=== PATIENT | female | born 1985 | race Caucasian/White ===

== ENCOUNTER 2019-12-20 02:12 | Emergency (ER) | payer OTHER ==
[~2019-12-20] VITALS: Ht 172.7 cm; Wt 64.0 kg
--- NOTE | 2019-12-20 02:27 | Emergency Department Note ---
History of Present Illnes History of Present Illness Chief Complaint: General Medicine Complaints History of Present Illness This is a 34 year old female brought in by EMS from [facility]. EMS reports patient had low grad temp of 100.3 that was treated with 650 mg of tylenol by the facil ran and 0.1 mg of clonidine for blood pressure of 166/82. Facility wanted patient to be checked out. Patient in no distress and states no complaints. Pt checked into rehab yesterday for etoh abuse and last had etoh yesterday morning.. 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 Mode: Onset (how long ago): hour(s) (2) Location: none Quality: reported fever and elevated blood pressure Radiation: Reports non-radiation Severity: unable to specify Onset quality: gradual Duration (how long): hour(s) (2) Timing of current episode: unable to specify Progression: resolved Chronicity: new Context: Reports new medications (pt on multiple meds at rehab); Denies recent illness, Denies recent surgery Relieving factors: none Exacerbating factors: none Associated symptoms: Reports denies other symptoms Treatments prior to arrival: antipyretic Past Medical/Family History Physician Review I have reviewed the patient's past medical and family history. Any updates have been documented here. Past Medical History Recent Fever: No Clinical Suspicion of Infectio: No New/Unexplained Change in Ment: No Other Medical History: chrons wpw Past Surgical History: Back Surgery Social History Smoking Cessation: Current some day smoker Alcohol Use: Daily Any Illegal Drug Use: No Family History Family history of heart diseas: No Review of Systems Review of Systems Constitutional: Reports as per HPI EENTM: Reports no symptoms Cardiovascular: Reports no symptoms Respiratory: Reports no symptoms Gastrointestinal: Reports no symptoms Genitourinary: Reports no symptoms Musculoskeletal: Reports no symptoms Integumentary: Reports no symptoms Neurological: Reports no symptoms Psychological: Reports no symptoms Endocrine: Reports no symptoms Hematological/Lymphatic: Reports no symptoms Physical Exam Related Data Allergies: Coded Allergies: No Known Allergies (Unverified , 12/20/19) Triage Vital Signs Vital Signs Date Time Temp Pulse Resp B/P (MAP) Pulse Ox O2 Delivery O2 Flow Rate FiO2 12/20/19 02:17 98.4 78 20 137/86 95 Room Air Vital signs reviewed: Yes Physical Exam CONSTITUTIONAL Constitutional: Present well-developed, Present well-nourished HENT HENT: Present normocephalic, Present atraumatic, Present oropharynx clear/moist, Present nose normal HENT L/R: Present left ext ear normal, Present right ext ear normal EYES Eyes: Reports PERRL, Reports conjunctivae normal NECK Neck: Present ROM normal PULMONARY Pulmonary: Present effort normal, Present breath sounds normal CARDIOVASCULAR Cardiovascular: Present regular rhythm, Present heart sounds normal, Present capillary refill normal, Present normal rate GASTROINTESTINAL Abdominal: Present soft, Present nontender, Present bowel sounds normal GENITOURINARY Genitourinary: Present exam deferred SKIN Skin: Present warm, Present dry MUSCULOSKELETAL Musculoskeletal: Present ROM normal NEUROLOGICAL Neurological: Present alert, Present oriented x 3, Present no gross motor or sensory deficits PSYCHOLOGICAL Psychological: Present mood/affect normal, Present judgement normal Results Laboratory Laboratory Laboratory Tests Test 12/20/19 02:30 12/20/19 02:20 Urine Color Yellow (YELLOW) Urine Clarity Sl cloudy (CLEAR) Urine pH 7.5 (5 - 7) Urine Specific [place] 1.015 (1.010-1.025) Urine Protein Negative (NEGATIVE) Urine Glucose (UA) Negative (NEGATIVE) Urine Ketones Negative (NEGATIVE) Urine Blood Small (NEGATIVE) Urine Nitrite Negative (NEGATIVE) Urine Bilirubin Negative (NEGATIVE) Urine Urobilinogen 0.2 mg/dL (0.2 - 1) Urine Leukocyte Esterase Moderate (NEGATIVE) Urine RBC 6-10 /HPF (0-5) Urine WBC 11-20 /HPF (0-5) Urine Epithelial Cells Few /LPF (NONE) Urine Bacteria Few /HPF (NONE) Urine Test Negative (NEGATIVE) White Blood Count 6.74 x10e3/uL (4.8-10.8) Red Blood Count 3.67 x10e6/uL (3.6-5.1) Hemoglobin 12.2 g/dL (12.0-16.0) Hematocrit 35.7 % (34.2-44.1) Mean Corpuscular Volume 97.3 fL (81-99) Mean Corpuscular Hemoglobin 33.2 pg (28-32) Mean Corpuscular Hemoglobin Concent 34.2 g/dL (31-35) Red Cell Distribution Width 13.5 % (11.7-14.4) Platelet Count 195 x10e3/uL (140-360) Neutrophils (%) (Auto) 69.0 % (38.7-80.0) Lymphocytes (%) (Auto) 17.1 % (18.0-39.1) Monocytes (%) (Auto) 11.9 % (4.4-11.3) Eosinophils (%) (Auto) 0.7 % (0.0-6.0) Basophils (%) (Auto) 1.0 % (0.0-1.0) Neutrophils # (Auto) 4.7 (2.1-6.9) Lymphocytes # (Auto) 1.2 (1.0-3.2) Monocytes # (Auto) 0.8 (0.2-0.8) Eosinophils # (Auto) 0.1 (0.0-0.4) Basophils # (Auto) 0.1 (0.0-0.1) Absolute Immature Granulocyte (auto 0.02 x10e3/uL (0-0.1) Sodium Level 140 mmol/L (136-145) Potassium Level 3.7 mmol/L (3.5-5.1) Chloride Level 105 mmol/L (98-107) Carbon Dioxide Level 25 mmol/L (22-29) Anion Gap 13.7 mmol/L (8-16) Blood Urea Nitrogen 8 mg/dL (7-26) Creatinine 0.69 mg/dL (0.57-1.11) Estimat Glomerular Filtration Rate > 60 ML/MIN (60-) BUN/Creatinine Ratio 12 (6-25) Glucose Level 73 mg/dL (74-118) Calcium Level 9.2 mg/dL (8.4-10.2) Total Bilirubin 1.1 mg/dL (0.2-1.2) Aspartate Amino Transf (AST/SGOT) 68 IU/L (5-34) Alanine Aminotransferase (ALT/SGPT) 94 IU/L (0-55) Alkaline Phosphatase 52 IU/L (40-150) Total Protein 6.4 g/dL (6.5-8.1) Albumin 3.9 g/dL (3.5-5.0) Globulin 2.5 g/dL (2.3-3.5) Albumin/Globulin Ratio 1.6 (0.8-2.0) Lab results reviewed: Yes Imaging Imaging results reviewed: Yes Impressions EXAMINATION: CHEST SINGLE (PORTABLE) INDICATION: ^fever COMPARISON: None FINDINGS: TUBES and LINES: None. LUNGS: Hazy right basilar opacity. The left lung is clear. 9 mm nodular density projecting over the posterior eighth left rib. PLEURA: No pleural effusion or pneumothorax. HEART AND MEDIASTINUM: The cardiomediastinal silhouette is unremarkable. BONES AND SOFT TISSUES: No acute osseous lesion. Soft tissues are unremarkable. IMPRESSION: 1. Hazy right basilar opacity concerning infectious/inflammatory process such as pneumonia, but atelectasis could also have this appearance. 2. 9 mm nodular density projecting over the posterior eighth left rib could represent a prominent vessel on end, but a pulmonary nodule is not excluded. Consider radiographic follow-up in 6-8 weeks. 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 the symptoms pt was sent over for are consistent with etoh withd david. cbc, cmp, ua, cxr, ordered to eval for uti, pneumonia, electrolyte abnormality, leukocytosis, pt found to have uti rocephin 1 gram iv ordered pt discharged back to rehab facility with prescription omnicef 300 mg po bid for 10 days Assessment & Plan Final Impression: (1) UTI (urinary tract infection) (2) Alcohol withdrawal Depart Disposition: DISC/XFER TO INPT REHAB FAC Last Vital Signs Date Time Temp Pulse Resp B/P (MAP) Pulse Ox O2 Delivery O2 Flow Rate FiO2 12/20/19 02:17 98.4 78 20 137/86 95 Room Air HARSH BARDALES MD Dec 20, 2019 02:27
[2019-12-20 02:34] LABS: BASOPHILS # (AUTO) 0.1 (0.0-0.1); EOSINOPHILS # (AUTO) 0.1 (0.0-0.4); EOSINOPHILS % 0.7 % (0.0-6.0); HEMATOCRIT 35.7 % (34.2-44.1); HEMOGLOBIN 12.2 g/dL (12.0-16.0); LYMPHOCYTES # (AUTO) 1.2 (1.0-3.2); LYMPHOCYTES % 17.1 % (18.0-39.1); MEAN CORPUSCULAR HEMOGLOBIN 33.2 pg (28-32); MEAN CORPUSCULAR HGB CONC 34.2 g/dL (31-35); MEAN CORPUSCULAR VOLUME 97.3 fL (81-99); MONOCYTES # (AUTO) 0.8 (0.2-0.8); MONOCYTES % 11.9 % (4.4-11.3); NEUTROPHILS # (AUTO) 4.7 (2.1-6.9); PLATELET COUNT 195 x10e3/uL (140-360); RED BLOOD COUNT 3.67 x10e6/uL (3.6-5.1); RED CELL DISTRIBUTION WIDTH 13.5 % (11.7-14.4)
--- OUTSIDE RECORDS SUMMARY | 2019-12-20 02:41 | XMS REPORT | Clinical Summary ---
Author Author SYLVIE [facility] Address Unknown Phone Unavailable Care Team Providers Care Extrusion Former Name Role Phone Donna Villegas MD PCP Unavailable Allergies Comments Active Allergy Reactions Severity Noted Date IV bruises vein Promethazine 01/18/2018 Medications End Date Status Medication Sig Dispensed Refills Start Date Active promethazine (PHENERGAN) TK 1 T PO Q 8 0 12/14 25 MG tablet H 8 Active azaTHIOprine (IMURAN) 50 Imuran 50 mg 0 mg tablet tablet Active DULoxetine (CYMBALTA) 20 Take 20 mg by 0 MG capsule mouth daily. Active levonorgestrel (KYLEENA by 0 IU) Intrauterine route. Active DULoxetine (CYMBALTA) 20 Take 20 mg by 0 01/26 / MG capsule mouth daily. 2 Active ALPRAZolam (XANAX XR) 0.5 Take 0.5 mg 0 MG 24 hr tablet by mouth as needed. Active azaTHIOprine (IMURAN) 50 Take 50 mg by 0 mg tablet mouth daily. 12/26/2019 Active cephalexin (KEFLEX) 500 Take 1 21 capsule 0 MG capsule capsule (500 0 mg total) by mouth 3 (three) times daily for 7 days. Active Problems No known active problems Encounters Care Team Description Date Type Specialty Joseph, Era Hobbs PA-C Acute cystitis without hematuria (Primar y Dx); Alcohol abuse; Acute dehydration; Elevated LFTs 12/19/2019 Emergency Emergency Medicine 12/19/2019 Orders Only General Internal Me dicine 12/19/2019 Travel after 12/19/2018 Social History Date Tobacco Use Types Packs/Day Years Used Current Every Day Smoker Cigarettes Smokeless Tobacco: Never Used Tobacco Cessation: Ready to Quit: No; Co unseling Given: No Alcohol Use Drinks/Week oz/Week Comments Yes 40 Glasses of 24.0 2-3 drinks/1-2 times per week wine Sex Assigned at Date Recorded Not on file Industry Job Start Date Occupation Not on file Not on file Not on file Travel End Travel History Travel Start No recent travel history available. Last Filed Vital Signs Time Taken Vital Sign Reading 12/19/2019 4:33 PM CDT Blood Pressure 138/92 12/19/2019 4:33 PM CDT Pulse 98 12/19/2019 4:33 PM CDT Temperature 36.8 C (98.3 F) 12/19/2019 4:33 PM CDT Respiratory Rate 16 12/19/2019 4:33 PM CDT Oxygen Saturation 98% - Inhaled Oxygen - Concentration 12/19/2019 1:48 PM CDT Weight 74.8 kg (165 lb) - Height - 12/19/2019 1:48 PM CDT Body Mass Index 25.09 Plan of Treatment Health Maintenance Due Date Last Done Comments PNEUMOCOCCAL VACCINE 2-64 09/01/1989 YEARS AT RISK (1 of 1 - PPSV23) LIPID PANEL 2003 CERVICAL CANCER SCREENING 09/01/2004 PAP ONLY (Age 21-65) INFLUENZA VACCINE (#1) 2020 Procedures Comments Procedure Name Priority Date/Time Associated Diag nosis CT BRAIN WITHOUT IV STAT 12/19/2019 CONTRAST 3:51 PM CDT ED ECG INTERPRETATION Routine 12/19/2019 3:28 PM CDT ECG 12-LEAD Routine 12/19/2019 2:52 PM CDT Procedure Note - Interface, External Ris In - 12/19/2019 2:53 PM CDT Ventricula r Rate 95 BPM Atrial Rate 95 BPM P-R Interval 134 ms QRS Duration 78 ms Q-T Interval 362 ms QTC Calculatio n(Bazett) 454 ms P [place] 71 degrees R [place] 81 degrees T [place] 64 degrees Normal sinus rhythm Normal ECG No previous ECGs available CBC W/PLT COUNT & AUTO STAT 12/19/2019 DIFFERENTIAL 2:14 PM CDT COMPREHENSIVE METABOLIC STAT 12/19/2019 PANEL 2:14 PM CDT SALICYLATE LEVEL STAT 12/19/2019 2:14 PM CDT ACETAMINOPHEN LEVEL STAT 12/19/2019 2:14 PM CDT ETHANOL STAT 12/19/2019 2:14 PM CDT CREATINE KINASE (CK) STAT 12/19/2019 2:14 PM CDT CBC W/PLT COUNT & AUTO STAT 12/19/2019 DIFFERENTIAL 2:14 PM CDT URINALYSIS W/ REFLEX STAT 12/19/2019 URINE CULTURE 2:08 PM CDT RAPID DRUG SCREEN, URINE STAT 12/19/2019 2:08 PM CDT SCREEN, URINE STAT 12/19/2019 2:08 PM CDT after 12/19/2018 Results * CT brain without IV contrast (12/19/2019 3:51 PM CDT) Specimen Narrative Performed At FINAL REPORT [employer] [facility] CT, BRAIN, WITHOUT CONTRAST INDICATION: altered altered TECHNIQUE: Noncontrast axial imaging wa s obtained from the vertex to the skull base. Axial images were recon structed using a bone algorithm. DOSE REDUCTION: Dose modulation, iterat mart reconstruction, and/or weight-based adjustment of the mA/kV wa s utilized to reduce the radiation dose to as low as reasonably achievable. COMPARISON: None. FINDINGS: Intracranial: There is encephalomalacia within the inferior left frontal lobe and anterior left temporal lobe, suggestive of sequela of remote trauma. No intracranial hemorrhage or abnormal extra-axial collection. No evidence of acute territorial infarct. No mass effect. No hydrocephalus. Osseous structures: No fracture. No chicho picious lesion. Paranasal sinuses and mastoid air cells : No evidence of sinusitis. Mastoids are clear. Orbital contents: Globes are intact. IMPRESSION: 1.No acute intracranial hemorrhage or C T evidence of territorial infarct. 2.Encephalomalacia in the left inferior frontal lobe and anterior temporal lobe, suggestive of sequela of remote trauma. If there is persistent clinical concern for intracranial pathology, MR examination is recommended for [facility] er characterization. Signed: Leatha Prater MD Report Verified Date/Time: 0 16:06:46 Procedure Note Interface, External Ris In - 12/19/2019 4:08 PM CDT FINAL REPORT CT, BRAIN, WITHOUT CONTRAST INDICATION: altered altered TECHNIQUE: Noncontrast axial imaging was obtained from the vertex to the skull base. Axial images were reconstructed using a bone algorithm. DOSE REDUCTION: Dose modulation, iterative reconstruction, and/or weight-based adjustment of the mA/kV was utilized to reduce the radiation dose to as low as reasonably achievable. COMPARISON: None. FINDINGS: Intracranial: There is encephalomalacia within the inferior left frontal lobe and anterior left temporal lobe, suggestive of sequela of remote trauma. No intracranial hemorrhage or abnormal extra-axial collection. No evidence of acute territorial infarct. No mass effect. No hydrocephalus. Osseous structures: No fracture. No suspicious lesion. Paranasal sinuses and mastoid air cells: No evidence of sinusitis. Mastoids are clear. Orbital contents: Globes are intact. IMPRESSION: 1.No acute intracranial hemorrhage or CT evidence of territorial infarct. 2.Encephalomalacia in the left inferior frontal lobe and anterior temporal lobe, suggestive of sequela of remote trauma. If there is persistent clinical concern for intracranial pathology, MR examination is recommended for further characterization. Signed: Leatha Prater MD Report Verified Date/Time: 12/19/2019 16:06:46 Performing Organization Address City/State/Zipcode Ph one Number GE RIS * CBC with platelet count + automated diff (12/19/2019 2:14 PM CDT) WBC 7.5 4.0 - 10.0 K/L [facility] RBC 4.14 4.00 - 5.00 M/L [facility] Hemoglobin 14.1 12.0 - 15.5 GM/DL [facility] Hematocrit 40.7 36.0 - 46.0 % [facility] MCV 98.3 82.0 - 99.[address] [facility] MCH 34.1 (H) 27.0 - 33.0 pg [facility] MCHC 34.6 32.0 - 36.0 GM/DL [facility] RDW 13.9 12.0 - 15.0 % [facility] Platelets 272 150 - 430 K/CU MM [facility] MPV 9.2 6.0 - 11.5 fL [facility] nRBC 0 0 - 0 /100 WBC [facility] % Neutros 77 % [facility] % Lymphs 11 % [facility] % Monos 9 % [facility] % Eos 0 % [facility] % Baso 2 % [facility] # Neutros 5.77 1.80 - 8.00 K/L [facility] # Lymphs 0.81 (L) 1.48 - 4.50 K/L [facility] # Monos 0.70 0.00 - 1.30 K/L [facility] # Eos 0.02 0.00 - 0.50 K/L [facility] # Baso 0.11 0.00 - 0.20 K/L [facility] Immature 1 (H) 0 - 0 % [facility] Granulocytes-Relative Specimen Blood Performing Organization Address [facility] one [address] [phone] * Creatine Kinase (CK) (12/19/2019 2:14 PM CDT) Total CK 523 (H) 29 - 168 U/L [facility] Specimen Blood Narrative Performed At Freight Conductor ID - [id number] [facility] Performing Organization Address [facility] one [address] [phone] * Ethanol (12/19/2019 2:14 PM CDT) Ethanol Lvl 134 (H) <=10 mg/dL [facility] Specimen Blood Narrative Performed At Freight Conductor ID - [id number] [facility] Performing Organization Address [facility] one [address] [phone] * Acetaminophen level (12/19/2019 2:14 PM CDT) Acetaminophen Level <6.0 (L) 10.0 - 30.0 ug/mL [facility] Specimen Blood Narrative Performed At Freight Conductor ID - [id number] [facility] Performing Organization Address [facility] one Critical access hospital LAB[facility] [address] [place], [place] [phone] * Salicylate level (12/19/2019 2:14 PM CDT) Salicylate Lvl <5.0 (L) 20.0 - 30.0 mg/dL [facility] Specimen Blood Narrative Performed At Freight Conductor ID - [id number] [facility] Performing Organization Address [facility] one Critical access hospital LAB[facility]ORY [address] [place], [place] [phone] * Comprehensive metabolic panel (12/19/2019 2:14 PM CDT) Protein, Total 7.8 6.0 - 8.5 gm/dL [facility] Albumin 4.9 3.5 - 5.0 g/dL [facility] Alkaline Phosphatase 68 30 - 115 U/L [facility] Total Bilirubin 0.7 0.1 - 1.3 mg/dL [facility] Sodium 142 135 - 148 meq/L [facility] Potassium 4.0 3.5 - 5.5 meq/L [facility] Chloride 104 98 - 106 meq/L [facility] CO2 23 20 - 31 meq/L [facility] BUN 7 (L) 10 - 26 mg/dL [facility] Creatinine 0.74 0.50 - 1.20 mg/dL [facility] Glucose 81 70 - 110 mg/dL [facility] Calcium 9.4 8.5 - 10.5 mg/dL [facility] AST 127 (H) 5 - 40 U/L [facility] ALT 137 (H) 6 - 50 U/L [facility] EGFR Comment: INSUFFICIENT CLINICAL [facility] DATA TO CALCULATE ESTIMATED GFR. Specimen Blood Narrative Performed At Freight Conductor ID - [id number] [facility] Performing Organization Address [facility] one Critical access hospital LABORATORY [address] [place], [place] [phone] * Urinalysis w/Microscopic + Reflex to Culture (12/19/2019 2:08 PM CDT) Color, UA Yellow [facility] Clarity, UA Hazy [facility] Specific [place], UA 1.015 1.001 - 1.035 [facility] pH, UA 6.0 5.0 - 8.0 [facility] Protein, UA 30 mg/dL (A) Negative [facility] Glucose, UA Negative Negative [facility] Ketones, UA Negative Negative [facility] Bilirubin, UA Negative Negative [facility] Blood, UA Moderate (A) Negative [facility] Nitrite, UA Negative Negative [facility] Leukocytes, UA Large (A) Negative [facility] Urobilinogen, UA 2.0 (H) 0.2 - 1.0 mg/dL [facility] RBC, UA 11 /HPF [facility] WBC, UA 187 /HPF [facility] Bacteria, UA Rare [facility] Mucus Few [facility] Squam Epithel, UA 3 /HPF [facility] Specimen Source [facility] Specimen Urine Narrative Performed At Freight Conductor ID - [[email or web address]] [facility] Freight Conductor ID - [email or web address] Performing Organization Address [facility] Ph one Number [facility] [id number] [place] [phone] * Rapid drug screen, urine (12/19/2019 2:08 PM CDT) Barbiturate Screen Negative Negative [facility] Benzodiazepine Screen Positive (A) Negative [facility] Cocaine (Metab.) Screen Negative Negative [facility] Methadone Screen Negative Negative [facility] Opiate Screen Negative Negative [facility] Cannabinoid Screen Negative Negative [facility] Amph/Methamph Screen Negative Negative [facility] Phencyclidine Screen Negative Negative [facility] pH, UA 6.0 5.0 - 8.0 [facility] Specimen Urine Narrative Performed At [facility] Cocaine 300 ng/mL Flincdudute74 n g/mL [id number] ng/mL Barbiturate 200 ng/ mL Yyilgwerytpqe32 ng/ mL Opiate3 00 ng/mL Methadone 300 n g/mL Amphetamine/ 1000 ng/mL Methamphetamine This assay provides an unconfirmed qual itative test result for the clinical management of patients in emergency sit uations. Chain of custody not maintained. Some [id number] medications, as w ell as adulterants, may cause inaccurate results. Clinical correlation should be applied. A more comprehensive drug screen or confirmation of a detected dr ug may be performed upon request. Freight Conductor ID - [email or web address] Performing Organization Address [facility] one Critical access hospital LAB[facility]ORY [address] [place], [place] [phone] * Screen, urine (12/19/2019 2:08 PM CDT) Preg Test, Ur Negative [facility] Specimen Urine Performing Organization Address [facility] one Critical access hospital LABORATORY [address] [place], [place] [phone] after 12/19/2018
--- OUTSIDE RECORDS SUMMARY | 2019-12-20 02:43 | XMS REPORT | Continuity of Care Document ---
Author Author CAROLINE Johnson Organization [employer] Address Unknown Phone Unavailable Care Team Providers Care Medical Records Field Technician Name Role Phone [employer] Unavailable Un available Problems Problem Status Onset Date Classification Date Reported Comments Source Alcohol abuse, uncomplicated 12/08/2019 12/10/2019 [facility] Suicidal ideations 12/08/2019 12/10/2019 [place] SI Active [place] Alcohol use, unspecified with intoxication, unspecifie d 12/02/2019 12/05/2019 [place] ALCOHOL WITHDRAWAL, SEIZURE Ac tive 12/01/2019 [place] Contusion of scalp, initial encounter 11/08/2019 11/11/2019 [place] SPINAL STENOSIS, LUMBOSACRAL REGION Active 07/09/2019 [place] ETOH Active 06/28/2019 [place] SI/ PSYC Active 06/12/2019 [place] Restlessness and agitation 05/22/2019 05/24/2019 [place] Disorientation, unspecified 05/22/2019 05/24/2019 [place] POST SURGERY Active 05/22/2019 [place] M48.07 M54.17 Active 05/16/2019 [place] Abrasion, right knee, initial encounter 05/05/2019 05/07/2019 [place] Dorsalgia, unspecified 05/05/2019 05/07/2019 [place] Other specified disorders of brain 05/05/2019 05/07/2019 [place] Acute stress reaction 05/05/2019 05/07/2019 [place] Radiculopathy, lumbar region 05/05/2019 05/07/2019 [place] Fall on same level, unspecified, initial encounter 05/05/2019 05/07/2019 [place] Alcohol dependence with intoxication, unspecified 05/05/2019 05/07/2019 [place] PANIC ATTACK Active 05/05/2019 [place] AMS Active 1 05/19/2018 [facility] CEREBRAL CONTUSION.CHORDOMA OF CLIVUS/AM Active 03/19/2019 [place] INTOXICATION Active 12/23/2018 [facility] OTHER Active 12/22/2018 [facility] Infectious mononucleosis, unspecified wi thout complication 01/10/2018 07/30/2018 [facility] FEVER, BODY ACHES Active 01/10/2018 [facility] Discharge Diagnosis: Abdominal pain 02/20/2014 02/23/2014 [facility] Discharge Diagnosis: Diarrhea 02/20/2014 02/23/2014 [facility] SENT BY DR MORGAN FOR POSS BLOCKAGE Active 02/19/2014 [facility] LEFT LOWER QAUDRANT ABD PAIN A ctive 01/30/2012 [facility] CHRONS/COLITIS Active 01/27/2012 [facility] CROHNS, VOMITING, DIARRHEA Act anuradha 01/26/2012 [facility] CHRONES FLARE UP Active 12/30/2011 [facility] Anxiety (finding) Resolved Problem 12/10/2019 [facility] [place] Crohn's disease (disorder) Res olved Problem [facility] [place] Diarrhea (finding) Active Problem 12/10/2019 [facility] [place] Nausea (finding) Active Problem 12/10/2019 [facility] [place] Nephrotic syndrome (disorder) Resolved Problem [facility] [place] Pain (finding) Active Problem 12/10/2019 [facility] [place] Suazn-Ydilfzzoh-Jttqz pattern (disorder) Resolved Problem 12/10/2019 [facility], [place] Pre-excitation syndrome 07/30/2018 [facility] Crohn's disease, unspecified, without complications 07/30/2018 [facility] Crohn's disease Active Problem 02/06/2012 [facility], [place] [facility] [place] Diarrhea Active Problem 02/06/2012 [facility], [place] Nausea Active Problem 02/06/2012 [facility], [place] Pain Active Problem 02/06/2012 [facility], [place] Chronic back pain (disorder) A ctive Problem [facility] Current drinker of alcohol (finding) Active Problem [facility] 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 Problem 12/10/2019 [facility] Fracture of clivus of occipital bone (disorder) Active Problem 12/10/2019 [facility] Traumatic brain injury (disorder) Active Problem [facility] Pre-op evaluation Active Diagnosis 09/17/2019 [facility] Other chronic pain Active Problem 09/17/2019 [facility] Low back pain Active Diagnosis 09/17/2019 [facility] ADMINISTRTVE ENCOUNT NOS Active [facility] ABDMNAL PAIN LT LWR QUAD Active [facility] CONTUS/LAC CEREB, W LOC OF UNSP DURATION Active [facility] MALIGNANT NEOPLASM OF BONES OF SKULL AND Active [facility] ALTERED MENTAL STATUS, UNSPECIFIED Active [facility] ALCOHOL DEPENDENCE WITH WITHDRAWAL, UNSP Active [facility] UNSPECIFIED CONVULSIONS Active [facility] Medications Medication Details Route Status Patient Instructions Ordering Provider Order Date Source Valium Notes: (Same as: Valium) Inactive 12/08/2019 [facility] Valium Notes: (Same as: Valium ) WASTE: F/P - Black; E - White/Blue Inactive 12/08/2019 [facility] Chlordiazepoxide Hydrochloride 25 MG Oral Capsule 25 mg, 1 cap, Route: PO, Drug form: CAP, ONCE, Dosing Weight 73.636, kg, Alcohol Withdrawal, Start date: 12/08/19 16:02:00 CDT, Stop date: 12/08/19 16:02:00 CDT, 0 Inactive 12/08/2019 [facility] Nicotine Notes: (Same as: Ami aviles) "Remove old patch before application of new patch" WASTE: F/P - P Waste Black; E - P Waste Black Inactive 12/08/2019 [facility] Geodon Notes: Reconstitute wit h 1.2 ml of sterile water. Final concentration = 20 mg/1ml. Maximum 40 mg/24 hours (Same As: Arti). Hazardous Drug Group 3:Reproductive risk Hazardous Drug -- Refer to safe handling procedure PPE Matrix MEDICATION WASTE Product Size: 20 mg Product Wasted: ___ mg Inactive 12/08/2019 [facility] Nicotine Notes: (Same as: Ami aviles) "Remove old patch before application of new patch" WASTE: F/P - P Waste Black; E - P Waste Black Inactive 12/08/2019 [facility] Haldol Notes: (Same as: Haldol) Inactive 12/08/2019 [facility] Ativan Notes: (Same as: Ativan) Inactive 12/08/2019 [facility] Sodium Chloride 0.9% (Bolus) IV 1,000 mL, 1000 ml/hr, Infuse Over: 1 hr, Route: IV, 1,000, Drug form: INJ, ONCE, Priority: STAT, Dosing Weight 63.636 kg, Start date: 12/08/19 0:21:00 CDT, Stop date: 12/08/19 0:21:00 CDT, 0 Inactive 12/08/2019 [facility] Chlordiazepoxide 50 mg, 2 cap, Route: PO, Drug form: CAP, Q12H, Dosing Weight 63.636, kg, Start date: 12/04/19 21:00:00 CDT, Duration: 24 hr, Stop date: 12/05/19 9:00:00 CDT, 0 No Longer Active 12/05/2019 [facility] Chlordiazepoxide 50 mg, 2 cap, Route: PO, Drug form: CAP, Q8H, Dosing Weight 63.636, kg, Start date: 12/04/19 0:00:00 CDT, Duration: 24 hr, Stop date: 12/04/19 16:00:00 CDT, 0 No Longer Active 12/04/2019 [facility] Folic Acid Notes: (Same as: Fo lvite) Inactive 12/03/2019 [facility] multivitamin Notes: (Same as:T madi) WASTE: F/P - Black; E - Municipal Trash Bin Take with food. Inactive 12/03/2019 [facility] Thiamine Notes: (Same As: Laura min B1) Inactive 12/03/2019 [facility] Chlordiazepoxide 50 mg, 2 cap, Route: PO, Drug form: CAP, Q6H, Dosing Weight 63.636, kg, Start date: 12/02/19 18:00:00 CDT, Duration: 24 hr, Stop date: 12/03/19 12:00:00 CDT, 0 No Longer Active 12/02/2019 [place] Sodium Chloride 0.9% IV 1,000 mL + M.V.I .-12 10 mL Daily + folic acid IV 1 mg Daily + thiamine IV 1 1,000 mL, Rate: 100 ml/hr, Infuse over: 10.1 hr, Route: IV, Dosing Weight 63.636 kg, Total Volume: 1,011.2, Start date: 12/02/19 16:09:00 CDT, Duration: 1 doses or times, Stop date: 12/03/19 2:14:00 CDT, 1.76, m2, 0 Inactive 12/02/2019 [place] Sodium Chloride 0.9% IV 1,000 mL 1,000 mL, Rate: 125 ml/hr, Infuse over: 8 hr, Route: IV, Dosing Weight 63.636 kg, Total Volume: 1,000, Start date: 12/02/19 16:09:00 CDT, Duration: 30 day, Stop date: 01/01/20 16:08:00 CDT, 1.76, m2, 0 No Longer Active 12/02/2019 [place] Saline Flush 0.9% Notes: Same as: BD Posiflush Sterile No Longer Active 12/02/2019 [place] Lorazepam Notes: (Same as: Shamika mendoza) No Longer Active 12/02/2019 [place] Ativan Notes: (Same as: Ativan) No Longer Active 12/02/2019 [place] Dextrose 50% Syringe (D50W) 12 .5 gm, 25 mL, Route: IVP, Drug Form: INJ, Dosing Weight 63.636, kg, PRN, PRN Blood Glucose Results, Start date: 12/02/19 16:05:00 CDT, Duration: 30 day, Stop date: 01/01/20 16:04:00 CDT, 0 No Longer Active 12/02/2019 [place] Glucagon 1 mg, Route: IM, Drug form: PDR/INJ, PRN, Dosing Weight 63.636, kg, PRN Blood Glucose Results, Start date: 12/02/19 16:05:00 CDT, Duration: 30 day, Stop date: 01/01/20 16:04:00 CDT, 0 No Longer Active 12/02/2019 [facility] Ondansetron Notes: (Same as: Nikki ruiz) MEDICATION WASTE Product Size: 4 mg Product Wasted: ___ mg No Longer Active 12/02/2019 [facility] Acetaminophen Notes: Do not ex ceed 4 gm/day. (Same as: Tylenol) No Longer Active 12/02/2019 [facility] folic acid + Sodium Chloride 0.9% IV 100 mL Notes: (Same as: Folvite) Inactive 12/02/2019 [facility] Valium 20 mg, Route: IVP, Drug form: INJ, ONCE, Dosing Weight 63.636, kg, Start date: 12/02/19 15:32:00 CDT, Stop date: 12/02/19 15:32:00 CDT Inactive 12/02/2019 [facility] Folic Acid 1 mg, Route: IV, ON CE, Dosing Weight 63.636, kg, Start date: 12/02/19 15:04:00 CDT, Stop date: 12/02/19 15:04:00 CDT Inactive 12/02/2019 [facility] NS (Bolus) IV 1,000 mL, 1,000 ml/hr, Infuse Over: 1 hr, Route: IV, 1,000, Drug form: INJ, ONCE, Priority: STAT, Dosing Weight 63.636 kg, Start date: 12/02/19 15:04:00 CDT, Stop date: 12/02/19 15:04:00 CDT, 0 Inactive 12/02/2019 [facility] Thiamine 100 mg, Route: IV, Dr ug form: INJ, ONCE, Dosing Weight 63.636, kg, Priority: STAT, Start date: 12/02/19 15:03:00 CDT, Stop date: 12/02/19 15:03:00 CDT Inactive 12/02/2019 [facility] Valium Notes: (Same as: Valium ) WASTE: F/P - Black; E - White/Blue Inactive 12/02/2019 [facility] Haldol 5 mg, Route: IM, ONCE, Dosing Weight 63.636, kg, Priority: STAT, Start date: 12/02/19 8:53:00 CDT, Stop date: 12/02/19 8:53:00 CDT Inactive 12/02/2019 [facility] Geodon 20 mg, Route: IM, ONCE, Dosing Weight 63.636, kg, Priority: STAT, Start date: 12/02/19 1:44:00 CDT, Stop date: 12/02/19 1:44:00 CDT Inactive 12/02/2019 [facility] Sodium Chloride 0.9% (Bolus) IV 1,000 mL, Infuse Over: 1 hr, Route: IV, ONCE, Priority: STAT, Dosing Weight 63.636 kg, Start date: 12/01/19 23:11:00 CDT, Stop date: 12/01/19 23:11:00 CDT Inactive 12/02/2019 [facility] Nicotine Notes: (Same as: Ami aviles) "Remove old patch before application of new patch" WASTE: F/P - P Waste Black; E - P Waste Black Inactive 11/10/2019 [facility] Ativan Notes: (Same as: Ativan) Inactive 11/10/2019 [facility] Acetaminophen 325 MG / Hydrocodone Ronnie trate 5 MG Oral Tablet [[place] 5/325] 1 tab, Route: PO, Drug Form: TAB, Dosing Weight 67.273, kg, ONCE, STAT, Start date: 11/09/19 19:21:00 CDT, Stop date: 11/09/19 19:21:00 CDT Inactive 11/10/2019 [facility] Geodon 20 mg, Route: IM, ONCE, Dosing Weight 67.273, kg, Priority: STAT, Start date: 11/09/19 19:18:00 CDT, Stop date: 11/09/19 19:18:00 CDT Inactive 11/10/2019 [facility] Midazolam 2 mg, Route: IVP, Q1 5Min, Dosing Weight 67.273, kg, PRN Agitation, Priority: STAT, Start date: 11/09/19 18:39:00 CDT, Stop date: 11/09/19 21:00:00 CDT Inactive 11/09/2019 [facility] Droperidol 2.5 mg, Route: IV, ONCE, Dosing Weight 67.273, kg, Start date: 11/09/19 18:28:00 CDT, Stop date: 11/09/19 18:28:00 CDT Inactive 11/09/2019 [facility] Ketamine 300 mg, Route: IM, ON CE, Dosing Weight 67.273, kg, Start date: 11/09/19 18:27:00 CDT, Stop date: 11/09/19 18:27:00 CDT Inactive 11/09/2019 [facility] Valium Notes: (Same as: Valium) Inactive 11/09/2019 [facility] Valium Notes: (Same as: Valium) Inactive 11/09/2019 [facility] Valium 10 mg, Route: PO, Drug form: TAB, ONCE, Dosing Weight 67.273, kg, Priority: STAT, Start date: 11/09/19 8:12:00 CDT, Stop date: 11/09/19 8:12:00 CDT Inactive 11/09/2019 [facility] Arti Notes: Reconstitute wit h 1.2 ml of sterile water. Final concentration = 20 mg/1ml. Maximum 40 mg/24 hours (Same As: Arti). Hazardous Drug Group 3:Reproductive risk Hazardous Drug -- Refer to safe handling procedure PPE Matrix MEDICATION WASTE Product Size: 20 mg Product Wasted: ___ mg Inactive 11/09/2019 [facility] Arti Notes: Reconstitute wit h 1.2 ml of sterile water. Final concentration = 20 mg/1ml. Maximum 40 mg/24 hours (Same As: Arti). Hazardous Drug Group 3:Reproductive risk Hazardous Drug -- Refer to safe handling procedure PPE Matrix MEDICATION WASTE Product Size: 20 mg Product Wasted: ___ mg No Longer Active 11/09/2019 [facility] Sodium Chloride 0.9% (Bolus) IV 1,000 mL, 1000 ml/hr, Infuse Over: 1 hr, Route: IV, 1,000, Drug form: INJ, ONCE, Priority: STAT, Dosing Weight 67.273 kg, Start date: 11/08/19 23:35:00 CDT, Stop date: 11/08/19 23:35:00 CDT, 0 No Longer Active 11/09/2019 [facility] Thiamine Notes: (Same As: Laura min B1) No Longer Active 11/09/2019 [facility] Chlordiazepoxide Hydrochloride 25 MG Oral Capsule See Instructions, PRN Anxiety, 2 cap PO QID the first day 2 cap PO TID the second day 2 cap PO BID the third day 2 cap PO QHS the fourth day, # 20 tab, 0 Refill(s) Inactive 08/13/2019 [facility] thiamine 100 mg oral tablet 10 0 mg = 1 tab, PO, Daily, X 7 day, # 7 tab, 0 Refill(s) Active 08/13/2019 [facility] Folic Acid 1 MG Oral Tablet 1 mg = 1 tab, PO, Daily, # 30 tab, 0 Refill(s) Active 08/13/2019 [facility] Ativan Notes: (Same as: Ativan) Inactive 08/13/2019 [facility] Arti Notes: Reconstitute wit h 1.2 ml of sterile water. Final concentration = 20 mg/1ml. Maximum 40 mg/24 hours (Same As: Arti). Hazardous Drug Group 3:Reproductive risk Hazardous Drug -- Refer to safe handling procedure PPE Matrix MEDICATION WASTE Product Size: 20 mg Product Wasted: ___ mg Inactive 08/12/2019 [facility] Ativan Notes: (Same as: Ativan) Inactive 08/12/2019 [facility] Ativan 1 mg, Route: IVP, Drug form: INJ, ONCE, Dosing Weight 67, kg, Priority: STAT, Start date: 08/12/19 12:59:00 CDT, Stop date: 08/12/19 12:59:00 CDT Inactive 08/12/2019 [facility] Arti Notes: Reconstitute wit h 1.2 ml of sterile water. Final concentration = 20 mg/1ml. Maximum 40 mg/24 hours (Same As: Arti). Hazardous Drug Group 3:Reproductive risk Hazardous Drug -- Refer to safe handling procedure PPE Matrix MEDICATION WASTE Product Size: 20 mg Product Wasted: ___ mg Inactive 08/12/2019 [facility] Ativan 1 mg, Route: IVP, Drug form: INJ, ONCE, Dosing Weight 65.909, kg, Priority: STAT, Start date: 06/29/19 7:32:00 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, Stop date: 06/29/19 7:32:00 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 Inactive 06/29/2019 [facility] Chlordiazepoxide Hydrochloride 25 MG Oral Capsule 50 mg, Route: PO, Drug form: CAP, ONCE, Dosing Weight 65.909, kg, Alcohol Withdrawal, Start date: 06/29/19 6:20:00 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, Stop date: 06/29/19 6:20:00 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 Inactive 06/29/2019 [facility] Chlordiazepoxide Hydrochloride 25 MG Oral Capsule 50 mg, Route: PO, Drug form: CAP, ONCE, Dosing Weight 65.909, kg, Alcohol Withdrawal, Start date: 06/29/19 0:56:00 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, Stop date: 06/29/19 0:56:00 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 Inactive 06/29/2019 [facility] Chlordiazepoxide Hydrochloride 25 MG Oral Capsule See Instructions, PRN Anxiety, 2 cap PO QID the first day 2 cap PO TID the second day 2 cap PO BID the third day 2 cap PO QHS the fourth day, # 20 tab, 0 Refill(s) Inactive 06/29/2019 [facility] Folic Acid 1 MG Oral Tablet 1 mg = 1 tab, PO, Daily, # 30 tab, 0 Refill(s) Active 06/29/2019 [facility] thiamine 100 mg oral tablet 10 0 mg = 1 tab, PO, Daily, X 7 day, # 7 tab, 0 Refill(s) Active 06/29/2019 [facility] Haldol Notes: (Same as: Haldol) Inactive 06/28/2019 [facility] NS (Bolus) IV 2,000 mL, 2000 m l/hr, Infuse Over: 1 hr, Route: IV, 2,000, Drug form: INJ, ONCE, Priority: STAT, Dosing Weight 67.273 kg, Start date: 06/28/19 15:53:00 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, Stop date: 06/28/19 15:53:00 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, 0 Inactive 06/28/2019 [facility] Ativan Notes: (Same as: Ativan) Inactive 06/28/2019 [facility] Depakote Notes: (Same as: Depa kote ER) (Do Not Crush) "Do Not Crush" Inactive 06/14/2019 [facility] Ativan Notes: (Same as: Ativan) Inactive 06/14/2019 [facility] Ativan 2 mg, Route: IVP, Drug form: INJ, ONCE, Dosing Weight 67.273, kg, Priority: STAT, Start date: 06/14/19 7:35:00 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, Stop date: 06/14/19 7:35:00 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 Inactive 06/14/2019 [facility] Benadryl Notes: (Same as: Shirley dryl) Inactive 06/14/2019 [facility] Diphenhydramine Notes: (Same a s: Benadryl) No Longer Active 06/14/2019 [facility] Haldol Notes: (Same as: Haldol) No Longer Active 06/14/2019 [facility] Ativan Notes: (Same as: Ativan) No Longer Active 06/14/2019 [facility] olanzapine Notes: (Same As: Zy PREXA IM). Reconstitute with 2.1 ml sterile water for injection; use within 1 hour after reconstitution. For IM use only; do not administer IV or SUB-Q. Inactive 06/14/2019 [facility] Depakote Notes: (Same as: Depa kote ER) Once daily dosing; indicated for migraines. Divalproex sodium extended-release tab. Do not chew or crush. "Do Not Crush" No Longer Active 06/14/2019 [facility] Risperdal Notes: (Same as: Ris perdal) No Longer Active 06/13/2019 [facility] Ativan Notes: (Same as: Ativan) Inactive 06/13/2019 [facility] Ativan Notes: (Same as: Ativan) Inactive 06/13/2019 [facility] Haldol 5 mg, Route: IM, ONCE, Dosing Weight 67.273, kg, Priority: STAT, Start date: 06/13/19 8:54:00 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, Stop date: 06/13/19 8:54:00 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 Inactive 06/13/2019 [facility] Ativan 1 mg, Route: IVP, Drug form: INJ, ONCE, Dosing Weight 67.273, kg, Priority: STAT, Start date: 06/13/19 8:46:00 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, Stop date: 06/13/19 8:46:00 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 Inactive 06/13/2019 [facility] Ativan Notes: (Same as: Ativan) Inactive 06/13/2019 [facility] Lorazepam Notes: (Same as: Shamika mendoza) Inactive 06/13/2019 [facility] Lorazepam 1 mg, Route: IVP, Dr ug form: INJ, ONCE, Dosing Weight 67.273, kg, Priority: STAT, Start date: 06/12/19 18:47:00 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, Stop date: 06/12/19 18:47:00 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 Inactive 06/13/2019 [facility] Lorazepam Notes: (Same as: Shamika mendoza) Inactive 06/13/2019 [facility] olanzapine Notes: (Same As: Zy PREXA IM). Reconstitute with 2.1 ml sterile water for injection; use within 1 hour after reconstitution. For IM use only; do not administer IV or SUB-Q. Inactive 06/13/2019 [facility] NS (Bolus) IV 1,000 mL, 1,000 ml/hr, Infuse Over: 1 hr, Route: IV, 1,000, Drug form: INJ, ONCE, Priority: STAT, Dosing Weight 68.182 kg, Start date: 05/22/19 14:25:00 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, Stop date: 05/22/19 14:25:00 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, 0 Inactive 05/22/2019 [facility] Ativan 1 mg, Route: IVP, Drug form: INJ, ONCE, Dosing Weight 68.182, kg, Priority: STAT, Start date: 05/22/19 12:41:00 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, Stop date: 05/22/19 12:41:00 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 Inactive 05/22/2019 [facility] Benadryl Notes: (Same as: Alva dryl) Inactive 05/22/2019 [facility] Ativan 1 mg, Route: IVP, Drug form: INJ, ONCE, Dosing Weight 68.182, kg, Priority: STAT, Start date: 05/22/19 12:40:00 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, Stop date: 05/22/19 12:40:00 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 Inactive 05/22/2019 [facility] Haloperidol 5 mg, Route: IM, O NCE, Dosing Weight 68.182, kg, Priority: STAT, Start date: 05/22/19 12:39:00 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, Stop date: 05/22/19 12:39:00 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 Inactive 05/22/2019 [facility] Phenergan Notes: Do not give I V push. (Same as: Phenergan) Inactive 05/05/2019 [place] Dilaudid Notes: Same as: Dilau did Inactive 05/05/2019 [place] Zofran Notes: (Same as: Zofran ) MEDICATION WASTE Product Size: 4 mg Product Wasted: ___ mg Inactive 05/05/2019 [place] Sodium Chloride 0.9% (Bolus) IV 1,000 mL, 1000 ml/hr, Infuse Over: 1 hr, Route: IV, 1,000, Drug form: INJ, ONCE, Priority: STAT, Dosing Weight 67.273 kg, Start date: 05/05/19 2:44:00 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, Stop date: 05/05/19 2:44:00 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, 0 Inactive 05/05/2019 [facility] Thiamine Notes: (Same As: Laura min B1) Inactive 05/05/2019 [facility] Acetaminophen 325 MG Oral Tablet 100.4 F, 0 Refill(s) Active 03/29/2019 [place] Diazepam Notes: (Same as: Rl um) No Longer Active 03/25/2019 [place] Cymbalta Notes: (Same as: Cymb deven) (Do Not Crush) No Longer Active 03/25/2019 [place] Divalproex Sodium 500 MG Enteric Coated Tablet Notes: (Same as: Depakote Delayed Release) Do not confuse with the extended-release tablet. Delayed absorption enteric coated tablet. Do not crush No Longer Active 03/25/2019 [place] Risperidone Notes: (Same as: R isperdal) Inactive 03/24/2019 [place] Zofran Notes: (Same as: Zofran) No Longer Active 03/24/2019 [place] Diazepam Notes: (Same as: Rl um) No Longer Active 03/24/2019 [place] Risperidone Notes: (Same as: R isperdal) No Longer Active 03/23/2019 [place] Thiamine Notes: (Same As: Laura min B1) No Longer Active 03/23/2019 [place] Risperidone Notes: (Same as: R isperdal) Inactive 03/23/2019 [place] Valium Notes: (Same as: Valium) Inactive 03/22/2019 [facility] gabapentin Notes: (Same as: Ne urontin) No Longer Active 03/22/2019 [facility] Fioricet with Codeine Notes: N on-Formulary Drug. Do not exceed 4 gm/day of acetaminophen. (Same as: Fioricet with Codeine) (Same as: Fioricet with Codeine) No Longer Active 03/22/2019 [facility] heparin Notes: porcine heparin No Longer Active 03/21/2019 [facility] potassium phosphate-sodium phosphate 250 mg-280 mg-160 mg oral powder for reconstitution Notes: (Same as: Phos-NaK) Each 1.5 gm pkt has 250mg phosphorous. Mix w/2.5oz water and stir. No Longer Active 03/21/2019 [facility] Nephro-Maynor Rx Notes: (Same as : Nephro-Maynor Rx and Diatx) Give with food. No Longer Active 03/21/2019 [facility] Levetiracetam 500 MG Oral Tablet [Keppra] Notes: (Same as:Keppra) No Longer Active 03/21/2019 [facility] Diazepam 10 mg, Route: PO, Blane g form: TAB, Q8H, Dosing Weight 71.4, kg, Start date: 03/20/19 16:00:00 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, Duration: 30 day, Stop date: 04/19/19 8:00:00 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 Inactive 03/20/2019 [facility] Keppra Notes: Same as Keppra Mix with 100 mL NS, LR or D5W MEDICATION WASTE Product Size: 500 mg Product Wasted: ___ mg No Longer Active 03/20/2019 [facility] Thiamine Notes: (Same As: Laura min B1) No Longer Active 03/20/2019 [facility] Nephro-Maynor Rx 1 tab, Route: P O, Drug Form: TAB, Dosing Weight 71.4, kg, Daily, Start date: 03/20/19 9:00:00 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, Duration: 30 day, Stop date: 04/18/19 9:00:00 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 Inactive 03/20/2019 [facility] Diazepam Notes: (Same as: Rl um) No Longer Active 03/20/2019 [facility] NS 1,000 mL 1,000 mL, Rate: 10 0 ml/hr, Infuse over: 10 hr, Route: IV, Dosing Weight 71.4 kg, Total Volume: 1,000, Start date: 03/20/19 8:54:00 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, Duration: 30 day, Stop date: 04/19/19 8:53:00 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, 1.86, m2, 0 No Longer Active 03/20/2019 [place] Potassium Chloride Notes: ([facility] e as: KCL) Infuse no faster than 10 mEq/hr if given peripherally. No Longer Active 03/20/2019 [place] sodium phosphate Notes: Infuse over 4 hour. Do not infuse phosphorous concurrently in the same line as TPN or IVF that contains calcium. For double lumen central lines, phosphorous may be infused in a separate lumen from TPN. No Longer Active 03/20/2019 [place] potassium phosphate Notes: ( me as: K Phosphate.) Do not infuse phosphorous concurrently in the same line as TPN or IVF that contains calcium. For double lumen central lines, phosphorous may be infused in a separate lumen from TPN. 1 mMol phoshate has 1.47 mEq potassium Infuse over 4 hours No Longer Active 03/20/2019 [place] potassium phosphate-sodium phosphate 250 mg-280 mg-160 mg oral powder for reconstitution Notes: (Same as: Phos-NaK) Each 1.5 gm pkt has 250mg phosphorous. Mix w/2.5oz water and stir. No Longer Active 03/20/2019 [place] Magnesium Sulfate Notes: WASTE : F/P - Sink; E - Municipal Trash Bin No Longer Active 03/20/2019 [place] Magnesium Oxide Notes: (Same a s: Mag-Ox 400) Magnesium oxide [id number] elemental magnesium Dose=____mg magnesium oxide (___mg elemental magnesium) No Longer Active 03/20/2019 [place] Calcium Gluconate Notes: WASTE : F/P - Sink; E - Municipal Trash Bin No Longer Active 03/20/2019 [place] Calcium Carbonate 500 MG Chewable Tablet Notes: (Same As: Tums) Calcium Carbonate 500 mg = 200 mg elemental calcium Dose = mg calcium carbonate ( mg elemental calcium) No Longer Active 03/20/2019 [facility] Sodium Chloride 0.9% IV 1,000 mL + M.V.I .-12 10 mL Daily + folic acid IV 1 mg Daily + thiamine IV 1 1,000 mL, Rate: 100 ml/hr, Infuse over: 10.1 hr, Route: IV, Dosing Weight 63.636 kg, Total Volume: 1,011.2, Start date: 03/19/19 21:09:00 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, Duration: 3 day, Stop date: 03/22/19 21:08:00 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 (Same as: Tylenol) No Longer Active 03/20/2019 [facility] Ondansetron 2 MG/ML Injectable Solution [Zofran] Notes: (Same as: Zofran) MEDICATION WASTE Product Size: 4 mg Product Wasted: ___ mg No Longer Active 03/20/2019 [facility] Morphine Notes: (Same as:MORPh ine Sulfate) Inactive 03/20/2019 [facility] Keppra 1,000 mg, 100 mL, Route : IV, Drug form: INJ, ONCE, Dosing Weight 63.636, kg, Start date: 03/19/19 19:16:00 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, Stop date: 03/19/19 19:16:00 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, 0 Inactive 03/20/2019 [facility] Tylenol Notes: Max acetaminoph en 4000 mg/day (4 gm/day). (Same as: Tylenol Extra Strength) Inactive 03/19/2019 [facility] Compazine Notes: (Same as: Com pazine) Inactive 03/19/2019 [facility] Magnesium Sulfate Notes: WASTE : F/P - Sink; E - Municipal Trash Bin Inactive 03/19/2019 [facility] NS (Bolus) IV 1,000 mL, 1,000 ml/hr, Infuse Over: 1 hr, Route: IV, 1,000, Drug form: INJ, ONCE, Priority: STAT, Dosing Weight 63.636 kg, Start date: 03/19/19 17:04:00 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, Stop date: 03/19/19 17:04:00 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, 0 Inactive 03/19/2019 [facility] Benadryl Notes: (Same as: Alva dryl) Inactive 03/19/2019 [facility] Oxazepam 30 MG Oral Capsule 30 mg, 1 cap, Route: PO, QID, Dosing Weight 68.182, kg, Start date: 12/23/18 17:00:00 CDT, Duration: 30 day, Stop date: 01/22/19 13:00:00 CDT Inactive 12/23/2018 [facility] Chlordiazepoxide Hydrochloride 25 MG Oral Capsule See Instructions, PRN Alcohol Withdrawal, Taper: Days 1-2: 3 tabs Days 3-4: 2 tabs Days 5-6: 1 tab, # 12 cap, 0 Refill(s) Active 12/23/2018 [facility] Chlordiazepoxide Hydrochloride 25 MG Oral Capsule 25 mg, 1 cap, Route: PO, Drug form: CAP, ONCE, Dosing Weight 68.182, kg, Start date: 12/23/18 14:11:00 CDT, Stop date: 12/23/18 14:11:00 CDT, 0 Inactive 12/23/2018 [facility] Oxazepam 30 MG Oral Capsule 30 mg, Route: PO, ONCE, Dosing Weight 68.182, kg, Start date: 12/23/18 13:57:00 CDT, Stop date: 12/23/18 13:57:00 CDT Inactive 12/23/2018 [facility] Ativan Notes: (Same as: Ativan) Inactive 12/23/2018 [facility] Sodium Chloride 0.9% (Bolus) IV 1,000 mL, 1000 ml/hr, Infuse Over: 1 hr, Route: IV, 1,000, Drug form: INJ, ONCE, Priority: STAT, Dosing Weight 68.182 kg, Start date: 12/23/18 11:20:00 CDT, Stop date: 12/23/18 11:20:00 CDT, 0 Inactive 12/23/2018 [facility] Ibuprofen Notes: (Same as: Mot rin) "Do Not Crush" Take with food. Inactive 01/10/2018 [facility] Acetaminophen Notes: Do not ex ceed 4 gm/day. (Same as: Tylenol) Inactive 01/10/2018 [facility] Sodium Chloride 0.9% (Bolus) IV 1,000 mL, 1000 ml/hr, Infuse Over: 1 hr, Route: IVPB, 1,000, Drug form: INJ, ONCE, Priority: STAT, Dosing Weight 71.023 kg, Start date: 01/10/18 16:58:00 CDT, Stop date: 01/10/18 16:58:00 CDT Inactive 01/10/2018 [facility] Saline Flush 0.9% Notes: prese rvative free. Inactive 01/10/2018 [facility] Acetaminophen 325 MG / Hydrocodone Ronnie trate 5 MG Oral Tablet Notes: (Same as: [place] 325/5) Do not ex ceed 4gm/day of acetaminophen. Inactive 02/20/2014 [facility] Ondansetron Notes: (Same as: Z ofran) Inactive 02/20/2014 [facility] Morphine Notes: (Same as:MORPh ine Sulfate) Inactive 02/20/2014 [facility] Sodium Chloride 0.154 MEQ/ML Injectable Solution 1,000 mL, 1000 ml/hr, Infuse Over: 1 hr, Route: IV, 1,000, Drug form: INJ, ONCE, Priority: STAT, Dosing Weight 70.455 kg, Start date: 02/20/14 0:07:00, Duration: 1 doses or times, Stop date: 02/20/14 0:07:00 Inactive 02/20/2014 [facility] Saline Flush 0.9% Notes: Same as: BD Posiflush Sterile Inactive 02/20/2014 [facility] Sodium Chloride 0.9% IV IV, 0 ml/hr, PRN, PRN Line Flush, Start date: 02/02/12 19:51:00, Duration: 30, 100 ml IV No Longer Active Ap 02/03/2012 [facility] methylPREDNISolone 40 mg, 1 mL , Route: IVP, Drug form: INJ, Q12H, Start date: 02/02/12 18:30:00, Duration: 30 day, Stop date: 03/03/12 18:00:00 IVP No Longer Active Kyle 02/02/2012 [facility] Dilaudid 1 mg, 0.5 mL, Route: IV, Drug form: INJ, Q3H, PRN Severe Pain, Start date: 02/02/12 12:29:00, Duration: 30 day, Stop date: 03/03/12 12:28:00 IV No Longer Active Kyle 02/02/2012 [facility] Asacol 800 mg, 2 tab, Route: P O, Drug form: ECTAB, TID, Start date: 02/02/12 10:00:00, Duration: 30 day, Stop date: 03/03/12 9:00:00 PO No Longer Active Kyle [facility] Phenergan 12.5 mg, 0.5 tab, [place]: PO, Drug form: TAB, Q6H, Start date: 02/01/12 12:00:00, Duration: 30 day, Stop date: 03/02/12 6:00:00 PO No Longer Active Kyle 02/01/2012 [facility] Citrate of Magnesia 300 mL, [place]: PO, Drug Form: LIQ, BID, Start date: 02/01/12 12:00:00, Duration: 2 doses or times, Stop date: 02/01/12 18:00:00 PO No Longer Active Kyle 02/01/2012 [facility] Ambien 10 mg, 2 tab, Route: PO , Drug form: TAB, Bedtime, Start date: 01/31/12 21:00:00, Duration: 30 day, Stop date: 02/29/12 21:00:00 PO No Longer Active Kyle [facility] BD Normal Saline Flush 3 mL, R oute: IVP, Drug Form: INJ, Q8H, Start date: 01/31/12 16:00:00, Duration: 30 day, Stop date: 03/01/12 8:00:00 IVP No Longer Active [place] 01/31/2012 [facility] Imuran 150 mg, 3 tab, Route: P O, Drug form: TAB, Daily, Start date: 01/31/12 14:00:00, Stop date: 03/01/12 9:00:00 PO No Longer Active Kyle 01/31/2012 [facility] Cymbalta 20 mg, 1 cap, Route: PO, Drug form: DRC, Daily, Start date: 01/31/12 14:00:00, Duration: 30 day, Stop date: 03/01/12 9:00:00 PO No Longer Active Kyle [facility] BD Normal Saline Flush 3 mL, R oute: IVP, Drug Form: INJ, PRN, PRN Line Flush, Start date: 01/31/12 12:59:00, Duration: 30 day, Stop date: 03/01/12 12:58:00 IVP No Longer Active [place] 01/31/2012 [facility] Dextrose 5% in Lactated Ringers IV 1,000 mL 1,000 mL, Rate: 100 ml/hr, Infuse over: 10 hr, Route: IV, kg, Total Volume: 1,000, Start date: 01/31/12 7:46:00, Duration: 30 day, Stop date: 03/01/12 7:45:00 IV No Longer Active Kyle [facility] Phenergan 12.5 mg, 0.5 tab, [place]: PO, Drug form: TAB, Q6H, Start date: 01/30/12 20:00:00, Duration: 30 day, Stop date: 02/29/12 14:00:00 PO No Longer Active Kyle 01/31/2012 [facility] Cipro 400 mg, 200 mL, Route: I VPB, Drug form: INJ, Q12H, Start date: 01/30/12 20:00:00, Duration: 30 day, Stop date: 02/29/12 8:00:00 IVPB No Longer Active Kyle [facility] Flagyl 500 mg, 100 mL, Route: IVPB, Drug form: INJ, Q8H, Start date: 01/30/12 18:45:00, Duration: 30 day, Stop date: 02/29/12 18:00:00 IVPB No Longer Active Kyle [facility] Dilaudid 2 mg, 1 mL, Route: IV , Drug form: INJ, Q3H, PRN Pain, Start date: 01/30/12 18:29:00, Duration: 30 day, Stop date: 02/29/12 18:28:00 IV No Longer Active [place] 01/30/2012 [facility] Ambien 10 mg, 2 tab, Route: PO , Drug form: TAB, Bedtime, PRN Insomnia, Start date: 01/30/12 18:26:00, Duration: 30 day, Stop date: 02/29/12 18:25:00 PO No Longer Active [place] 01/30/2012 [facility] Tylenol 650 mg, 2 tab, Route: PO, Drug form: TAB, Q4H, PRN Temperature >100.4, Start date: 01/30/12 18:25:00, Duration: 30 day, Stop date: 02/29/12 18:24:00 PO No Longer Active [place] 01/30/2012 [facility] Zofran 4 mg, 2 mL, Route: IVP, Drug form: INJ, Q6H, PRN Vomiting, Start date: 01/30/12 18:23:00, Duration: 30 day, Stop date: 02/29/12 18:22:00 IVP No Longer Active [place] 01/30/2012 [facility] Dextrose 5% in Lactated Ringers IV 1,000 mL 1,000 mL, Rate: 150 ml/hr, Infuse over: 6.7 hr, Route: IV, kg, Total Volume: 1,000, Start date: 01/30/12 18:22:00, Duration: 2 doses or times, Stop date: 01/31/12 7:45:00 IV No Longer Active Kyle [facility] Imuran 100 mg, 2 tab, Route: P O, Drug form: TAB, Daily, Dosing Weight 68, kg, Start date: 01/28/12 15:00:00, Duration: 30 day, Stop date: 02/27/12 9:00:00 PO No Longer Active [place]su[place] 01/28/2012 [facility] nter Ultram 50 mg oral tablet 50 mg , 1 tab, PO, Q6H, PRN, 28 tab, Pain, Substitution Allowed, TAB PO Active Osua gwu 01/28/2012 [facility] nter Ultram 50 mg oral tablet 50 mg , 1 tab, Route: PO, Drug form: TAB, Q6H, Dosing Weight 68, kg, PRN Pain, Start date: 01/28/12 10:10:00, Duration: 30 day, Stop date: 02/27/12 10:09:00 PO No Longer Active [place] 01/28/2012 [facility] [place] 10/325 oral tablet 1 tab , Route: PO, Drug Form: TAB, Dosing Weight 68, kg, Q6H, PRN Pain, Start date: 01/28/12 10:10:00, Duration: 30 day, Stop date: 02/27/12 10:09:00 PO No Longer Active [place]su[place] 01/28/2012 [facility] Klonopin 0.25 mg, 0.5 tab, Rou te: PO, Drug form: TAB, BID, Dosing Weight 68, kg, Priority: NOW, Start date: 01/27/12 20:58:00, Duration: 30 day, Stop date: 02/26/12 17:00:00 PO No Longer Active Nick 01/28/2012 [facility] [place] 7.5/325 oral tablet 1 ta b, Route: PO, Drug Form: TAB, Dosing Weight 68, kg, Q6H, PRN Pain, Start date: 01/27/12 20:20:00, Duration: 30 day, Stop date: 02/26/12 20:19:00 PO No Longer Active [place]su[place] 01/28/2012 [facility] heparin 5,000 unit, 1 mL, Rout e: SUB-Q, Drug form: INJ, Q12H, Dosing Weight 68.182, kg, Start date: 01/27/12 9:00:00, Duration: 30 day, Stop date: 02/25/12 21:00:00 SUB-Q No Longer Active Nick 01/27/2012 [facility] nter Flagyl 500 mg, 100 mL, Route: IVPB, Drug form: INJ, [id number], Dosing Weight 68.182, kg, Start date: 01/27/12 6:00:00, Duration: 30 day, Stop date: 02/25/12 22:00:00 IVPB No Longer Active Nick 01/27/2012 [facility] Cipro 400 mg, 200 mL, Route: I VPB, Drug form: INJ, [id number], Dosing Weight 68.182, kg, Start date: 01/27/12 6:00:00, Duration: 30 day, Stop date: 02/25/12 18:00:00 IVPB No Longer Active Nick 01/27/2012 [facility] Imuran 100 mg, PO, Daily, Subs titution Allowed PO Active 01/27/2012 [facility] chorionic gonadotropin (HCG) 1 ,000 unit, Substitution Allowed No Longer Active 01/27/2012 [facility] clonazepam 0.5 mg oral tablet 0.25 mg, 0.5 tab, PO, TID, Substitution Allowed PO No Longer Active 01/27/2012 [facility] nt cyproheptadine Substitution Al lowed No Longer Active 01/27/2012 [facility] Multiple Vitamins with Minerals oral liquid Substitution Allowed, Maintenance No Longe r Active 01/27/2012 [facility] nter Multigen Substitution Allowed, Maintenance Active 01/27/2012 [facility] Fish Oil Substitution Allowed Active 01/27/2012 [facility] Oracea 40 mg oral delayed release capsule 40 mg, 1 cap, PO, Daily, Substitution Allowed PO No Longer Active 01/27/2012 [facility] nt Cymbalta 20 mg oral delayed release capsule 20 mg, 1 cap, PO, Daily, Substitution Allowed PO Active 01/27/2012 [facility] nter Toradol 15 mg/mL injectable solution 15 mg, 1 mL, Route: IV, Drug form: INJ, Q6H, Dosing Weight 68.182, kg, PRN Pain, Start date: 01/27/12 5:44:00, Duration: 4 day, Stop date: 01/31/12 5:43:00 IV No Longer Active Nick 01/27/2012 [facility] Zofran 4 mg, 2 mL, Route: IV, Drug form: INJ, Q6H, Dosing Weight 68.182, kg, PRN Nausea, Start date: 01/27/12 5:41:00, Duration: 30 day, Stop date: 02/26/12 5:40:00 IV No Longer Active Nick 01/27/2012 [facility] nter D5W 1/2NS + KCL 20mEq/L 1000ml (Premix) 1,000 mL 1,000 mL, Rate: 100 ml/hr, Infuse over: 10 hr, Route: IV, kg, Total Volume: 1,000, Start date: 01/27/12 5:40:00, Duration: 30 day, Stop date: 02/26/12 5:39:00 IV No Longer Active Nick 01/13 [facility] predniSONE 10 mg oral tablet S ee Instructions, 4 tabs po daily for 1 week, then 3 tabs daily for 1 week, then 2 tabs daily for 1 week , then 1 tab daily for 1 week, 70 tab, Substitution Allowed4 tabs po daily for 1 week, then 3 tabs daily for 1 week, then 2 tabs daily for 1 week , then 1 tab daily for 1 week No Longer Active Nick 01/26/2012 [facility] Apriso 0.375 g oral capsule, extended release 1.5 gm, 4 cap, PO, QAM, 120 cap, 3, 3, Substitution Allowed, ERCAP PO No Longer Active Nick 01/26/2012 [facility] Flagyl 500 mg oral tablet 500 mg, 1 tab, PO, Q8H, 30 tab, Substitution Allowed PO No Longer Active Nick 01/26/2012 [facility] ciprofloxacin 500 mg oral tablet 500 mg, 1 tab, PO, Q12H, 20 tab, Substitution Allowed, TAB PO No Longer Active Nick 01/26/2012 [facility] acetaminophen-hydrocodone 325 mg-7.5 mg oral tablet 2 tab, Route: PO, Drug Form: TAB, Dosing Weight 68.182, kg, ONCE, STAT, Start date: 01/26/12 9:12:00, Stop date: 01/26/12 9:12:00 PO No Longer Active [place] 01/26/2012 [facility] Sodium Chloride 0.9% (Bolus) IV 1,000 mL 1,000 mL, Rate: 1,000 ml/hr, Infuse over: 1 hr, Route: IV, kg, Total Volume: 1,000, Bolus Dose, Priority: STAT, Start date: 01/26/12 9:10:00, Duration: 1 doses or times, Stop date: 01/26/12 10:09:00 IV No Longer Active [place] 01/26/2012 [place] morphine Sulfate 4 mg, Route: IVP, ONCE, Dosing Weight 68.182, kg, Priority: STAT, Start date: 01/26/12 7:37:00, Stop date: 01/26/12 7:37:00 IVP No Longer Active [place] 01/26/2012 [place] Levsin SL 0.25 mg, 2 tab, Rout e: PO, Drug form: TAB, ONCE, Dosing Weight 68.182, kg, Start date: 01/26/12 6:56:00, Stop date: 01/26/12 6:56:00 PO No Longer Active [place] 01/26/2012 [place] Flagyl 500 mg, 1 tab, Route: P O, Drug form: TAB, ONCE, Dosing Weight 68.182, kg, Priority: STAT, Start date: 01/26/12 6:55:00, Stop date: 01/26/12 6:55:00 PO No Longer Active [place] 01/26/2012 [place] ciprofloxacin 500 mg, 1 tab, R oute: PO, Drug form: TAB, ONCE, Dosing Weight 68.182, kg, Priority: STAT, Start date: 01/26/12 6:55:00, Stop date: 01/26/12 6:55:00 PO No Longer Active [place] 01/26/2012 [place] chorionic gonadotropin (HCG) S ubstitution Allowed No Longer Active 01/26/2012 [place] clonazepam Substitution Allowed No Longer Active 01/26/2012 [place] cyproheptadine Substitution Al lowed No Longer Active 01/26/2012 [place] Fish Oil Substitution Allowed No Longer Active 01/26/2012 [place] Oracea Substitution Allowed No Longer Active 01/26/2012 [place] Omnipaque 240 50 mL, Route: PO , Drug Form: SOLN, Dosing Weight 68.182, kg, ONCE, Start date: 01/26/12 5:47:00, Stop date: 01/26/12 5:47:00 PO No Longer Active [place] 01/26/2012 [place] morphine Sulfate 4 mg, 1 mL, R oute: IVP, Drug form: INJ, ONCE, Dosing Weight 68.182, kg, Priority: STAT, Start date: 01/26/12 5:33:00, Stop date: 01/26/12 5:33:00 IVP No Longer Active [place] 01/26/2012 [facility] ondansetron 4 mg, 2 mL, Route: IVP, Drug form: INJ, ONCE, Dosing Weight 68.182, kg, Priority: STAT, Start date: 01/26/12 5:33:00, Stop date: 01/26/12 5:33:00 IVP No Longer Active [place] 01/26/2012 [facility] Sodium Chloride 0.9% (Bolus) IV 1,000 mL 1,000 mL, Rate: 1,000 ml/hr, Infuse over: 1 hr, Route: IV, kg, Total Volume: 1,000, Bolus Dose, Priority: STAT, Start date: 01/26/12 5:33:00, Duration: 1 doses or times, Stop date: 01/26/12 6:32:00 IV No Longer Active [place] 01/26/2012 [facility] Saline Flush 0.9% 5 ml, Route: IVP, Drug Form: INJ, Dosing Weight 68.182, kg, PRN, PRN Line Flush, Start date: 01/26/12 5:33:00, Duration: 24 hr, Stop date: 01/27/12 5:32:00 IVP No Longer Active [place] 01/26/2012 [facility] [place] 5/325 oral tablet 1 tab, PO, Q4H, PRN, 10 tab, for pain, Substitution Allowed, Soft Stop, TAB PO Active [facility] a 12/31/2011 [facility] nter Dilaudid 1 mg, Route: IV, ONCE , Dosing Weight 70.455, kg, Start date: 12/31/11 2:08:00, Stop date: 12/31/11 2:08:00 IV No Longer Active [place] 12/31/2011 [facility] Zofran 4 mg, 2 mL, Route: IVP, Drug form: INJ, ONCE, kg, Priority: STAT, Start date: 12/31/11 0:08:00, Stop date: 12/31/11 0:08:00 IVP No Longer Active [facility] 12/30 [facility] Dilaudid 1 mg, 0.5 mL, Route: IV, Drug form: INJ, ONCE, kg, Start date: 12/31/11 0:07:00, Stop date: 12/31/11 0:07:00 IV No Longer Active [facility] 12/31/2011 [facility] Dilaudid 1 mg, 0.5 mL, Route: IV, Drug form: INJ, ONCE, kg, Start date: 12/30/11 22:42:00, Stop date: 12/30/11 22:42:00 IV No Longer Active [facility] 12/31/2011 [facility] Zofran 8 mg, 4 mL, Route: IVP, Drug form: INJ, ONCE, kg, Priority: STAT, Start date: 12/30/11 22:41:00, Stop date: 12/30/11 22:41:00 IVP No Longer Active [facility] 12/30 [facility] Sodium Chloride 0.9% (Bolus) IV 1,000 mL 1,000 mL, Rate: 1,000 ml/hr, Infuse over: 1 hr, Route: IV, Dosing Weight 70.455 kg, Total Volume: 1,000, Bolus Dose, Priority: STAT, Start date: 12/30/11 22:41:00, Duration: 1 doses or times, Stop date: 12/30/11 23:40:00 IV No Longer Active [facility] 12/31/2011 [facility] Imuran 2 tablet Orally Active 50 mg Orally daily [facility] Cymbalta 2 capsule Orally Active 60 MG Orally Once a day [facility] Allergies, Adverse Reactions, Alerts Substance Category Reaction Severity Reaction type Status Date Reported Comments Source N.K.D.A. Adverse Reaction Info Not Available Adverse Reaction 05/16/2019 [facility] Phenergan drug allergy severe arm redness Allergy Active [facility] promethazine Assertion Irritates the veins, IV ONLY Drug allergy Active [facility] NKFA Assertion Food allergy Active [facility] No Known Medication Allergies Assertion Drug aller gy [facility] [place] Immunizations Immunization Date Given Site Status Last Updated Comments Source diphtheria/pertussis, acel/tetanus adult 11/09/2019 Right Deltoid completed [place] [facility] influenza virus vaccine, inactivated 03/30/2019 Right deltoid completed [facility] [place] Results Order Name Results Value Reference Range Date Interpretation Comments Source TOXICOLOGY Ethanol Lvl 26 12/08/2019 [place] TOXICOLOGY Etoh (%) 0.026 12/08/2019 [place] CHEM PANEL Glucose Lvl 72 70 - 99 12/08/2019 [place] CHEM PANEL BUN 5 7 - 22 12/08/2019 [place] CHEM PANEL Creatinine Lvl 0.57 0.50 - 1.40 12/08/2019 [place] CHEM PANEL Sodium Lvl 144 135 - 145 12/08/2019 [place] CHEM PANEL Potassium Lvl 3.5 3.5 - 5.1 12/08/2019 [place] CHEM PANEL Chloride Lvl 111 95 - 109 12/08/2019 [place] CHEM PANEL CO2 28 24 - 32 12/08/2019 [place] CHEM PANEL Calcium Lvl 8.6 8.5 - 10.5 12/08/2019 [place] CHEM PANEL Total Protein 7.4 6.4 - 8.4 12/08/2019 [place] CHEM PANEL Albumin Lvl 4.0 3.5 - 5.0 12/08/2019 [place] CHEM PANEL ALT 95 0 - 65 12/08/2019 [place] CHEM PANEL AST 82 0 - 37 12/08/2019 [place] CHEM PANEL Alk Phos 64 39 - 136 12/08/2019 [place] CHEM PANEL Bili Total 0.3 0.2 - 1.3 12/08/2019 [place] CHEM PANEL AGAP 8.5 10.0 - 20.0 12/08/2019 [place] CHEM PANEL B/C Ratio 9 6 - 25 12/08/2019 [place] CHEM PANEL Globulin 3.4 2.7 - 4.2 12/08/2019 [place] CHEM PANEL A/G Ratio 1.2 0.7 - 1.6 12/08/2019 [place] CHEM PANEL eGFR 120 12/08/2019 Result Comment: The eGFR is calculated using the CKD-EPI formula. In most young, healthy individuals the eGFR will be >90 mL/min/1.73m2. The eGFR declines with age. An eGFR of 60-89 may be normal in some populations, particularly the elderly, for whom the CKD-EPI formula has not been extensively validated. Use of the eGFR is not recommended in the following populations:

Individuals with unstable creatinine concentrations, including patients and those with serious co-morbid conditions.

Patients with extremes in muscle mass or diet.

The data above are obtained from the National Kidney Disease Education Program (NKDEP) which additionally recommends that when the eGFR is used in patients with extremes of body mass index for purposes of drug dosing, the eGFR should be multiplied by the estimated BMI. [place] DRUG SCREEN U Amph Scr Nega tive *NA* (12/08/19 12:40 AM) Negative 12/08/2019 [place] DRUG SCREEN U Zo Scr Nega tive *NA* (12/08/19 12:40 AM) Negative 12/08/2019 [place] DRUG SCREEN U Benzodiaz Scr Posi tive *ABN* (12/08/19 12:40 AM) Negative 12/08/2019 [facility] DRUG SCREEN U Cocaine Scr Nega tive *NA* (12/08/19 12:40 AM) Negative 12/08/2019 [place] DRUG SCREEN U Cannab Scr Nega tive *NA* (12/08/19 12:40 AM) Negative 12/08/2019 [place] DRUG SCREEN U Opiate Scr Nega tive *NA* (12/08/19 12:40 AM) Negative 12/08/2019 [place] DRUG SCREEN U Phencyclidine Scr Nega tive *NA* (12/08/19 12:40 AM) Negative 12/08/2019 [facility] DRUG SCREEN UDS Note See Note (12/08/19 12:40 AM) 12/08/2019 [facility] ENDOCRINOLOGY S Preg Ne gative *NA* (12/08/19 12:40 AM) Negative 12/08/2019 [facility] HEMATOLOGY WBC 7.0 3.7 - 10.4 12/08/2019 [facility] HEMATOLOGY RBC 4.04 4.20 - 5.40 12/08/2019 [facility] HEMATOLOGY Hgb 13.6 12.0 - 16.0 12/08/2019 [facility] HEMATOLOGY Hct 40.4 36.0 - 48.0 12/08/2019 [facility] HEMATOLOGY MCV 100.0 80.0 - 98.0 12/08/2019 [facility] HEMATOLOGY MCH 33.8 27.0 - 31.0 12/08/2019 [place] HEMATOLOGY MCHC 33.8 32.0 - 36.0 12/08/2019 [facility] HEMATOLOGY RDW 13.7 11.5 - 14.5 12/08/2019 [facility] HEMATOLOGY Platelet 204 133 - 450 12/08/2019 [facility] HEMATOLOGY MPV 7.4 7.4 - 10.4 12/08/2019 [facility] HEMATOLOGY Segs 68.0 45.0 - 75.0 12/08/2019 [facility] HEMATOLOGY Lymphocytes 20.4 20.0 - 40.0 12/08/2019 [place] HEMATOLOGY Monocytes 10.4 2.0 - 12.0 12/08/2019 [facility] HEMATOLOGY Eosinophils 0.5 0.0 - 4.0 12/08/2019 [facility] HEMATOLOGY Basophils 0.7 0.0 - 1.0 12/08/2019 [facility] HEMATOLOGY Neutrophils # 4.7 1.5 - 8.1 12/08/2019 [place] HEMATOLOGY Lymphocytes # 1.4 1.0 - 5.5 12/08/2019 [place] HEMATOLOGY Monocytes # 0.7 0.0 - 0.8 12/08/2019 [facility] TOXICOLOGY Acetaminoph Lvl <2 10 - 20 12/08/2019 [facility] TOXICOLOGY Ethanol Lvl 388 12/08/2019 Result Comment: Critical Result(s) called to Smita Wang at 12/08/2019 01:[address] Read back OK. [place] TOXICOLOGY Etoh (%) 0.388 12/08/2019 Result Comment: Critical Result(s) called to Smita Wang at 12/08/2019 01:[address] Read back OK. [facility] TOXICOLOGY Salicylate Lvl <1.7 0.0 - 30.0 12/08/2019 [facility] URINE AND STOOL UA Turbidity Clear (12/08/19 12:40 AM) Clear 12/08/2019 [facility] URINE AND STOOL UA Spec Grav 1.003 <=1.030 12/08/2019 [facility] URINE AND STOOL UA pH 7.0 5.0 - 8.0 12/08/2019 [place] URINE AND STOOL UA Protein Negative mg/dL Negative mg/dL 12/08/2019 [facility] URINE AND STOOL UA Glucose Negative mg/dL Negative mg/dL 12/08/2019 [facility] URINE AND STOOL UA Ketones Negative mg/dL Negative mg/dL 12/08/2019 [facility] URINE AND STOOL UA Bili Negative *NA* (12/08/19 12:40 AM) Negative 12/08/2019 [place] URINE AND STOOL UA Blood Small *ABN* (12/08/19 12:40 AM) Negative 12/08/2019 [place] URINE AND STOOL UA Nitrite Negative (12/08/19 12:40 AM) Negative 12/08/2019 [place] URINE AND STOOL UA Leuk Est Negative (12/08/19 12:40 AM) Negative 12/08/2019 [place] URINE AND STOOL UA Sq Epi Occasional /LPF Few /LPF 12/08/2019 [place] URINE AND STOOL UA WBC <1 0 - 5 12/08/2019 [place] URINE AND STOOL UA RBC <1 0 - 2 12/08/2019 [place] URINE AND STOOL UA Color Straw 12/08/2019 [place] URINE AND STOOL UA Urobilinogen <=1.0 mg/dL 0.1 - 1.0 12/08/2019 [facility] CHEM PANEL Glucose Lvl 83 70 - 99 12/03/2019 [place] CHEM PANEL BUN 4 7 - 22 12/03/2019 [place] CHEM PANEL Creatinine Lvl 0.59 0.50 - 1.40 12/03/2019 [place] CHEM PANEL Sodium Lvl 134 135 - 145 12/03/2019 [place] CHEM PANEL Potassium Lvl 3.4 3.5 - 5.1 12/03/2019 [place] CHEM PANEL Chloride Lvl 101 95 - 109 12/03/2019 [place] CHEM PANEL CO2 25 24 - 32 12/03/2019 [place] CHEM PANEL AGAP 11.4 10.0 - 20.0 12/03/2019 [place] CHEM PANEL Calcium Lvl 9.1 8.5 - 10.5 12/03/2019 [place] CHEM PANEL B/C Ratio 7 6 - 25 12/03/2019 [place] CHEM PANEL Total Protein 7.9 6.4 - 8.4 12/03/2019 [place] CHEM PANEL Albumin Lvl 4.3 3.5 - 5.0 12/03/2019 [place] CHEM PANEL Globulin 3.6 2.7 - 4.2 12/03/2019 [place] CHEM PANEL A/G Ratio 1.2 0.7 - 1.6 12/03/2019 [place] CHEM PANEL ALT 72 0 - 65 12/03/2019 [place] CHEM PANEL AST 88 0 - 37 12/03/2019 [place] CHEM PANEL Alk Phos 76 39 - 136 12/03/2019 [place] CHEM PANEL Bili Total 2.0 0.2 - 1.3 12/03/2019 [place] CHEM PANEL eGFR 119 12/03/2019 Result Comment: The eGFR is calculated using the CKD-EPI formula. In most young, healthy individuals the eGFR will be >90 mL/min/1.73m2. The eGFR declines with age. An eGFR of 60-89 may be normal in some populations, particularly the elderly, for whom the CKD-EPI formula has not been extensively validated. Use of the eGFR is not recommended in the following populations:

Individuals with unstable creatinine concentrations, including patients and those with serious co-morbid conditions.

Patients with extremes in muscle mass or diet.

The data above are obtained from the National Kidney Disease Education Program (NKDEP) which additionally recommends that when the eGFR is used in patients with extremes of body mass index for purposes of drug dosing, the eGFR should be multiplied by the estimated BMI. [facility] HEMATOLOGY WBC 7.9 3.7 - 10.4 12/03/2019 [facility] HEMATOLOGY RBC 4.22 4.20 - 5.40 12/03/2019 [facility] HEMATOLOGY Hgb 14.3 12.0 - 16.0 12/03/2019 [facility] HEMATOLOGY Hct 42.2 36.0 - 48.0 12/03/2019 [facility] HEMATOLOGY MCV 100.1 80.0 - 98.0 12/03/2019 [facility] HEMATOLOGY MCH 33.8 27.0 - 31.0 12/03/2019 [facility] HEMATOLOGY MCHC 33.7 32.0 - 36.0 12/03/2019 [place] HEMATOLOGY RDW 13.6 11.5 - 14.5 12/03/2019 [place] HEMATOLOGY Platelet 209 133 - 450 12/03/2019 [place] HEMATOLOGY MPV 7.9 7.4 - 10.4 12/03/2019 [place] HEMATOLOGY Segs 77.8 45.0 - 75.0 12/03/2019 [place] HEMATOLOGY Lymphocytes 11.9 20.0 - 40.0 12/03/2019 [place] HEMATOLOGY Monocytes 8.3 2.0 - 12.0 12/03/2019 [place] HEMATOLOGY Eosinophils 0.9 0.0 - 4.0 12/03/2019 [place] HEMATOLOGY Basophils 1.1 0.0 - 1.0 12/03/2019 [place] HEMATOLOGY Neutrophils # 6.2 1.5 - 8.1 12/03/2019 [place] HEMATOLOGY Lymphocytes # 0.9 1.0 - 5.5 12/03/2019 [place] HEMATOLOGY Monocytes # 0.7 0.0 - 0.8 12/03/2019 [place] HEMATOLOGY Eosinophils # 0.1 0.0 - 0.5 12/03/2019 [place] HEMATOLOGY Basophils # 0.1 0.0 - 0.2 12/03/2019 [place] HEMATOLOGY Macrocyte 1+ *ABN* (12/03/19 10:36 AM) None Seen 12/03/2019 [place] CHEM PANEL Magnesium Lvl 2.3 1.8 - 2.4 12/03/2019 [place] CHEM PANEL Phosphorus 2.9 2.5 - 4.5 12/03/2019 [place] TOXICOLOGY Ethanol Lvl 191 12/02/2019 [place] TOXICOLOGY Etoh (%) 0.191 12/02/2019 [place] CARDIAC ENZYMES Total CK 297 12 - 191 12/02/2019 [place] CHEM PANEL Glucose Lvl 87 70 - 99 12/02/2019 [place] CHEM PANEL BUN 4 7 - 22 12/02/2019 [place] CHEM PANEL Creatinine Lvl 0.62 0.50 - 1.40 12/02/2019 [place] CHEM PANEL Sodium Lvl 144 135 - 145 12/02/2019 [place] CHEM PANEL Potassium Lvl 4.0 3.5 - 5.1 12/02/2019 [place] CHEM PANEL Chloride Lvl 113 95 - 109 12/02/2019 [place] CHEM PANEL CO2 24 24 - 32 12/02/2019 [place] CHEM PANEL Calcium Lvl 8.4 8.5 - 10.5 12/02/2019 [place] CHEM PANEL Total Protein 8.0 6.4 - 8.4 12/02/2019 [place] CHEM PANEL Albumin Lvl 4.4 3.5 - 5.0 12/02/2019 [place] CHEM PANEL ALT 61 0 - 65 12/02/2019 [place] CHEM PANEL AST 54 0 - 37 12/02/2019 [place] CHEM PANEL Alk Phos 72 39 - 136 12/02/2019 [place] CHEM PANEL Bili Total 0.5 0.2 - 1.3 12/02/2019 [place] CHEM PANEL AGAP 11.0 10.0 - 20.0 12/02/2019 [place] CHEM PANEL B/C Ratio 6 6 - 25 12/02/2019 [place] CHEM PANEL Globulin 3.6 2.7 - 4.2 12/02/2019 [place] CHEM PANEL A/G Ratio 1.2 0.7 - 1.6 12/02/2019 [place] CHEM PANEL eGFR 116 12/02/2019 Result Comment: The eGFR is calculated using the CKD-EPI formula. In most young, healthy individuals the eGFR will be >90 mL/min/1.73m2. The eGFR declines with age. An eGFR of 60-89 may be normal in some populations, particularly the elderly, for whom the CKD-EPI formula has not been extensively validated. Use of the eGFR is not recommended in the following populations:

Individuals with unstable creatinine concentrations, including patients and those with serious co-morbid conditions.

Patients with extremes in muscle mass or diet.

The data above are obtained from the National Kidney Disease Education Program (NKDEP) which additionally recommends that when the eGFR is used in patients with extremes of body mass index for purposes of drug dosing, the eGFR should be multiplied by the estimated BMI. [place] DRUG SCREEN U Amph Scr Nega tive *NA* (7/19/20 11:13 PM) Negative 12/02/2019 [place] DRUG SCREEN U Zo Scr Nega tive *NA* (12/01/19 11:13 PM) Negative 12/02/2019 [place] DRUG SCREEN U Benzodiaz Scr Nega tive *NA* (12/01/19 11:13 PM) Negative 12/02/2019 [place] DRUG SCREEN U Cocaine Scr Nega tive *NA* (12/01/19 11:13 PM) Negative 12/02/2019 [place] DRUG SCREEN U Cannab Scr Nega tive *NA* (12/01/19 11:13 PM) Negative 12/02/2019 [place] DRUG SCREEN U Opiate Scr Nega tive *NA* (12/01/19 11:13 PM) Negative 12/02/2019 [place] DRUG SCREEN U Phencyclidine Scr Nega tive *NA* (12/01/19 11:13 PM) Negative 12/02/2019 [place] DRUG SCREEN UDS Note See Note (12/01/19 11:13 PM) 12/02/2019 [place] ENDOCRINOLOGY S Preg Ne gative *NA* (12/01/19 11:13 PM) Negative 12/02/2019 [facility] HEMATOLOGY WBC 6.3 3.7 - 10.4 12/02/2019 [facility] HEMATOLOGY RBC 4.36 4.20 - 5.40 12/02/2019 [facility] HEMATOLOGY Hgb 14.9 12.0 - 16.0 12/02/2019 [facility] [place] HEMATOLOGY Hct 43.8 36.0 - 48.0 12/02/2019 [facility] [place] HEMATOLOGY MCV 100.6 80.0 - 98.0 12/02/2019 [facility] [place] HEMATOLOGY MCH 34.3 27.0 - 31.0 12/02/2019 [facility] [place] HEMATOLOGY MCHC 34.1 32.0 - 36.0 12/02/2019 [facility] [place] HEMATOLOGY RDW 13.8 11.5 - 14.5 12/02/2019 [facility] [place] HEMATOLOGY Platelet 245 133 - 450 12/02/2019 [facility] [place] HEMATOLOGY MPV 7.1 7.4 - 10.4 12/02/2019 [facility] [place] HEMATOLOGY Segs 67.4 45.0 - 75.0 12/02/2019 [facility] HEMATOLOGY Lymphocytes 23.3 20.0 - 40.0 12/02/2019 [place] HEMATOLOGY Monocytes 7.3 2.0 - 12.0 12/02/2019 [facility] [place] HEMATOLOGY Eosinophils 0.7 0.0 - 4.0 12/02/2019 [facility] [place] HEMATOLOGY Basophils 1.3 0.0 - 1.0 12/02/2019 [facility] [place] HEMATOLOGY Neutrophils # 4.2 1.5 - 8.1 12/02/2019 [place] HEMATOLOGY Lymphocytes # 1.5 1.0 - 5.5 12/02/2019 [facility] [place] HEMATOLOGY Monocytes # 0.5 0.0 - 0.8 12/02/2019 [facility] [place] HEMATOLOGY Basophils # 0.1 0.0 - 0.2 12/02/2019 [facility] [place] HEMATOLOGY Macrocyte 1+ *ABN* (12/01/19 11:13 PM) None Seen 12/02/2019 [facility] [place] TOXICOLOGY Acetaminoph Lvl <2 (12/01/19 11:13 PM) 10 - 20 12/02/2019 [facility] [place] TOXICOLOGY Ethanol Lvl 451 12/02/2019 Result Comment: Critical Result(s) called to [email or web address] at 12/01/2019 23:51 by AM. Read back OK. [facility] TOXICOLOGY Etoh (%) 0.451 12/02/2019 Result Comment: Critical Result(s) called to [email or web address] at 12/01/2019 23:51 by AM. Read back OK. [facility] [place] TOXICOLOGY Salicylate Lvl <1.7 0.0 - 30.0 12/02/2019 [facility] [place] DRUG SCREEN U Amph Scr Nega tive *NA* (11/09/19 6:54 AM) Negative 11/09/2019 [facility] [place] DRUG SCREEN U Zo Scr Nega tive *NA* (11/09/19 6:54 AM) Negative 11/09/2019 [facility] [place] DRUG SCREEN U Benzodiaz Scr Posi tive *ABN* (11/09/19 6:54 AM) Negative 11/09/2019 [facility] [place] DRUG SCREEN U Cocaine Scr Nega tive *NA* (11/09/19 6:54 AM) Negative 11/09/2019 [facility] [place] DRUG SCREEN U Cannab Scr Nega tive *NA* (11/09/19 6:54 AM) Negative 11/09/2019 [place] DRUG SCREEN U Opiate Scr Nega tive *NA* (11/09/19 6:54 AM) Negative 11/09/2019 [place] DRUG SCREEN U Phencyclidine Scr Nega tive *NA* (11/09/19 6:54 AM) Negative 11/09/2019 [place] DRUG SCREEN UDS Note See Note (11/09/19 6:54 AM) 11/09/2019 [place] URINE AND STOOL UA Turbidity Clear (11/09/19 6:54 AM) Clear 11/09/2019 [place] URINE AND STOOL UA Spec Grav 1.005 <=1.030 11/09/2019 [place] URINE AND STOOL UA pH 6.0 5.0 - 8.0 11/09/2019 [place] URINE AND STOOL UA Protein Negative mg/dL Negative mg/dL 11/09/2019 [facility] URINE AND STOOL UA Glucose Negative mg/dL Negative mg/dL 11/09/2019 [facility] URINE AND STOOL UA Ketones Negative mg/dL Negative mg/dL 11/09/2019 [facility] URINE AND STOOL UA Bili Negative *NA* (11/09/19 6:54 AM) Negative 11/09/2019 [place] URINE AND STOOL UA Blood Small *ABN* (11/09/19 6:54 AM) Negative 11/09/2019 [place] URINE AND STOOL UA Nitrite Negative (11/09/19 6:54 AM) Negative 11/09/2019 [place] URINE AND STOOL UA Leuk Est Negative (11/09/19 6:54 AM) Negative 11/09/2019 [place] URINE AND STOOL UA Sq Epi Occasional /LPF Few /LPF 11/09/2019 [place] URINE AND STOOL UA WBC 1 0 - 5 11/09/2019 [place] URINE AND STOOL UA RBC 3 0 - 2 11/09/2019 [place] URINE AND STOOL UA Bacteria Many /HPF None Seen /HPF 11/09/2019 [place] URINE AND STOOL UA Mucus Few /LPF None Seen /LPF 11/09/2019 [place] URINE AND STOOL UA Color Straw 11/09/2019 [place] URINE AND STOOL UA Urobilinogen <=1.0 mg/dL 0.1 - 1.0 11/09/2019 [facility] CHEM PANEL Glucose Lvl 79 70 - 99 11/09/2019 [place] CHEM PANEL BUN 6 7 - 22 11/09/2019 [place] CHEM PANEL Creatinine Lvl 0.76 0.50 - 1.40 11/09/2019 [place] CHEM PANEL Sodium Lvl 141 135 - 145 11/09/2019 [place] CHEM PANEL Potassium Lvl 3.6 3.5 - 5.1 11/09/2019 [place] CHEM PANEL Chloride Lvl 108 95 - 109 11/09/2019 [place] CHEM PANEL CO2 27 24 - 32 11/09/2019 [place] CHEM PANEL Calcium Lvl 8.7 8.5 - 10.5 11/09/2019 [place] CHEM PANEL Total Protein 8.0 6.4 - 8.4 11/09/2019 [place] CHEM PANEL Albumin Lvl 4.5 3.5 - 5.0 11/09/2019 [place] CHEM PANEL ALT 33 0 - 65 11/09/2019 [place] CHEM PANEL AST 38 0 - 37 11/09/2019 [place] CHEM PANEL Alk Phos 65 39 - 136 11/09/2019 [place] CHEM PANEL Bili Total 0.4 0.2 - 1.3 11/09/2019 [place] CHEM PANEL AGAP 9.6 10.0 - 20.0 11/09/2019 [place] CHEM PANEL B/C Ratio 8 6 - 25 11/09/2019 [place] CHEM PANEL Globulin 3.5 2.7 - 4.2 11/09/2019 [place] CHEM PANEL A/G Ratio 1.3 0.7 - 1.6 11/09/2019 [place] CHEM PANEL eGFR 101 11/09/2019 Result Comment: The eGFR is calculated using the CKD-EPI formula. In most young, healthy individuals the eGFR will be >90 mL/min/1.73m2. The eGFR declines with age. An eGFR of 60-89 may be normal in some populations, particularly the elderly, for whom the CKD-EPI formula has not been extensively validated. Use of the eGFR is not recommended in the following populations:

Individuals with unstable creatinine concentrations, including patients and those with serious co-morbid conditions.

Patients with extremes in muscle mass or diet.

The data above are obtained from the National Kidney Disease Education Program (NKDEP) which additionally recommends that when the eGFR is used in patients with extremes of body mass index for purposes of drug dosing, the eGFR should be multiplied by the estimated BMI. [facility] CHEM PANEL Lipase Lvl 54 73 - 393 11/09/2019 [facility] ENDOCRINOLOGY S Preg Ne gative *NA* (11/09/19 12:41 AM) Negative 11/09/2019 [facility] [place] HEMATOLOGY WBC 8.9 3.7 - 10.4 11/09/2019 [facility] [place] HEMATOLOGY RBC 4.56 4.20 - 5.40 11/09/2019 [facility] [place] HEMATOLOGY Hgb 15.5 12.0 - 16.0 11/09/2019 [facility] [place] HEMATOLOGY Hct 45.7 36.0 - 48.0 11/09/2019 [facility] [place] HEMATOLOGY MCV 100.2 80.0 - 98.0 11/09/2019 [facility] [place] HEMATOLOGY MCH 34.0 27.0 - 31.0 11/09/2019 [facility] [place] HEMATOLOGY MCHC 34.0 32.0 - 36.0 11/09/2019 [facility] [place] HEMATOLOGY RDW 14.0 11.5 - 14.5 11/09/2019 [facility] [place] HEMATOLOGY Platelet 383 133 - 450 11/09/2019 [facility] [place] HEMATOLOGY MPV 6.7 7.4 - 10.4 11/09/2019 [facility] HEMATOLOGY PT 12.8 12.0 - 14.7 11/09/2019 [facility] HEMATOLOGY INR 0.96 0.85 - 1.17 11/09/2019 [facility] [place] HEMATOLOGY PTT 25.8 22.9 - 35.8 11/09/2019 [facility] HEMATOLOGY Segs 70.8 45.0 - 75.0 11/09/2019 [facility] HEMATOLOGY Lymphocytes 21.8 20.0 - 40.0 11/09/2019 [facility] HEMATOLOGY Monocytes 5.5 2.0 - 12.0 11/09/2019 [facility] HEMATOLOGY Eosinophils 0.6 0.0 - 4.0 11/09/2019 [facility] HEMATOLOGY Basophils 1.3 0.0 - 1.0 11/09/2019 [place] HEMATOLOGY Neutrophils # 6.3 1.5 - 8.1 11/09/2019 [place] HEMATOLOGY Lymphocytes # 1.9 1.0 - 5.5 11/09/2019 [facility] HEMATOLOGY Monocytes # 0.5 0.0 - 0.8 11/09/2019 [facility] HEMATOLOGY Eosinophils # 0.1 0.0 - 0.5 11/09/2019 [facility] HEMATOLOGY Basophils # 0.1 0.0 - 0.2 11/09/2019 [place] HEMATOLOGY Macrocyte 1+ *ABN* (11/09/19 12:41 AM) None Seen 11/09/2019 [place] TOXICOLOGY Acetaminoph Lvl <2 10 - 20 11/09/2019 [place] TOXICOLOGY Ethanol Lvl 353 11/09/2019 Result Comment: Critical Result(s) called to Laverne Chen at 11/09/2019 01:14 by s. Read back OK. [place] TOXICOLOGY Etoh (%) 0.353 11/09/2019 Result Comment: Critical Result(s) called to Laverne Chen at 11/09/2019 01:14 by s. Read back OK. [place] TOXICOLOGY Salicylate Lvl 2.7 0.0 - 30.0 11/09/2019 [place] TOXICOLOGY Ethanol Lvl 150 08/12/2019 [place] TOXICOLOGY Etoh (%) 0.150 08/12/2019 [place] CHEM PANEL Glucose Lvl 86 70 - 99 08/12/2019 [place] CHEM PANEL BUN 7 7 - 22 08/12/2019 [place] CHEM PANEL Creatinine Lvl 0.59 0.50 - 1.40 08/12/2019 [place] CHEM PANEL Sodium Lvl 145 135 - 145 08/12/2019 [place] CHEM PANEL Potassium Lvl 4.0 3.5 - 5.1 08/12/2019 [place] CHEM PANEL Chloride Lvl 111 95 - 109 08/12/2019 [place] CHEM PANEL CO2 28 24 - 32 08/12/2019 [place] CHEM PANEL Calcium Lvl 9.1 8.5 - 10.5 08/12/2019 [place] CHEM PANEL Total Protein 7.2 6.4 - 8.4 08/12/2019 [place] CHEM PANEL Albumin Lvl 3.8 3.5 - 5.0 08/12/2019 [place] CHEM PANEL ALT 45 0 - 65 08/12/2019 [place] CHEM PANEL AST 38 0 - 37 08/12/2019 [place] CHEM PANEL Alk Phos 54 39 - 136 08/12/2019 [place] CHEM PANEL Bili Total 0.5 0.2 - 1.3 08/12/2019 [place] CHEM PANEL AGAP 10.0 10.0 - 20.0 08/12/2019 [place] CHEM PANEL B/C Ratio 12 6 - 25 08/12/2019 [place] CHEM PANEL Globulin 3.4 2.7 - 4.2 08/12/2019 [place] CHEM PANEL A/G Ratio 1.1 0.7 - 1.6 08/12/2019 [place] CHEM PANEL eGFR 119 08/12/2019 Result Comment: The eGFR is calculated using the CKD-EPI formula. In most young, healthy individuals the eGFR will be >90 mL/min/1.73m2. The eGFR declines with age. An eGFR of 60-89 may be normal in some populations, particularly the elderly, for whom the CKD-EPI formula has not been extensively validated. Use of the eGFR is not recommended in the following populations:

Individuals with unstable creatinine concentrations, including patients and those with serious co-morbid conditions.

Patients with extremes in muscle mass or diet.

The data above are obtained from the National Kid[employer] Education Program (NKDEP) which additionally recommends that when the eGFR is used in patients with extremes of body mass index for purposes of drug dosing, the eGFR should be multiplied by the estimated BMI. [place] DRUG SCREEN U Amph Scr Nega tive *NA* (08/12/19 12:07 PM) Negative 08/12/2019 [place] DRUG SCREEN U Zo Scr Nega tive *NA* (08/12/19 12:07 PM) Negative 08/12/2019 [place] DRUG SCREEN U Benzodiaz Scr Posi tive *ABN* (08/12/19 12:07 PM) Negative 08/12/2019 [place] DRUG SCREEN U Cocaine Scr Nega tive *NA* (08/12/19 12:07 PM) Negative 08/12/2019 [facility] DRUG SCREEN U Cannab Scr Nega tive *NA* (08/12/19 12:07 PM) Negative 08/12/2019 [place] DRUG SCREEN U Opiate Scr Nega tive *NA* (08/12/19 12:07 PM) Negative 08/12/2019 [facility] DRUG SCREEN U Phencyclidine Scr Nega tive *NA* (08/12/19 12:07 PM) Negative 08/12/2019 [facility] DRUG SCREEN UDS Note See Note (08/12/19 12:07 PM) 08/12/2019 [place] ENDOCRINOLOGY S Preg Ne gative *NA* (08/12/19 12:07 PM) Negative 08/12/2019 [facility] HEMATOLOGY WBC 7.8 3.7 - 10.4 08/12/2019 [facility] HEMATOLOGY RBC 4.43 4.20 - 5.40 08/12/2019 [facility] HEMATOLOGY Hgb 14.4 12.0 - 16.0 08/12/2019 [facility] HEMATOLOGY Hct 43.0 36.0 - 48.0 08/12/2019 [facility] HEMATOLOGY MCV 97.1 80.0 - 98.0 08/12/2019 [facility] HEMATOLOGY MCH 32.5 27.0 - 31.0 08/12/2019 [facility] HEMATOLOGY MCHC 33.5 32.0 - 36.0 08/12/2019 [facility] HEMATOLOGY RDW 14.5 11.5 - 14.5 08/12/2019 [facility] HEMATOLOGY Platelet 419 133 - 450 08/12/2019 [facility] HEMATOLOGY MPV 7.1 7.4 - 10.4 08/12/2019 [facility] HEMATOLOGY Segs 66.0 45.0 - 75.0 08/12/2019 [facility] HEMATOLOGY Lymphocytes 21.9 20.0 - 40.0 08/12/2019 [facility] HEMATOLOGY Monocytes 8.2 2.0 - 12.0 08/12/2019 [facility] HEMATOLOGY Eosinophils 1.3 0.0 - 4.0 08/12/2019 [facility] HEMATOLOGY Basophils 2.6 0.0 - 1.0 08/12/2019 [facility] HEMATOLOGY Neutrophils # 5.1 1.5 - 8.1 08/12/2019 [facility] HEMATOLOGY Lymphocytes # 1.7 1.0 - 5.5 08/12/2019 [facility] HEMATOLOGY Monocytes # 0.6 0.0 - 0.8 08/12/2019 [facility] HEMATOLOGY Eosinophils # 0.1 0.0 - 0.5 08/12/2019 [facility] HEMATOLOGY Basophils # 0.2 0.0 - 0.2 08/12/2019 [facility] TOXICOLOGY Acetaminoph Lvl <2 (08/12/19 12:07 PM) 10 - 20 08/12/2019 [facility] TOXICOLOGY Ethanol Lvl 306 08/12/2019 Result Comment: critical results called to jc rojas at 08/12/2019 12:38 by jw. read back ok. [facility] TOXICOLOGY Etoh (%) 0.306 08/12/2019 Result Comment: critical results called to jc rojas at 08/12/2019 12:38 by jw. read back ok. [facility] TOXICOLOGY Salicylate Lvl 3.1 0.0 - 30.0 08/12/2019 [facility] URINE AND STOOL UA Turbidity Clear (08/12/19 12:07 PM) Clear 08/12/2019 [facility] URINE AND STOOL UA Spec Grav 1.002 <=1.030 08/12/2019 [place] URINE AND STOOL UA pH 7.0 5.0 - 8.0 08/12/2019 [facility] URINE AND STOOL UA Protein Negative mg/dL Negative mg/dL 08/12/2019 [facility] URINE AND STOOL UA Glucose Negative mg/dL Negative mg/dL 08/12/2019 [facility] URINE AND STOOL UA Ketones Negative mg/dL Negative mg/dL 08/12/2019 [facility] URINE AND STOOL UA Bili Negative *NA* (08/12/19 12:07 PM) Negative 08/12/2019 [facility] URINE AND STOOL UA Blood Moderate *ABN* (08/12/19 12:07 PM) Negative 08/12/2019 [facility] URINE AND STOOL UA Nitrite Negative (08/12/19 12:07 PM) Negative 08/12/2019 [facility] URINE AND STOOL UA Leuk Est Negative (08/12/19 12:07 PM) Negative 08/12/2019 [place] URINE AND STOOL UA Sq Epi None Seen 08/12/2019 [place] URINE AND STOOL UA Color Colorless 08/12/2019 [place] URINE AND STOOL UA Urobilinogen <=1.0 mg/dL 0.1 - 1.0 08/12/2019 [facility] TOXICOLOGY Ethanol Lvl 93 06/29/2019 [place] TOXICOLOGY Etoh (%) 0.093 06/29/2019 [place] TOXICOLOGY Ethanol Lvl 130 06/29/2019 [place] TOXICOLOGY Etoh (%) 0.130 06/29/2019 [place] TOXICOLOGY Ethanol Lvl 232 06/29/2019 [place] TOXICOLOGY Etoh (%) 0.232 06/29/2019 [place] CHEM PANEL Glucose Lvl 96 70 - 99 06/28/2019 [place] CHEM PANEL BUN 8 7 - 22 06/28/2019 [place] CHEM PANEL Creatinine Lvl 0.68 0.50 - 1.40 06/28/2019 [place] CHEM PANEL Sodium Lvl 144 135 - 145 06/28/2019 [place] CHEM PANEL Potassium Lvl 3.7 3.5 - 5.1 06/28/2019 [place] CHEM PANEL Chloride Lvl 109 95 - 109 06/28/2019 [place] CHEM PANEL CO2 24 24 - 32 06/28/2019 [place] CHEM PANEL Calcium Lvl 7.8 8.5 - 10.5 06/28/2019 [place] CHEM PANEL AGAP 14.7 10.0 - 20.0 06/28/2019 [place] CHEM PANEL eGFR 114 06/28/2019 Result Comment: The eGFR is calculated using the CKD-EPI formula. In most young, healthy individuals the eGFR will be >90 mL/min/1.73m2. The eGFR declines with age. An eGFR of 60-89 may be normal in some populations, particularly the elderly, for whom the CKD-EPI formula has not been extensively validated. Use of the eGFR is not recommended in the following populations:

Individuals with unstable creatinine concentrations, including patients and those with serious co-morbid conditions.

Patients with extremes in muscle mass or diet.

The data above are obtained from the National Kidney Disease Education Program (NKDEP) which additionally recommends that when the eGFR is used in patients with extremes of body mass index for purposes of drug dosing, the eGFR should be multiplied by the estimated BMI. [place] CHEM PANEL Total Protein 6.8 6.4 - 8.4 06/28/2019 [place] CHEM PANEL Albumin Lvl 3.7 3.5 - 5.0 06/28/2019 [place] CHEM PANEL Globulin 3.1 2.7 - 4.2 06/28/2019 [place] CHEM PANEL A/G Ratio 1.2 0.7 - 1.6 06/28/2019 [place] CHEM PANEL ALT 47 0 - 65 06/28/2019 [place] CHEM PANEL AST 32 0 - 37 06/28/2019 [place] CHEM PANEL Alk Phos 70 39 - 136 06/28/2019 [place] CHEM PANEL Bili Total 0.1 0.2 - 1.3 06/28/2019 [place] CHEM PANEL Bili Direct <0.1 0.0 - 0.3 06/28/2019 [place] CHEM PANEL Bili Indirect Unabl e to Calculate 0.0 - 1.0 06/28/2019 [facility] DRUG SCREEN U Amph Scr Nega tive *NA* (06/28/19 4:02 PM) Negative 06/28/2019 [place] DRUG SCREEN U Zo Scr Nega tive *NA* (06/28/19 4:02 PM) Negative 06/28/2019 [place] DRUG SCREEN U Benzodiaz Scr Nega tive *NA* (06/28/19 4:02 PM) Negative 06/28/2019 [place] DRUG SCREEN U Cocaine Scr Nega tive *NA* (06/28/19 4:02 PM) Negative 06/28/2019 [place] DRUG SCREEN U Cannab Scr Nega tive *NA* (06/28/19 4:02 PM) Negative 06/28/2019 [place] DRUG SCREEN U Opiate Scr Nega tive *NA* (06/28/19 4:02 PM) Negative 06/28/2019 [place] DRUG SCREEN U Phencyclidine Scr Nega tive *NA* (06/28/19 4:02 PM) Negative 06/28/2019 [facility] DRUG SCREEN UDS Note See Note (06/28/19 4:02 PM) 06/28/2019 [facility] ENDOCRINOLOGY hCG Tot <1 06/28/2019 [facility] HEMATOLOGY WBC 12.1 3.7 - 10.4 06/28/2019 [facility] HEMATOLOGY RBC 4.31 4.20 - 5.40 06/28/2019 [facility] HEMATOLOGY Hgb 14.2 12.0 - 16.0 06/28/2019 [facility] HEMATOLOGY Hct 41.4 36.0 - 48.0 06/28/2019 [facility] HEMATOLOGY MCV 96.0 80.0 - 98.0 06/28/2019 [facility] HEMATOLOGY MCH 33.0 27.0 - 31.0 06/28/2019 [facility] HEMATOLOGY MCHC 34.4 32.0 - 36.0 06/28/2019 [facility] HEMATOLOGY RDW 14.0 11.5 - 14.5 06/28/2019 [facility] HEMATOLOGY Platelet 490 133 - 450 06/28/2019 [facility] HEMATOLOGY MPV 6.9 7.4 - 10.4 06/28/2019 [facility] HEMATOLOGY Segs 79.2 45.0 - 75.0 06/28/2019 [facility] HEMATOLOGY Lymphocytes 15.6 20.0 - 40.0 06/28/2019 [facility] HEMATOLOGY Monocytes 4.2 2.0 - 12.0 06/28/2019 [facility] HEMATOLOGY Basophils 1.0 0.0 - 1.0 06/28/2019 [facility] HEMATOLOGY Neutrophils # 9.6 1.5 - 8.1 06/28/2019 [facility] HEMATOLOGY Lymphocytes # 1.9 1.0 - 5.5 06/28/2019 [facility] HEMATOLOGY Monocytes # 0.5 0.0 - 0.8 06/28/2019 [facility] HEMATOLOGY Basophils # 0.1 0.0 - 0.2 06/28/2019 [facility] TOXICOLOGY Acetaminoph Lvl <2 10 - 20 06/28/2019 [facility] TOXICOLOGY Salicylate Lvl 2.6 0.0 - 30.0 06/28/2019 [facility] URINE AND STOOL UA Turbidity Clear (06/28/19 4:02 PM) Clear 06/28/2019 [facility] URINE AND STOOL UA Spec Grav 1.005 <=1.030 06/28/2019 [place] URINE AND STOOL UA pH 6.0 5.0 - 8.0 06/28/2019 [place] URINE AND STOOL UA Protein Negative mg/dL Negative mg/dL 06/28/2019 [facility] URINE AND STOOL UA Glucose Negative mg/dL Negative mg/dL 06/28/2019 [facility] URINE AND STOOL UA Ketones Negative mg/dL Negative mg/dL 06/28/2019 [facility] URINE AND STOOL UA Bili Negative *NA* (06/28/19 4:02 PM) Negative 06/28/2019 [place] URINE AND STOOL UA Blood Moderate *ABN* (06/28/19 4:02 PM) Negative 06/28/2019 [place] URINE AND STOOL UA Nitrite Negative (06/28/19 4:02 PM) Negative 06/28/2019 [place] URINE AND STOOL UA Leuk Est Negative (06/28/19 4:02 PM) Negative 06/28/2019 [place] URINE AND STOOL UA WBC <1 0 - 5 06/28/2019 [place] URINE AND STOOL UA RBC <1 0 - 2 06/28/2019 [place] URINE AND STOOL UA Mucus Few /LPF None Seen /LPF 06/28/2019 [place] URINE AND STOOL UA Sq Epi None Seen 06/28/2019 [place] URINE AND STOOL UA Color Straw 06/28/2019 [place] URINE AND STOOL UA Urobilinogen <=1.0 mg/dL 0.1 - 1.0 06/28/2019 [facility] TOXICOLOGY Ethanol Lvl 187 06/13/2019 [facility] TOXICOLOGY Etoh (%) 0.187 06/13/2019 [facility] DRUG SCREEN U Amph Scr Nega tive *NA* (06/12/19 7:30 PM) Negative 06/13/2019 [facility] DRUG SCREEN U Zo Scr Nega tive *NA* (06/12/19 7:30 PM) Negative 06/13/2019 [facility] DRUG SCREEN U Benzodiaz Scr Nega tive *NA* (06/12/19 7:30 PM) Negative 06/13/2019 [place] DRUG SCREEN U Cocaine Scr Nega tive *NA* (06/12/19 7:30 PM) Negative 06/13/2019 [place] DRUG SCREEN U Cannab Scr Nega tive *NA* (06/12/19 7:30 PM) Negative 06/13/2019 [place] DRUG SCREEN U Opiate Scr Nega tive *NA* (06/12/19 7:30 PM) Negative 06/13/2019 [place] DRUG SCREEN U Phencyclidine Scr Nega tive *NA* (06/12/19 7:30 PM) Negative 06/13/2019 [place] DRUG SCREEN UDS Note See Note *NA* (06/12/19 7:30 PM) 06/13/2019 [place] URINE AND STOOL UA Turbidity Clear (06/12/19 7:30 PM) Clear 06/13/2019 [place] URINE AND STOOL UA Spec Grav 1.011 <=1.030 06/13/2019 [place] URINE AND STOOL UA pH 5.0 5.0 - 8.0 06/13/2019 [place] URINE AND STOOL UA Protein Negative mg/dL Negative mg/dL 06/13/2019 [facility] URINE AND STOOL UA Glucose Negative mg/dL Negative mg/dL 06/13/2019 [facility] URINE AND STOOL UA Ketones 20 mg/dL Negative mg/dL 06/13/2019 [place] URINE AND STOOL UA Bili Negative *NA* (06/12/19 7:30 PM) Negative 06/13/2019 [place] URINE AND STOOL UA Blood Moderate *ABN* (06/12/19 7:30 PM) Negative 06/13/2019 [place] URINE AND STOOL UA Nitrite Negative (06/12/19 7:30 PM) Negative 06/13/2019 [place] URINE AND STOOL UA Leuk Est Negative (06/12/19 7:30 PM) Negative 06/13/2019 [place] URINE AND STOOL UA Sq Epi Occasional /LPF Few /LPF 06/13/2019 [place] URINE AND STOOL UA WBC <1 0 - 5 06/13/2019 [place] URINE AND STOOL UA Bacteria Occasional /HPF None Seen /HPF 06/13/2019 [facility] URINE AND STOOL UA Mucus Few /LPF None Seen /LPF 06/13/2019 [place] URINE AND STOOL Micro? Performed *NA* (06/12/19 7:30 PM) 06/13/2019 [place] URINE AND STOOL UA Color Straw 06/13/2019 [place] URINE AND STOOL UA Urobilinogen <=1.0 mg/dL 0.1 - 1.0 06/13/2019 [facility] CHEM PANEL Glucose Lvl 71 70 - 99 06/12/2019 [place] CHEM PANEL BUN 8 7 - 22 06/12/2019 [place] CHEM PANEL Creatinine Lvl 0.65 0.50 - 1.40 06/12/2019 [place] CHEM PANEL Sodium Lvl 142 135 - 145 06/12/2019 [place] CHEM PANEL Potassium Lvl 4.1 3.5 - 5.1 06/12/2019 [place] CHEM PANEL Chloride Lvl 108 95 - 109 06/12/2019 [place] CHEM PANEL CO2 21 24 - 32 06/12/2019 [place] CHEM PANEL Calcium Lvl 9.1 8.5 - 10.5 06/12/2019 [place] CHEM PANEL Total Protein 7.7 6.4 - 8.4 06/12/2019 [place] CHEM PANEL Albumin Lvl 4.1 3.5 - 5.0 06/12/2019 [place] CHEM PANEL ALT 37 0 - 65 06/12/2019 [place] CHEM PANEL AST 30 0 - 37 06/12/2019 [place] CHEM PANEL Alk Phos 72 39 - 136 06/12/2019 [place] CHEM PANEL Bili Total 0.3 0.2 - 1.3 06/12/2019 [place] CHEM PANEL AGAP 17.1 10.0 - 20.0 06/12/2019 [place] CHEM PANEL B/C Ratio 12 6 - 25 06/12/2019 [place] CHEM PANEL Globulin 3.6 2.7 - 4.2 06/12/2019 [place] CHEM PANEL A/G Ratio 1.1 0.7 - 1.6 06/12/2019 [place] CHEM PANEL eGFR 116 06/12/2019 Result Comment: The eGFR is calculated using the CKD-EPI formula. In most young, healthy individuals the eGFR will be >90 mL/min/1.73m2. The eGFR declines with age. An eGFR of 60-89 may be normal in some populations, particularly the elderly, for whom the CKD-EPI formula has not been extensively validated. Use of the eGFR is not recommended in the following populations:

Individuals with unstable creatinine concentrations, including patients and those with serious co-morbid conditions.

Patients with extremes in muscle mass or diet.

The data above are obtained from the National Kidney Disease Education Program (NKDEP) which additionally recommends that when the eGFR is used in patients with extremes of body mass index for purposes of drug dosing, the eGFR should be multiplied by the estimated BMI. [facility] ENDOCRINOLOGY S Preg Ne gative *NA* (06/12/19 5:59 PM) Negative 06/12/2019 [facility] HEMATOLOGY WBC 9.6 3.7 - 10.4 06/12/2019 [facility] HEMATOLOGY RBC 4.90 4.20 - 5.40 06/12/2019 [facility] HEMATOLOGY Hgb 15.9 12.0 - 16.0 06/12/2019 [facility] HEMATOLOGY Hct 46.9 36.0 - 48.0 06/12/2019 [facility] HEMATOLOGY MCV 95.6 80.0 - 98.0 06/12/2019 [facility] HEMATOLOGY MCH 32.4 27.0 - 31.0 06/12/2019 [facility] HEMATOLOGY MCHC 33.8 32.0 - 36.0 06/12/2019 [facility] HEMATOLOGY RDW 13.6 11.5 - 14.5 06/12/2019 [facility] HEMATOLOGY Platelet 555 133 - 450 06/12/2019 [facility] HEMATOLOGY MPV 7.1 7.4 - 10.4 06/12/2019 [facility] HEMATOLOGY Segs 67.3 45.0 - 75.0 06/12/2019 [facility] HEMATOLOGY Lymphocytes 26.9 20.0 - 40.0 06/12/2019 [facility] HEMATOLOGY Monocytes 3.3 2.0 - 12.0 06/12/2019 [facility] HEMATOLOGY Basophils 2.5 0.0 - 1.0 06/12/2019 [facility] HEMATOLOGY Neutrophils # 6.5 1.5 - 8.1 06/12/2019 [facility] [place] HEMATOLOGY Lymphocytes # 2.6 1.0 - 5.5 06/12/2019 [place] HEMATOLOGY Monocytes # 0.3 0.0 - 0.8 06/12/2019 [place] HEMATOLOGY Basophils # 0.2 0.0 - 0.2 06/12/2019 [place] TOXICOLOGY Acetaminoph Lvl <2 10 - 20 06/12/2019 [place] TOXICOLOGY Ethanol Lvl 299 06/12/2019 Result Comment: Critical Result(s) called to Saúl Rivera at 06/12/2019 19:01 by NS. Read back OK. [place] TOXICOLOGY Etoh (%) 0.299 06/12/2019 Result Comment: Critical Result(s) called to Saúl Rivera at 06/12/2019 19:01 by NS. Read back OK. [place] TOXICOLOGY Salicylate Lvl 3.1 0.0 - 30.0 06/12/2019 [place] CHEM PANEL Lactic Acid Lvl 1.2 0.5 - 2.2 05/22/2019 [place] CHEM PANEL Glucose Lvl 148 70 - 99 05/22/2019 [place] CHEM PANEL BUN 11 7 - 22 05/22/2019 [place] CHEM PANEL Creatinine Lvl 0.82 0.50 - 1.40 05/22/2019 [place] CHEM PANEL Sodium Lvl 139 135 - 145 05/22/2019 [place] CHEM PANEL Potassium Lvl 4.0 3.5 - 5.1 05/22/2019 [place] CHEM PANEL Chloride Lvl 108 95 - 109 05/22/2019 [place] CHEM PANEL CO2 22 24 - 32 05/22/2019 [place] CHEM PANEL Calcium Lvl 8.8 8.5 - 10.5 05/22/2019 [place] CHEM PANEL eGFR 93 05/22/2019 Result Comment: The eGFR is calculated using the CKD-EPI formula. In most young, healthy individuals the eGFR will be >90 mL/min/1.73m2. The eGFR declines with age. An eGFR of 60-89 may be normal in some populations, particularly the elderly, for whom the CKD-EPI formula has not been extensively validated. Use of the eGFR is not recommended in the following populations:

Individuals with unstable creatinine concentrations, including patients and those with serious co-morbid conditions.

Patients with extremes in muscle mass or diet.

The data above are obtained from the National Kidney Disease Education Program (NKDEP) which additionally recommends that when the eGFR is used in patients with extremes of body mass index for purposes of drug dosing, the eGFR should be multiplied by the estimated BMI. [place] CHEM PANEL AGAP 13.0 10.0 - 20.0 05/22/2019 [place] CHEM PANEL Total Protein 7.0 6.4 - 8.4 05/22/2019 [place] CHEM PANEL Albumin Lvl 3.7 3.5 - 5.0 05/22/2019 [place] CHEM PANEL Globulin 3.3 2.7 - 4.2 05/22/2019 [place] CHEM PANEL A/G Ratio 1.1 0.7 - 1.6 05/22/2019 [place] CHEM PANEL ALT 29 0 - 65 05/22/2019 [place] CHEM PANEL AST 19 0 - 37 05/22/2019 [place] CHEM PANEL Alk Phos 43 39 - 136 05/22/2019 [place] CHEM PANEL Bili Total 0.2 0.2 - 1.3 05/22/2019 [place] CHEM PANEL Bili Direct <0.1 0.0 - 0.3 05/22/2019 [place] CHEM PANEL Bili Indirect Unabl e to Calculate 0.0 - 1.0 05/22/2019 [facility] CHEM PANEL Lipase Lvl 58 73 - 393 05/22/2019 [place] CHEM PANEL Lactic Acid Lvl 2.7 0.5 - 2.2 05/22/2019 [place] HEMATOLOGY WBC 12.8 3.7 - 10.4 05/22/2019 [place] HEMATOLOGY RBC 3.89 4.20 - 5.40 05/22/2019 [place] HEMATOLOGY Hgb 12.7 12.0 - 16.0 05/22/2019 [place] HEMATOLOGY Hct 39.1 36.0 - 48.0 05/22/2019 [place] HEMATOLOGY MCV 100.3 80.0 - 98.0 05/22/2019 [place] HEMATOLOGY MCH 32.6 27.0 - 31.0 05/22/2019 [place] HEMATOLOGY MCHC 32.5 32.0 - 36.0 05/22/2019 [facility] HEMATOLOGY RDW 14.0 11.5 - 14.5 05/22/2019 [facility] HEMATOLOGY Platelet 463 133 - 450 05/22/2019 [facility] HEMATOLOGY MPV 7.1 7.4 - 10.4 05/22/2019 [facility] HEMATOLOGY PT 13.3 12.0 - 14.7 05/22/2019 [facility] HEMATOLOGY INR 1.01 0.85 - 1.17 05/22/2019 [facility] HEMATOLOGY Plt Morph Marcelle l (05/22/19 1:10 PM) Normal 05/22/2019 [facility] HEMATOLOGY Segs 93.9 45.0 - 75.0 05/22/2019 [facility] HEMATOLOGY Lymphocytes 4.3 20.0 - 40.0 05/22/2019 [facility] HEMATOLOGY Monocytes 1.0 2.0 - 12.0 05/22/2019 [facility] HEMATOLOGY Basophils 0.8 0.0 - 1.0 05/22/2019 [facility] HEMATOLOGY Neutrophils # 12.0 1.5 - 8.1 05/22/2019 [facility] HEMATOLOGY Lymphocytes # 0.5 1.0 - 5.5 05/22/2019 [facility] HEMATOLOGY Monocytes # 0.1 0.0 - 0.8 05/22/2019 [facility] HEMATOLOGY Basophils # 0.1 0.0 - 0.2 05/22/2019 [facility] HEMATOLOGY Macrocyte 1+ *ABN* (05/22/19 1:10 PM) None Seen 05/22/2019 [facility] URINE AND STOOL UA Turbidity Clear (05/22/19 1:10 PM) Clear 05/22/2019 [facility] URINE AND STOOL UA Spec Grav 1.009 <=1.030 05/22/2019 [facility] URINE AND STOOL UA pH 7.0 5.0 - 8.0 05/22/2019 [facility] URINE AND STOOL UA Protein Negative mg/dL Negative mg/dL 05/22/2019 [facility] URINE AND STOOL UA Glucose Negative mg/dL Negative mg/dL 05/22/2019 [facility] URINE AND STOOL UA Ketones Negative mg/dL Negative mg/dL 05/22/2019 [facility] URINE AND STOOL UA Bili Negative *NA* (05/22/19 1:10 PM) Negative 05/22/2019 [place] URINE AND STOOL UA Blood Negative (05/22/19 1:10 PM) Negative 05/22/2019 [place] URINE AND STOOL UA Nitrite Negative (05/22/19 1:10 PM) Negative 05/22/2019 [place] URINE AND STOOL UA Leuk Est Negative (05/22/19 1:10 PM) Negative 05/22/2019 [place] URINE AND STOOL UA Sq Epi Occasional /LPF Few /LPF 05/22/2019 [place] URINE AND STOOL UA RBC 2 0 - 2 05/22/2019 [place] URINE AND STOOL UA Bacteria Occasional /HPF None Seen /HPF 05/22/2019 [facility] URINE AND STOOL UA Mucus Few /LPF None Seen /LPF 05/22/2019 [place] URINE AND STOOL UA Color YELLOW 05/22/2019 [place] URINE AND STOOL UA Urobilinogen <=1.0 mg/dL 0.1 - 1.0 05/22/2019 [facility] ELECTROLYTES AGAP 9.3 10.0 - 20.0 05/16/2019 [place] ELECTROLYTES B/C Ratio 12 6 - 25 05/16/2019 [place] ELECTROLYTES Globulin 2.5 2.7 - 4.2 05/16/2019 [place] ELECTROLYTES A/G Ratio 1.6 0.7 - 1.6 05/16/2019 [place] ELECTROLYTES Glucose Lvl 88 70 - 99 05/16/2019 [place] ELECTROLYTES BUN 9 7 - 22 05/16/2019 [place] ELECTROLYTES Creatinine Lvl 0.7 3 0.50 - 1.40 05/16/2019 [place] ELECTROLYTES Sodium Lvl 140 135 - 145 05/16/2019 [place] ELECTROLYTES Potassium Lvl 4.3 3.5 - 5.1 05/16/2019 [place] ELECTROLYTES Chloride Lvl 107 95 - 109 05/16/2019 [place] ELECTROLYTES CO2 28 24 - 32 05/16/2019 [place] ELECTROLYTES Calcium Lvl 9.1 8.5 - 10.5 05/16/2019 [place] ELECTROLYTES Total Protein 6.5 6.4 - 8.4 05/16/2019 [place] ELECTROLYTES Albumin Lvl 4.0 3.5 - 5.0 05/16/2019 [facility] ELECTROLYTES ALT 42 0 - 65 05/16/2019 [facility] ELECTROLYTES AST 26 0 - 37 05/16/2019 [facility] ELECTROLYTES Alk Phos 48 39 - 136 05/16/2019 [facility] ELECTROLYTES Bili Total 0.2 0.2 - 1.3 05/16/2019 [facility] [place] ELECTROLYTES eGFR 107 05/16/2019 Result Comment: The eGFR is calculated using the CKD-EPI formula. In most young, healthy individuals the eGFR will be >90 mL/min/1.73m2. The eGFR declines with age. An eGFR of 60-89 may be normal in some populations, particularly the elderly, for whom the CKD-EPI formula has not been extensively validated. Use of the eGFR is not recommended in the following populations:

Individuals with unstable creatinine concentrations, including patients and those with serious co-morbid conditions.

Patients with extremes in muscle mass or diet.

The data above are obtained from the [employer] Education Program (NKDEP) which additionally recommends that when the eGFR is used in patients with extremes of body mass index for purposes of drug dosing, the eGFR should be multiplied by the estimated BMI. [facility] [facility] [place] ENDOCRINOLOGY S Preg Ne gative *NA* (05/16/19 9:30 AM) Negative 05/16/2019 [facility] [place] HEMATOLOGY WBC 6.5 3.7 - 10.4 05/16/2019 [facility] [place] HEMATOLOGY RBC 3.85 4.20 - 5.40 05/16/2019 [facility] [place] HEMATOLOGY Hgb 12.9 12.0 - 16.0 05/16/2019 [facility] [place] HEMATOLOGY Hct 38.2 36.0 - 48.0 05/16/2019 [facility] [place] HEMATOLOGY MCV 99.2 80.0 - 98.0 05/16/2019 [facility] [place] HEMATOLOGY MCH 33.6 27.0 - 31.0 05/16/2019 [facility] [place] HEMATOLOGY MCHC 33.8 32.0 - 36.0 05/16/2019 [facility] [place] HEMATOLOGY RDW 13.9 11.5 - 14.5 05/16/2019 [facility] [place] HEMATOLOGY Platelet 399 133 - 450 05/16/2019 [facility] [place] HEMATOLOGY MPV 6.8 7.4 - 10.4 05/16/2019 [place] HEMATOLOGY INR 0.94 0.85 - 1.17 05/16/2019 [place] HEMATOLOGY PT 12.6 12.0 - 14.7 05/16/2019 [place] HEMATOLOGY PTT 26.6 22.9 - 35.8 05/16/2019 [place] HEMATOLOGY Segs 51.0 45.0 - 75.0 05/16/2019 [place] HEMATOLOGY Lymphocytes 27.8 20.0 - 40.0 05/16/2019 [place] HEMATOLOGY Monocytes 15.5 2.0 - 12.0 05/16/2019 [place] HEMATOLOGY Eosinophils 3.8 0.0 - 4.0 05/16/2019 [place] HEMATOLOGY Basophils 1.9 0.0 - 1.0 05/16/2019 [facility] [place] HEMATOLOGY Neutrophils # 3.3 1.5 - 8.1 05/16/2019 [facility] [place] HEMATOLOGY Lymphocytes # 1.8 1.0 - 5.5 05/16/2019 [place] HEMATOLOGY Monocytes # 1.0 0.0 - 0.8 05/16/2019 [place] HEMATOLOGY Eosinophils # 0.2 0.0 - 0.5 05/16/2019 [place] HEMATOLOGY Basophils # 0.1 0.0 - 0.2 05/16/2019 [facility] [place] URINE AND STOOL UA Turbidity Clear (05/16/19 9:30 AM) Clear 05/16/2019 [facility] [place] URINE AND STOOL UA Spec Grav 1.020 <=1.030 05/16/2019 [facility] [place] URINE AND STOOL UA pH 6.0 5.0 - 8.0 05/16/2019 [facility] [place] URINE AND STOOL UA Protein Negative mg/dL Negative mg/dL 05/16/2019 [facility] STOOL UA Glucose Negative mg/dL Negative mg/dL 05/16/2019 [facility] URINE AND STOOL UA Ketones Negative mg/dL Negative mg/dL 05/16/2019 [facility] URINE AND STOOL UA Bili Negative *NA* (05/16/19 9:30 AM) Negative 05/16/2019 [facility] [place] URINE AND STOOL UA Blood Negative (05/16/19 9:30 AM) Negative 05/16/2019 [place] URINE AND STOOL UA Nitrite Negative (05/16/19 9:30 AM) Negative 05/16/2019 [place] URINE AND STOOL UA Leuk Est Negative (05/16/19 9:30 AM) Negative 05/16/2019 [place] URINE AND STOOL Micro? Not Indicated *NA* (05/16/19 9:30 AM) 05/16/2019 [place] URINE AND STOOL UA Color YELLOW 05/16/2019 [place] URINE AND STOOL UA Urobilinogen <=1.0 mg/dL 0.1 - 1.0 05/16/2019 [facility] DRUG SCREEN U Amph Scr Nega tive *NA* (05/05/19 3:06 AM) Negative 05/05/2019 [place] DRUG SCREEN U Zo Scr Nega tive *NA* (05/05/19 3:06 AM) Negative 05/05/2019 [place] DRUG SCREEN U Benzodiaz Scr Nega tive *NA* (05/05/19 3:06 AM) Negative 05/05/2019 [place] DRUG SCREEN U Cocaine Scr Nega tive *NA* (05/05/19 3:06 AM) Negative 05/05/2019 [place] DRUG SCREEN U Cannab Scr Nega tive *NA* (05/05/19 3:06 AM) Negative 05/05/2019 [place] DRUG SCREEN U Opiate Scr Nega tive *NA* (05/05/19 3:06 AM) Negative 05/05/2019 [place] DRUG SCREEN U Phencyclidine Scr Nega tive *NA* (05/05/19 3:06 AM) Negative 05/05/2019 [place] DRUG SCREEN UDS Note See Note (05/05/19 3:06 AM) 05/05/2019 [place] URINE AND STOOL UA Turbidity Clear (05/05/19 3:06 AM) Clear 05/05/2019 [place] URINE AND STOOL UA Spec Grav 1.005 <=1.030 05/05/2019 [place] URINE AND STOOL UA pH 7.0 5.0 - 8.0 05/05/2019 [place] URINE AND STOOL UA Protein Negative mg/dL Negative mg/dL 05/05/2019 [facility] URINE AND STOOL UA Glucose Negative mg/dL Negative mg/dL 05/05/2019 [facility] URINE AND STOOL UA Ketones Negative mg/dL Negative mg/dL 05/05/2019 [facility] URINE AND STOOL UA Bili Negative *NA* (05/05/19 3:06 AM) Negative 05/05/2019 [place] URINE AND STOOL UA Blood Moderate *ABN* (05/05/19 3:06 AM) Negative 05/05/2019 [place] URINE AND STOOL UA Nitrite Negative (05/05/19 3:06 AM) Negative 05/05/2019 [place] URINE AND STOOL UA Leuk Est Negative (05/05/19 3:06 AM) Negative 05/05/2019 [place] URINE AND STOOL UA Sq Epi Occasional /LPF Few /LPF 05/05/2019 [place] URINE AND STOOL UA WBC <1 0 - 5 05/05/2019 [place] URINE AND STOOL UA RBC 3 0 - 2 05/05/2019 [place] URINE AND STOOL UA Bacteria Occasional /HPF None Seen /HPF 05/05/2019 [facility] URINE AND STOOL UA Mucus Few /LPF None Seen /LPF 05/05/2019 [place] URINE AND STOOL UA Color Straw 05/05/2019 [place] URINE AND STOOL UA Urobilinogen <=1.0 mg/dL 0.1 - 1.0 05/05/2019 [facility] CARDIAC ENZYMES Troponin-I <0.02 0.00 - 0.40 05/05/2019 [place] CHEM PANEL Lipase Lvl 171 73 - 393 05/05/2019 [place] ELECTROLYTES AGAP 14.7 10.0 - 20.0 05/05/2019 [place] ELECTROLYTES B/C Ratio 10 6 - 25 05/05/2019 [place] ELECTROLYTES Globulin 3.3 2.7 - 4.2 05/05/2019 [place] ELECTROLYTES A/G Ratio 1.2 0.7 - 1.6 05/05/2019 [place] ELECTROLYTES Glucose Lvl 95 70 - 99 05/05/2019 [place] ELECTROLYTES BUN 5 7 - 22 05/05/2019 [place] ELECTROLYTES Creatinine Lvl 0.5 1 0.50 - 1.40 05/05/2019 [facility] [place] ELECTROLYTES Sodium Lvl 142 135 - 145 05/05/2019 [facility] [place] ELECTROLYTES Potassium Lvl 3.7 3.5 - 5.1 05/05/2019 [facility] [place] ELECTROLYTES Chloride Lvl 111 95 - 109 05/05/2019 [place] ELECTROLYTES CO2 20 24 - 32 05/05/2019 [facility] [place] ELECTROLYTES Calcium Lvl 8.1 8.5 - 10.5 05/05/2019 [facility] [place] ELECTROLYTES Total Protein 7.2 6.4 - 8.4 05/05/2019 [facility] [place] ELECTROLYTES Albumin Lvl 3.9 3.5 - 5.0 05/05/2019 [place] ELECTROLYTES ALT 41 0 - 65 05/05/2019 [facility] [place] ELECTROLYTES AST 47 0 - 37 05/05/2019 [facility] [place] ELECTROLYTES Alk Phos 67 39 - 136 05/05/2019 [facility] [place] ELECTROLYTES Bili Total 0.6 0.2 - 1.3 05/05/2019 [facility] [place] ELECTROLYTES eGFR 125 05/05/2019 Result Comment: The eGFR is calculated using the CKD-EPI formula. In most young, healthy individuals the eGFR will be >90 mL/min/1.73m2. The eGFR declines with age. An eGFR of 60-89 may be normal in some populations, particularly the elderly, for whom the CKD-EPI formula has not been extensively validated. Use of the eGFR is not recommended in the following populations:

Individuals with unstable creatinine concentrations, including patients and those with serious co-morbid conditions.

Patients with extremes in muscle mass or diet.

The data above are obtained from the National Kidney Disease Education Program (NKDEP) which additionally recommends that when the eGFR is used in patients with extremes of body mass index for purposes of drug dosing, the eGFR should be multiplied by the estimated BMI. [facility] [place] ENDOCRINOLOGY S Preg Ne gative *NA* (05/05/19 2:59 AM) Negative 05/05/2019 [facility] [place] HEMATOLOGY WBC 8.9 3.7 - 10.4 05/05/2019 [facility] [place] HEMATOLOGY RBC 4.03 4.20 - 5.40 05/05/2019 [facility] [place] HEMATOLOGY Hgb 13.2 12.0 - 16.0 [facility]05[facility]2019 [facility] Hct 38.6 36.0 - 48.0 05/05/2019 [facility] [place] HEMATOLOGY MCV 95.7 80.0 - 98.0 05/05/2019 [place] HEMATOLOGY MCH 32.6 27.0 - 31.0 05/05/2019 [place] HEMATOLOGY MCHC 34.1 32.0 - 36.0 05/05/2019 [facility] [place] HEMATOLOGY RDW 13.2 11.5 - 14.5 05/05/2019 [place] HEMATOLOGY Platelet 330 133 - 450 05/05/2019 [place] HEMATOLOGY MPV 7.1 7.4 - 10.4 05/05/2019 [place] HEMATOLOGY INR 1.01 0.85 - 1.17 05/05/2019 [place] HEMATOLOGY PT 13.3 12.0 - 14.7 05/05/2019 [place] HEMATOLOGY PTT 24.5 22.9 - 35.8 05/05/2019 [place] HEMATOLOGY Segs 60.8 45.0 - 75.0 05/05/2019 [place] HEMATOLOGY Lymphocytes 28.4 20.0 - 40.0 05/05/2019 [place] HEMATOLOGY Monocytes 9.7 2.0 - 12.0 05/05/2019 [place] HEMATOLOGY Eosinophils 0.5 0.0 - 4.0 05/05/2019 [facility] [place] HEMATOLOGY Basophils 0.6 0.0 - 1.0 05/05/2019 [place] HEMATOLOGY Neutrophils # 5.4 1.5 - 8.1 05/05/2019 [place] HEMATOLOGY Lymphocytes # 2.5 1.0 - 5.5 05/05/2019 [place] HEMATOLOGY Monocytes # 0.9 0.0 - 0.8 05/05/2019 [place] HEMATOLOGY Basophils # 0.1 0.0 - 0.2 05/05/2019 [facility] [place] TOXICOLOGY Acetaminoph Lvl <2 10 - 20 05/05/2019 [facility] [place] TOXICOLOGY Ethanol Lvl 256 05/05/2019 Result Comment: critical results called to marisol heredia at 05/05/2019 03:26 by zev. read back ok. [facility] [place] TOXICOLOGY Etoh (%) 0.256 05/05/2019 [facility] [place] TOXICOLOGY Salicylate Lvl <1.7 0.0 - 30.0 05/05/2019 [place] CHEM PANEL Glucose Lvl 96 70 - 99 03/28/2019 [place] CHEM PANEL BUN 10 7 - 22 03/28/2019 [place] CHEM PANEL Creatinine Lvl 0.69 0.50 - 1.40 03/28/2019 [place] CHEM PANEL Sodium Lvl 138 135 - 145 03/28/2019 [place] CHEM PANEL Potassium Lvl 3.9 3.5 - 5.1 03/28/2019 [place] CHEM PANEL Chloride Lvl 103 95 - 109 03/28/2019 [place] CHEM PANEL CO2 32 24 - 32 03/28/2019 [place] CHEM PANEL Calcium Lvl 9.5 8.5 - 10.5 03/28/2019 [place] CHEM PANEL eGFR 113 03/28/2019 Result Comment: The eGFR is calculated using the CKD-EPI formula. In most young, healthy individuals the eGFR will be >90 mL/min/1.73m2. The eGFR declines with age. An eGFR of 60-89 may be normal in some populations, particularly the elderly, for whom the CKD-EPI formula has not been extensively validated. Use of the eGFR is not recommended in the following populations:

Individuals with unstable creatinine concentrations, including patients and those with serious co-morbid conditions.

Patients with extremes in muscle mass or diet.

The data above are obtained from the National Kidney Disease Education Program (NKDEP) which additionally recommends that when the eGFR is used in patients with extremes of body mass index for purposes of drug dosing, the eGFR should be multiplied by the estimated BMI. [facility] [place] CHEM PANEL AGAP 6.9 10.0 - 20.0 03/28/2019 [facility] [place] HEMATOLOGY WBC 7.4 3.7 - 10.4 03/28/2019 [facility] [place] HEMATOLOGY RBC 3.91 4.20 - 5.40 03/28/2019 [facility] [place] HEMATOLOGY Hgb 13.3 12.0 - 16.0 03/28/2019 [facility] [place] HEMATOLOGY Hct 37.7 36.0 - 48.0 03/28/2019 [facility] [place] HEMATOLOGY MCV 96.4 80.0 - 98.0 03/28/2019 [facility] [place] HEMATOLOGY MCH 34.0 27.0 - 31.0 03/28/2019 [place] HEMATOLOGY MCHC 35.3 32.0 - 36.0 03/28/2019 [place] HEMATOLOGY RDW 13.1 11.5 - 14.5 03/28/2019 [facility] [place] HEMATOLOGY Platelet 406 133 - 450 03/28/2019 [facility] [place] HEMATOLOGY MPV 7.0 7.4 - 10.4 03/28/2019 [facility] [place] HEMATOLOGY RBC Morph Marcelle l (03/28/19 4:01 AM) Normal 03/28/2019 [place] HEMATOLOGY Plt Morph Marcelle l (03/28/19 4:01 AM) Normal 03/28/2019 [place] HEMATOLOGY Segs 52.7 45.0 - 75.0 03/28/2019 [place] HEMATOLOGY Lymphocytes 32.3 20.0 - 40.0 03/28/2019 [place] HEMATOLOGY Monocytes 12.1 2.0 - 12.0 03/28/2019 [place] HEMATOLOGY Eosinophils 1.8 0.0 - 4.0 03/28/2019 [place] HEMATOLOGY Basophils 1.1 0.0 - 1.0 03/28/2019 [place] HEMATOLOGY Neutrophils # 3.9 1.5 - 8.1 03/28/2019 [place] HEMATOLOGY Lymphocytes # 2.4 1.0 - 5.5 03/28/2019 [place] HEMATOLOGY Monocytes # 0.9 0.0 - 0.8 03/28/2019 [place] HEMATOLOGY Eosinophils # 0.1 0.0 - 0.5 03/28/2019 [place] HEMATOLOGY Basophils # 0.1 0.0 - 0.2 03/28/2019 [place] ELECTROLYTES AGAP 8.9 10.0 - 20.0 03/26/2019 [place] ELECTROLYTES Glucose Lvl 100 70 - 99 03/26/2019 [place] ELECTROLYTES BUN 10 7 - 22 03/26/2019 [place] ELECTROLYTES Creatinine Lvl 0.6 8 0.50 - 1.40 03/26/2019 [place] ELECTROLYTES Sodium Lvl 137 135 - 145 03/26/2019 [place] ELECTROLYTES Potassium Lvl 3.9 3.5 - 5.1 03/26/2019 [place] ELECTROLYTES Chloride Lvl 101 95 - 109 03/26/2019 [facility] [place] ELECTROLYTES CO2 31 24 - 32 03/26/2019 [facility] [place] ELECTROLYTES Calcium Lvl 9.3 8.5 - 10.5 03/26/2019 [facility] [place] ELECTROLYTES eGFR 114 03/26/2019 Result Comment: The eGFR is calculated using the CKD-EPI formula. In most young, healthy individuals the eGFR will be >90 mL/min/1.73m2. The eGFR declines with age. An eGFR of 60-89 may be normal in some populations, particularly the elderly, for whom the CKD-EPI formula has not been extensively validated. Use of the eGFR is not recommended in the following populations:

Individuals with unstable creatinine concentrations, including patients and those with serious co-morbid conditions.

Patients with extremes in muscle mass or diet.

The data above are obtained from the National Kidney Disease Education Program (NKDEP) which additionally recommends that when the eGFR is used in patients with extremes of body mass index for purposes of drug dosing, the eGFR should be multiplied by the estimated BMI. [facility] [place] HEMATOLOGY Segs 58.2 45.0 - 75.0 03/26/2019 [facility] [place] HEMATOLOGY Lymphocytes 23.9 20.0 - 40.0 03/26/2019 [facility] [place] HEMATOLOGY Monocytes 14.8 2.0 - 12.0 03/26/2019 [facility] [place] HEMATOLOGY Eosinophils 1.9 0.0 - 4.0 03/26/2019 [facility] [place] HEMATOLOGY Basophils 1.2 0.0 - 1.0 03/26/2019 [facility] [place] HEMATOLOGY Neutrophils # 4.2 1.5 - 8.1 03/26/2019 [facility] [place] HEMATOLOGY Lymphocytes # 1.7 1.0 - 5.5 03/26/2019 [facility] [place] HEMATOLOGY Monocytes # 1.1 0.0 - 0.8 03/26/2019 [facility] [place] HEMATOLOGY Eosinophils # 0.1 0.0 - 0.5 03/26/2019 [facility] [place] HEMATOLOGY Basophils # 0.1 0.0 - 0.2 03/26/2019 [facility] [place] HEMATOLOGY WBC 7.3 3.7 - 10.4 03/26/2019 [facility] [place] HEMATOLOGY RBC 3.80 4.20 - 5.40 03/26/2019 [facility] [place] HEMATOLOGY Hgb 13.0 12.0 - 16.0 03/26/2019 [place] HEMATOLOGY Hct 36.1 36.0 - 48.0 03/26/2019 [place] HEMATOLOGY MCV 95.1 80.0 - 98.0 03/26/2019 [place] HEMATOLOGY MCH 34.3 27.0 - 31.0 03/26/2019 [place] HEMATOLOGY MCHC 36.1 32.0 - 36.0 03/26/2019 [place] HEMATOLOGY RDW 12.9 11.5 - 14.5 03/26/2019 [place] HEMATOLOGY Platelet 378 133 - 450 03/26/2019 [place] HEMATOLOGY MPV 6.8 7.4 - 10.4 03/26/2019 [place] ELECTROLYTES AGAP 8.9 10.0 - 20.0 03/25/2019 [place] ELECTROLYTES B/C Ratio 8 6 - 25 03/25/2019 [place] ELECTROLYTES Globulin 4.2 2.7 - 4.2 03/25/2019 [place] ELECTROLYTES A/G Ratio 0.7 0.7 - 1.6 03/25/2019 [place] ELECTROLYTES Glucose Lvl 99 70 - 99 03/25/2019 [place] ELECTROLYTES BUN 6 7 - 22 03/25/2019 [place] ELECTROLYTES Creatinine Lvl 0.7 3 0.50 - 1.40 03/25/2019 [place] ELECTROLYTES Sodium Lvl 138 135 - 145 03/25/2019 [place] ELECTROLYTES Potassium Lvl 3.9 3.5 - 5.1 03/25/2019 [place] ELECTROLYTES Chloride Lvl 103 95 - 109 03/25/2019 [place] ELECTROLYTES CO2 30 24 - 32 03/25/2019 [place] ELECTROLYTES Calcium Lvl 9.3 8.5 - 10.5 03/25/2019 [place] ELECTROLYTES Total Protein 7.3 6.4 - 8.4 03/25/2019 [place] ELECTROLYTES Albumin Lvl 3.1 3.5 - 5.0 03/25/2019 [place] ELECTROLYTES ALT 19 0 - 65 03/25/2019 [place] ELECTROLYTES AST 16 0 - 37 03/25/2019 [place] ELECTROLYTES Alk Phos 76 39 - 136 03/25/2019 [place] ELECTROLYTES Bili Total 0.2 0.2 - 1.3 03/25/2019 [facility] [place] ELECTROLYTES eGFR 107 03/25/2019 Result Comment: The eGFR is calculated using the CKD-EPI formula. In most young, healthy individuals the eGFR will be >90 mL/min/1.73m2. The eGFR declines with age. An eGFR of 60-89 may be normal in some populations, particularly the elderly, for whom the CKD-EPI formula has not been extensively validated. Use of the eGFR is not recommended in the following populations:

Individuals with unstable creatinine concentrations, including patients and those with serious co-morbid conditions.

Patients with extremes in muscle mass or diet.

The data above are obtained from the National Kidney Disease Education Program (NKDEP) which additionally recommends that when the eGFR is used in patients with extremes of body mass index for purposes of drug dosing, the eGFR should be multiplied by the estimated BMI. [facility] [place] HEMATOLOGY WBC 8.6 3.7 - 10.4 03/25/2019 [facility] [place] HEMATOLOGY RBC 4.01 4.20 - 5.40 03/25/2019 [facility] [place] HEMATOLOGY Hgb 13.7 12.0 - 16.0 03/25/2019 [facility] [place] HEMATOLOGY Hct 38.4 36.0 - 48.0 03/25/2019 [facility] [place] HEMATOLOGY MCV 95.9 80.0 - 98.0 03/25/2019 [facility] [place] HEMATOLOGY MCH 34.2 27.0 - 31.0 03/25/2019 [facility] [place] HEMATOLOGY MCHC 35.7 32.0 - 36.0 03/25/2019 [facility] [place] HEMATOLOGY RDW 13.0 11.5 - 14.5 03/25/2019 [facility] [place] HEMATOLOGY Platelet 377 133 - 450 03/25/2019 [facility] [place] HEMATOLOGY MPV 7.2 7.4 - 10.4 03/25/2019 [facility] [place] HEMATOLOGY Segs 55.6 45.0 - 75.0 03/25/2019 [facility] [place] HEMATOLOGY Lymphocytes 23.6 20.0 - 40.0 03/25/2019 [facility] [place] HEMATOLOGY Monocytes 17.6 2.0 - 12.0 03/25/2019 [facility] [place] HEMATOLOGY Eosinophils 2.2 0.0 - 4.0 03/25/2019 [facility] [place] HEMATOLOGY Basophils 1.0 0.0 - 1.0 03/25/2019 [place] HEMATOLOGY Neutrophils # 4.8 1.5 - 8.1 03/25/2019 [place] HEMATOLOGY Lymphocytes # 2.0 1.0 - 5.5 03/25/2019 [place] HEMATOLOGY Monocytes # 1.5 0.0 - 0.8 03/25/2019 [place] HEMATOLOGY Eosinophils # 0.2 0.0 - 0.5 03/25/2019 [place] HEMATOLOGY Basophils # 0.1 0.0 - 0.2 03/25/2019 [place] CHEM PANEL Total Protein 7.0 6.4 - 8.4 03/24/2019 [place] CHEM PANEL Albumin Lvl 3.1 3.5 - 5.0 03/24/2019 [place] CHEM PANEL ALT 23 0 - 65 03/24/2019 [place] CHEM PANEL AST 10 0 - 37 03/24/2019 [place] CHEM PANEL Alk Phos 70 39 - 136 03/24/2019 [place] CHEM PANEL Bili Total 0.2 0.2 - 1.3 03/24/2019 [place] CHEM PANEL B/C Ratio 6 6 - 25 03/24/2019 [place] CHEM PANEL Globulin 3.9 2.7 - 4.2 03/24/2019 [place] CHEM PANEL A/G Ratio 0.8 0.7 - 1.6 03/24/2019 [place] CHEM PANEL Total Protein 7.3 6.4 - 8.4 03/23/2019 [place] CHEM PANEL Albumin Lvl 3.1 3.5 - 5.0 03/23/2019 [place] CHEM PANEL ALT 22 0 - 65 03/23/2019 [place] CHEM PANEL AST 12 0 - 37 03/23/2019 [place] CHEM PANEL Alk Phos 69 39 - 136 03/23/2019 [place] CHEM PANEL Bili Total 0.3 0.2 - 1.3 03/23/2019 [place] CHEM PANEL B/C Ratio 3 6 - 25 03/23/2019 [place] CHEM PANEL Globulin 4.2 2.7 - 4.2 03/23/2019 [place] CHEM PANEL A/G Ratio 0.7 0.7 - 1.6 03/23/2019 [place] IMMUNOLOGY C-REACTIVE PROTEIN 18.2 <=2.9 mg/L 03/21/2019 [place] IMMUNOLOGY Prealbumin 20.5 18.0 - 45.0 03/21/2019 [place] CHEM PANEL Magnesium Lvl 2.5 1.8 - 2.4 03/20/2019 [place] CHEM PANEL Phosphorus 3.6 2.5 - 4.5 03/20/2019 [place] BACTERIAL - SEROLOGY MRSA by PCR Negative (03/19/19 11:32 PM) 03/20/2019 [place] DRUG SCREEN U Amph Scr Nega tive *NA* (03/19/19 11:11 PM) Negative 03/20/2019 [place] DRUG SCREEN U Zo Scr Nega tive *NA* (03/19/19 11:11 PM) Negative 03/20/2019 [place] DRUG SCREEN U Benzodiaz Scr Nega tive *NA* (03/19/19 11:11 PM) Negative 03/20/2019 [place] DRUG SCREEN U Cocaine Scr Nega tive *NA* (03/19/19 11:11 PM) Negative 03/20/2019 [place] DRUG SCREEN U Cannab Scr Nega tive *NA* (03/19/19 11:11 PM) Negative 03/20/2019 [place] DRUG SCREEN U Opiate Scr Posi tive *ABN* (03/19/19 11:11 PM) Negative 03/20/2019 [place] DRUG SCREEN U Phencyclidine Scr Nega tive *NA* (03/19/19 11:11 PM) Negative 03/20/2019 [place] DRUG SCREEN UDS Note See Note (03/19/19 11:11 PM) 03/20/2019 [place] HEMATOLOGY PT 13.4 12.0 - 14.7 03/20/2019 [place] HEMATOLOGY INR 1.04 0.85 - 1.17 03/20/2019 [place] HEMATOLOGY PTT 28.6 22.9 - 35.8 03/20/2019 [place] CARDIAC ENZYMES Total CK 226 12 - 191 03/20/2019 [place] CARDIAC ENZYMES Troponin-I <0.02 0.00 - 0.40 03/20/2019 [place] CHEM PANEL Bili Direct 0.3 0.0 - 0.3 03/20/2019 [facility] [place] CHEM PANEL Bili Indirect 0.7 0.0 - 1.0 03/20/2019 [facility] [place] CHEM PANEL Lipase Lvl 82 73 - 393 03/20/2019 [facility] [place] ENDOCRINOLOGY S Preg Ne gative *NA* (03/19/19 8:52 PM) Negative 03/20/2019 [facility] [place] HEMATOLOGY PT 13.2 12.0 - 14.7 03/20/2019 [facility] [place] HEMATOLOGY INR 1.02 0.85 - 1.17 03/20/2019 [facility] [place] TOXICOLOGY Ethanol Lvl <3 03/19/2019 [facility] [place] TOXICOLOGY Etoh (%) <0.003 03/19/2019 [facility] [place] CARDIAC ENZYMES Total CK 374 12 - 191 12/23/2018 [facility] CHEM PANEL Magnesium Lvl 2.0 1.8 - 2.4 12/23/2018 [facility] ELECTROLYTES AGAP 14.3 10.0 - 20.0 12/23/2018 [facility] ELECTROLYTES Globulin 3.3 2.7 - 4.2 12/23/2018 [facility] ELECTROLYTES B/C Ratio 6 6 - 25 12/23/2018 [facility] ELECTROLYTES A/G Ratio 1.3 0.7 - 1.6 12/23/2018 [facility] ELECTROLYTES Bili Total 0.5 0.2 - 1.3 12/23/2018 [facility] ELECTROLYTES eGFR 100 12/23/2018 Result Comment: The eGFR is calculated using the CKD-EPI formula. In most young, healthy individuals the eGFR will be >90 mL/min/1.73m2. The eGFR declines with age. An eGFR of 60-89 may be normal in some populations, particularly the elderly, for whom the CKD-EPI formula has not been extensively validated. Use of the eGFR is not recommended in the following populations:

Individuals with unstable creatinine concentrations, including patients and those with serious co-morbid conditions.

Patients with extremes in muscle mass or diet.

The data above are obtained from the [employer] (NK[employer]) which additionally recommends that when the eGFR is used in patients with extremes of body mass index for purposes of drug dosing, the eGFR should be multiplied by the estimated BMI. [facility] ELECTROLYTES Glucose Lvl 82 70 - 99 12/23/2018 [facility] ELECTROLYTES BUN 5 7 - 22 12/23/2018 [facility] ELECTROLYTES Creatinine Lvl 0.7 7 0.50 - 1.40 12/23/2018 [facility] ELECTROLYTES Sodium Lvl 142 135 - 145 12/23/2018 [facility] ELECTROLYTES Potassium Lvl 4.3 3.5 - 5.1 12/23/2018 [facility] ELECTROLYTES Chloride Lvl 106 95 - 109 12/23/2018 [facility] ELECTROLYTES Calcium Lvl 8.9 8.5 - 10.5 12/23/2018 [facility] ELECTROLYTES CO2 26 24 - 32 12/23/2018 [facility] ELECTROLYTES Albumin Lvl 4.3 3.5 - 5.0 12/23/2018 [facility] ELECTROLYTES ALT 43 0 - 65 12/23/2018 [facility] ELECTROLYTES AST 41 0 - 37 12/23/2018 [facility] ELECTROLYTES Alk Phos 75 39 - 136 12/23/2018 [facility] ELECTROLYTES Total Protein 7.6 6.4 - 8.4 12/23/2018 [facility] ENDOCRINOLOGY S Preg Ne gative *NA* (12/23/18 11:46 AM) Negative 12/23/2018 [facility] HEMATOLOGY Basophils # 0.1 0.0 - 0.2 12/23/2018 [facility] HEMATOLOGY Monocytes # 0.6 0.0 - 0.8 12/23/2018 [facility] HEMATOLOGY Basophils 1.0 0.0 - 1.0 12/23/2018 [facility] HEMATOLOGY Lymphocytes 16.8 20.0 - 40.0 12/23/2018 [facility] HEMATOLOGY Segs 75.1 45.0 - 75.0 12/23/2018 [facility] HEMATOLOGY Eosinophils 0.2 0.0 - 4.0 12/23/2018 [facility] HEMATOLOGY Monocytes 6.9 2.0 - 12.0 12/23/2018 [facility] HEMATOLOGY Neutrophils # 7.0 1.5 - 8.1 12/23/2018 [facility] HEMATOLOGY Lymphocytes # 1.6 1.0 - 5.5 12/23/2018 [facility] HEMATOLOGY RBC 4.39 4.20 - 5.40 12/23/2018 [facility] HEMATOLOGY WBC 9.3 3.7 - 10.4 12/23/2018 [facility] HEMATOLOGY Hgb 14.4 12.0 - 16.0 12/23/2018 [facility] HEMATOLOGY Platelet 353 133 - 450 12/23/2018 [facility] HEMATOLOGY RDW 12.8 11.5 - 14.5 12/23/2018 [facility] HEMATOLOGY MPV 7.1 7.4 - 10.4 12/23/2018 [facility] HEMATOLOGY Hct 42.6 36.0 - 48.0 12/23/2018 [facility] HEMATOLOGY MCV 97.2 80.0 - 98.0 12/23/2018 [facility] MCHC 33.8 32.0 - 36.0 12/23/2018 [facility] MCH 32.8 27.0 - 31.0 12/23/2018 [facility] TOXICOLOGY Etoh (%) 0.282 12/23/2018 [facility] TOXICOLOGY Ethanol Lvl 282 12/23/2018 Result Comment: Critical Result(s) called to Lauren Starks at 12/23/2018 12:44 by EFA. Read back OK. [facility] ENDOCRINOLOGY S Preg Ne gative *NA* (01/10/18 6:42 PM) Negative 01/10/2018 [place] IMMUNOLOGY [place] [employer] anuradha *ABN* (01/10/18 6:42 PM) Negative 01/10/2018 [place] CHEM PANEL Lactic Acid Lvl 0.8 0.5 - 2.2 [facility] eGFR 84 01/10/2018 Result Comment: The eGFR is calculated using the CKD-EPI formula. In most young, healthy individuals the eGFR will be >90 mL/min/1.73m2. The eGFR declines with age. An eGFR of 60-89 may be normal in some populations, particularly the elderly, for whom the CKD-EPI formula has not been extensively validated. Use of the eGFR is not recommended in the following populations:

Individuals with unstable creatinine concentrations, including patients and those with serious co-morbid conditions.

Patients with extremes in muscle mass or diet.

The data above are obtained from the National Kidney Disease Education Program (NKDEP) which additionally recommends that when the eGFR is used in patients with extremes of body mass index for purposes of drug dosing, the eGFR should be multiplied by the estimated BMI. [place] CHEM PANEL Bili Total 2.3 0.2 - 1.3 01/10/2018 [place] CHEM PANEL Alk Phos 357 39 - 136 01/10/2018 [place] CHEM PANEL Albumin Lvl 3.5 3.5 - 5.0 01/10/2018 [place] CHEM PANEL AST 302 0 - 37 01/10/2018 [place] CHEM PANEL ALT 407 0 - 65 01/10/2018 [place] CHEM PANEL Sodium Lvl 138 135 - 145 01/10/2018 [place] CHEM PANEL Creatinine Lvl 0.90 0.50 - 1.40 01/10/2018 [place] CHEM PANEL BUN 10 7 - 22 01/10/2018 [place] CHEM PANEL Glucose Lvl 84 70 - 99 01/10/2018 [place] CHEM PANEL Total Protein 7.0 6.4 - 8.4 01/10/2018 [place] CHEM PANEL Calcium Lvl 8.4 8.5 - 10.5 01/10/2018 [place] CHEM PANEL Chloride Lvl 104 95 - 109 01/10/2018 [place] CHEM PANEL CO2 27 24 - 32 01/10/2018 [place] CHEM PANEL Potassium Lvl 3.6 3.5 - 5.1 01/10/2018 [place] CHEM PANEL AGAP 10.6 10.0 - 20.0 01/10/2018 [place] CHEM PANEL B/C Ratio 11 6 - 25 01/10/2018 [place] CHEM PANEL Globulin 3.5 2.7 - 4.2 01/10/2018 [place] CHEM PANEL A/G Ratio 1.0 0.7 - 1.6 01/10/2018 [facility] HEMATOLOGY Monocytes 1.0 2.0 - 12.0 01/10/2018 [facility] HEMATOLOGY Atypical Lymphs 4.0 <=0.0 % 01/10/2018 [facility] HEMATOLOGY Bands 8.0 0.0 - 11.0 01/10/2018 [facility] HEMATOLOGY Segs 53.0 45.0 - 75.0 01/10/2018 [facility] HEMATOLOGY Anisocyte 1+ *ABN* (01/10/18 5:09 PM) None Seen 01/10/2018 [facility] HEMATOLOGY Lymphocytes 34.0 20.0 - 40.0 01/10/2018 [facility] HEMATOLOGY Monocytes # 0.0 0.0 - 0.8 01/10/2018 [facility] HEMATOLOGY Neutrophils # 2.9 1.5 - 8.1 01/10/2018 [facility] HEMATOLOGY Lymphocytes # 1.8 1.0 - 5.5 01/10/2018 [facility] HEMATOLOGY Hgb 15.2 12.0 - 16.0 01/10/2018 [place] HEMATOLOGY WBC 4.7 3.7 - 10.4 01/10/2018 [place] HEMATOLOGY RBC 4.74 4.20 - 5.40 01/10/2018 [place] HEMATOLOGY MCHC 34.2 32.0 - 36.0 01/10/2018 [place] HEMATOLOGY RDW 13.8 11.5 - 14.5 01/10/2018 [place] HEMATOLOGY Hct 44.4 36.0 - 48.0 01/10/2018 [place] HEMATOLOGY MCH 32.0 27.0 - 31.0 01/10/2018 [place] HEMATOLOGY MCV 93.6 80.0 - 98.0 01/10/2018 [place] HEMATOLOGY Platelet 97 133 - 450 01/10/2018 [facility] HEMATOLOGY MPV 8.9 7.4 - 10.4 01/10/2018 [facility] URINE AND STOOL UA Urobilinogen <=1.0 mg/dL 0.1 - 1.0 02/20/2014 [facility] URINE AND STOOL UA Sq Epi Occasional /LPF Few /LPF 02/20/2014 [place] URINE AND STOOL UA WBC 1 0 - 5 02/20/2014 [facility] URINE AND STOOL UA Ketones Negative mg/dL Negative mg/dL 02/20/2014 [facility] URINE AND STOOL UA Bili Negative *NA* (02/20/14 1:11 AM) Negative 02/20/2014 [facility] URINE AND STOOL UA Blood Small *ABN* (02/20/14 1:11 AM) Negative 02/20/2014 [place] URINE AND STOOL UA pH 7.0 5.0 - 8.0 02/20/2014 [place] URINE AND STOOL UA RBC 7 0 - 2 02/20/2014 [place] URINE AND STOOL UA Protein Negative mg/dL Negative mg/dL 02/20/2014 [facility] URINE AND STOOL UA Glucose Negative mg/dL Negative mg/dL 02/20/2014 [facility] URINE AND STOOL UA Color Yellow *NA* (02/20/14 1:11 AM) Yellow 02/20/2014 [place] URINE AND STOOL UA Turbidity Clear (02/20/14 1:11 AM) Clear 02/20/2014 [place] URINE AND STOOL UA Spec Grav 1.011 <=1.030 02/20/2014 [place] URINE AND STOOL UA Nitrite Negative (02/20/14 1:11 AM) Negative 02/20/2014 [place] URINE AND STOOL UA Leuk Est Negative (02/20/14 1:11 AM) Negative 02/20/2014 [place] URINE CHEM U Preg Negat anuradha (02/20/14 1:11 AM) Negative 02/20/2014 [place] CHEM PANEL eGFR 76 02/20/2014 <sup>1</sup>Result Comment: The eGFR is calculated using the CKD-EPI formula. In most young, healthy individuals the eGFR will be >90 mL/min/1.73m2. The eGFR declines with age. An eGFR of 60-89 may be normal in some populations, particularly the elderly, for whom the CKD-EPI formula has not been extensively validated. Use of the eGFR is not recommended in the following populations:& lt;br/>
Individuals with unstable creatinine concentrations, including patients and those with serious co-morbid conditions.

Patients with extremes in muscle mass or diet.

The data above are obtained from the National Kidney Disease Education Program (NKDEP) which additionally recommends that when the eGFR is used in patients with extremes of body mass index for purposes of drug dosing, the eGFR should be multiplied by the estimated BMI. [place] CHEM PANEL ALT 21 0 - 65 02/20/2014 [place] CHEM PANEL Bili Total 0.3 0.2 - 1.3 02/20/2014 [place] CHEM PANEL AST 23 0 - 37 02/20/2014 [place] CHEM PANEL Alk Phos 42 39 - 136 02/20/2014 [place] CHEM PANEL Chloride Lvl 104 95 - 109 02/20/2014 [place] CHEM PANEL CO2 29 24 - 32 02/20/2014 [place] CHEM PANEL Sodium Lvl 140 135 - 145 02/20/2014 [place] CHEM PANEL Potassium Lvl 3.8 3.5 - 5.1 02/20/2014 [place] CHEM PANEL BUN 9 7 - 22 02/20/2014 [place] CHEM PANEL Creatinine Lvl 1.0 0.5 - 1.4 02/20/2014 [place] CHEM PANEL Glucose Lvl 79 70 - 99 02/20/2014 <sup>2</sup>Interpretive Data: Adult ref erence range values reflect the clinical guidelines
of the [place] [employer]. [place] CHEM PANEL Albumin Lvl 4.2 3.5 - 5.0 02/20/2014 [place] CHEM PANEL Calcium Lvl 9.6 8.5 - 10.5 02/20/2014 [place] CHEM PANEL Total Protein 8.0 6.4 - 8.4 02/20/2014 [place] CHEM PANEL AGAP 10.8 10.0 - 20.0 02/20/2014 [place] CHEM PANEL B/C Ratio 9 6 - 25 02/20/2014 [place] CHEM PANEL Globulin 3.8 2.0 - 4.0 02/20/2014 [place] CHEM PANEL A/G Ratio 1.1 0.7 - 1.6 02/20/2014 [place] CHEM PANEL Lipase Lvl 88 73 - 393 02/20/2014 [place] HEMATOLOGY Segs-Bands # 3.9 1.5 - 8.1 02/20/2014 [facility] HEMATOLOGY Monocytes 11.2 2.0 - 12.0 02/20/2014 [facility] HEMATOLOGY Eosinophils 1.3 0.0 - 4.0 02/20/2014 [facility] HEMATOLOGY Basophils # 0.0 0.0 - 0.2 02/20/2014 [facility] HEMATOLOGY Basophils 0.6 0.0 - 1.0 02/20/2014 [facility] HEMATOLOGY Monocytes # 0.8 0.0 - 0.8 02/20/2014 [facility] HEMATOLOGY Lymphocytes # 2.5 1.0 - 5.5 02/20/2014 [facility] HEMATOLOGY Eosinophils # 0.1 0.0 - 0.5 02/20/2014 [facility] HEMATOLOGY Lymphocytes 34.0 20.0 - 40.0 02/20/2014 [facility] HEMATOLOGY Segs 52.9 45.0 - 75.0 02/20/2014 [facility] HEMATOLOGY Hct 39.3 36.0 - 48.0 02/20/2014 [facility] HEMATOLOGY Hgb 13.1 12.0 - 16.0 02/20/2014 [facility] HEMATOLOGY MCH 32.1 27.0 - 31.0 02/20/2014 [facility] HEMATOLOGY MCV 96.1 80.0 - 98.0 02/20/2014 [facility] HEMATOLOGY WBC 7.3 3.7 - 10.4 02/20/2014 [facility] HEMATOLOGY RBC 4.09 4.20 - 5.40 02/20/2014 [facility] HEMATOLOGY MCHC 33.4 32.0 - 36.0 02/20/2014 [facility] HEMATOLOGY RDW 13.8 11.5 - 14.5 02/20/2014 [facility] HEMATOLOGY Platelet 358 133 - 450 02/20/2014 [facility] HEMATOLOGY MPV 7.7 7.4 - 10.4 02/20/2014 [facility] IMMUNOLOGY [facility] HIV 4th GEN Negat anuradha (02/20/14 1:07 AM) Negative 02/20/2014 [facility] INFECTIOUS DISEASES C difficile DNA Negative 1 (01/30/2012 22:07:00) Negati ve 01/31/2012 Normal <sup>1</sup>Interpretive Data: [employer] Clostridium difficile assay utilizes loop-mediated isothermal DNA amplification (LAMP) technology to detect a 204 bp region of the tcdA gene within the PaLoc gene segment present in all known toxigenic C. difficile strains.

The assay utilizes FDA cleared IVD reagents. Performance characteristics have been verified by the [facility] within the [facility]. The [facility] is authorized under the Clinical Laboratory Improvement Amendment of 1988 (CLIA-88) to perform high complexity testing. [facility] CHEMISTRY Bili Indirect 0.1 0.0 - 1.0 01/30/2012 Normal [facility] CHEMISTRY Bili Total 0.2 0.2 - 1.3 01/30/2012 Normal [facility] CHEMISTRY Bili Direct 0.1 0.0 - 0.3 01/30/2012 Normal [facility] CHEMISTRY AST 23 0 - 37 01/30/2012 Normal [facility] CHEMISTRY ALT 40 0 - 65 01/30/2012 Normal [facility] CHEMISTRY A/G Ratio 1.1 0.7 - 1.6 01/30/2012 Normal [facility] CHEMISTRY Alk Phos 70 39 - 136 01/30/2012 Normal [facility] CHEMISTRY Total Protein 7.2 6.4 - 8.4 01/30/2012 Normal [facility] CHEMISTRY Albumin Lvl 3.7 3.5 - 5.0 01/30/2012 Normal [facility] CHEMISTRY Globulin 3.5 2.0 - 4.0 01/30/2012 Normal [facility] CHEMISTRY AGAP 9.8 10.0 - 20.0 01/30/2012 LOW [facility] CHEMISTRY CO2 30 24 - 32 01/30/2012 Normal [place] CHEMISTRY Chloride Lvl 102 95 - 109 01/30/2012 Normal [place] CHEMISTRY Sodium Lvl 138 135 - 145 01/30/2012 Normal [facility] CHEMISTRY Calcium Lvl 8.9 8.5 - 10.5 01/30/2012 Normal [facility] CHEMISTRY Potassium Lvl 3.8 3.5 - 5.1 01/30/2012 Normal [facility] CHEMISTRY Glucose Lvl 84 70 - 99 01/30/2012 Normal <sup>2</sup>Interpretive Data: Adult ref erence range values reflect the clinical guidelines
of the [place] [employer]. [facility] CHEMISTRY BUN 4 7 - 22 01/30/2012 LOW [facility] CHEMISTRY Creatinine Lvl 0.8 0.5 - 1.4 01/30/2012 Normal [facility] HEMATOLOGY RDW 13.5 11.5 - 14.5 01/30/2012 Normal [facility] HEMATOLOGY MCH 31.4 27.0 - 31.0 01/30/2012 HI [facility] HEMATOLOGY MCHC 33.8 32.0 - 36.0 01/30/2012 Normal [facility] HEMATOLOGY Hct 35.9 36.0 - 48.0 01/30/2012 LOW [facility] HEMATOLOGY MCV 93.0 81.0 - 99.0 01/30/2012 Normal [facility] HEMATOLOGY Platelet 308 133 - 450 01/30/2012 Normal [facility] HEMATOLOGY MPV 7.2 7.4 - 10.4 01/30/2012 LOW [facility] HEMATOLOGY WBC 7.0 3.7 - 10.4 01/30/2012 Normal [facility] HEMATOLOGY RBC 3.86 4.20 - 5.40 01/30/2012 LOW [facility] HEMATOLOGY Hgb 12.1 12.0 - 16.0 01/30/2012 Normal [facility] HEMATOLOGY Monocytes 11.4 2.0 - 12.0 01/30/2012 Normal [facility] HEMATOLOGY Lymphocytes 35.0 20.0 - 40.0 01/30/2012 Normal [facility] HEMATOLOGY Basophils # 0.1 0.0 - 0.2 01/30/2012 Normal [facility] HEMATOLOGY Monocytes # 0.8 0.0 - 0.8 01/30/2012 Normal [facility] HEMATOLOGY Eosinophils # 0.7 0.0 - 0.5 01/30/2012 HI [facility] HEMATOLOGY Segs 43.1 45.0 - 75.0 01/30/2012 LOW [facility] HEMATOLOGY Lymphocytes # 2.5 1.0 - 5.5 01/30/2012 Normal [facility] HEMATOLOGY Segs-Bands # 3.0 1.5 - 8.1 01/30/2012 Normal [facility] HEMATOLOGY Basophils 0.8 0.0 - 1.0 01/30/2012 Normal [facility] HEMATOLOGY Eosinophils 9.7 0.0 - 4.0 01/30/2012 HI [facility] Gliadin (Deamidated Pepti de)IgG Ab 2 <01/30/2012 NA <sup>6</sup>Result Comment:
Refere nce Ranges for Gliadin (Deamidated Peptide)
Antibody (IgG):

<20 units Antibody Not Detected
> or = 20 units Antibody Detected
Test Performed at:
[facility]
[address] [place] [address]
[place] [address] Don Davis MD, PhD [facility] tTG IgA <01/30/2012 NA <sup>4</sup>Result Comment:
<4 No Antibody Detected
> OR = 4 Antibody Detected
Test Performed at:
[facility]
[address] [place] [address]
[place] [address] Don Davis MD, PhD [facility] tTG IgG <01/30/2012 NA <sup>3</sup>Result Comment:
<6 No Antibody Detected
> OR = 6 Antibody Detected
Test Performed at:
[facility] [place]
[address] [place] [address]
[place] [address] Don Davis MD, PhD [facility] IMMUNOLOGY Gliadin (Deamidated Pepti de)IgA Ab 4 <20 01/30/2012 NA <sup>7</sup>Result Comment:
Refere nce Ranges for Gliadin (Deamidated Peptide)
Antibody (IgA):

<20 units Antibody Not Detected
> or = 20 units Antibody Detected
Test Performed at:
[facility]
[address] [place] [address]
[place] [address] Don Davis MD, PhD [facility] IgA Lvl 189 81 - 463 01/30/2012 NA <sup>5</sup>Result Comment: Test Perform ed at:
[facility]
[address] [place] [address]
[place] [address] Don Davis MD, PhD [facility] Endomysial IgA NEGAT ANURADHA NEGATIVE 01/30/2012 NA <sup>8</sup>Result Comment: Test Perform ed at:
[facility]
[address] [place] [address]
[place] [address] Don Davis MD, PhD [facility] CHEMISTRY UDS Note See No te 2 (01/27/2012 14:51:00) 01/27/2012 Normal <sup>2</sup>Interpretive Data: Drugs reported as positive have not been confirmed by a second
method and should be used for medical purposes only. To order
confirmation, contact laboratory.

note: Below are cut- off concentrations for all urine drugs of
abuse performed in the laboratory. Some drugs listed in the table
may not be included in this panel.

Description Cut-off concentration

Ampheta mine 1000 ng/mL
Barbiturates 200 ng/mL
Benzodiazepines 300 ng/mL
Cocaine metabolites 300 ng/mL
Opiates 300 ng/mL
Phencyclidine 25 ng/mL
Propoxyphene 300 ng/mL
Marijuana metabolites 50 ng/mL
Methadone 300 ng/m L
Urine alcohol 20 mg/dL [facility] CHEMISTRY U Oz Scr Negati ve *NA* (01/27/2012 14:51:00) Negati ve 01/27/2012 NA [facility] CHEMISTRY U Benzodia Scr Negati ve *NA* (01/27/2012 14:51:00) Negati ve 01/27/2012 NA [facility] CHEMISTRY U Cocaine Scr Negati ve *NA* (01/27/2012 14:51:00) Negati ve 01/27/2012 NA [facility] CHEMISTRY U Cannab Scr Negati ve *NA* (01/27/2012 14:51:00) Negati ve 01/27/2012 NA [facility] CHEMISTRY U Opiate Scr Positi ve *ABN* (01/27/2012 14:51:00) Negati ve 01/27/2012 ABN [facility] CHEMISTRY U Phencyc Scr Negati ve *NA* (01/27/2012 14:51:00) Negati ve 01/27/2012 NA [facility] CHEMISTRY U Methadone Scr Negati ve *NA* (01/27/2012 14:51:00) Negati ve 01/27/2012 NA [facility] CHEMISTRY U Propoxyph Scr Negati ve *NA* (01/27/2012 14:51:00) Negati ve 01/27/2012 NA [facility] CHEMISTRY U Amph Scr Negati ve *NA* (01/27/2012 14:51:00) Negati ve 01/27/2012 NA [facility] URINALYSIS UA Urobilinogen 0.1 - 1.0 01/27/2012 NA [facility] URINALYSIS UA Bili Negat anuradha *NA* (01/27/2012 14:51:00) Negati ve 01/27/2012 NA [facility] URINALYSIS UA Ketones Negat anuradha mg/dL *NA* (01/27/2012 14:51:00) Negati ve 01/27/2012 NA [facility] URINALYSIS UA Glucose Negat anuradha mg/dL *NA* (01/27/2012 14:51:00) Negati ve 01/27/2012 NA [facility] URINALYSIS UA Blood Negat anuradha (01/27/2012 14:51:00) Negati ve 01/27/2012 Normal [facility] URINALYSIS UA Leuk Est Negat anuradha (01/27/2012 14:51:00) Negati ve 01/27/2012 Normal [facility] URINALYSIS UA Nitrite Negat anuradha (01/27/2012 14:51:00) Negati ve 01/27/2012 Normal [facility] URINALYSIS UA Sq Epi Few / LPF *NA* (01/27/2012 14:51:00) Few 01/27/2012 NA [facility] URINALYSIS UA Mucus Few / LPF *NA* (01/27/2012 14:51:00) None S een 01/27/2012 NA [facility] URINALYSIS UA Bacteria Moder ate /HPF *ABN* (01/27/2012 14:51:00) None S een 01/27/2012 ABN [facility] URINALYSIS UA WBC <1 0 - 5 01/27/2012 Normal [facility] URINALYSIS UA Spec Grav 1.004 <=1.030 01/27/2012 Normal [facility] URINALYSIS UA Turbidity Clear (01/27/2012 14:51:00) Clear 01/27/2012 Normal [facility] URINALYSIS UA Color Light Yellow *NA* (01/27/2012 14:51:00) Yellow 01/27/2012 NA [facility] URINALYSIS UA Protein Negat anuradha mg/dL (01/27/2012 14:51:00) Negati ve 01/27/2012 Normal [facility] URINALYSIS UA pH 8.0 5.0 - 8.0 01/27/2012 Normal [facility] CHEMISTRY Calcium Lvl 8.2 8.5 - 10.5 01/27/2012 [facility] CHEMISTRY Bili Total 0.3 0.2 - 1.3 01/27/2012 Normal [facility] CHEMISTRY Albumin Lvl 2.9 3.5 - 5.0 01/27/2012 [facility] CHEMISTRY ALT 26 0 - 65 01/27/2012 Normal [facility] CHEMISTRY Alk Phos 56 39 - 136 01/27/2012 Normal [facility] CHEMISTRY Total Protein 5.7 6.4 - 8.4 01/27/2012 [facility] CHEMISTRY AST 15 0 - 37 01/27/2012 Normal [facility] CHEMISTRY Creatinine Lvl 0.9 0.5 - 1.4 01/27/2012 Normal [facility] CHEMISTRY Glucose Lvl 86 70 - 99 01/27/2012 Normal <sup>1</sup>Interpretive Data: Adult ref erence range values reflect the clinical guidelines
of the [employer]. [facility] CHEMISTRY Sodium Lvl 145 135 - 145 01/27/2012 Normal [facility] CHEMISTRY BUN 3 7 - 22 01/27/2012 LOW [facility] CHEMISTRY CO2 27 24 - 32 01/27/2012 Normal [facility] CHEMISTRY Chloride Lvl 106 95 - 109 01/27/2012 Normal [facility] CHEMISTRY Potassium Lvl 4.2 3.5 - 5.1 01/27/2012 Normal [facility] CHEMISTRY Globulin 2.8 2.0 - 4.0 01/27/2012 Normal [facility] CHEMISTRY A/G Ratio 1.0 0.7 - 1.6 01/27/2012 Normal [facility] CHEMISTRY B/C Ratio 3 6 - 25 01/27/2012 [facility] CHEMISTRY AGAP 16.2 10.0 - 20.0 01/27/2012 Normal [facility] HEMATOLOGY Lymphocytes # 2.6 1.0 - 5.5 01/27/2012 Normal [facility] HEMATOLOGY Monocytes # 0.9 0.0 - 0.8 01/27/2012 HI [facility] HEMATOLOGY Basophils # 0.1 0.0 - 0.2 01/27/2012 Normal [facility] HEMATOLOGY Eosinophils # 0.7 0.0 - 0.5 01/27/2012 [facility] HEMATOLOGY Segs-Bands # 3.3 1.5 - 8.1 01/27/2012 [facility] HEMATOLOGY Basophils 0.9 0.0 - 1.0 01/27/2012 [facility] HEMATOLOGY Monocytes 11.5 2.0 - 12.0 01/27/2012 [facility] HEMATOLOGY Lymphocytes 35.0 20.0 - 40.0 01/27/2012 [facility] HEMATOLOGY Eosinophils 8.8 0.0 - 4.0 01/27/2012 [facility] HEMATOLOGY Segs 43.8 45.0 - 75.0 01/27/2012 [facility] HEMATOLOGY Platelet 250 133 - 450 01/27/2012 [facility] HEMATOLOGY WBC 7.5 3.7 - 10.4 01/27/2012 [facility] HEMATOLOGY MPV 7.6 7.4 - 10.4 01/27/2012 [facility] HEMATOLOGY MCHC 33.1 32.0 - 36.0 01/27/2012 [facility] HEMATOLOGY RDW 13.8 11.5 - 14.5 01/27/2012 [facility] HEMATOLOGY RBC 3.66 4.20 - 5.40 01/27/2012 [facility] HEMATOLOGY Hgb 11.3 12.0 - 16.0 01/27/2012 [facility] HEMATOLOGY Hct 34.2 36.0 - 48.0 01/27/2012 [facility] HEMATOLOGY MCV 93.4 81.0 - 99.0 01/27/2012 [facility] HEMATOLOGY MCH 30.9 27.0 - 31.0 01/27/2012 Normal [facility] STOOL TESTS Fecal Leukocyte None Seen 1 (01/26/2012 07:15:00) 01/26/2012 Normal <sup>1</sup>Interpretive Data: A Value of None Seen, Rare, or Few is Normal. [facility] STOOL TESTS Occult Bld Stl Nega tive (01/26/2012 07:15:00) Negati ve 01/26/2012 Normal [facility] Microbiology Culture: Stool 01/26/2012 [facility] CHEMISTRY U Preg Negati ve (01/26/2012 06:40:00) Negati ve 01/26/2012 Normal [place] URINALYSIS UA Bacteria Occas ional /HPF *NA* (01/26/2012 06:40:00) None S een 01/26/2012 NA [place] URINALYSIS UA Urobilinogen 0.1 - 1.0 01/26/2012 NA [place] URINALYSIS UA Ketones Negat anuradha mg/dL *NA* (01/26/2012 06:40:00) Negati ve 01/26/2012 NA [place] URINALYSIS UA Protein Negat anuradha mg/dL (01/26/2012 06:40:00) Negati ve 01/26/2012 Normal [place] URINALYSIS UA Glucose Negat anuradha mg/dL *NA* (01/26/2012 06:40:00) Negati ve 01/26/2012 NA [place] URINALYSIS UA Turbidity Sligh t *ABN* (01/26/2012 06:40:00) Clear 01/26/2012 ABN [place] URINALYSIS UA Color Light Yellow *NA* (01/26/2012 06:40:00) Yellow 01/26/2012 NA [place] URINALYSIS UA pH 8.0 5.0 - 8.0 01/26/2012 Normal [place] URINALYSIS UA Spec Grav 1.004 <=1.030 01/26/2012 Normal [place] URINALYSIS UA WBC 1 0 - 5 01/26/2012 Normal [place] URINALYSIS UA Sq Epi Occas ional /LPF *NA* (01/26/2012 06:40:00) Few 01/26/2012 NA [place] URINALYSIS UA RBC 1 0 - 2 01/26/2012 Normal [place] URINALYSIS UA Leuk Est Negat anuradha (01/26/2012 06:40:00) Negati ve 01/26/2012 Normal [place] URINALYSIS UA Nitrite Negat anuradha (01/26/2012 06:40:00) Negati ve 01/26/2012 Normal [place] URINALYSIS UA Blood Negat anuradha (01/26/2012 06:40:00) Negati ve 01/26/2012 Normal [place] URINALYSIS UA Bili Negat anuradha *NA* (01/26/2012 06:40:00) Negati ve 01/26/2012 NA [facility] [place] CHEMISTRY Amylase Lvl 26 25 - 115 01/26/2012 Normal [facility] [place] CHEMISTRY Lipase Lvl 93 73 - 393 01/26/2012 Normal [place] CHEMISTRY A/G Ratio 1.0 0.7 - 1.6 01/26/2012 Normal [facility] [place] CHEMISTRY Globulin 3.5 2.0 - 4.0 01/26/2012 Normal [place] CHEMISTRY B/C Ratio 7 6 - 25 01/26/2012 Normal [place] CHEMISTRY AGAP 8.0 10.0 - 20.0 01/26/2012 LOW [facility] [place] CHEMISTRY AST 19 0 - 37 01/26/2012 Normal [place] CHEMISTRY Glucose Lvl 92 70 - 99 01/26/2012 Normal <sup>2</sup>Interpretive Data: Adult ref erence range values reflect the clinical guidelines
of the [place] [employer]. [place] CHEMISTRY ALT 31 0 - 65 01/26/2012 Normal [place] CHEMISTRY Alk Phos 58 39 - 136 01/26/2012 Normal [place] CHEMISTRY Total Protein 7.1 6.4 - 8.4 01/26/2012 Normal [place] CHEMISTRY Albumin Lvl 3.6 3.5 - 5.0 01/26/2012 Normal [place] CHEMISTRY Chloride Lvl 104 95 - 109 01/26/2012 Normal [place] CHEMISTRY CO2 34 24 - 32 01/26/2012 HI [place] CHEMISTRY Calcium Lvl 8.6 8.5 - 10.5 01/26/2012 Normal [place] CHEMISTRY Creatinine Lvl 1.1 0.5 - 1.4 01/26/2012 Normal [place] CHEMISTRY BUN 8 7 - 22 01/26/2012 Normal [place] CHEMISTRY Potassium Lvl 4.0 3.5 - 5.1 01/26/2012 Normal [place] CHEMISTRY Sodium Lvl 142 135 - 145 01/26/2012 Normal [place] CHEMISTRY Bili Total 0.3 0.2 - 1.3 01/26/2012 Normal [place] HEMATOLOGY Segs 78.1 45.0 - 75.0 01/26/2012 HI [place] HEMATOLOGY Monocytes 8.7 2.0 - 12.0 01/26/2012 Normal [facility] HEMATOLOGY Lymphocytes 9.6 20.0 - 40.0 01/26/2012 LOW [facility] HEMATOLOGY Basophils 0.4 0.0 - 1.0 01/26/2012 Normal [facility] HEMATOLOGY Eosinophils 3.2 0.0 - 4.0 01/26/2012 Normal [facility] HEMATOLOGY Lymphocytes # 1.4 1.0 - 5.5 01/26/2012 Normal [facility] HEMATOLOGY Segs-Bands # 11.7 1.5 - 8.1 01/26/2012 HI [facility] HEMATOLOGY Monocytes # 1.3 0.0 - 0.8 01/26/2012 [facility] HEMATOLOGY Basophils # 0.1 0.0 - 0.2 01/26/2012 Normal [facility] HEMATOLOGY Eosinophils # 0.5 0.0 - 0.5 01/26/2012 Normal [facility] HEMATOLOGY MPV 7.2 7.4 - 10.4 01/26/2012 LOW [facility] HEMATOLOGY Platelet 321 133 - 450 01/26/2012 Normal [facility] HEMATOLOGY RDW 14.2 11.5 - 14.5 01/26/2012 Normal [facility] HEMATOLOGY MCHC 33.9 32.0 - 36.0 01/26/2012 Normal [facility] HEMATOLOGY MCH 31.4 27.0 - 31.0 01/26/2012 [facility] HEMATOLOGY MCV 92.6 81.0 - 99.0 01/26/2012 Normal [facility] HEMATOLOGY WBC 14.9 3.7 - 10.4 01/26/2012 [facility] HEMATOLOGY RBC 3.88 4.20 - 5.40 01/26/2012 LOW [facility] HEMATOLOGY Hgb 12.2 12.0 - 16.0 01/26/2012 Normal [facility] HEMATOLOGY Hct 35.9 36.0 - 48.0 01/26/2012 LOW [facility] CHEMISTRY Globulin 3.4 2.0 - 4.0 12/31/2011 Normal [facility] CHEMISTRY A/G Ratio 1.2 0.7 - 1.6 12/31/2011 Normal [facility] CHEMISTRY B/C Ratio 10 6 - 25 12/31/2011 Normal [facility] CHEMISTRY AGAP 12.6 10.0 - 20.0 12/31/2011 Normal [facility] CHEMISTRY Bili Total 0.3 0.2 - 1.3 12/31/2011 Normal [facility] CHEMISTRY AST 19 0 - 37 12/31/2011 Normal [facility] CHEMISTRY Alk Phos 73 39 - 136 12/31/2011 Normal [facility] CHEMISTRY ALT 45 0 - 65 12/31/2011 Normal [facility] CHEMISTRY Total Protein 7.4 6.4 - 8.4 12/31/2011 Normal [facility] CHEMISTRY Albumin Lvl 4.0 3.5 - 5.0 12/31/2011 Normal [facility] CHEMISTRY BUN 8 7 - 22 12/31/2011 Normal [facility] CHEMISTRY Potassium Lvl 4.6 3.5 - 5.1 12/31/2011 Normal [facility] CHEMISTRY Sodium Lvl 139 135 - 145 12/31/2011 Normal [facility] CHEMISTRY Chloride Lvl 105 95 - 109 12/31/2011 Normal [facility] CHEMISTRY CO2 26 24 - 32 12/31/2011 Normal [facility] CHEMISTRY Creatinine Lvl 0.8 0.5 - 1.4 12/31/2011 Normal [facility] CHEMISTRY Calcium Lvl 9.4 8.5 - 10.5 12/31/2011 Normal [facility] CHEMISTRY Glucose Lvl 91 70 - 99 12/31/2011 Normal <sup>1</sup>Interpretive Data: Adult ref erence range values reflect the clinical guidelines
of the [employer]. [facility] CHEMISTRY Lipase Lvl 168 73 - 393 12/31/2011 Normal [facility] HEMATOLOGY Segs 61.2 45.0 - 75.0 12/31/2011 Normal [facility] HEMATOLOGY Monocytes 12.1 2.0 - 12.0 12/31/2011 [facility] HEMATOLOGY Eosinophils 6.1 0.0 - 4.0 12/31/2011 [facility] HEMATOLOGY Lymphocytes 20.2 20.0 - 40.0 12/31/2011 Normal [facility] HEMATOLOGY Basophils 0.4 0.0 - 1.0 12/31/2011 [facility] HEMATOLOGY Segs-Bands # 5.9 1.5 - 8.1 12/31/2011 Normal [facility] HEMATOLOGY Lymphocytes # 1.9 1.0 - 5.5 12/31/2011 Normal [facility] HEMATOLOGY Monocytes # 1.1 0.0 - 0.8 12/31/2011 HI [facility] HEMATOLOGY Eosinophils # 0.6 0.0 - 0.5 12/31/2011 HI [facility] HEMATOLOGY Basophils # 0.0 0.0 - 0.2 12/31/2011 Normal [facility] HEMATOLOGY MCHC 33.7 32.0 - 36.0 12/31/2011 Normal [facility] HEMATOLOGY Platelet 363 133 - 450 12/31/2011 Normal [facility] HEMATOLOGY MCV 91.8 81.0 - 99.0 12/31/2011 Normal [facility] HEMATOLOGY MCH 30.9 27.0 - 31.0 12/31/2011 Normal [facility] HEMATOLOGY RDW 12.8 11.5 - 14.5 12/31/2011 Normal [facility] HEMATOLOGY MPV 7.4 7.4 - 10.4 12/31/2011 Normal [facility] HEMATOLOGY WBC 9.5 3.7 - 10.4 12/31/2011 Normal [facility] HEMATOLOGY Hct 43.0 36.0 - 48.0 12/31/2011 Normal [facility] HEMATOLOGY RBC 4.68 4.20 - 5.40 12/31/2011 Normal [facility] HEMATOLOGY Hgb 14.5 12.0 - 16.0 12/31/2011 Normal [facility] CHEMISTRY U Preg Negati ve (12/30/2011 22:42:00) Negati ve 12/31/2011 Normal [facility] URINALYSIS UA WBC 3-5 / HPF (12/30/2011 22:42:00) None S een 12/31/2011 Normal [facility] URINALYSIS UA RBC 3-5 / HPF *ABN* (12/30/2011 22:42:00) 0 - 2 12/31/2011 ABN [facility] URINALYSIS UA Nitrite Negat anuradha (12/30/2011 22:42:00) Negati ve 12/31/2011 Normal [facility] URINALYSIS UA Leuk Est Trace *ABN* (12/30/2011 22:42:00) Negati ve 12/31/2011 ABN [facility] URINALYSIS UA Blood Trace *ABN* (12/30/2011 22:42:00) Negati ve 12/31/2011 ABN [facility] URINALYSIS UA Bili Negat anuradha *NA* (12/30/2011 22:42:00) Negati ve 12/31/2011 NA [facility] URINALYSIS UA Urobilinogen 0.2 0.1 - 1.0 12/31/2011 Normal [facility] URINALYSIS UA Glucose Negat anuradha (12/30/2011 22:42:00) Negati ve 12/31/2011 Normal [facility] URINALYSIS UA Ketones Negat anuradha *NA* (12/30/2011 22:42:00) Negati ve 12/31/2011 NA [facility] URINALYSIS UA pH 7.5 5.0 - 8.0 12/31/2011 Normal [facility] URINALYSIS UA Protein Negat anuradha (12/30/2011 22:42:00) Negati ve 12/31/2011 Normal [facility] URINALYSIS UA Mucus Few / LPF (12/30/2011 22:42:00) None S een 12/31/2011 Normal [facility] URINALYSIS UA Sq Epi Few / LPF (12/30/2011 22:42:00) Few 12/31/2011 Normal [facility] URINALYSIS UA Bacteria Moder ate /HPF (12/30/2011 22:42:00) None S een 12/31/2011 Normal [facility] URINALYSIS Micro? Perfo rmed (12/30/2011 22:42:00) 12/31/2011 Normal [facility] URINALYSIS UA Color Yello w *NA* (12/30/2011 22:42:00) Yellow 12/31/2011 NA [facility] URINALYSIS UA Turbidity Sligh t Cloudy (12/30/2011 22:42:00) Clear 12/31/2011 Normal [facility] URINALYSIS UA Spec Grav 1.015 <=1.030 12/31/2011 Normal [facility] Pathology Reports No Data Provided for This Section Diagnostic Reports Report Value Date Source Brain wo contrast CT Radiation Dose CTDIVOL = 0 (mGy): DLP = 603 (mGy-cm) PROCEDURE INFORMATION: Exam: CT Head Without Contrast Exam date and time: 12/08/2019 12:25 AM Age: 34 years old Clinical indication: Altered mental status/memory loss; Additional info: /ams, depression TECHNIQUE: Imaging protocol: Computed tomography of the head without contrast. Radiation optimization: All CT scans at this facility use at least one of these dose optimization techniques: automated exposure control; mA and/or kV adjustment per patient size (includes targeted exams where dose is matched to clinical indication); or iterative reconstruction. COMPARISON: BRAIN WO CONTRAST CT 11/09/2019 1:42 AM RADIATION DOSE METRICS: Total DLP (mGy-cm): 603 FINDINGS: Brain: No hemorrhage, extra-axial fliud collection, overt mass or midline shift. Left inferior frontal lobe and anterior temporal lobe encephalomalacia is redemonstrated. 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 Ventricles: No hydrocephalus. Bones/joints: The calvarium and skull base are intact without evidence of fracture. Sinuses: No evidence of acute sinusitis. Mastoid air cells: Visualized mastoid air cells are well aerated. Soft tissues: Unremarkable. Notes: If clinical concern persists for acute pathology further evaluation with MRI brain can be obtained. IMPRESSION: No CT evidence of acute intracranial abnormality. Chronic changes as above. Skinny King MD On 12/08/2019 00:39:53; [id number] 12/08/2019 [facility] Brain wo contrast CT Radiation Dose CTDIVOL = 0 (mGy): DLP = 1074.08 (mGy-cm) PROCEDURE INFORMATION: Exam: CT Head Without Contrast Exam date and time: 12/02/2019 2:45 AM Age: 34 years old Clinical indication: Altered mental status/memory loss; Additional info: /ams TECHNIQUE: Imaging protocol: Computed tomography of the head without contrast. Radiation optimization: All CT scans at this facility use at least one of these dose optimization techniques: automated exposure control; mA and/or kV adjustment per patient size (includes targeted exams where dose is matched to clinical indication); or iterative reconstruction. COMPARISON: BRAIN WO CONTRAST CT 06/28/2019 4:17 PM RADIATION DOSE METRICS: Total DLP (mGy-cm): 1074.08 FINDINGS: Brain: There is encephalomalacia of the inferior left frontal lobe and anterior left temporal lobe. There is no evidence of acute vascular insults, hemorrhage, space occupying lesions, midline shift, or extra-axial fluid collections. Ventricles: There is no evidence of hydrocephalus. Bones/joints: The calvarium is intact. Sinuses: There is grossly no significant paranasal sinus opacification. There are no air-fluid levels. Mastoid air cells: The mastoid air cells and middle ear cavities are grossly clear. Soft tissues: Unremarkable. IMPRESSION: 1. Stable encephalomalacia of the inferi or left frontal lobe and anterior left temporal lobe. 2. No acute intracranial abnormalities a re visualized. Fili Anguiano MD On 12/02/2019 03:40:33; [id number] 12/02/2019 [facility] Chest 1view DX PROCEDURE INFOR MATION: Exam: XR Chest, 1 View Exam date and time: 12/01/2019 11:42 PM Age: 34 years old Clinical indication: /ams TECHNIQUE: Imaging protocol: XR of the chest Views: 1 view. COMPARISON: CHEST 1VIEW DX 05/22/2019 1:08 PM FINDINGS: Lungs: Mild decreased lung volumes. No consolidation. Pleural space: Unremarkable. No pleural effusion. No pneumothorax. Heart/Mediastinum: Heart size is within normal limits. Vasculature is unremarkable. Bones/joints: Unremarkable. IMPRESSION: No acute cardiopulmonary findings. Sasha Guerin MD On 12/02/2019 00:04:43; [id number] 12/01/2019 [facility] Brain wo contrast CT Radiation Dose CTDIVOL = 0 (mGy): DLP = 989.07 (mGy-cm) PROCEDURE INFORMATION: Exam: CT Head Without Contrast Exam date and time: 11/09/2019 1:42 AM Age: 34 years old Clinical indication: /head trauma*pt brought in by EMS, states lo went to house for well fair check. PT was stating just wanted to end it all, + ETOH. Arrived in restraints. Kishor. TECHNIQUE: Imaging protocol: Computed tomography of the head without contrast. Radiation optimization: All CT scans at this facility use at least one of these dose optimization techniques: automated exposure control; mA and/or kV adjustment per patient size (includes targeted exams where dose is matched to clinical indication); or iterative reconstruction. COMPARISON: BRAIN WO CONTRAST CT 06/28/2019 4:17 PM RADIATION DOSE METRICS: Total DLP (mGy-cm): 989.07 FINDINGS: Brain: Redemonstrated left temporal and anterior inferior frontal lobe encephalomalacia. No acute intracranial hemorrhage. No mass effect or midline shift. No significant white matter disease. No edema. Ventricles: No acute hydrocephalus. Bones/joints: No depressed calvarial fractures. Sinuses: No evidence for acute sinusitis. Mastoid air cells: Clear. Soft tissues: No soft tissue gas or radiopaque foreign body. Mild frontal scalp soft tissue swelling. Notes: If there is continued clinical concern, further assessment with MRI should be considered. IMPRESSION: No CT evidence for acute intracranial process. Blake Galindo MD On 11/09/2019 01:49:33; [id number] 11/09/2019 [facility] Spine cervical wo contrast CT Radiation Dose CTDIVOL = 0 (mGy): DLP = 379 (mGy-cm) PROCEDURE INFORMATION: Exam: CT Cervical Spine Without Contrast Exam date and time: 11/09/2019 1:44 AM Age: 34 years old Clinical indication: /head trauma/pt brought in by EMS, states lo went to house for well fair check. PT was stating just wanted to end it all, + ETOH. Arrived in restraints. Kishor. TECHNIQUE: Imaging protocol: Computed tomography images of the cervical spine without contrast. Radiation optimization: All CT scans at this facility use at least one of these dose optimization techniques: automated exposure control; mA and/or kV adjustment per patient size (includes targeted exams where dose is matched to clinical indication); or iterative reconstruction. COMPARISON: No relevant prior studies available. RADIATION DOSE METRICS: Total DLP (mGy-cm): 379 FINDINGS: Vertebrae: No fracture or subluxation appreciated. Discs/Spinal canal/Neural foramina: There is rotation at C1-C2 level please correlate with head position. Soft tissues: No prevertebral soft tissue swelling appreciated. Lungs: Included portions of the lung apices are clear. IMPRESSION: Rotation C1-C2, appears likely related to head positioning, though please correlate. Otherwise no acute pathology appreciated. MRI follow up recommended if ongoing clinical concern. Rosemary Meza MD On 11/09/2019 01:51:08; [id number] 11/09/2019 [facility] Chest 1view DX PROCEDURE INFOR MATION: Exam: XR Chest, 1 View Exam date and time: 11/09/2019 12:06 AM Age: 34 years old Clinical indication: Pain; Patient HX: PT brought in by EMS, states lo went to house for well fair check. PT was stating just wanted to end it all, + ETOH. Arrived in restraints. Kisohr. ; Additional info: /l shoulder trauma TECHNIQUE: Imaging protocol: XR of the chest Views: 1 view. COMPARISON: CHEST 1VIEW DX 05/22/2019 1:08 PM FINDINGS: Lungs: Lung volumes are maintained. There are no infiltrates. Pleural space: There are no effusions or pneumothoraces noted. Heart/Mediastinum: The cardiac silhouette is normal in caliber. The aorta is unremarkable. Bones/joints: Unremarkable. IMPRESSION: No acute cardiopulmonary findings. Pepper Persaud MD On 11/09/2019 00:23:24; [id number] 11/09/2019 [facility] Shoulder series DX PROCEDURE I NFORMATION: Exam: XR Left Shoulder Exam date and time: 11/09/2019 12:06 AM Age: 34 years old Clinical indication: Pain; Additional info: /abrasion, ecchymosis TECHNIQUE: Imaging protocol: XR Left shoulder. Views: 2 or more views. AP INT/ EXT ROTATION, SCAPULAR Y COMPARISON: No relevant prior studies available. FINDINGS: Bones/joints: No acute fracture. Normal bony alignment. No aggressive osseous lesions. Soft tissues: No focal soft tissue swelling, soft tissue gas or radiopaque foreign body. Notes: If there is continued concern, follow-up radiographs or MRI should be considered for more complete assessment. IMPRESSION: No radiographic evidence for acute osseous injury. Blake Galindo MD On 11/09/2019 00:53:09; [id number] 11/09/2019 [facility] Brain wo contrast CT Radiation Dose CTDIVOL = 0 (mGy): DLP = 949.65 (mGy-cm) PROCEDURE INFORMATION: Exam: CT Head Without Contrast Exam date and time: 06/28/2019 4:17 PM Age: 33 years old Clinical indication: Altered mental status/memory loss; Additional info: Weakness/ams; PT found in car by friend unresponsive TECHNIQUE: Imaging protocol: Computed tomography of the head without contrast. Total DLP: 949.65 mGy-cm Radiation optimization: All CT scans at this facility use at least one of these dose optimization techniques: automated exposure control; mA and/or kV adjustment per patient size (includes targeted exams where dose is matched to clinical indication); or iterative reconstruction. COMPARISON: No relevant prior studies available. FINDINGS: Limitations: Irregular parenchymal attenuation within the inadequately-evaluated caudal brainstem can be attributed to beam-hardening streak artifact from the adjacent petrous bones. This common CT artifact could obscure subtle underlying abnormality. MR may be helpful for further assessment if clinically appropriate. Brain: No acute intracranial hemorrhage or extra-axial fluid collection. No cerebral edema, large intracranial mass, mass effect or midline shift. Encephalomalacia in bilateral inferior frontal and left anterior temporal lobes likely represent sequelae of chronic contusions, less likely chronic infarcts. Otherwise, the frazier-white matter differentiation is maintained. Ventricles: The lateral, third and fourth ventricles appear unremarkable. The suprasellar and basilar cisterns appear unremarkable. Bones/joints: No acute skull osseous abnormality or focal suspicios osseous lesions are seen. Sinuses: The visualized paranasal sinuses are unremarkable. Mastoid air cells: The mastoid air cells are clear. Orbits: The visualized orbits appear unremarkable. Soft tissues: Unremarkable. IMPRESSION: 1. No CT evidence of acute intracranial abnormality or calvarial fracture. 2. Encephalomalacia in bilateral inferio r frontal and left anterior temporal lobes likely represent sequelae of chronic contusions, less likely chronic infarcts. Manish Ortiz MD On 06/28/2019 16:45:30; [id number] 06/28/2019 [facility] Brain wo contrast CT Radiation Dose CTDIVOL = 0 (mGy): DLP = 923.85 (mGy-cm) PROCEDURE INFORMATION: Exam: CT Head Without Contrast Exam date and time: 06/12/2019 11:25 PM Age: 33 years old Clinical indication: Weakness/ams TECHNIQUE: Imaging protocol: Computed tomography of the head without contrast. Total DLP: 923.85 mGy-cm Radiation optimization: All CT scans at this facility use at least one of these dose optimization techniques: automated exposure control; mA and/or kV adjustment per patient size (includes targeted exams where dose is matched to clinical indication); or iterative reconstruction. COMPARISON: BRAIN WO CONTRAST CT 05/22/2019 2:32 PM FINDINGS: Brain: The frazier-white matter differentiation is preserved. There is no acute infarct, intracranial hemorrhage or mass effect. There is encephalomalacia in the left temporal lobe. Stable partially calcified pineal cyst is noted. Ventricles: No ventriculomegaly Bones/joints: . No acute fracture. Sinuses: Visualized sinuses are unremarkable. No fluid levels. Mastoid air cells: Visualized mastoid air cells are well aerated. Soft tissues: Unremarkable. IMPRESSION: No acute abnormality in the brain. Janette Leon MD On 06/12/2019 23:41:10; [id number] 06/12/2019 [facility] Chest 1view DX PROCEDURE INFOR MATION: Exam: XR Chest, 1 View Exam date and time: 05/22/2019 1:08 PM Age: 33 years old Clinical indication: Other: AMS; Additional info: /ams TECHNIQUE: Imaging protocol: XR of the chest Views: 1 view. COMPARISON: CHEST 2 VIEWS DX 05/16/2019 9:07 AM FINDINGS: Lungs: Lungs are clear. Pleural space: No pleural effusion. No radiographically detectable pneumothorax. Heart/Mediastinum: Cardiomediastinal silhouette is normal. Bones/joints: Normal. IMPRESSION: No acute abnormality. Latonya Noble MD On 05/22/2019 13:54:32; [id number] 05/22/2019 [facility] Brain wo contrast CT Radiation Dose CTDIVOL = 0 (mGy): DLP = 811.13 (mGy-cm) PROCEDURE INFORMATION: Exam: CT Head Without Contrast Exam date and time: 05/22/2019 2:32 PM Age: 33 years old Clinical indication: Injury or trauma; Additional info: /ams post anesthesia TECHNIQUE: Imaging protocol: Computed tomography of the head without contrast. Total DLP: 811.13 mGy-cm Radiation optimization: All CT scans at this facility use at least one of these dose optimization techniques: automated exposure control; mA and/or kV adjustment per patient size (includes targeted exams where dose is matched to clinical indication); or iterative reconstruction. COMPARISON: BRAIN WO CONTRAST CT 05/05/2019 3:31 AM FINDINGS: Brain: The brain parenchyma is normal with normal frazier and white interfaces, sulci and gyri. There are no intracranial masses, mass effect or midline shift. There is no cerebral edema. There is no subarachnoid hemorrhage. There are no intra-or extra-axial fluid collections, intraventricular or intraparenchymal hemorrhage. 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 Ventricles: The lateral, third and fourth ventricles appear unremarkable. The suprasellar and basilar cisterns appear unremarkable. Bones/joints: No definite acute osseous or skull abnormalities seen. Sinuses: The visualized sinuses are unremarkable. Mastoid air cells: The visualized mastoids are unremarkable. Orbits: The visualized orbits are unremarkable. Soft tissues: Unremarkable. Notes: If there is further clinical concern for intracranial pathology, MRI of the brain may be performed for further assessment. IMPRESSION: No acute intracranial abnormality. No non-contrast CT evidence of intracranial hemorrhage, masses or subacute stroke. MRI may be performed, if there is further clinical concern. Aiden Kruse MD On 05/22/2019 15:14:27; [id number] 05/22/2019 [facility] Spine lumbar 2 or 3 views DX P ROCEDURE INFORMATION: Exam: XR Lumbosacral Spine, 2 or 3 Views Exam date and time: 05/16/2019 9:12 AM Age: 33 years old Clinical indication: Screening exam; Patient said she's having lumbar surgery. ; Additional info: /spinal stenosis, lumbosacral region TECHNIQUE: Imaging protocol: XR of the lumbosacral spine, 2 or 3 views. Views: AP Lateral and Coned down lateral COMPARISON: No relevant prior studies available. FINDINGS: Weightbearing AP and lateral images. Five lumbar type vertebra in normal alignment. No fracture. Slight narrowing L5-S1 intervertebral disc space. Normal sacroiliac joints. Moderate colonic fecal material. IMPRESSION: Slight narrowing L5-S1 disc space. Royce Mora MD On 05/16/2019 22:08:42; [id number] 05/16/2019 [facility] Chest 2 views DX PROCEDURE INF ORMATION: Exam: XR Chest, 2 Views Exam date and time: 05/16/2019 9:07 AM Age: 33 years old Clinical indication: Preoperative screening examination. Planned lumbar spine surgery. TECHNIQUE: Imaging protocol: XR of the chest Views: 2 views. Other technique: 2 views, frontal and lateral. COMPARISON: CHEST 1VIEW DX 03/19/2019 5:24 PM FINDINGS: Lungs: No infiltrates or other focal abnormalities. Pleural space: No pleural effusions. No pneumothorax. Heart/Mediastinum: The heart is normal in size. Bones/joints: There is a mild pectus excavatum deformity. No significant osseous abnormalities are seen. IMPRESSION: No active or acute process within the chest. Mild pectus excavatum deformity. Mao Cooper MD On 05/16/2019 09:33:56; [id number] 05/16/2019 [facility] Brain wo contrast CT Radiation Dose CTDIVOL = 0 (mGy): DLP = 546 (mGy-cm) PROCEDURE INFORMATION: Exam: CT Head Without Contrast Exam date and time: 05/05/2019 3:31 AM Age: 33 years old Clinical indication: Posttraumatic headache, Injury or trauma; Additional info: /fall last couple days TECHNIQUE: Imaging protocol: Computed tomography of the head without contrast. Total DLP: 546 mGy-cm Radiation optimization: All CT scans at this facility use at least one of these dose optimization techniques: automated exposure control; mA and/or kV adjustment per patient size (includes targeted exams where dose is matched to clinical indication); or iterative reconstruction. COMPARISON: BRAIN WO CONTRAST CT 03/20/2019 5:47 AM FINDINGS: Brain: There is resolution of the previously seen intracranial hemorrhage. There is encephalomalacia of the left temporal and inferior left frontal lobes. There is no evidence of acute vascular insults, acute hemorrhage, space occupying lesions, midline shift, or extra-axial fluid collections. Ventricles: There is no evidence of hydrocephalus. Bones/joints: The calvarium is intact. Sinuses: The paranasal sinuses are grossly clear. Mastoid air cells: The mastoid air cells and middle ear cavities are grossly clear. Soft tissues: Unremarkable. IMPRESSION: 1. Interval resolution of previous intra cranial hemorrhage. There is encephalomalacia of the left temporal lobe and inferior left frontal lobe. 2. No acute intracranial abnormalities a re visualized. Fili Anguiano MD On 05/05/2019 03:45:07; [id number] 05/05/2019 [facility] Spine cervical wo contrast MRI PROCEDURE INFORMATION: Exam: MR Cervical Spine Without Contrast Exam date and time: 03/20/2019 1:46 PM Clinical history: 33 years old, female; Injury or trauma; Fall. Found down after alcohol use. TECHNIQUE: Imaging protocol: Multiplanar magnetic resonance images of the cervical spine without contrast. COMPARISON: SPINE CERVICAL WO CONTRAST CT 03/19/2019 11:26 PM FINDINGS: The exam is mildly degraded by motion artifacts. Vertebrae: No bone marrow edema or acute fracture. Facet hypertrophy at C4-C5 on the right. No edema to suggest injury to the alar ligaments, anterior/posterior longitudinal ligaments, ligamentum flavum, and interspinous/supraspinous ligaments. Spinal cord and spinal canal: No epidural abnormality. No cord compression. No convincing signs of abnormal intramedullary signal. C2-C3: No disc protrusion or extrusion. No significant spinal canal or foraminal stenosis. C3-C4: Bulging of the annulus. No focal disc protrusion or extrusion. No significant spinal canal or foraminal stenosis. C4-C5: No focal disc protrusion or extrusion. Minimal right uncovertebral hypertrophy. No significant spinal canal or foraminal stenosis. C5-C6: Bulging of the annulus. Shallow right subarticular protrusion flattens the ventral thecal sac. No significant spinal canal or foraminal stenosis. C6-C7: Shallow right central protrusion flattens the ventral thecal sac. No significant spinal canal or foraminal stenosis. C7-T1: No disc protrusion or extrusion. No significant spinal canal or foraminal stenosis. Vertebral arteries: Expected flow voids in the vertebral arteries. Soft tissues: No prevertebral or paravertebral soft tissue swelling. IMPRESSION: No acute fracture or ligamentous injury in the cervical spine. Mild degenerative changes, as above. Corey Andres MD On 03/20/2019 15:56:56; [id number] 03/20/2019 [facility] Brain wo contrast CT Radiation Dose CTDIVOL = 0 (mGy): DLP = 703 (mGy-cm) PROCEDURE INFORMATION: Exam: CT Head Without Contrast Exam date and time: 03/20/2019 5:47 AM Clinical history: 33 years old, female; Condition or disease and abnormal findings; Additional info: /contusion. F/u prev scan earlier TECHNIQUE: Imaging protocol: Computed tomography of the head without contrast. Total DLP: 703 mGy-cm Radiation optimization: All CT scans at this facility use at least one of these dose optimization techniques: automated exposure control; mA and/or kV adjustment per patient size (includes targeted exams where dose is matched to clinical indication); or iterative reconstruction. COMPARISON: BRAIN WO CONTRAST CT 03/19/2019 11:26 PM FINDINGS: Brain: Grossly stable appearance of multifocal predominantly subcentimeter hemorrhagic contusions in the bilateral inferior frontal and throughout the left temporal lobe. Stable appearance of the 4 mm thick acute subdural hematoma along the posterior right cerebral convexity. Midline shift: Up to 3 mm rightward midline shift is noted. Ventricles: Normal. No ventriculomegaly. Bones/joints: Stable nondisplaced fracture of the right clivus extending into the sphenoid sinus Sinuses: Visualized sinuses are unremarkable. No fluid levels. Mastoid air cells: Visualized mastoid air cells are well aerated. Soft tissues: Unremarkable. IMPRESSION: 1. Redemonstration of multifocal hemorrh agic contusions throughout the bilateral inferior frontal and throughout the left temporal lobes 2. Up to 3 mm of associated rightward mi dline shift. 3. Stable 4 mm thick acute right cerebra l convexity subdural hematoma. Penny Sampson MD On 03/20/2019 08:56:39; [id number] 03/20/2019 [facility] Brain wo contrast CT Radiation Dose CTDIVOL = 0 (mGy): DLP = 659 (mGy-cm) PROCEDURE INFORMATION: Exam: CT Head Without Contrast Exam date and time: 03/19/2019 11:26 PM Clinical history: 33 years old, female; Injury or trauma; Fall; Follow-up exam; Additional info: /headache TECHNIQUE: Imaging protocol: Computed tomography of the head without contrast. Total DLP: 659 mGy-cm Radiation optimization: All CT scans at this facility use at least one of these dose optimization techniques: automated exposure control; mA and/or kV adjustment per patient size (includes targeted exams where dose is matched to clinical indication); or iterative reconstruction. COMPARISON: BRAIN WO CONTRAST CT 03/19/2019 5:48 PM FINDINGS: Brain: Multiple hemorrhagic contusions are noted in the bilateral inferior frontal lobes and left temporal lobe. There is moderate edema in the left temporal lobe. There is no significant change in the hemorrhagic contusion since the prior exam. Ventricles: No ventriculomegaly. Bones/joints: There is a nondisplaced fracture of the right clivus extending into the sphenoid sinus. Sinuses: There is hemorrhagic fluid in the right sphenoid sinus. Mastoid air cells: Visualized mastoid air cells are well aerated. Soft tissues: Unremarkable. IMPRESSION: Multiple hemorrhagic contusions in the bilateral inferior frontal lobes and left temporal lobe. Moderate edema in the left temporal lobe. Nondisplaced fracture of the right clivus extending into the sphenoid sinus. No significant change since the prior exam. Janette Leon MD On 03/19/2019 23:02:04; [id number] 03/19/2019 [facility] Spine cervical wo contrast CT Radiation Dose CTDIVOL = 0 (mGy): DLP = 373.2 (mGy-cm) PROCEDURE INFORMATION: Exam: CT Cervical Spine Without Contrast Exam date and time: 03/19/2019 11:26 PM Clinical history: 33 years old, female; Injury or trauma; Fall; Additional info: /midline pain TECHNIQUE: Imaging protocol: Computed tomography images of the cervical spine without contrast. Total DLP: 373.2 mGy-cm Radiation optimization: All CT scans at this facility use at least one of these dose optimization techniques: automated exposure control; mA and/or kV adjustment per patient size (includes targeted exams where dose is matched to clinical indication); or iterative reconstruction. COMPARISON: No relevant prior studies available. FINDINGS: Vertebrae: No definite acute fracture. Alignment is anatomic. The odontoid and lateral masses are grossly anatomic. Discs/Spinal canal/Neural foramina: Mild cervical spondylosis and facet arthrosis. Mild anterior endplate spurring is present. No significant spinal stenosis. No neural foraminal narrowing. Soft tissues: Unremarkable. Lungs: Lung apices are normal. IMPRESSION: No definite acute fracture or pathologic subluxation detected. Ja Kapoor MD On 03/19/2019 23:04:38; [id number] 03/19/2019 [facility] Chest/Abdomen/Pelvis w IV contrast CT Radiation Dose CTDIVOL = 0 (mGy): DLP = 962 (mGy-cm) PROCEDURE INFORMATION: Exam: CT Chest With Contrast Exam date and time: 03/19/2019 11:35 PM Clinical history: 33 years old, female; Injury or trauma; Fall; Additional info: /ich, skull FX, fall TECHNIQUE: Imaging protocol: Computed tomography of the chest with intravenous contrast. 3D rendering: MIP reconstructed images w ere created and reviewed. Total DLP: 962 mGy-cm Radiation optimization: All CT scans at this facility use at least one of these dose optimization techniques: automated exposure control; mA and/or kV adjustment per patient size (includes targeted exams where dose is matched to clinical indication); or iterative reconstruction. Contrast material: OMNI 300; Contrast volume: 100 ml; Contrast route: IV; COMPARISON: CHEST 1VIEW DX 03/19/2019 5:24 PM FINDINGS: Lungs: Unremarkable. No consolidation. No masses. Pleural space: Unremarkable. No pneumothorax. No pleural effusion. Heart: Unremarkable. No cardiomegaly. No pericardial effusion. Aorta: Unremarkable. No aortic aneurysm. Lymph nodes: Unremarkable. No enlarged lymph nodes. Bones/joints: Unremarkable. No acute fracture. Soft tissues: Unremarkable. IMPRESSION: No acute findings. PROCEDURE INFORMATION: Exam: CT Abdomen And Pelvis With Contrast Exam date and time: 03/19/2019 11:35 PM Clinical history: 33 years old, female; Injury or trauma; Fall; Additional info: /ich, skull FX, fall TECHNIQUE: Imaging protocol: Computed tomography of the abdomen and pelvis with intravenous contrast. 3D rendering: MIP reconstructed images w ere created and reviewed. Total DLP: 962 mGy-cm Radiation optimization: All CT scans at this facility use at least one of these dose optimization techniques: automated exposure control; mA and/or kV adjustment per patient size (includes targeted exams where dose is matched to clinical indication); or iterative reconstruction. Contrast material: OMNI 300; Contrast volume: 100 ml; Contrast route: IV; COMPARISON: CHEST 1VIEW DX 03/19/2019 5:24 PM FINDINGS: Liver: Unremarkable. Gallbladder and bile ducts: Unremarkable. Pancreas: Unremarkable. Spleen: Unremarkable. Adrenals: Unremarkable. Kidneys and ureters: Normal. No hydronephrosis. Stomach and bowel: Normal. No obstruction. Appendix: No evidence of appendicitis. Intraperitoneal space: No free air. No significant fluid collection. Vasculature: Unremarkable. Lymph nodes: No bulky adenopathy. Bladder: Unremarkable as visualized. Reproductive: Intrauterine device within the uterus. Bones/joints: Mild sacroiliac joint sclerosis. No acute fracture. Soft tissues: Unremarkable. IMPRESSION: No acute intra-abdominal findings. Osman Quiros DO On 03/19/2019 23:14:53; [id number] 03/19/2019 [place] Femur series DX PROCEDURE INFO RMATION: Exam: XR Left Femur Exam date and time: 03/19/2019 6:33 PM Clinical history: 33 years old, female; Injury or trauma; Injury history: Unknown; Additional info: /pain TECHNIQUE: Imaging protocol: XR Left femur. Views: 2 views. COMPARISON: No relevant prior studies available. FINDINGS: Bones/joints: There is normal alignment without fractures or dislocations. A serpiginous region of increased density is present in the central portion of the distal left femoral diaphysis measuring approximately 4 cm in length by 1 cm in diameter. There may be minimal medial endosteal scalloping. Most likely etiologies include bone infarct and enchondroma. MRI is recommended for further evaluation. The visualized adjacent hip and knee regions are unremarkable. Soft tissues: There is no soft tissue swelling or radiopaque foreign bodies. Notes: Notes: If there is further concern, recommend follow-up radiographs or bone scan for complete assessment. IMPRESSION: No acute findings. No acute fracture or dislocation. There is a region of serpiginous increased density in the central marrow space of the distal left femoral diaphysis measuring approximately 4 cm in length by 1 cm in diameter. Most likely etiologie s include bone infarct and enchondroma. MRI is recommended for further evaluation. Sasha Guerin MD On 03/19/2019 19:27:00; [id number] 03/19/2019 [facility] Tibia fibula series DX PROCEDU RE INFORMATION: Exam: XR Left Tibia and Fibula Exam date and time: 03/19/2019 6:33 PM Clinical history: 33 years old, female; Injury or trauma; Injury history: Unknown; Additional info: /pain TECHNIQUE: Imaging protocol: XR Left tibia and fibula. Views: 2 views. AP and Lateral COMPARISON: No relevant prior studies available. FINDINGS: AP and lateral images. No fracture, dislocation or other osseous abnormality. IMPRESSION: No abnormality identified. Royce Mora MD On 03/19/2019 19:24:35; [id number] 03/19/2019 [facility] Chest 1view DX PROCEDURE INFOR MATION: Exam: XR Chest, 1 View Exam date and time: 03/19/2019 5:24 PM Clinical history: 33 years old, female; /chest pain TECHNIQUE: Imaging protocol: XR of the chest Views: 1 view. Portable AP view COMPARISON: No relevant prior studies available. FINDINGS: Lungs: There are normal lung volumes without consolidation or interstitial oppacities. Pleural space: No pleural effusion. No pneumothorax. Heart/Mediastinum: The heart size is normal. The pulmonary vasculature is normal. The mediastinal contour is normal. The trachea is midline. Bones/joints: No acute abnormality seen. IMPRESSION: No acute cardiopulmonary findings. Leonid Rock MD On 03/19/2019 17:41:10; [id number] 03/19/2019 [facility] Brain wo contrast CT Radiation Dose CTDIVOL = 0 (mGy): DLP = 790.23 (mGy-cm) PROCEDURE INFORMATION: Exam: CT Head Without Contrast Exam date and time: 03/19/2019 5:48 PM Clinical history: 33 years old, female; Per EMS acute onset confusion, unknown when last seen normal. Denies unilateral weakness, slurred speech or numbness/tingling. RECINOS reported. Unremarkable ekg TECHNIQUE: Imaging protocol: Computed tomography of the head without contrast. Total DLP: 790.23 mGy-cm Radiation optimization: All CT scans at this facility use at least one of these dose optimization techniques: automated exposure control; mA and/or kV adjustment per patient size (includes targeted exams where dose is matched to clinical indication); or iterative reconstruction. COMPARISON: No relevant prior studies available. FINDINGS: Brain: There are small, subacute hemorrhagic contusions in the anterior inferior frontal regions, small on the right and [id number] on the left. There is a moderate hemorrhagic contusion in the inferior lateral left temporal region. Patchy low-attenuation is present adjacent to the hyperdense hemorrhages. Mild mass effect noted with sulcal narrowing, but no midline shift. If clinically appropriate, MRI of the brain may be helpful to better determine the age of the hemorrhages. Ventricles: Normal. No ventriculomegaly. Bones/joints: A nondisplaced sagittal oblique fracture of the right clivus is present, presumably extending to the posterior wall of the right sphenoid sinus. Sinuses: The right sphenoid sinus is filled with blood; a large air blood level is present. Mild circumferential mucosal thickening is present in the sphenoid sinuses bilaterally. The patient has undergone previous functional endoscopic sinus surgery, with partial left ethmoidectomy, medial antrostomy and resection of the uncinate process. Mastoid air cells: Visualized mastoid air cells are well aerated. Soft tissues: Unremarkable. IMPRESSION: Small subacute hemorrhagic contusions are present in the anterior inferior frontal regions, small right and [id number] on the left. There is a moderate hemorrhagic contusion in the inferior lateral left temporal lobe. The age of the contusions is unclear. They could be early subacute or late subacute. Clinical correlation is requested. If appropriate, MRI of the brain may be helpful. There is a nondisplaced fracture of the right clivus extending to the wall of the right sphenoid sinus. There is a large air blood level in the right sphenoid sinus. Findings were discussed by telephone with Dr. Aldair Dye, in the emergency department, at 6:52 PM on 03/19/2019. Sasha Guerin MD On 03/19/2019 18:28:35; [id number] 03/19/2019 [facility] Neck soft tissue w contrast CT Patient Name: CAROLINE WALTER : 1985. Age: 32 years. Gender: Female. MR: [id number]. Location: [facility]. Provider: Román Treviño DO. EXAM: Neck soft tissue w contrast CT. PROVIDED CLINICAL HISTORY: Left sided neck pain. Clinical suspicion for an abscess. TECHNIQUE: Contiguous axial images through the neck after administering iodinated intravenous contrast. Coronal and sagittal reformats. CONTRAST: Omnipaque (concentration not provided but available elsewhere in the medical record), 100 mL. EXPOSURE: Total exam DLP is 363.87 mGy-cm. COMPARISON: No relevant prior exams available at the time of interpretation. ____ FINDINGS: IMAGED SINUSES / MASTOIDS: No significant sinus mucosal thickening. No significant paranasal sinus fluid. No significant fluid in the imaged mastoid air cells. NASAL / ORAL CAVITY / DENTAL: No significant asymmetry. No mass. No significant dental periapical lucencies. PHARYNX / LARYNX: Moderate non-specific thickening of the oropharyngeal and hypopharyngeal mucosa, more prominently on the left side. No significant hypertrophy or edema of the palatine, adenoid, or lingual tonsils. No tonsillar or peritonsillar abscess. No significant abnormality of the epiglottis, pre- epiglottic tissues, aryepiglottic folds, vocal folds, or laryngeal cartilage. No significant retropharyngeal space thickening, edematous/inflammatory changes, or fluid collection. No significant pharyngeal airway narrowing. SALIVARY GLANDS: No significant abnormality of the sub-mandibular, parotid, or sublingual glands. No appreciable salivary duct calculus or significant dilatation. LYMPH NODES: Considerably increased number of bilateral cervical nodes, most prominently involving the jugular chain but also involving the posterior triangle and other notable groups. Other notable groups. Borderline enlarged, up to 1.4 cm short axis. THYROID: No enlarged nodules or suspicious calcifications. No thyromegaly. The thyroid gland is best evaluated with high-resolution ultrasound. TRACHEA / ESOPHAGUS: No significant tracheal airway narrowing. No abnormal esophageal distention or wall thickening. SOFT TISSUES: No significant edematous or inflammatory stranding. No neck abscess or other abnormal fluid collection. No abnormal neck mass. VESSELS: No venous/sinus thrombosis. No hemodynamically significant arterial stenosis. Limited assessment of the vessels on this non-dedicated exam. BONES / SPINE: Mild degenerative changes along the spine. No acute fracture. No aggressive bony lesions. Inadequate CT assessment of the spinal cord. LUNG APICES: No acute abnormality. IMPRESSION: Pharyngitis and/or pharyngeal edema. Considerably increased number of cervical nodes, a few of which are borderline enlarged. Pattern is nonspecific, possibly and most commonly reactive adenopathy. Please note that less commonly seen early-stage or low-grade lymphoproliferative disorder could have this appearance and is not excluded. No drainable abscess. SL: ESTRADA 01/10/2018 [facility] Abdomen/Pelvis w IV contrast CT NAME: CAROLINE WALTER : 1985 SEX: F Ordering Physician: Lia Bernstein Abdomen/Pelvis w contrast CT : Feb 20, 2014 02:06:00 AM. CLINICAL INDICATION: Abdominal pain, acute. Comparison Examination: 01/26/2012. TECHNIQUE: Sequential trans-axial images were obtained with a multi-detector helical CT after administration of iodinated contrast. Coronal and sagittal reconstructions were obtained. 100cc of Omnipaque contrast material was used for the exam. No oral contrast material was used for the exam. The total exam DLP is 435.96 mGy-cm. FINDINGS: The lung bases are clear. No effusion or pneumothorax. No pericardial effusion. The liver enhances normally. The gallbladder appears normal without gallbladder wall thickening or pericholecystic inflammation. The pancreas appears normal without surrounding inflammatory changes. The spleen enhances normally. The adrenal glands are normal in size and shape. The kidneys are normal in size and shape. There is no perinephric fat stranding. There is no pelviectasis/hydroureter. The visualized components of the ureters demonstrate no stones. The urinary bladder is partially decompressed but otherwise unremarkable. The uterus enhances normally. Both ovaries appear unremarkable. Lack of oral contrast limits ealuation of the bowel; given these limitations, the following findings are made. The stomach, small bowel, and large bowel appear do not demonstrate obstructive changes or surrounding inflammatory changes. There is no abnormal bowel wall thickening or surrounding fat stranding. Fluid is visualized throughout the small and large bowel. In particular, the large bowel is diffusely distended by a large volume of fluid material. Hyperdense material is visualized within the cecum, possibly related to medication. Poorly clinically. The appendix is not clearly identified, but no inflammatory changes are isolated to the right lower quadrant. No free fluid or free air is identified in the abdomen or pelvis. No pathologically enlarged lymph nodes are seen in the abdomen, retroperitoneum, or pelvis. The aorta is normal in caliber. A bone island is present in the right iliac bone. No aggressive osseous lesion is detected. OPINION: 1. No inflammatory changes visualized wi thin the bowel by CT on the current study. The bowel is diffusely fluid-filled, suggesting rapid transit and/or diarrhea. Please correlate clinically.. SL: 24 02/20/2014 [place] Consultation Notes No Data Provided for This Section Discharge Summaries No Data Provided for This Section History and Physicals No Data Provided for This Section Vital Signs Vital Sign Value Date Comments Source Respitory Rate 20 12/08/2019 [facility] Systolic (mm Hg) 120 12/08/2019 [place] Diastolic (mm Hg) 77 12/08/2019 [place] Respitory Rate 16 12/08/2019 [facility] Systolic (mm Hg) 110 12/08/2019 [place] Diastolic (mm Hg) 62 12/08/2019 [place] Respitory Rate 29 12/08/2019 [facility] Systolic (mm Hg) 139 12/08/2019 [place] Diastolic (mm Hg) 62 12/08/2019 [facility] Height 177.8 cm 12/08/2019 [facility] BMI Calculated 23.29 12/08/2019 [place] Weight 73.636 12/08/2019 [place] Heart Rate 101 12/08/2019 [place] Temperature Oral (F) 97.6 F 12/08/2019 [place] Respitory Rate 16 12/03/2019 [facility] Systolic (mm Hg) 141 12/03/2019 [facility] [place] Diastolic (mm Hg) 91 12/03/2019 [facility] [place] Respitory Rate 20 12/03/2019 [facility] [place] Systolic (mm Hg) 146 12/03/2019 [facility] [place] Diastolic (mm Hg) 96 12/03/2019 [facility] [place] Respitory Rate 18 12/03/2019 [facility] [place] Systolic (mm Hg) 161 12/03/2019 [facility] [place] Diastolic (mm Hg) 97 12/03/2019 [facility] [place] Heart Rate 108 12/02/2019 [facility] [place] Temperature Oral (F) 98.9 F 12/02/2019 [place] Weight 63.636 12/02/2019 [facility] [place] Heart Rate 106 12/02/2019 [facility] [place] Respitory Rate 18 11/10/2019 [facility] [place] Systolic (mm Hg) 128 11/10/2019 [facility] [place] Diastolic (mm Hg) 65 11/10/2019 [place] Respitory Rate 20 11/10/2019 [place] Systolic (mm Hg) 122 11/10/2019 [facility] [place] Diastolic (mm Hg) 78 11/10/2019 [place] Temperature Oral (F) 98.6 F 11/10/2019 [facility] [place] Respitory Rate 20 11/10/2019 [facility] [place] Systolic (mm Hg) 136 11/10/2019 [facility] [place] Diastolic (mm Hg) 80 11/10/2019 [place] Temperature Oral (F) 99.2 F 11/09/2019 [facility] [place] Heart Rate 93 11/09/2019 [facility] [place] Temperature Oral (F) 98.5 F 11/09/2019 [facility] [place] Heart Rate 111 11/09/2019 [facility] [place] Heart Rate 93 11/09/2019 [place] Height 172.72 cm 11/09/2019 [facility] [place] BMI Calculated 22.55 11/09/2019 [facility] [place] Weight 67.273 11/09/2019 [facility] [place] Temperature Oral (F) 98.2 F 08/13/2019 [facility] [place] Heart Rate 75 08/13/2019 [facility] [place] Respitory Rate 16 08/13/2019 [facility] [place] Systolic (mm Hg) 124 08/13/2019 [facility] [place] Diastolic (mm Hg) 85 08/13/2019 [facility] [place] Temperature Oral (F) 98.2 F 08/13/2019 [facility] [place] Heart Rate 79 08/13/2019 [facility] [place] Respitory Rate 16 08/13/2019 [facility] [place] Systolic (mm Hg) 130 08/13/2019 [facility] [place] Diastolic (mm Hg) 82 08/13/2019 [facility] [place] Temperature Oral (F) 98.6 F 08/12/2019 [facility] [place] Respitory Rate 18 08/12/2019 [facility] [place] Heart Rate 79 08/12/2019 [facility] [place] Systolic (mm Hg) 131 08/12/2019 [facility] [place] Diastolic (mm Hg) 85 08/12/2019 [facility] [place] Height 172.72 cm 08/12/2019 [place] BMI Calculated 22.46 08/12/2019 [facility] [place] Weight 67 0 08/12/2019 [facility] [place] Systolic (mm Hg) 122 06/29/2019 [facility] [place] Diastolic (mm Hg) 77 06/29/2019 [facility] [place] Systolic (mm Hg) 118 06/29/2019 [facility] [place] Diastolic (mm Hg) 71 06/29/2019 [place] Temperature Oral (F) 98.1 F 06/29/2019 [facility] [place] Respitory Rate 18 06/29/2019 [facility] [place] Systolic (mm Hg) 126 06/29/2019 [facility] [place] Diastolic (mm Hg) 79 06/29/2019 [facility] [place] Respitory Rate 20 06/29/2019 [facility] [place] Temperature Oral (F) 98.4 F 06/29/2019 [facility] [place] Respitory Rate 14 06/29/2019 [facility] [place] Temperature Oral (F) 98.6 F 06/29/2019 [facility] [place] Heart Rate 99 06/28/2019 [facility] [place] Height 172.72 cm 06/28/2019 [facility] [place] BMI Calculated 22.09 06/28/2019 [facility] [place] Weight 65.909 06/28/2019 [facility] [place] Systolic (mm Hg) 115 06/13/2019 [facility] [place] Diastolic (mm Hg) 75 06/13/2019 [facility] [place] Respitory Rate 20 06/13/2019 [facility] [place] Heart Rate 95 06/13/2019 [facility] [place] Temperature Oral (F) 98.8 F 06/13/2019 [facility] [place] Temperature Oral (F) 98.0 F 06/13/2019 [facility] [place] Respitory Rate 18 06/13/2019 [facility] [place] Systolic (mm Hg) 129 06/13/2019 [facility] [place] Diastolic (mm Hg) 83 06/13/2019 [facility] [place] Temperature Oral (F) 98.2 F 06/13/2019 [facility] [place] Heart Rate 108 06/13/2019 [facility] [place] Respitory Rate 17 06/13/2019 [facility] [place] Systolic (mm Hg) 113 06/13/2019 [facility] [place] Diastolic (mm Hg) 78 06/13/2019 [facility] [place] Heart Rate 86 06/12/2019 [facility] [place] Height 172.72 cm 06/12/2019 [place] BMI Calculated 22.55 06/12/2019 [place] Weight 67.273 06/12/2019 [facility] [place] Systolic (mm Hg) 121 05/22/2019 [facility] [place] Diastolic (mm Hg) 65 05/22/2019 [facility] [place] Respitory Rate 20 05/22/2019 [facility] [place] Respitory Rate 16 05/22/2019 [facility] [place] Systolic (mm Hg) 113 05/22/2019 [facility] [place] Diastolic (mm Hg) 56 05/22/2019 [facility] [place] Respitory Rate 17 05/22/2019 [facility] [place] Systolic (mm Hg) 125 05/22/2019 [facility] [place] Diastolic (mm Hg) 59 05/22/2019 [facility] [place] Heart Rate 104 05/22/2019 [place] Temperature Oral (F) 99 F 05/22/2019 [place] Height 172.72 cm 05/22/2019 [place] BMI Calculated 22.86 05/22/2019 [facility] [place] Weight 68.182 05/22/2019 [facility] [place] Height 172.72 cm 05/16/2019 [facility] [place] Weight 68.182 05/16/2019 [facility] [place] BMI Calculated 22.86 05/16/2019 [place] Systolic (mm Hg) 124 05/16/2019 [facility] Height 68 0 05/16/2019 [facility] Weight 160 05/16/2019 [facility] Heart Rate 44 05/16/2019 [facility] Temperature Oral (F) 97.3 F 05/16/2019 [facility] Diastolic (mm Hg) 86 05/16/2019 [facility] Systolic (mm Hg) 153 05/05/2019 [place] Diastolic (mm Hg) 96 05/05/2019 [place] Systolic (mm Hg) 142 05/05/2019 [place] Diastolic (mm Hg) 99 05/05/2019 [place] Heart Rate 107 05/05/2019 [place] Respitory Rate 16 05/05/2019 [place] Temperature Oral (F) 98.5 F 05/05/2019 [place] Height 172.72 cm 05/05/2019 [place] BMI Calculated 22.55 05/05/2019 [place] Weight 67.273 05/05/2019 [place] Systolic (mm Hg) 126 03/29/2019 [place] Diastolic (mm Hg) 86 03/29/2019 [place] Temperature Oral (F) 97.6 F 03/29/2019 [place] Heart Rate 72 03/29/2019 [place] Heart Rate 74 03/29/2019 [place] Systolic (mm Hg) 121 03/29/2019 [place] Diastolic (mm Hg) 78 03/29/2019 [place] Temperature Oral (F) 97.5 F 03/29/2019 [place] Temperature Oral (F) 98 F 03/29/2019 [place] Systolic (mm Hg) 120 03/29/2019 [place] Diastolic (mm Hg) 69 03/29/2019 [place] Heart Rate 72 03/29/2019 [place] Respitory Rate 20 03/29/2019 [place] Respitory Rate 20 03/29/2019 [place] Respitory Rate 20 03/29/2019 [place] Height 172.72 cm 03/20/2019 [place] Weight 71.4 03/20/2019 [place] BMI Calculated 23.93 03/20/2019 [place] Height 170.18 cm 03/19/2019 [place] BMI Calculated 21.97 03/19/2019 [place] Weight 63.636 03/19/2019 [place] Systolic (mm Hg) 140 12/23/2018 [facility] Diastolic (mm Hg) 78 12/23/2018 [facility] Respitory Rate 16 12/23/2018 [facility] Temperature Oral (F) 98.6 F 12/23/2018 [facility] Heart Rate 88 12/23/2018 [facility] Weight 68.182 12/23/2018 [facility] Systolic (mm Hg) 183 12/23/2018 [facility] Diastolic (mm Hg) 86 12/23/2018 [facility] Heart Rate 100 12/23/2018 [facility] Respitory Rate 16 12/23/2018 [facility] Temperature Oral (F) 98.5 F 12/23/2018 [facility] Height 172.72 cm 12/23/2018 [facility] Weight 68.182 12/23/2018 [facility] BMI Calculated 22.86 12/23/2018 [facility] Heart Rate 107 12/23/2018 [facility] Respitory Rate 20 12/23/2018 [facility] Temperature Oral (F) 98.6 F 12/23/2018 [facility] Systolic (mm Hg) 120 12/23/2018 [facility] Diastolic (mm Hg) 86 12/23/2018 [facility] Systolic (mm Hg) 113 01/11/2018 [place] Diastolic (mm Hg) 79 01/11/2018 [place] Respitory Rate 16 01/11/2018 [place] Weight 71.023 01/10/2018 [place] Temperature Oral (F) 98.9 F 01/10/2018 [place] Respitory Rate 18 01/10/2018 [place] Heart Rate 107 01/10/2018 [place] Systolic (mm Hg) 150 01/10/2018 [place] Diastolic (mm Hg) 93 01/10/2018 [place] Systolic (mm Hg) 131 02/20/2014 [place] Diastolic (mm Hg) 88 02/20/2014 [place] Respitory Rate 15 02/20/2014 [place] Diastolic (mm Hg) 93 02/20/2014 [place] Systolic (mm Hg) 134 02/20/2014 [place] Respitory Rate 16 02/20/2014 [place] Temperature Oral (F) 98.9 F 02/20/2014 [place] Heart Rate 89 02/20/2014 [place] Height 172.72 cm 02/20/2014 [place] BMI Calculated 23.62 02/20/2014 [place] Weight 70.455 02/20/2014 [place] Temperature Oral (F) 98.1 F 02/04/2012 [place] Heart Rate 63 02/04/2012 [place] Respitory Rate 16 02/04/2012 [place] Systolic (mm Hg) 108 02/04/2012 [place] Diastolic (mm Hg) 67 02/04/2012 [place] Systolic (mm Hg) 101 02/04/2012 [place] Respitory Rate 16 02/04/2012 [place] Diastolic (mm Hg) 60 02/04/2012 [place] Temperature Oral (F) 97.7 F 02/04/2012 [place] Heart Rate 58 02/04/2012 [place] Diastolic (mm Hg) 50 02/04/2012 [place] Systolic (mm Hg) 101 02/04/2012 [place] Heart Rate 62 02/04/2012 [place] Respitory Rate 18 02/04/2012 [place] Temperature Oral (F) 97.5 F 02/04/2012 [place] Height 172.72 cm 01/30/2012 [place] Weight 68.182 01/30/2012 [place] Diastolic (mm Hg) 54 01/28/2012 [facility] Temperature Oral (F) 98.2 F 01/28/2012 [facility] Heart Rate 56 01/28/2012 [facility] Respitory Rate 18 01/28/2012 [facility] Systolic (mm Hg) 99 01/28/2012 [facility] Diastolic (mm Hg) 51 01/28/2012 [facility] Systolic (mm Hg) 93 01/28/2012 [facility] Heart Rate 66 01/28/2012 [facility] Respitory Rate 20 01/28/2012 [facility] Temperature Oral (F) 98.1 F 01/28/2012 [facility] Heart Rate 68 01/28/2012 [facility] Temperature Oral (F) 98.2 F 01/28/2012 [facility] Respitory Rate 20 01/28/2012 [facility] Systolic (mm Hg) 114 01/28/2012 [facility] Diastolic (mm Hg) 71 01/28/2012 [facility] Weight 68.000 01/27/2012 [facility] Height 173.00 cm 01/27/2012 [facility] Height 172.72 cm 01/26/2012 [place] Weight 68.182 01/26/2012 [place] Height 172.72 cm 12/31/2011 [facility] Weight 70.455 12/31/2011 [facility] Encounters Location Location Details Encounter Type Encounter Number Reason For Visit Attending Provider ADM Date DC Date Status Source [facility] Emergency [id number] CHIARA HARDY 12/30/2011 12/31/2011 Discharged [facility] Emergency [id number] KARI MORELAND 01/26/2012 01/26/[address] [facility] Inpatient [id number] CHRONS/COLITIS GIULIA OSJEANIEWU 01/27/2012 01/28/2012 Active [facility] Inpatient [id number] MARION SAVAGE 01/30/2012 02/04/2012 Discharged [facility] [id number] Christie Mendoza 02/20/2014 02/20/2014 [facility] Emergency [id number] [place] Davis 01/10/2018 01/11/2018 [facility] Emergency [id number] Roberto Carrillo 12/23/2018 12/23/2018 [facility] Emergency [id number] [place] Aviles 12/23/2018 12/23/2018 [facility] Inpatient [id number] Jennifer Renae 03/19/2019 03/30/2019 [facility] [place] Phone Message [id number] 04/01/2019 04/03/2019 [facility] [place] Phone Message [id number] 04/03/2019 04/05/2019 [facility] [place] Phone Message [id number] 04/03/2019 04/05/2019 [facility] Outpatient [id number] Triston Benavidez 04/22/2019 Active [facility] Emergency [id number] Maureen Valentino 05/05/2019 05/05/2019 [facility] Outpatient [id number] Yung Crook 05/16/2019 05/17/2019 [facility] Emergency [id number] Josh Cohen 05/22/2019 05/22/2019 [facility] Emergency [id number] Al Orourke 06/12/2019 06/14/2019 [facility] [place] Ambulatory Pre-Reg [id number] Triston Benavidez 06/19/2019 06/19/2019 [facility] Emergency [id number] Maureen Valentino 06/28/2019 06/29/2019 [facility] Emergency [id number] Josh Cohen 08/12/2019 08/13/2019 [facility] Emergency [id number] Aldair Dye 11/09/2019 11/10/2019 [facility] Inpatient [id number] Ashwin Spence 12/02/2019 12/03/2019 [facility] Emergency [id number] Mirela Everett 12/08/2019 12/08/2019 [facility] Procedures Procedure Code Date Perfomer Comments Source Laminectomy [id number] [facility] Assessment and Plan Assessment and Plan Date Source Extracted from:Title: IM- Progress Note * Author: Lj Castro DO Date: 12/03/19 Impression and Plan The patient was seen and examined by me with the resident/AGRICULTURAL EXTENSION SPECIALIST/PA and I agree with the History/Exam documented. Acute alcohol intoxication (F10.929) Alcohol withdrawal (F10.239) librium/prn ativan ?Seizure (R56.9) - patient denied and want to sign out ama -consult neurology Suicidal ideation (R45.851) - not currently psych response cleared 12/01 Patient denies any suicidal ideation Plan: Admit to hospital- inpatient status IVF plus banana bag daily Ativan for seizure Alcohol withdrawal protocol Repeat Labs pending Prophylaxis SCD Patient wants to sign out ama psych response cleared from suicidal ideation Patient wants to sign out AMA and does not want to stay in hospital; Extracted from:Title: Hospitalist Author: Ashwin Spence MD Date: 12/02/19 Acute alcohol intoxication(F10.929) Ordered: Admit/Condition, 12/02/19 16:05:00 CDT, Status: Inpatient, Telemetry Capable Location, Expected LOS: 2 Midnights, Ashwin Spence MD, Admit Review/Approve Yes, Isolation: No Isolation/Standard Precautions, Acute alcohol intoxication | Alcohol withdrawal | Sei... Alcohol withdrawal(F10.239) Ordered: Admit/Condition, 12/02/19 15:02:00 CDT, Status: Inpatient, IMU, Expected LOS: 2 Midnights, Ashwin Spence MD, Admit Review/Approve Yes, Isolation: No Isolation/Standard Precautions, Alcohol withdrawal | Seizure Admit/Condition, 12/02/19 16:05:00 CDT, Status: Inpatient, Telemetry Capable Location, Expected LOS: 2 Midnights, Ashwin Spence MD, Admit Review/Approve Yes, Isolation: No Isolation/Standard Precautions, Acute alcohol intoxication | Alcohol withdrawal | Sei... Seizure(R56.9) Ordered: Admit/Condition, 12/02/19 15:02:00 CDT, Status: Inpatient, IMU, Expected LOS: 2 Midnights, Ashwin Spence MD, Admit Review/Approve Yes, Isolation: No Isolation/Standard Precautions, Alcohol withdrawal | Seizure Admit/Condition, 12/02/19 16:05:00 CDT, Status: Inpatient, Telemetry Capable Location, Expected LOS: 2 Midnights, Ashwin Spence MD, Admit Review/Approve Yes, Isolation: No Isolation/Standard Precautions, Acute alcohol intoxication | Alcohol withdrawal | Sei... Suicidal ideation(R45.851) Ordered: Admit/Condition, 12/02/19 16:05:00 CDT, Status: Inpatient, Telemetry Capable Location, Expected LOS: 2 Midnights, Ashwin Spence MD, Admit Review/Approve Yes, Isolation: No Isolation/Standard Precautions, Acute alcohol intoxication | Alcohol withdrawal | Sei... Plan: Admit to hospital- inpatientstatus IVF plus banana bag daily Ativan for seizure Alcohol withdrawal protocol Repeat Labs in am Nausea medications as needed Pain medications as needed See Admit orders for full plan of care Care plan discussed with patientand all questions answered SCD Admit to inpatient 12/03/2019 [facility] Extracted from:Title: Trauma Discharge S narendra Author: Deandre Duran MD Date: 03/29/19 Discharge Summary Date of Admission: 03/19/19 Date of Discharge: 03/29/19 Admit Diagnosis: 1. 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 Chronic EtOH use w/ withdrawal 3. AMS likely due to EtOH withdrawal Discharge Diagnosis: 1. 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 Chronic EtOH use IVC Filter Placement: None. Consultants: Dr. Mccrary- NS[facility]. Dr. Fernandez- [facility]. Dr. Myrick- Psychiatry. Procedures Performed: None. History of Present Illness: 33 y/o female with a PMHx significant fo r Crohn's disease use was brought to [facility] on 03/19 s/p fall. Patient presented with she has a dull head pain, does not radiate and generalized "body pain." She denied any dizziness, weakness of tingling. LOC positive. Hospital Course/Complications/Outcomes: The pt was admitted to the trauma service and transferred to SICU for further observation and management. Dr. Mccrary from NS was consulted and recommended no surgical intervention with Keppra for seizure ppx. Per pt's and family she had a history of alcoholism and was started on Thiamine, folate and Valium for withdrawal ppx. There was concern for underlying psych history and Dr. Myrick from Psychiatry was consulted and felt that a significant companent of pt's agitation was due to TBI, made medication recommendations. The pt's pain was well controlled throughout her hospital course with a smooth transition from IV to PO pain medications. Discharge Condition: Pt was stable at time of discharge. Instructions: Notify Physician if any of the Following Occur : Nausea, Shortness of breath Special Home Care Instructions : Must have continuous supervision at all times. Brain rest to include avoiding bright lights, loud noises, prolonged television, computer, cell phone or tablet use. May not go upstairs so sleep in a downstairs bedroom. Disposition: [facility] assisted living. Diet: Home Diet : Diet Adult Regular Activity: Are There Any Activity Restrictions : Yes Activity : Ambulation as tolerated, No strenuous activity Driving : None Bathing : Shower only Lifting : No heavy lifting Follow Up Appointments: Follow-Up With Provider : physician, physician #2 Provider #1 : Rudy Mccrary MD Follow-Up Call : Call for appointment Follow-up with [facility] Provider within : 2 Weeks Reason : Follow Up On Treatment Provider #2 : Mónica Myrick MD Follow-Up Call : Call for appointment Follow-up with Provider #2 within : 2 Weeks Reason : Follow Up On Treatment Discharge Medications: Tylenol. PTSD Screening: Unable to assess- Frontal lobe TBI. Total Time Spent: 45 minutes. Charting performed by yue Wyman for Dr. Duran. All medical record entries made by the scribe were at my direction. I have reviewed the chart and agree that the record accurately reflects my personal performance of the history, physical exam, hospital course, and assessment and plan. Extracted from:Title: Trauma Progress Note Author: Deandre Duran MD Date: 03/29/19 Trauma Progress Note Overnight Events: No acute overnight events. Patient states she wants to go home, denies pain. Vitals Tmp(F) Pulse BP RR SpO2 FIO2 03/29 07:00 97.5 --- 121/78 -- --- --- 03/29 04:00 98 72 120/69 20 96 --- 03/29 00:00 98 70 118/81 20 98 --- 03/28 20:00 97.8 72 116/66 2 0 96 --- 03/28 17:00 98.1 74 120/69 1 8 95 --- 24 Hr Tmax: 98.1F (36.72c) at 03/28 17:0 0 Vital Signs are the last 5 in the past 48 hours. I&O Record In Out Bal 03/29 24hr Tot 0 0 0 03/28 24hr Tot 720 0 720 Physical Exam: General: Well nourished. Very somnolent this morning. Less motivated today Head: NC/AT Eyes: EOMI. Sclera clear. Pupils are 3mm and brisk jimenez. ENT: Trach midline. No JVD. Cardiovascular: S1, S2 heart sounds. RRR. Pulses 2+ distal all four extremities. Lung: Clear to auscultation bilaterally. No respiratory distress on room air. Abdomen: Abdomen soft, non-tender. non-distended. Active bowel sounds. Extremities: Moves BUE/BLE well, full ROM to all four. LUE: No long bone deformities, cyanosis or lacerations. LLE: No long bone deformities, cyanosis or lacerations. RUE: No long bone deformities, cyanosis or lacerations. RLE: Right knee abrasion and multiple bruises in different stages of healing, nearly resolved Skin: Warm, and dry skin. Spine: Stable. Left lower lumbar tenderness Neuro: GCS 15 [E4 V4 M6]. AAOx3 but still amnestic to the event. Neurovascularly intact in all four extremities, unsteady gait but less so today Psych: Sensorium has cleared markedly over the past 72 hours, although still has some difficulties organizing her thoughts, no longer impulsive Labs (Last four charted values) WBC 7.4 (NOV 14) 7.3 (NOV 12) 8.6 (NOV 11) 8.4 (NOV 10) Hgb 13.3 (NOV 14) 13.0 (NOV 12) 13.7 (NOV 11) 13.6 (NOV 10) Hct 37.7 (NOV 14) 36.1 (NOV 12) 38.4 (NOV 11) 38.2 (NOV 10) Plt 406 (NOV 14) 378 (NOV 12) 377 (NOV 11) 324 (NOV 10) Na 138 (NOV 14) 137 (NOV 12) 138 (NOV 11) 139 (NOV 10) K 3.9 (NOV 14) 3.9 (NOV 12) 3.9 (NOV 11) L 3.3 (NOV 10) CO2 32 (NOV 14) 31 (NOV 12) 30 (NOV 11) 30 (NOV 10) Cl 103 (NOV 14) 101 (NOV 12) 103 (NOV 11) 103 (NOV 10) Cr 0.69 (NOV 14) 0.68 (NOV 12) 0.73 (NOV 11) 0.77 (NOV 10) BUN 10 (NOV 14) 10 (NOV 12) L 6 (NOV 11) L 5 (NOV 10) Glucose Random 96 (NOV 14) H 100 (NOV 12) 99 (NOV 11) H 125 (NOV 10) Mg H 2.5 (NOV 06) Phos 3.6 (NOV 06) Ca 9.5 (NOV 14) 9.3 (NOV 12) 9.3 (MAR 11) 9.5 (MAR 24) PT 13.4 (MAR 19) 13.2 (MAR 19) INR 1.04 (MAR 19) 1.02 (MAR 19) PTT 28.6 (MAR 19) Troponin <0.02 (MAR 19) Total CK H 226 (MAR 19) Radiology: 03/20 MRI C-spine: No acute fracture or ligamentous injury in the cervical spine. Mild degenerative changes, as above. Brain CT: 1. Re-demonstration of multifocal hemorr hagic contusions throughout the bilateral inferior frontal and throughout the left temporal lobes 2. Up to 3 mm of associated rightward mi dline shift. 3. Stable 4 mm thick acute right cerebra l convexity subdural hematoma. Emery: None. Collars: None. Central Line: None. DVT Prophylaxis: SCDs BLE. Heparin 5000u q8h. Nutrition/IVF: Adult regular diet. Pain Regimen: Acetaminophen 650 mg q4h prn pain 1-3. Fioricet with Codeine 1 cap PO q6h prn RECINOS 1-5. Physical Therapy/Occupational Therapy: PT/OT following. ST for cog eval. Case Management/Discharge Planning: Following. Remains unsafe for discharge to home given impulsivity and unsteady gait. Pending [facility] assisted living once approved by Assessment and Plan: A 33 y/o female with a PMHx significant for Crohn's disease and history of EtOH use was brought to [facility] on 03/19 s/p fall. LOC positive. Trauma workup revealed the followin. 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 Mccrary from [facility] consulted. Cynthia for seizure ppx. Pain control. Monitoring. - Cont Risperidone for impulsivity, home Cymbalta - Cont Sitter, may able to d/c sitter to [place] - will need outpatient f/u with NSGY and ST - Encouraged pt to get OOB and work with PT/OT today. 2. Chronic EtOH use - Per patient's , she has had a h istory of alcoholism. - No clinical signs of withdrawal [facility] [place], [place] Charting performed by yue Greenfield for Dr. Duran. All medical record entries made by the scribe were at my direction. I have reviewed the chart and agree that the record accurately reflects my personal performance of the history, physical exam, hospital course, and assessment and plan. Extracted from:Title: Psychiatry Consultation Note Author: Mónica Myrick MD Date: 03/25/19 PSYCHIATRY CONSULTATION NOTE DATE: 03/25/19 REFERRING PHYSICIAN: Dr. Durna CONSULTING TEAM: Psychiatry Reason for Consultation: agitation, impulsivity, alcohol abuse Chief Complaint: "I'm really really tired." History of Present Illness: 33 yo CF with a history of Crohn's disea se, Sandeep Parkinson White syndrome, hx of nephrotic syndrome and alcohol abuse who presented to ER after she called 911 reporting headaches. Pt found to have AMS after apparent episode of increased alcohol use and a fall. 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 Patient was started on Keppra for seizure prophylaxis. Pt initially disoriented, but has shown some improvement. She also had periods of agitation where she would refuse care or pull out IVs. She has poor judgment and insight frequently getting out of bed. She has exhibited disorganized and disinhibited behavior with verbal agitation, hyperactivity and inappropriate behavior (singing inappropriate songs about nurses). Pt has been started on Depakote, Risperdal and is on Valium and Gabapentin for pain and alcohol withdrawal. Information obtained from patient, medical staff and chart review. Patient seen via telepsychiatry. On exam today patient seen with her [id number] present. Pt asked for MIL to stay for interview. She reports feeling disappointed, tired and ready to go home. She is vague, avoidant and disinterested in interview and does not appear to be a good historian. She denies psychiatric history or current mood symptoms, but when specifically asked reports hx of anxiety describes worrying, panic attacks and feeling tense for which she took Cymbalta. Denies recent panic attacks. She denies feeling depressed or angry at this time. She feels restless and anxious to go home. States she needs to "think about things" and figure out what her goals are. She reports disrupted sleep because she misses her bed. Reports poor appetite. Denies SI/HI or hopelessness. She reports having a supportive family. She did not report AH/VH or paranoia and did not appear to be responding to internal stimuli at this time. She reports alcohol use, but denies drugs or tobacco. She provided little insight into her alcohol use and her perception of it's effect on her life as she starts to state she is tired and wants to end interview. No agitation or aggression, but again is disinterested, restless and easily frustrated. Pt provided consent for this television writer to speak to her family, but specifically requested I speak to her [id number] Cee who is at bedside. Spoke to Cee, patient's [id number]. Per Cee patient has a history of depression and anxiety, but unclear if she has had treatment. Went to alcohol treatment in July 2018 and this is where she was started on Cymbalta. She does not have outpatient psychiatrist, but appears to be doing better after rehab in July. She is not at baseline per MIL and has been easily frustrated, gets easily confused, gets agitated, wants to get up and leave. At baseline pt has some anxiety, depression and alcohol abuse but no confusion or agitation. Somewhat calmer today. NO apparent psychosis. No drug history. She has always been on medication for Crohn's. Cee asked that this television writer call patient's mother, Hayley, but pt did not provide consent and when specifically asked if this television writer could call her mother patient said no. Per Cee, pt's mother is worried about Caroline and wants her to receive neurocognitive rehab and f/u with psychiatry. 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 Pt was seen by [facility] on 03/22/19 where patient denied all psychiatric history and was guarded regarding alcohol use. She denied current symptoms of mood issues, had no apparent psychosis and was not physically aggressive. She was disinterested in the interview particularly when alcohol was discussed and terminated the interview. Per chart family reports pt has a history of chronic alcohol abuse and was last admitted to alcohol treatment program in July 2018 and October 2018 after which she stops drinking for awhile. Per chart was out of town and when he returned home found multiple bottles of wine and liquor. Pt has denied violence or recent trauma. Home medications list Cymbalta and family report hx of anxiety. Past Psychiatric History: Past Diagnoses: anxiety Past Treatment: Inpatient- none Outpatient- none reported Past Psychiatric Medications: Cymbalta per chart History of Lethality (suicidality, violence): none reported Past Medical and Surgical History: Crohn's disease, Sandeep Parkinson White syndrome, hx of nephrotic syndrome and alcohol abuse Medications: Outpatient Psychiatric Medications: Cymbalta 120 mg PO daily Inpatient Medications: Medications (31) Active Scheduled Meds (9): 03/20/19 diazepam 5 mg PO Q8H 03/25/19 divalproex sodium (divalproex s odium 500 mg oral enteric coated tablet (Depakote)) 500 mg PO BID 03/21/19 gabapentin 300 mg PO Q8H 03/21/19 heparin 5,000 unit SUB-Q Q8H 03/21/19 levETIRAcetam (Keppra 500 mg or al tablet) 500 mg PO Q12H 03/21/19 multivitamin (Nephro-[facility]nor Rx) 1 tab PO Daily 03/21/19 potassium phosphate-sodium phos phate (potassium phosphate-sodium phosphate 250 mg-280 mg-160 mg oral powder for reconstitution) 2 pkt PO TID-Meals 03/23/19 risperiDONE 1 mg PO Q12H 03/23/19 thiamine 100 mg PO Daily Unscheduled Meds (1): 03/19/19 influenza virus vaccine, inacti vated 0.5 mL IM ONCALL PRN Meds (19): 03/21/19 APAP/butalbital/caffeine/codein e (Fioricet with Codeine) 1 cap PO Q6H 03/19/19 acetaminophen 650 mg PO Q4H 03/19/19 calcium carbonate (calcium carb renuka 500 mg (200 mg elemental calcium) oral tablet) 500 mg PO PRN 03/19/19 calcium carbonate (calcium carb renuka 500 mg (200 mg elemental calcium) oral tablet) 1,000 mg PO PRN 03/19/19 calcium gluconate + Sodium Chlo ride 0.9% IV 50 mL 1 gm IVPB PRN 120 ml/hr 03/19/19 magnesium oxide 800 mg PO PRN 03/19/19 magnesium sulfate 2 gm IVPB PRN 25 ml/hr 03/24/19 ondansetron (Zofran) 4 mg PO Q4 H 03/19/19 potassium chloride 20 mEq IVPB PRN 100 ml/hr 03/19/19 potassium chloride 10 mEq IVPB PRN 100 ml/hr 03/19/19 potassium chloride 20 mEq PO WI N 03/19/19 potassium chloride 20 mEq NJ WI N 03/19/19 potassium phosphate + Sodium Ch loride 0.9% IV 250 mL 15 mmol IVPB PRN 63.75 ml/hr 03/19/19 potassium phosphate + Sodium Ch loride 0.9% IV 250 mL 30 mmol IVPB PRN 65 ml/hr 03/19/19 potassium phosphate + Sodium Ch loride 0.9% IV 250 mL 45 mmol IVPB PRN 66.25 ml/hr 03/19/19 potassium phosphate-sodium phos phate (potassium phosphate-sodium phosphate 250 mg-280 mg-160 mg oral powder for reconstitution) 2 pkt PO PRN 03/19/19 sodium phosphate + Sodium Chlor estefania 0.9% IV 250 mL 15 mmol IVPB PRN 63.75 ml/hr 03/19/19 sodium phosphate + Sodium Chlor estefania 0.9% IV 250 mL 30 mmol IVPB PRN 65 ml/hr 03/19/19 sodium phosphate + Sodium Chlor estefania 0.9% IV 250 mL 45 mmol IVPB PRN 66.25 ml/hr One Time Meds (2): 03/23/19 (Completed) diazepam 10 mg PO ONCE 03/24/19 (Completed) risperiDONE 1 mg P O ONCE Continuous Infusions: None Allergies (1) Active Reaction No Known Allergies None documented Family Psychiatric History: none noted Social and Developmental History: Lives with and dog. 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 Per chart drinks alcohol about twice a week, history of binge drinking. NO reported drug or tobacco use. MIL states pt has been on opiates in the past for crohn's and is not sure if they were ever misused. Review of Systems: Constitutional- + fatigue, no heat/cold intolerance HEENT- denies blurry vision or sore throat Cardiovascular- denies chest pain or palpitations Respiratory- denies SOB or cough Gastrointestinal- denies abdominal pain or nausea Genitourinary- no dysuria or hematuria Musculoskeletal- pain in neck, head Hematologic- no easy bruising or bleeding Skin- no rash or skin breakdown Neurologic- no dizziness or weakness, pain in head Psychiatric - see above Mental Status Exam: General: 33 yo CF who appears stated age, poor eye contact, calm, but disinterested Musculoskeletal: no tics or tremors, restless moving blankets around Speech: monotone Language: able to repeat phrases Mood: "tired" Affect: constricted Thought process: perseverative, concrete Thought content: no SI/HI, no apparent delusions perceptions: no AH/VH insight/judgment: poor Cognitive: Orientation: alert and oriented to month, year, location Attention: fair, not formally assessed due to poor cooperation Memory: 3/3 objects recalled immediately and 0/3 after 3 minutes, poor effort Knowledge: unable to name current or recent president, poor effort Abstraction: concrete Gait: not assessed, sitting in bed VS/Laboratory Data: Vitals Tmp(F) Pulse BP RR SpO2 FIO2 03/25 04:00 ---- --- 119/82 18 96 --- 03/25 03:08 97.9 --- ----- - - --- --- 03/24 23:54 97.6 94 112/71 1 6 99 --- 03/24 20:04 98.2 101 123/79 18 99 --- 03/24 17:12 98.7 --- 129/81 -- --- --- 24 Hr Tmax: 98.7F (37.06c) at 03/24 17:1 2 Vital Signs are the last 5 in the past 48 hours. 24hr Labs 03/25 0311 Sodium Lvl 138 Potassium Lvl 3.9 Chloride Lvl 103 CO2 30 AGAP 8.9 L Glucose Lvl 99 Creatinine Lvl 0.73 BUN 6 L B/C Ratio 8 Total Protein 7.3 Albumin Lvl 3.1 L Globulin 4.2 A/G Ratio 0.7 Calcium Lvl 9.3 ALT 19 AST 16 Alk Phos 76 Bili Total 0.2 eGFR 107 WBC 8.6 RBC 4.01 L Hgb 13.7 Hct 38.4 MCV 95.9 MCH 34.2 H MCHC 35.7 RDW 13.0 Platelet 377 MPV 7.2 L Segs 55.6 Monocytes 17.6 H Lymphocytes 23.6 Eosinophils 2.2 Basophils 1.0 Neutrophils # 4.8 Lymphocytes # 2.0 Monocytes # 1.5 H Eosinophils # 0.2 Basophils # 0.1 Imaging Data: PROCEDURE INFORMATION: Exam: CT Head Without Contrast Exam date and time: 03/20/2019 5:47 AM Clinical history: 33 years old, female; Condition or disease and abnormal findings; Additional info: /contusion. F/u prev scan earlier TECHNIQUE: Imaging protocol: Computed tomography of the head without contrast. Total DLP: 703 mGy-cm Radiation optimization: All CT scans at this facility use at least one of these dose optimization techniques: automated exposure control; mA and/or kV adjustment per patient size (includes targeted exams where dose is matched to clinical indication); or iterative reconstruction. COMPARISON: BRAIN WO CONTRAST CT 03/19/2019 11:26 PM FINDINGS: Brain: Grossly stable appearance of multifocal predominantly subcentimeter hemorrhagic contusions in the bilateral inferior frontal and throughout the left temporal lobe. Stable appearance of the 4 mm thick acute subdural hematoma along the posterior right cerebral convexity. Midline shift: Up to 3 mm rightward midline shift is noted. Ventricles: Normal. No ventriculomegaly. Bones/joints: Stable nondisplaced fracture of the right clivus extending into the sphenoid sinus Sinuses: Visualized sinuses are unremarkable. No fluid levels. Mastoid air cells: Visualized mastoid air cells are well aerated. Soft tissues: Unremarkable. IMPRESSION: 1. Redemonstration of multifocal hemorrh agic contusions throughout the bilateral inferior frontal and throughout the left temporal lobes 2. Up to 3 mm of associated rightward mi dline shift. 3. Stable 4 mm thick acute right cerebra l convexity subdural hematoma. Assessment: 33 yo CF with a history of Crohn's disea se, Sandeep Parkinson White syndrome, hx of nephrotic syndrome and alcohol abuse who presented to ER after she called 911 reporting headaches. Pt found to have AMS after apparent episode of increased alcohol use and a fall. 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 Patient was started on Keppra for seizure prophylaxis. Pt initially disoriented, but has shown some improvement. She also had periods of agitation where she would refuse care or pull out IVs. She has poor judgment and insight frequently getting out of bed. She has exhibited disorganized and disinhibited behavior with verbal agitation, hyperactive and inappropriate behavior (singing inappropriate songs about nurses). Pt has been started on Depakote, Risperdal and is on Valium and Gabapentin for pain and alcohol withdrawal. On exam today patient again appears disinterested and avoidant. She denies mood symptoms, SI/HI or psychosis, but appears easily frustrated and withdrawn. She also has impairment noted in memory and orientation, but patient mostly uncooperative and avoidant during exam so unclear if has true cognitive impairment at this time. Symptoms of mood lability and impulsivity likely secondary to recent TBI. Alcohol withdrawal can also affect mood and behavior, but appears to be improved. She also has baseline anxiety and possible mood disorder which could be contributing. She remains with poor insight into substance abuse and the negative effects on her life which may be baseline or again affected by recent TBI and possibly cognitive sequelae. 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 Patient not appropriate for inpatient psychiatric treatment as she lacks current symptoms of psychosis, SI/HI or physical aggression towards self or others. She does appear to need some supervision either telesitter or 1:1 due to impulsivity and poor insight. When medically improved would benefit from substance abuse treatment, but will depend on patient motivation. Pt can also follow up with outpatient psychiatrist to continue monitoring mood. No weapons in the home. Discharge appears dependent on level of independent functioning and need for further rehabilitation. 2. Check TSH and EKG for baseline. Cont inue to monitor Depakote level, LFTs and CBC while on Depakote. 3. Continue Risperdal 1 mg PO BID and De pakote 500 mg PO q12 hours. Restart Cymbalta at 60 mg PO daily for baseline anxiety/depression. Of note all SSRIs/SNRIs can affect platelet function and therefore increase risk of bleeding. Please consider this before restarting due to recent TBI. 4. Will defer to Neurology, but would us e Keppra for shortest period of time as clinically indicated due to it's possible side effect of worsening mood lability. 5. Wean Valium as may be contributing to disinhibition. No current symptoms of alcohol withdrawal noted. Continue to monitor for withdrawal as weaning Valium. 6. For agitation recommend Risperdal 0.5 to 1 mg PO q6 hours PRN agitation. For severe agitation recommend Geodon 10 mg IM q6 hours PRN severe agitation. Monitor EKG for QTc changes if Geodon required. 7. Would benefit from full neurocognitiv e testing to further evaluate for specific deficits after TBI when medically stable. 8. Monitor for dystonia and give Cogent in 1 mg PO/IM/IV q6 hours PRN. Case and recommendations discussed with Dr. Duran. Please call [facility] at [phone] or page via [employer] for any additional questions or concerns. Mónica Myrick MD Psychiatrist with [facility] Team Extracted from:Title: History and Physical Author: Jennifer Macdonald MD Date: 03/19/19 This is a 33 yo f with PMH of crohn's and etoh abuse presenting with headache, suspected fall or falls with Bilateral frontal and left temporal hemorrhagic contusions L>R-> Dr. Mccrary consulted. Cynthia. Repeat CT in 4 hours. Elevated HOB. No gross injuries on physical exam however will get further CT scans given lack of hx and difficult exam. ICU monitoring. Minimize any sedating medications. She will need etoh withdrawal treatment while in hospital, probably will benefit from librium treatment, however will limit any additional meds at this time- would like to demonstrate stability of her contusions. Banana bag for now SCDs for DVT prophylaxis I called her at home who reported as of about an hour prior to my call he was aware EMS had picked her up. I notified him of her whereabouts and discussed with him current findings and plans. He says she has a history of etoh abuse and has been in and out of rehabs. He was out of town and came home Monday and there was a "bunch of bottles of wine and a bottle of vodka". He describes her as behaving as she was intoxicated at that time. He saw her this morning and she was sleeping. 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 Frequency: Daily. Household alcohol concerns: No.1 Employment/School Status: Employed. 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 Exercise Exercise frequency: 5-6 times/week. Self assessment: Excellent condition. Sexual Sexually active: Yes. Substance Abuse Use: None. Cessation Education Provided: No. Smoking Status Former smoker; Type: Cigarettes; Exposure to Tobacco Smoke None; Cigarette Smoking Last 365 Days No; Reg Smoking Cessation Counseling No entered on: 12/08/19 1Pt stopped 06/28/2019 020 [facility] Social History TypeResponse Alcohol Current, Type Wine, Liquor. Frequency: Daily. Employment/School Status: Employed. 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 Exercise Exercise frequency: 5-6 times/week. Self assessment: Excellent condition. Sexual Sexually active: Yes. Substance Abuse Use: None. Smoking Status Current some day smoker; Type: Cigarettes; Exposure to Tobacco Smoke None; Cigarette Smoking Last 365 Days No; Reg Smoking Cessation Counseling No entered on: 06/12/19 03/20/2019 [facility] Social History TypeResponse Substance Abuse Use: None. Alcohol Current, Type Liquor. Frequency: 1-2 times per month. Smoking Status Current some day smoker; Type: Cigarettes; Exposure to Tobacco Smoke None; Cigarette Smoking Last 365 Days No; Reg Smoking Cessation Counseling No entered on: 12/23/18 02/20/2014 [facility] Family History No Data Provided for This Section Advance Directives No Data Provided for This Section Functional Status No Data Provided for This Section
--- OUTSIDE RECORDS SUMMARY | 2019-12-20 02:43 | XMS REPORT | Summary of Care ---
Author Author [facility] Organization [facility] Address Unknown Phone Unavailable Encounter DENNIS Acosta(LINDA) [id number] Date(s): 06/12/19 - 06/14/19 [facility] [address] [place] [address]- Discharge Disposition: Home or Self Care Attending Physician: Al Orourke MD Vital Signs 1 2 3 Most recent to oldest [Reference Range]: 172.72 cm (06/12/19 5:17 PM) Height 98.8 DegF (06/13/19 10:41 AM) 98.0 DegF (06/13/19 5:48 AM) 98.2 DegF (06/12/19 9:15 PM) Temperature Oral [96.4-99.1 DegF] 115/75 mmHg (06/13/19 10:41 AM) 129/83 mmHg (06/13/19 5:48 AM) 113/78 mmHg (06/12/19 9:15 PM) Blood Pressure [90-140/60-90 mmHg] 20 BRMIN (06/13/19 10:41 AM) 18 BRMIN (06/13/19 5:48 AM) 17 BRMIN (06/12/19 9:15 PM) Respiratory Rate [14-20 BRMIN] 95 bpm (06/13/19 10:41 AM) 108 bpm *HI* (06/12/19 9:15 PM) 86 bpm (06/12/19 5:17 PM) Peripheral Pulse Rate [60-100 bpm] 67.273 kg (06/12/19 5:17 PM) Weight 22.55 m2 (06/12/19 5:17 PM) Body Mass Index Problem List Condition Effective Dates Status Health Status Informan t Anxiety(Confirmed) Resolved CD (Crohn's Resolved disease)(Confirmed) Crohn's Active disease(Confirmed) Diarrhea(Confirmed) Active Nausea(Confirmed) Active Nephrotic Resolved syndrome(Confirmed) Pain(Confirmed) Active Sandeep Parkinson Resolved White syndrome(Confirmed) Allergies, Adverse Reactions, Alerts Substance Reaction Severity Status promethazine Active Medications Ativan 2 mg, 1 mL, Route: IM, Drug form: INJ, ONCE, Dosing Weight 67.273, kg, Priority: STAT, Start date: 06/13/19 15:30:00 REPOSSESSOR, Stop date: 06/13/19 15:30:00 REPOSSESSOR, 0 Notes: (Same as: Ativan) Start Date: 06/13/19 Stop Date: 06/13/19 Status: Completed Ativan 2 mg, 1 mL, Route: IVP, Drug form: INJ, ONCE, Dosing Weight 67.273, kg, Priority : STAT, Start date: 06/12/19 22:57:00 REPOSSESSOR, Stop date: 06/12/19 22:57:00 REPOSSESSOR, 0 Notes: (Same as: Ativan) Start Date: 06/12/19 Stop Date: 06/12/19 Status: Completed Ativan 2 mg, 1 mL, Route: IM, Drug form: INJ, ONCE, Dosing Weight 67.273, kg, Priority: STAT, Start date: 06/13/19 23:58:00 REPOSSESSOR, Stop date: 06/13/19 23:58:00 REPOSSESSOR, 0 Notes: (Same as: Ativan) Start Date: 06/13/19 Stop Date: 06/14/19 Status: Completed Ativan 2 mg, 1 mL, Route: IM, Drug form: INJ, ONCE, Dosing Weight 67.273, kg, Priority: STAT, Start date: 06/13/19 14:18:00 REPOSSESSOR, Stop date: 06/13/19 14:18:00 REPOSSESSOR, 0 Notes: (Same as: Ativan) Start Date: 06/13/19 Stop Date: 06/13/19 Status: Completed Ativan 1 mg, Route: IVP, Drug form: INJ, ONCE, Dosing Weight 67.273, kg, Priority: STAT , Start date: 06/13/19 8:46:00 REPOSSESSOR, Stop date: 06/13/19 8:46:00 REPOSSESSOR Start Date: 06/13/19 Stop Date: 06/13/19 Status: Discontinued Ativan 1 mg, Route: IM, Drug form: INJ, ONCE, Dosing Weight 67.273, kg, Start date: 8:46:00 REPOSSESSOR, Stop date: 06/13/19 8:46:00 REPOSSESSOR Start Date: 06/13/19 Stop Date: 06/13/19 Status: Completed Ativan 2 mg, Route: IVP, Drug form: INJ, ONCE, Dosing Weight 67.273, kg, Priority: STAT , Start date: 06/14/19 7:35:00 REPOSSESSOR, Stop date: 06/14/19 7:35:00 REPOSSESSOR Start Date: 06/14/19 Stop Date: 06/14/19 Status: Discontinued Ativan 2 mg, 1 mL, Route: IM, Drug form: INJ, ONCE, Dosing Weight 67.273, kg, Priority: STAT, Start date: 06/14/19 7:36:00 REPOSSESSOR, Stop date: 06/14/19 7:36:00 REPOSSESSOR, 0 Notes: (Same as: Ativan) Start Date: 06/14/19 Stop Date: 06/14/19 Status: Completed Benadryl 50 mg, 1 mL, Route: IM, Drug form: INJ, ONCE, Dosing Weight 67.273, kg, Priority : STAT, Start date: 06/14/19 7:34:00 REPOSSESSOR, Stop date: 06/14/19 7:34:00 REPOSSESSOR, 0 Notes: (Same as: Benadryl) Start Date: 06/14/19 Stop Date: 06/14/19 Status: Completed Depakote 250 mg, 1 tab, Route: PO, Drug form: ERTAB, Breakfast, Dosing Weight 67.273, kg, Start date: 06/14/19 8:00:00 REPOSSESSOR, Duration: 30 day, Stop date: 07/13/19 8:00:00 REPOSSESSOR, 0 Notes: (Same as: Depakote ER) (Do Not Crush) "Do Not Crush" Start Date: 06/14/19 Stop Date: 06/14/19 Status: Discontinued Depakote 500 mg, 1 tab, Route: PO, Drug form: ERTAB, Bedtime, Dosing Weight 67.273, kg, S tart date: 06/13/19 21:00:00 REPOSSESSOR, Duration: 30 day, Stop date: 07/12/19 21:00:00 REPOSSESSOR, 0 Notes: (Same as: Depakote ER) Once daily dosing; indicated for migraines. Dival proex sodium extended-release tab. Do not chew or crush. "Do Not Crush" Start Date: 06/13/19 Stop Date: 06/14/19 Status: Discontinued diphenhydrAMINE 50 mg, 1 mL, Route: IM, Drug form: INJ, ONCE, Dosing Weight 67.273, kg, Priority : STAT, Start date: 06/13/19 23:58:00 REPOSSESSOR, Stop date: 06/13/19 23:58:00 REPOSSESSOR, 0 Notes: (Same as: Benadryl) Start Date: 06/13/19 Stop Date: 06/14/19 Status: Completed Haldol 5 mg, 1 mL, Route: IM, Drug form: INJ, ONCE, Dosing Weight 67.273, kg, Priority: STAT, Start date: 06/13/19 23:58:00 REPOSSESSOR, Stop date: 06/13/19 23:58:00 REPOSSESSOR, 0 Notes: (Same as: Haldol) Start Date: 06/13/19 Stop Date: 06/14/19 Status: Completed Haldol 5 mg, Route: IM, ONCE, Dosing Weight 67.273, kg, Priority: STAT, Start date: 8:54:00 REPOSSESSOR, Stop date: 06/13/19 8:54:00 REPOSSESSOR Start Date: 06/13/19 Stop Date: 06/13/19 Status: Completed LORazepam 1 mg, 0.5 mL, Route: IM, Drug form: INJ, ONCE, Dosing Weight 67.273, kg, Priorit y: STAT, Start date: 06/12/19 18:13:00 REPOSSESSOR, Stop date: 06/12/19 18:13:00 REPOSSESSOR, 0 Notes: (Same as: Ativan) Start Date: 06/12/19 Stop Date: 06/12/19 Status: Discontinued LORazepam 1 mg, Route: IVP, Drug form: INJ, ONCE, Dosing Weight 67.273, kg, Priority: STAT , Start date: 06/12/19 18:47:00 REPOSSESSOR, Stop date: 06/12/19 18:47:00 REPOSSESSOR Start Date: 06/12/19 Stop Date: 06/12/19 Status: Completed LORazepam 1 mg, 0.5 mL, Route: IVP, Drug form: INJ, ONCE, Dosing Weight 67.273, kg, Priori ty: STAT, Start date: 06/12/19 20:55:00 REPOSSESSOR, Stop date: 06/12/19 20:55:00 REPOSSESSOR, 0 Notes: (Same as: Ativan) Start Date: 06/12/19 Stop Date: 06/12/19 Status: Completed OLANZapine 10 mg, Route: IM, Drug form: INJ, ONCE, Dosing Weight 67.273, kg, Priority: STAT , Start date: 06/12/19 18:12:00 REPOSSESSOR, Stop date: 06/12/19 18:12:00 REPOSSESSOR, 0 Notes: (Same As: ZyPREXA IM). Reconstitute with 2.1 ml sterile water for inject ion; use within 1 hour after reconstitution. For IM use only; do not administer IV or SUB-Q. Start Date: 06/12/19 Stop Date: 06/12/19 Status: Completed OLANZapine 10 mg, Route: IM, Drug form: INJ, ONCE, Dosing Weight 67.273, kg, Priority: STAT , Start date: 06/13/19 22:39:00 REPOSSESSOR, Stop date: 06/13/19 22:39:00 REPOSSESSOR, 0 Notes: (Same As: ZyPREXA IM). Reconstitute with 2.1 ml sterile water for inject ion; use within 1 hour after reconstitution. For IM use only; do not administer IV or SUB-Q. Start Date: 06/13/19 Stop Date: 06/13/19 Status: Completed Risperdal 1 mg, 1 tab, Route: PO, Drug form: TAB, BID, Dosing Weight 67.273, kg, Start jose raul e: 06/13/19 17:00:00 REPOSSESSOR, Duration: 30 day, Stop date: 07/13/19 9:00:00 REPOSSESSOR, 0 Notes: (Same as: Risperdal) Start Date: 06/13/19 Stop Date: 06/14/19 Status: Discontinued Results Most recent to 1 2 oldest [Reference Range]: Neutrophils # 6.5 K/CMM [1.5-8.1 K/CMM] (06/12/19 5:59 PM) Lymphocytes # 2.6 K/CMM [1.0-5.5 K/CMM] (06/12/19 5:59 PM) Monocytes # [0.0-0.8 0.3 K/CMM K/CMM] (06/12/19 5:59 PM) Basophils # [0.0-0.2 0.2 K/CMM K/CMM] (06/12/19 5:59 PM) eGFR 116 mL/min/1.73m2 1 *NA* (06/12/19 5:59 PM) UDS Note See Note *NA* (06/12/19 7:30 PM) A/G Ratio [0.7-1.6] 1.1 (06/12/19 5:59 PM) Acetaminoph Lvl <2 ug/ml [10-20 ug/ml] *LOW* (06/12/19 5:59 PM) Albumin Lvl [3.5-5.0 4.1 g/dL g/dL] (06/12/19 5:59 PM) Alk Phos [39-136 72 unit/L unit/L] (06/12/19 5:59 PM) ALT [0-65 unit/L] 37 unit/L (06/12/19 5:59 PM) U Amph Scr Negative [Negative] *NA* (06/12/19 7:30 PM) AGAP [10.0-20.0 17.1 mEq/L mEq/L] (06/12/19 5:59 PM) AST [0-37 unit/L] 30 unit/L (06/12/19 5:59 PM) B/C Ratio [6-25] 12 (06/12/19 5:59 PM) U Zo Scr Negative [Negative] *NA* (06/12/19 7:30 PM) Basophils [0.0-1.0 2.5 % %] *HI* (06/12/19 5:59 PM) U Benzodiaz Scr Negative [Negative] *NA* (06/12/19 7:30 PM) BUN [7-22 mg/dL] 8 mg/dL (06/12/19 5:59 PM) Calcium Lvl 9.1 mg/dL [8.5-10.5 mg/dL] (06/12/19 5:59 PM) Chloride Lvl [95-109 108 mEq/L mEq/L] (06/12/19 5:59 PM) CO2 [24-32 mEq/L] 21 mEq/L *LOW* (06/12/19 5:59 PM) U Cocaine Scr Negative [Negative] *NA* (06/12/19 7:30 PM) Creatinine Lvl 0.65 mg/dL [0.50-1.40 mg/dL] (06/12/19 5:59 PM) Etoh (%) .187 % .299 % 2 *NA* *CRIT* (06/12/19 9:19 PM) (06/12/19 5:59 PM) Ethanol Lvl 187 mg/dL 299 mg/dL 3 *NA* *CRIT* (06/12/19 9:19 PM) (06/12/19 5:59 PM) Globulin [2.7-4.2 3.6 g/dL g/dL] (06/12/19 5:59 PM) Glucose Lvl [70-99 71 mg/dL mg/dL] (06/12/19 5:59 PM) Hct [36.0-48.0 %] 46.9 % (06/12/19 5:59 PM) Hgb [12.0-16.0 g/dL] 15.9 g/dL (06/12/19 5:59 PM) Potassium Lvl 4.1 mEq/L [3.5-5.1 mEq/L] (06/12/19 5:59 PM) Lymphocytes 26.9 % [20.0-40.0 %] (06/12/19 5:59 PM) MCH [27.0-31.0 pg] 32.4 pg *HI* (06/12/19 5:59 PM) MCHC [32.0-36.0 33.8 g/dL g/dL] (06/12/19 5:59 PM) MCV [80.0-98.0 fL] 95.6 fL (06/12/19 5:59 PM) Monocytes [2.0-12.0 3.3 % %] (06/12/19 5:59 PM) MPV [7.4-10.4 fL] 7.1 fL *LOW* (06/12/19 5:59 PM) Sodium Lvl [135-145 142 mEq/L mEq/L] (06/12/19 5:59 PM) U Opiate Scr Negative [Negative] *NA* (06/12/19 7:30 PM) U Phencyclidine Scr Negative [Negative] *NA* (06/12/19 7:30 PM) Platelet [133-450 555 K/CMM K/CMM] *HI* (06/12/19 5:59 PM) Segs [45.0-75.0 %] 67.3 % (06/12/19 5:59 PM) Total Protein 7.7 g/dL [6.4-8.4 g/dL] (06/12/19 5:59 PM) RBC [4.20-5.40 4.90 M/CMM M/CMM] (06/12/19 5:59 PM) RDW [11.5-14.5 %] 13.6 % (06/12/19 5:59 PM) S Preg [Negative] Negative *NA* (06/12/19 5:59 PM) Salicylate Lvl 3.1 mg/dL [0.0-30.0 mg/dL] (06/12/19 5:59 PM) Bili Total [0.2-1.3 0.3 mg/dL mg/dL] (06/12/19 5:59 PM) U Cannab Scr Negative [Negative] *NA* (06/12/19 7:30 PM) UA Bacteria [None Occasional /HPF Seen /HPF] *NA* (06/12/19 7:30 PM) UA Bili [Negative] Negative *NA* (06/12/19 7:30 PM) UA Blood [Negative] Moderate *ABN* (06/12/19 7:30 PM) UA Color Straw *NA* (06/12/19 7:30 PM) UA Glucose [Negative Negative mg/dL mg/dL] *NA* (06/12/19 7:30 PM) UA Ketones [Negative 20 mg/dL mg/dL] *ABN* (06/12/19 7:30 PM) UA Leuk Est Negative [Negative] (06/12/19 7:30 PM) UA Mucus [None Seen Few /LPF /LPF] *NA* (06/12/19 7:30 PM) UA Nitrite Negative [Negative] (06/12/19 7:30 PM) UA pH [5.0-8.0] 5.0 (06/12/19 7:30 PM) UA Protein [Negative Negative mg/dL mg/dL] (06/12/19 7:30 PM) UA Spec Grav 1.011 [<=1.030] (06/12/19 7:30 PM) UA Sq Epi [Few /LPF] Occasional /LPF *NA* (06/12/19 7:30 PM) UA Turbidity [Clear] Clear (06/12/19 7:30 PM) UA Urobilinogen <=1.0 mg/dL [0.1-1.0 mg/dL] *NA* (06/12/19 7:30 PM) UA WBC [0-5 /HPF] <1 /HPF (06/12/19 7:30 PM) WBC [3.7-10.4 K/CMM] 9.6 K/CMM (06/12/19 5:59 PM) Micro? Performed *NA* (06/12/19 7:30 PM) 1Result Comment: The eGFR is calculated using the [...] from the National Kidney Disease Education Program ( NKDEP) which additionally recommends that when the eGFR is used in patients with extremes of body mass index for purposes of drug dosing, the eGFR should be mul tiplied by the estimated BMI. 2Result Comment: Critical Result(s) called to Saúl Rivera at 06/12/2019 19:01 by NS. Read back OK. 3Result Comment: Critical Result(s) called to Saúl Rivera at 06/12/2019 19:01 by NS. Read back OK. Immunizations Given and Recorded Vaccine Date Status Refusal Reason influenza virus vaccine, inactivated 03/29/19 G iven Procedures No data available for this section Social History Social History Type Response Alcohol Current, Type Wine, Liquor. Frequency: Daily. Employment/School Status: Employed. 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 Exercise Exercise frequency: 5-6 karen es/week. Self assessment: Excellent condition. Sexual Sexually active: Yes. Substance Abuse Use: None. Smoking Status Current some day smoker; Ty pe: Cigarettes; Exposure to Tobacco Smoke None; Cigarette Smoking Last 365 Days No; Reg Smoking Cessation Counseling No entered on: 06/12/19 Assessment and Plan No data available for this section
--- OUTSIDE RECORDS SUMMARY | 2019-12-20 02:43 | XMS REPORT | Summary of Care ---
Author Author [facility] Organization [facility] Address Unknown Phone Unavailable Encounter DENNIS Acosta(FIN) [id number] Date(s): 04/03/19 - 04/04/19 [facility] [place] [address] [place] [address] [phone] Vital Signs No data available for this section Problem List Condition Effective Dates Status Health Status Informan t Anxiety(Confirmed) Resolved CD (Crohn's Resolved disease)(Confirmed) Crohn's Active disease(Confirmed) Diarrhea(Confirmed) Active Nausea(Confirmed) Active Nephrotic Resolved syndrome(Confirmed) Pain(Confirmed) Active Sandeep Parkinson Resolved White syndrome(Confirmed) Allergies, Adverse Reactions, Alerts No Known Allergies Medications No data available for this section Results No data available for this section Immunizations Given and Recorded Vaccine Date Status Refusal Reason influenza virus vaccine, inactivated 03/29/19 G iven Procedures No data available for this section Social History Social History Type Response Alcohol Current, Type Wine, Liquor. Frequency: Daily. Employment/School Status: Employed. 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 Exercise Exercise frequency: 5-6 karen es/week. Self assessment: Excellent condition. Sexual Sexually active: Yes. Substance Abuse Use: None. Smoking Status Current some day smoker; Ty pe: Cigarettes; Exposure to Tobacco Smoke None; Cigarette Smoking Last 365 Days No; Reg Smoking Cessation Counseling No entered on: 03/19/19 Assessment and Plan No data available for this section
--- OUTSIDE RECORDS SUMMARY | 2019-12-20 02:43 | XMS REPORT | Summary of Care ---
Author Author [facility] Figuero[facility] Organization [facility] Address Unknown Phone Unavailable Encounter DENNIS Acosta(FIN) [id number] Date(s): 04/01/19 - 04/02/19 [facility] Figueroa [place] [address] [place] [address] [phone] Vital Signs No data available for this [...] Daily. Employment/School Status: Employed. 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 Exercise Exercise frequency: 5-6 karen es/week. Self assessment: Excellent condition. Sexual Sexually active: Yes. Substance Abuse Use: None. Smoking Status Current some day smoker; Ty pe: Cigarettes; Exposure to Tobacco Smoke None; Cigarette Smoking Last 365 Days No; Reg Smoking Cessation Counseling No entered on: 03/19/19 Assessment and Plan No data available for this section
--- OUTSIDE RECORDS SUMMARY | 2019-12-20 02:43 | XMS REPORT | Summary of Care ---
Author Author [facility] Organization [facility] Address Unknown Phone Unavailable Encounter DENNIS Acosta(LINDA) [id number] Date(s): 03/19/19 - 03/29/19 [facility] [address] [place] [address]- Discharge Disposition: Home or Self Care Attending Physician: Jennifer Macdonald MD Admitting Physician: Jennifer Macdonald MD Vital Signs 1 2 3 Most recent to oldest [Reference Range]: 172.72 cm (03/19/19 9:59 PM) 170.18 cm (03/19/19 4:54 PM) Height 97.6 DegF (03/29/19 2:00 PM) 97.5 DegF (03/29/19 7:00 AM) 98 DegF (03/29/19 4:00 AM) Temperature Oral [96.4-99.1 DegF] 126/86 mmHg (03/29/19 2:00 PM) 121/78 mmHg (03/29/19 7:00 AM) 120/69 mmHg (03/29/19 4:00 AM) Blood Pressure [90-140/60-90 mmHg] 20 BRMIN (03/29/19 4:00 AM) 20 BRMIN (03/29/19 12:00 AM) 20 BRMIN (03/28/19 8:00 PM) Respiratory Rate [14-20 BRMIN] 72 bpm (03/29/19 2:00 PM) 74 bpm (03/29/19 7:00 AM) 72 bpm (03/29/19 4:00 AM) Peripheral Pulse Rate [60-100 bpm] 71.4 kg (03/19/19 9:59 PM) 63.636 kg (03/19/19 4:54 PM) Weight 23.93 m2 (03/19/19 9:59 PM) 21.97 m2 (03/19/19 4:54 PM) Body Mass Index Problem List Condition Effective Dates Status Health Status Informan t Anxiety(Confirmed) Resolved CD (Crohn's Resolved disease)(Confirmed) Crohn's Active disease(Confirmed) Diarrhea(Confirmed) Active Nausea(Confirmed) Active Nephrotic Resolved syndrome(Confirmed) Pain(Confirmed) Active Sandeep Parkinson Resolved White syndrome(Confirmed) Allergies, Adverse Reactions, Alerts No Known Allergies Medications acetaminophen 650 mg, 2 tab, Route: PO, Drug form: TAB, Q4H, Dosing Weight 63.636, kg, PRN Florinda n 1-3/Temp > 100.4 F, Start date: 03/19/19 20:59:00 THREAD TWISTER, Duration: 30 day, Stop date: 04/18/19 20:58:00 THREAD TWISTER, 0 Notes: Do not exceed 4 gm/day. (Same as: Tylenol) Start Date: 03/19/19 Stop Date: 03/29/19 Status: Discontinued acetaminophen 325 mg oral tablet 650 mg = 2 tab, PO, Q4H, PRN Pain 1-3/Temp > 100.4 F, 0 Refill(s) Start Date: 03/29/19 Status: Ordered Benadryl 25 mg, 0.5 mL, Route: IVP, Drug form: INJ, ONCE, Dosing Weight 63.636, kg, Prior ity: STAT, Start date: 03/19/19 17:04:00 THREAD TWISTER, Stop date: 03/19/19 17:04:00 THREAD TWISTER, 0 Notes: (Same as: Benadryl) Start Date: 03/19/19 Stop Date: 03/19/19 Status: Completed calcium carbonate 500 mg (200 mg elemental calcium) oral tablet 500 mg, 1 tab, Route: PO, Drug form: CHEWTAB, PRN, Dosing Weight 71.4, kg, PRN A bnormal Lab Result, FOR ICU USE ONLY, Start date: 03/19/19 23:30:00 THREAD TWISTER, Duratio n: 30 day, Stop date: 04/18/19 23:29:00 THREAD TWISTER, 0 Notes: (Same As: Tums)Calcium Carbonate 500 mg = 200 mg elemental calcium Dose = mg calcium carbonate ( mg elemental calcium) Start Date: 03/19/19 Stop Date: 03/29/19 Status: Discontinued calcium carbonate 500 mg (200 mg elemental calcium) oral tablet 1,000 mg, 2 tab, Route: PO, Drug form: CHEWTAB, PRN, Dosing Weight 71.4, kg, PRN Abnormal Lab Result, FOR ICU USE ONLY, Start date: 03/19/19 23:30:00 THREAD TWISTER, Durat ion: 30 day, Stop date: 04/18/19 23:29:00 THREAD TWISTER, 0 Notes: (Same As: Tums)Calcium Carbonate 500 mg = 200 mg elemental calcium Dose = mg calcium carbonate ( mg elemental calcium) Start Date: 03/19/19 Stop Date: 03/29/19 Status: Discontinued calcium gluconate + Sodium Chloride 0.9% IV 50 mL 1 gm, 10 mL, Route: IVPB, PRN, Dosing Weight 71.4, kg, PRN Abnormal Lab Result, Start date: 03/19/19 23:30:00 THREAD TWISTER, Duration: 30 day, Stop date: 04/18/19 23:29:0 0 THREAD TWISTER, FOR ICU USE ONLY, 0 Notes: WASTE: F/P - Sink; E - Municipal Trash Bin Start Date: 03/19/19 Stop Date: 03/29/19 Status: Discontinued Compazine 10 mg, 2 mL, Route: IV, Drug form: INJ, ONCE, Dosing Weight 63.636, kg, Start da te: 03/19/19 17:05:00 THREAD TWISTER, Stop date: 03/19/19 17:05:00 THREAD TWISTER, 0 Notes: (Same as: Compazine) Start Date: 03/19/19 Stop Date: 03/19/19 Status: Completed Cymbalta 60 mg, 2 cap, Route: PO, Drug form: DRC, Daily, Dosing Weight 71.4, kg, Start da te: 03/25/19 12:00:00 THREAD TWISTER, Duration: 30 day, Stop date: 04/24/19 9:00:00 THREAD TWISTER, 0 Notes: (Same as: Cymbalta) (Do Not Crush) Start Date: 03/25/19 Stop Date: 03/29/19 Status: Discontinued diazepam 5 mg, 1 tab, Route: PO, Drug form: TAB, BID, Dosing Weight 71.4, kg, Start date: 03/25/19 17:00:00 THREAD TWISTER, Duration: 30 day, Stop date: 04/24/19 9:00:00 THREAD TWISTER, 0 Notes: (Same as: Valium) Start Date: 03/25/19 Stop Date: 03/26/19 Status: Discontinued diazepam 10 mg, Route: PO, Drug form: TAB, Q8H, Dosing Weight 71.4, kg, Start date: 03/20 16:00:00 THREAD TWISTER, Duration: 30 day, Stop date: 04/19/19 8:00:00 THREAD TWISTER Start Date: 03/20/19 Stop Date: 03/20/19 Status: Canceled diazepam 5 mg, 1 tab, Route: PO, Drug form: TAB, Q8H, Dosing Weight 71.4, kg, Start date: 03/20/19 9:00:00 THREAD TWISTER, Duration: 30 day, Stop date: 04/19/19 8:00:00 THREAD TWISTER, 0 Notes: (Same as: Valium) Start Date: 03/20/19 Stop Date: 03/25/19 Status: Discontinued diazepam 10 mg, 2 tab, Route: PO, Drug form: TAB, ONCE, Dosing Weight 71.4, kg, Priority: NOW, Start date: 03/23/19 23:51:00 THREAD TWISTER, Stop date: 03/23/19 23:51:00 THREAD TWISTER, 0 Notes: (Same as: Valium) Start Date: 03/23/19 Stop Date: 03/24/19 Status: Completed divalproex sodium 500 mg oral enteric coated tablet (Depakote) 500 mg, 1 tab, Route: PO, Drug form: ECTAB, BID, Dosing Weight 71.4, kg, Start d ate: 03/25/19 9:14:00 THREAD TWISTER, Duration: 30 day, Stop date: 04/24/19 9:00:00 THREAD TWISTER, De layed Release tablet, 0 Notes: (Same as: Depakote Delayed Release) Do not confuse with the extended-rel ease tablet. Delayed absorption enteric coated tablet. Do not crush Start Date: 03/25/19 Stop Date: 03/27/19 Status: Discontinued Fioricet with Codeine 1 cap, Route: PO, Drug Form: CAP, Dosing Weight 71.4, kg, Q6H, PRN Headache 1-5, Start date: 03/21/19 18:12:00 THREAD TWISTER, Duration: 30 day, Stop date: 04/20/19 18:11: 00 THREAD TWISTER, 0 Notes: Non-Formulary Drug. Do not exceed 4 gm/day of acetaminophen. (Same as: F ioricet with Codeine) (Same as: Fioricet with Codeine) Start Date: 03/21/19 Stop Date: 03/29/19 Status: Discontinued gabapentin 300 mg, 1 cap, Route: PO, Drug form: CAP, Q8H, Dosing Weight 71.4, kg, (CrCl > 60 ml/min), Start date: 03/21/19 20:00:00 THREAD TWISTER, Duration: 30 day, Stop date: 11/30 16:00:00 THREAD TWISTER, 0 Notes: (Same as: Neurontin) Start Date: 03/21/19 Stop Date: 03/27/19 Status: Discontinued heparin 5,000 unit, 1 mL, Route: SUB-Q, Drug form: INJ, Q8H, Dosing Weight 71.4, kg, Sta rt date: 03/21/19 16:00:00 THREAD TWISTER, Duration: 30 day, Stop date: 04/20/19 8:00:00 CS T, 0 Notes: porcine heparin Start Date: 03/21/19 Stop Date: 03/29/19 Status: Discontinued Keppra 1,000 mg, 100 mL, Route: IV, Drug form: INJ, ONCE, Dosing Weight 63.636, kg, Sta rt date: 03/19/19 19:16:00 THREAD TWISTER, Stop date: 03/19/19 19:16:00 THREAD TWISTER, 0 Start Date: 03/19/19 Stop Date: 03/19/19 Status: Completed Keppra + Sodium Chloride 0.9% IV 100 mL 500 mg, Route: IVPB, Q12H, Dosing Weight 63.636, kg, Start date: 03/20/19 9:00:0 0 THREAD TWISTER, Duration: 30 day, Stop date: 04/18/19 21:00:00 THREAD TWISTER, 0 Notes: Same as KeppraMix with 100 mL NS, LR or D5W MEDICATION WASTE Prod uct Size: 500 mgProduct Wasted: ___ mg Start Date: 03/20/19 Stop Date: 03/21/19 Status: Discontinued Keppra 500 mg oral tablet 500 mg, 1 tab, Route: PO, Drug form: TAB, Q12H, Dosing Weight 71.4, kg, Start da te: 03/21/19 9:00:00 THREAD TWISTER, Duration: 6 day, Stop date: 03/26/19 21:00:00 THREAD TWISTER, 0 Notes: (Same as:Keppra) Start Date: 03/21/19 Stop Date: 03/26/19 Status: Completed magnesium oxide 800 mg, 2 tab, Route: PO, Drug form: TAB, PRN, Dosing Weight 71.4, kg, PRN Abnor mal Lab Result, FOR ICU USE ONLY, Start date: 03/19/19 23:30:00 THREAD TWISTER, Duration: 3 0 day, Stop date: 04/18/19 23:29:00 THREAD TWISTER, 0 Notes: (Same as: Mag-Ox 400)Magnesium oxide [id number] elemental magnesiumDose= ____mg magnesium oxide (___mg elemental magnesium) Start Date: 03/19/19 Stop Date: 03/29/19 Status: Discontinued magnesium sulfate 2 gm, 50 mL, Route: IVPB, Drug form: INJ, PRN, Dosing Weight 71.4, kg, PRN Abnor mal Lab Result, Start date: 03/19/19 23:30:00 THREAD TWISTER, Duration: 30 day, Stop date: 04/18/19 23:29:00 THREAD TWISTER, FOR ICU USE ONLY, 0 Notes: WASTE: F/P - Sink; E - Municipal Trash Bin Start Date: 03/19/19 Stop Date: 03/29/19 Status: Discontinued magnesium sulfate 2 gm, 50 mL, Route: IV, Drug form: INJ, ONCE, Dosing Weight 63.636, kg, Priority : STAT, Start date: 03/19/19 17:05:00 THREAD TWISTER, Stop date: 03/19/19 17:05:00 THREAD TWISTER, 0 Notes: WASTE: F/P - Sink; E - Municipal Trash Bin Start Date: 03/19/19 Stop Date: 03/19/19 Status: Completed morphine Sulfate 4 mg, 1 mL, Route: IVP, Drug form: SOLN, ONCE, Dosing Weight 63.636, kg, Priorit y: STAT, Start date: 03/19/19 19:45:00 THREAD TWISTER, Stop date: 03/19/19 19:45:00 THREAD TWISTER, 0 Notes: (Same as:MORPhine Sulfate) Start Date: 03/19/19 Stop Date: 03/19/19 Status: Completed morphine Sulfate 2 mg, 0.5 mL, Route: IVP, Drug form: INJ, Q2H, Dosing Weight 63.636, kg, PRN Florinda n Score 7-10, Start date: 03/19/19 21:01:00 THREAD TWISTER, Duration: 30 day, Stop date: 21:00:00 THREAD TWISTER, 0 Notes: (Same as:MORPhine Sulfate) Start Date: 03/19/19 Stop Date: 03/22/19 Status: Discontinued Nephro-Maynor Rx 1 tab, Route: PO, Drug Form: TAB, Dosing Weight 71.4, kg, Daily, Start date: 10/31 9:00:00 THREAD TWISTER, Duration: 30 day, Stop date: 04/18/19 9:00:00 THREAD TWISTER Start Date: 03/20/19 Stop Date: 03/20/19 Status: Discontinued Nephro-Maynor Rx 1 tab, Route: PO, Drug Form: TAB, Dosing Weight 71.4, kg, Daily, Start date: 11/30 9:00:00 THREAD TWISTER, Duration: 30 day, Stop date: 04/19/19 9:00:00 THREAD TWISTER, 0 Notes: (Same as: Nephro-Maynor Rx and Diatx) Give with food. Start Date: 03/21/19 Stop Date: 03/29/19 Status: Discontinued normal saline 0.9% IV 1000 mL 1,000 mL, Rate: 125 ml/hr, Infuse over: 8 hr, Route: IV, Dosing Weight 63.636 kg , Total Volume: 1,000, Start date: 03/19/19 21:06:00 THREAD TWISTER, Duration: 30 day, Stop date: 04/18/19 21:05:00 THREAD TWISTER, 1.74, m2 Start Date: 03/19/19 Stop Date: 03/19/19 Status: Deleted NS (Bolus) IV 1,000 mL, 1,000 ml/hr, Infuse Over: 1 hr, Route: IV, 1,000, Drug form: INJ, ONCE , Priority: STAT, Dosing Weight 63.636 kg, Start date: 03/19/19 17:04:00 THREAD TWISTER, St op date: 03/19/19 17:04:00 THREAD TWISTER, 0 Start Date: 03/19/19 Stop Date: 03/19/19 Status: Completed NS 1,000 mL 1,000 mL, Rate: 100 ml/hr, Infuse over: 10 hr, Route: IV, Dosing Weight 71.4 kg, Total Volume: 1,000, Start date: 03/20/19 8:54:00 THREAD TWISTER, Duration: 30 day, Stop d ate: 04/19/19 8:53:00 THREAD TWISTER, 1.86, m2, 0 Start Date: 03/20/19 Stop Date: 03/21/19 Status: Discontinued potassium chloride 20 mEq, 100 mL, Route: IVPB, Drug form: INJ, PRN, Dosing Weight 71.4, kg, PRN Ab normal Lab Result, Via central line, Start date: 03/19/19 23:30:00 THREAD TWISTER, Duration : 30 day, Stop date: 04/18/19 23:29:00 THREAD TWISTER, FOR ICU USE ONLY, 0 Notes: (Same as: KCL) Infuse no faster than 10 mEq/hr if given peripherally. Start Date: 03/19/19 Stop Date: 03/29/19 Status: Discontinued potassium chloride 10 mEq, 100 mL, Route: IVPB, Drug form: INJ, PRN, Dosing Weight 71.4, kg, PRN Ab normal Lab Result, Via peripheral line, Start date: 03/19/19 23:30:00 THREAD TWISTER, Durat ion: 30 day, Stop date: 04/18/19 23:29:00 THREAD TWISTER, FOR ICU USE ONLY, 0 Notes: Infuse at a rate of 10 mEq/hr.(Same as: KCL) Start Date: 03/19/19 Stop Date: 03/29/19 Status: Discontinued potassium chloride 20 mEq, 1 tab, Route: PO, Drug form: ERTAB, PRN, Dosing Weight 71.4, kg, PRN Abn ormal Lab Result, Start date: 03/19/19 23:30:00 THREAD TWISTER, Duration: 30 day, Stop date : 04/18/19 23:29:00 THREAD TWISTER, FOR ICU USE ONLY, 0 Notes: (Same as: K-Dur 20)"Do Not Crush" Give with food and full glass of water For patients unable to swallow tablet, dissolve in one half glass of water. Allo w about 2 minutes for the tablets to disintegrate. Stir before giving to prepare slurry and administer.Please exclude Patients with feeding tube less than 14 Armenian (Dobhoff, J-tube etc) and pediatric and patients. Start Date: 03/19/19 Stop Date: 03/29/19 Status: Discontinued potassium chloride 20 mEq, 15 mL, Route: NJ, Drug form: LIQ, PRN, Dosing Weight 71.4, kg, PRN Abnor mal Lab Result, Start date: 03/19/19 23:30:00 THREAD TWISTER, Duration: 30 day, Stop date: 04/18/19 23:29:00 THREAD TWISTER, FOR ICU USE ONLY, 0 Notes: (Same as: Potassium Chloride) Start Date: 03/19/19 Stop Date: 03/29/19 Status: Discontinued potassium phosphate + Sodium Chloride 0.9% IV 250 mL 15 mmol, 5 mL, Route: IVPB, PRN, Dosing Weight 71.4, kg, PRN Abnormal Lab Result , Start date: 03/19/19 23:30:00 THREAD TWISTER, Duration: 30 day, Stop date: 04/18/19 23:29 :00 THREAD TWISTER, FOR ICU USE ONLY, 0 Notes: (Same as: K Phosphate.)Do not infuse phosphorous concurrently in the same line as TPN or IVF that contains calcium. For double lumen central lines, phosp horous may be infused in a separate lumen from TPN. 1 mMol phoshate has 1.47 mE q potassium Infuse over 4 hours Start Date: 03/19/19 Stop Date: 03/29/19 Status: Discontinued potassium phosphate + Sodium Chloride 0.9% IV 250 mL 30 mmol, 10 mL, Route: IVPB, PRN, Dosing Weight 71.4, kg, PRN Abnormal Lab Resul t, Start date: 03/19/19 23:30:00 THREAD TWISTER, Duration: 30 day, Stop date: 04/18/19 23:2 9:00 THREAD TWISTER, FOR ICU USE ONLY, 0 Notes: (Same as: K Phosphate.)Do not infuse phosphorous concurrently in the same line as TPN or IVF that contains calcium. For double lumen central lines, phosp horous may be infused in a separate lumen from TPN. 1 mMol phoshate has 1.47 mE q potassium Infuse over 4 hours Start Date: 03/19/19 Stop Date: 03/29/19 Status: Discontinued potassium phosphate + Sodium Chloride 0.9% IV 250 mL 45 mmol, 15 mL, Route: IVPB, PRN, Dosing Weight 71.4, kg, PRN Abnormal Lab Resul t, Start date: 03/19/19 23:30:00 THREAD TWISTER, Duration: 30 day, Stop date: 04/18/19 23:2 9:00 THREAD TWISTER, FOR ICU USE ONLY, 0 Notes: (Same as: K Phosphate.)Do not infuse phosphorous concurrently in the same line as TPN or IVF that contains calcium. For double lumen central lines, phosp horous may be infused in a separate lumen from TPN. 1 mMol phoshate has 1.47 mE q potassium Infuse over 4 hours Start Date: 03/19/19 Stop Date: 03/29/19 Status: Discontinued potassium phosphate-sodium phosphate 250 mg-280 mg-160 mg oral powder for recons titution 2 pkt, Route: PO, Drug Form: PDR/REC, Dosing Weight 71.4, kg, PRN, PRN Abnormal Lab Result, FOR ICU USE ONLY, Start date: 03/19/19 23:30:00 THREAD TWISTER, Duration: 30 da y, Stop date: 04/18/19 23:29:00 THREAD TWISTER, 0 Notes: (Same as: Phos-NaK) Each 1.5 gm pkt has 250mg phosphorous. Mix w/2.5oz w ater and stir. Start Date: 03/19/19 Stop Date: 03/29/19 Status: Discontinued potassium phosphate-sodium phosphate 250 mg-280 mg-160 mg oral powder for recons titution 2 pkt, Route: PO, Drug Form: PDR/REC, Dosing Weight 71.4, kg, TID-Meals, Start d ate: 03/21/19 12:00:00 THREAD TWISTER, Duration: 5 day, Stop date: 03/26/19 8:00:00 THREAD TWISTER, 0 Notes: (Same as: Phos-NaK) Each 1.5 gm pkt has 250mg phosphorous. Mix w/2.5oz w ater and stir. Start Date: 03/21/19 Stop Date: 03/26/19 Status: Completed risperiDONE 1 mg, 1 tab, Route: PO, Drug form: TAB, Q12H, Dosing Weight 71.4, kg, Priority: NOW, Start date: 03/23/19 12:22:00 THREAD TWISTER, Duration: 30 day, Stop date: 04/22/19 9: 00:00 THREAD TWISTER, 0 Notes: (Same as: Risperdal) Start Date: 03/23/19 Stop Date: 03/29/19 Status: Discontinued risperiDONE 1 mg, 1 tab, Route: PO, Drug form: TAB, ONCE, Dosing Weight 71.4, kg, Start date : 03/22/19 21:20:00 THREAD TWISTER, Stop date: 03/22/19 21:20:00 THREAD TWISTER, 0 Notes: (Same as: Risperdal) Start Date: 03/22/19 Stop Date: 03/22/19 Status: Completed risperiDONE 1 mg, 1 tab, Route: PO, Drug form: TAB, ONCE, Dosing Weight 71.4, kg, Priority: STAT, Start date: 03/24/19 14:10:00 THREAD TWISTER, Stop date: 03/24/19 14:10:00 THREAD TWISTER, 0 Notes: (Same as: Risperdal) Start Date: 03/24/19 Stop Date: 03/24/19 Status: Completed Sodium Chloride 0.9% IV 1,000 mL + M.V.I.-12 10 mL Daily + folic acid IV 1 mg Da debra + thiamine IV 1 1,000 mL, Rate: 100 ml/hr, Infuse over: 10.1 hr, Route: IV, Dosing Weight 63.636 kg, Total Volume: 1,011.2, Start date: 03/19/19 21:09:00 THREAD TWISTER, Duration: 3 day, Stop date: 03/22/19 21:08:00 THREAD TWISTER, 1.74, m2, 0 Start Date: 03/19/19 Stop Date: 03/20/19 Status: Discontinued sodium phosphate + Sodium Chloride 0.9% IV 250 mL 15 mmol, 5 mL, Route: IVPB, PRN, Dosing Weight 71.4, kg, PRN Abnormal Lab Result , Start date: 03/19/19 23:30:00 THREAD TWISTER, Duration: 30 day, Stop date: 04/18/19 23:29 :00 THREAD TWISTER, FOR ICU USE ONLY, 0 Notes: Infuse over 4 hour. Do not infuse phosphorous concurrently in the same li ne as TPN or IVF that contains calcium. For double lumen central lines, phosphor ous may be infused in a separate lumen from TPN. Start Date: 03/19/19 Stop Date: 03/29/19 Status: Discontinued sodium phosphate + Sodium Chloride 0.9% IV 250 mL 30 mmol, 10 mL, Route: IVPB, PRN, Dosing Weight 71.4, kg, PRN Abnormal Lab Resul t, Start date: 03/19/19 23:30:00 THREAD TWISTER, Duration: 30 day, Stop date: 04/18/19 23:2 9:00 THREAD TWISTER, FOR ICU USE ONLY, 0 Notes: Infuse over 4 hour. Do not infuse phosphorous concurrently in the same li ne as TPN or IVF that contains calcium. For double lumen central lines, phosphor ous may be infused in a separate lumen from TPN. Start Date: 03/19/19 Stop Date: 03/29/19 Status: Discontinued sodium phosphate + Sodium Chloride 0.9% IV 250 mL 45 mmol, 15 mL, Route: IVPB, PRN, Dosing Weight 71.4, kg, PRN Abnormal Lab Resul t, Start date: 03/19/19 23:30:00 THREAD TWISTER, Duration: 30 day, Stop date: 04/18/19 23:2 9:00 THREAD TWISTER, FOR ICU USE ONLY, 0 Notes: Infuse over 4 hour. Do not infuse phosphorous concurrently in the same li ne as TPN or IVF that contains calcium. For double lumen central lines, phosphor ous may be infused in a separate lumen from TPN. Start Date: 03/19/19 Stop Date: 03/29/19 Status: Discontinued thiamine 100 mg, 1 tab, Route: PO, Drug form: TAB, Daily, Dosing Weight 71.4, kg, Start d ate: 03/23/19 9:00:00 THREAD TWISTER, Duration: 30 day, Stop date: 04/21/19 9:00:00 THREAD TWISTER, 0 Notes: (Same As: Vitamin B1) Start Date: 03/23/19 Stop Date: 03/29/19 Status: Discontinued thiamine + Sodium Chloride 0.9% IV 50 mL 500 mg, 5 mL, Route: IVPB, Daily, Dosing Weight 71.4, kg, Start date: 03/20/19 9 :00:00 THREAD TWISTER, Duration: 5 day, Stop date: 03/24/19 9:00:00 THREAD TWISTER, 0 Notes: (Same As: Vitamin B1) Start Date: 03/20/19 Stop Date: 03/22/19 Status: Discontinued Tylenol 1,000 mg, 2 tab, Route: PO, Drug form: TAB, ONCE, Dosing Weight 63.636, kg, Star t date: 03/19/19 17:05:00 THREAD TWISTER, Stop date: 03/19/19 17:05:00 THREAD TWISTER, 0 Notes: Max acetaminophen 4000 mg/day (4 gm/day). (Same as: Tylenol Extra Streng th) Start Date: 03/19/19 Stop Date: 03/19/19 Status: Completed Valium 10 mg, 2 tab, Route: PO, Drug form: TAB, ONCE, Dosing Weight 71.4, kg, PRN Anxie ty, Start date: 03/21/19 21:24:00 THREAD TWISTER, 0 Notes: (Same as: Valium) Start Date: 03/21/19 Stop Date: 03/21/19 Status: Completed Zofran 4 mg, 1 tab, Route: PO, Drug form: TAB, Q4H, PRN Nausea, Start date: 03/24/19 7: 28:00 THREAD TWISTER, Duration: 30 day, Stop date: 04/23/19 7:27:00 THREAD TWISTER, 0 Notes: (Same as: Zofran) Start Date: 03/24/19 Stop Date: 03/29/19 Status: Discontinued Zofran 2 mg/mL injectable solution 4 mg, 2 mL, Route: IV, Drug form: INJ, Q4H, Dosing Weight 63.636, kg, PRN Nausea , Start date: 03/19/19 20:59:00 THREAD TWISTER, Duration: 30 day, Stop date: 04/18/19 20:58 :00 THREAD TWISTER, 0 Notes: (Same as: Zofran) MEDICATION WASTE Product Size: 4 mgProduct Was selena: ___ mg Start Date: 03/19/19 Stop Date: 03/24/19 Status: Discontinued Results 1 2 3 Most recent to oldest [Reference Range]: 3.9 K/CMM (03/28/19 4:01 AM) 4.2 K/CMM (03/26/19 3:23 AM) 4.8 K/CMM (03/25/19 3:11 AM) Neutrophils # [1.5-8.1 K/CMM] 2.4 K/CMM (03/28/19 4:01 AM) 1.7 K/CMM (03/26/19 3:23 AM) 2.0 K/CMM (03/25/19 3:11 AM) Lymphocytes # [1.0-5.5 K/CMM] 0.9 K/CMM *HI* (03/28/19 4:01 AM) 1.1 K/CMM *HI* (03/26/19 3:23 AM) 1.5 K/CMM *HI* (03/25/19 3:11 AM) Monocytes # [0.0-0.8 K/CMM] 0.1 K/CMM (03/28/19 4:01 AM) 0.1 K/CMM (03/26/19 3:23 AM) 0.2 K/CMM (03/25/19 3:11 AM) Eosinophils # [0.0-0.5 K/CMM] 0.1 K/CMM (03/28/19 4:01 AM) 0.1 K/CMM (03/26/19 3:23 AM) 0.1 K/CMM (03/25/19 3:11 AM) Basophils # [0.0-0.2 K/CMM] Normal (03/28/19 4:01 AM) Plt Morph [Normal] 0.7 mg/dL (03/19/19 8:52 PM) Bili Indirect [0.0-1.0 mg/dL] Negative (03/19/19 11:32 PM) MRSA by PCR 113 mL/min/1.73m2 1 *NA* (03/28/19 4:01 AM) 114 mL/min/1.73m2 2 *NA* (03/26/19 3:23 AM) 107 mL/min/1.73m2 3 *NA* (03/25/19 3:11 AM) eGFR See Note (03/19/19 11:11 PM) UDS Note 0.7 (03/25/19 3:11 AM) 0.8 (03/24/19 5:19 AM) 0.7 (03/23/19 2:59 AM) A/G Ratio [0.7-1.6] 3.1 g/dL *LOW* (03/25/19 3:11 AM) 3.1 g/dL *LOW* (03/24/19 5:19 AM) 3.1 g/dL *LOW* (03/23/19 2:59 AM) Albumin Lvl [3.5-5.0 g/dL] 76 unit/L (03/25/19 3:11 AM) 70 unit/L (03/24/19 5:19 AM) 69 unit/L (03/23/19 2:59 AM) Alk Phos [39-136 unit/L] 19 unit/L (03/25/19 3:11 AM) 23 unit/L (03/24/19 5:19 AM) 22 unit/L (03/23/19 2:59 AM) ALT [0-65 unit/L] Negative *NA* (03/19/19 11:11 PM) U Amph Scr [Negative] 6.9 mEq/L *LOW* (03/28/19 4:01 AM) 8.9 mEq/L *LOW* (03/26/19 3:23 AM) 8.9 mEq/L *LOW* (03/25/19 3:11 AM) AGAP [10.0-20.0 mEq/L] 16 unit/L (03/25/19 3:11 AM) 10 unit/L (03/24/19 5:19 AM) 12 unit/L (03/23/19 2:59 AM) AST [0-37 unit/L] 8 (03/25/19 3:11 AM) 6 (03/24/19 5:19 AM) 3 *LOW* (03/23/19 2:59 AM) B/C Ratio [6-25] Negative *NA* (03/19/19 11:11 PM) U Zo Scr [Negative] 1.1 % *HI* (03/28/19 4:01 AM) 1.2 % *HI* (03/26/19 3:23 AM) 1.0 % (03/25/19 3:11 AM) Basophils [0.0-1.0 %] Negative *NA* (03/19/19 11:11 PM) U Benzodiaz Scr [Negative] 10 mg/dL (03/28/19 4:01 AM) 10 mg/dL (03/26/19 3:23 AM) 6 mg/dL *LOW* (03/25/19 3:11 AM) BUN [7-22 mg/dL] 9.5 mg/dL (03/28/19 4:01 AM) 9.3 mg/dL (03/26/19 3:23 AM) 9.3 mg/dL (03/25/19 3:11 AM) Calcium Lvl [8.5-10.5 mg/dL] 226 unit/L *HI* (03/19/19 8:52 PM) Total CK [12-191 unit/L] 103 mEq/L (03/28/19 4:01 AM) 101 mEq/L (03/26/19 3:23 AM) 103 mEq/L (03/25/19 3:11 AM) Chloride Lvl [95-109 mEq/L] 32 mEq/L (03/28/19 4:01 AM) 31 mEq/L (03/26/19 3:23 AM) 30 mEq/L (03/25/19 3: AM) CO2 [24-32 mEq/L] Negative *NA* (03/19/19 11:11 PM) U Cocaine Scr [Negative] 0.69 mg/dL (03/28/19 4:01 AM) 0.68 mg/dL (03/26/19 3:23 AM) 0.73 mg/dL (03/25/19 3:11 AM) Creatinine Lvl [0.50-1.40 mg/dL] 18.2 mg/L *HI* (03/21/19 2:36 AM) CRP [<=2.9 mg/L] 0.3 mg/dL (03/19/19 8:52 PM) Bili Direct [0.0-0.3 mg/dL] 1.8 % (03/28/19 4:01 AM) 1.9 % (03/26/19 3:23 AM) 2.2 % (03/25/19 3:11 AM) Eosinophils [0.0-4.0 %] <.003 % *NA* (03/19/19 5:36 PM) Etoh (%) <3 mg/dL *NA* (03/19/19 5:36 PM) Ethanol Lvl 4.2 g/dL (03/25/19 3:11 AM) 3.9 g/dL (03/24/19 5:19 AM) 4.2 g/dL (03/23/19 2:59 AM) Globulin [2.7-4.2 g/dL] 96 mg/dL (03/28/19 4:01 AM) 100 mg/dL *HI* (03/26/19 3:23 AM) 99 mg/dL (03/25/19 3:11 AM) Glucose Lvl [70-99 mg/dL] 37.7 % (03/28/19 4:01 AM) 36.1 % (03/26/19 3:23 AM) 38.4 % (03/25/19 3:11 AM) Hct [36.0-48.0 %] 13.3 g/dL (03/28/19 4:01 AM) 13.0 g/dL (03/26/19 3:23 AM) 13.7 g/dL (03/25/19 3:11 AM) Hgb [12.0-16.0 g/dL] 1.04 (03/19/19 10:27 PM) 1.02 (03/19/19 8:52 PM) INR [0.85-1.17] 3.9 mEq/L (03/28/19 4:01 AM) 3.9 mEq/L (03/26/19 3:23 AM) 3.9 mEq/L (03/25/19 3:11 AM) Potassium Lvl [3.5-5.1 mEq/L] 82 unit/L (03/19/19 8:52 PM) Lipase Lvl [73-393 unit/L] 32.3 % (03/28/19 4:01 AM) 23.9 % (03/26/19 3:23 AM) 23.6 % (03/25/19 3:11 AM) Lymphocytes [20.0-40.0 %] 34.0 pg *HI* (03/28/19 4:01 AM) 34.3 pg *HI* (03/26/19 3:23 AM) 34.2 pg *HI* (03/25/19 3:11 AM) MCH [27.0-31.0 pg] 35.3 g/dL (03/28/19 4:01 AM) 36.1 g/dL *HI* (03/26/19 3:23 AM) 35.7 g/dL (03/25/19 3:11 AM) MCHC [32.0-36.0 g/dL] 96.4 fL (03/28/19 4:01 AM) 95.1 fL (03/26/19 3:23 AM) 95.9 fL (03/25/19 3:11 AM) MCV [80.0-98.0 fL] 2.5 mg/dL *HI* (03/20/19 2:42 AM) Magnesium Lvl [1.8-2.4 mg/dL] 12.1 % *HI* (03/28/19 4:01 AM) 14.8 % *HI* (03/26/19 3:23 AM) 17.6 % *HI* (03/25/19 3:11 AM) Monocytes [2.0-12.0 %] 7.0 fL *LOW* (03/28/19 4:01 AM) 6.8 fL *LOW* (03/26/19 3:23 AM) 7.2 fL *LOW* (03/25/19 3:11 AM) MPV [7.4-10.4 fL] 138 mEq/L (03/28/19 4:01 AM) 137 mEq/L (03/26/19 3:23 AM) 138 mEq/L (03/25/19 3:11 AM) Sodium Lvl [135-145 mEq/L] Positive *ABN* (03/19/19 11:11 PM) U Opiate Scr [Negative] Negative *NA* (03/19/19 11:11 PM) U Phencyclidine Scr [Negative] 3.6 mg/dL (03/20/19 2:42 AM) Phosphorus [2.5-4.5 mg/dL] 406 K/CMM (03/28/19 4:01 AM) 378 K/CMM (03/26/19 3:23 AM) 377 K/CMM (03/25/19 3:11 AM) Platelet [133-450 K/CMM] 52.7 % (03/28/19 4:01 AM) 58.2 % (03/26/19 3:23 AM) 55.6 % (03/25/19 3:11 AM) Segs [45.0-75.0 %] 20.5 mg/dL (03/21/19 2:36 AM) Prealbumin [18.0-45.0 mg/dL] 7.3 g/dL (03/25/19 3:11 AM) 7.0 g/dL (03/24/19 5:19 AM) 7.3 g/dL (03/23/19 2:59 AM) Total Protein [6.4-8.4 g/dL] 13.4 seconds (03/19/19 10:27 PM) 13.2 seconds (03/19/19 8:52 PM) PT [12.0-14.7 seconds] 28.6 seconds (03/19/19 10:27 PM) PTT [22.9-35.8 seconds] 3.91 M/CMM *LOW* (03/28/19 4:01 AM) 3.80 M/CMM *LOW* (03/26/19 3:23 AM) 4.01 M/CMM *LOW* (03/25/19 3:11 AM) RBC [4.20-5.40 M/CMM] Normal (03/28/19 4:01 AM) RBC Morph [Normal] 13.1 % (03/28/19 4:01 AM) 12.9 % (03/26/19 3:23 AM) 13.0 % (03/25/19 3:11 AM) RDW [11.5-14.5 %] Negative *NA* (03/19/19 8:52 PM) S Preg [Negative] 0.2 mg/dL (03/25/19 3:11 AM) 0.2 mg/dL (03/24/19 5:19 AM) 0.3 mg/dL (03/23/19 2:59 AM) Bili Total [0.2-1.3 mg/dL] Negative *NA* (03/19/19 11:11 PM) U Cannab Scr [Negative] <0.02 ng/mL (03/19/19 8:52 PM) Troponin-I [0.00-0.40 ng/mL] 7.4 K/CMM (11/14/19 4:01 AM) 7.3 K/CMM (03/26/19 3:23 AM) 8.6 K/CMM (03/25/19 3:11 AM) WBC [3.7-10.4 K/CMM] 1Result Comment: The eGFR is calculated using [...] tiplied by the estimated BMI. 2Result Comment: The eGFR is calculated using the [...] be mul tiplied by the estimated BMI. 3Result Comment: The eGFR is calculated using the [...] be mul tiplied by the estimated BMI. Immunizations Given and Recorded Vaccine Date Status Refusal Reason influenza virus vaccine, inactivated 03/29/19 G iven Procedures No data available for this section Social History Social History Type Response Alcohol Current, Type Wine, Liquor. Frequency: Daily. Employment/School Status: Employed. 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 Exercise Exercise frequency: 5-6 karen es/week. Self assessment: Excellent condition. Sexual Sexually active: Yes. Substance Abuse Use: None. Smoking Status Current some day smoker; Ty pe: Cigarettes; Exposure to Tobacco Smoke None; Cigarette Smoking Last 365 Days No; Reg Smoking Cessation Counseling No entered on: 03/19/19 Assessment and Plan Extracted from: Title: Trauma Discharge Summary Author: Deandre Duran MD Date: 03/29/19 Discharge [...] IVC Filter Placement: None. Consultants: Dr. Mccrary- ANT. Dr. Fernandez- [facility]. Dr. Myrick- Psychiatry. Procedures Performed: None. History of Present Illness: 33 y/o female with a PMHx significant fo r Crohn's disease use was brought to [facility] on 03/19 s/p fall. Patient presented with she has a dull head pain, does not radiate and generalized "body pain." She denied any dizziness, weakness of tingling. LOC positive. Hospital Course/Complications/Outcomes: The pt was admitted to the trauma service and transferred to SICU for further observation and management. Dr. Mccrary from [facility] was consulted and recommended no surgical intervention [...] so sleep in a downstairs bedroom. Disposition: [facility] assisted living. Diet: Home Diet : Diet Adult Regular Activity: Are There Any Activity Restrictions : Yes Activity : Ambulation as tolerated, No strenuous activity Driving : None Bathing : Shower only Lifting : No heavy lifting Follow Up Appointments: Follow-Up With Provider : physician, physician #2 Provider #1 : Rudy Mccrary MD Follow-Up Call : Call for appointment Follow-up with Provider within : 2 Weeks Reason : [...] All medical record entries made by the chrissyibe were at my direction. I have reviewed the chart and agree that the record accurately reflects my personal performance of the history, physical exam, hospital course, and assessment and plan. Extracted from: Title: Trauma Progress Note Author: Deandre Duran MD Date: 03/29/19 Trauma Progress Note Overnight Events: No acute overnight events. Patient states she wants to go home, denies pain. VitalsTmp(F)[id number] 03/29 07:0097.5---121/78-------- 03/29 04:[id number]--- 03/29 00:[id number]/[id number]--- 03/28 20:0097.020021/[id number]--- 03/28 17:[id number]/586565--- 24 Hr Tmax: 98.1F (36.72c) at 03/28 17:0 0Vital Signs are the last 5 in the past 48 hours. I&ORecordInOutBal 1524hr Tot 0 0 0 111424hr Tot 720 0 720 Physical Exam: General: [...] impulsive Labs (Last four charted values) WBC 7.4(MAR 28)7.3(MAR 26)8.6(MAR 25)8.4(MAR 24) Hgb 13.3(MAR 28)13.0(MAR 26)13.7(MAR 25)13.6(MAR 10) Hct 37.7(MAR 28)36.1(MAR 26)38.4(MAR 25)38.2(MAR 10) Plt 406(MAR 28)378(MAR 26)377(MAR 25)324(NOV 10) Na 138(MAR 28)137(MAR 26)138(NOV )139(MAR 24) K 3.9(MAR 28)3.9(MAR 26)3.9(MAR 25)L 3.3(MAR 24) CO2 32(MAR 28)31(MAR 26)30(MAR 25)30(MAR 24) Cl 103(MAR 28)101(MAR 26)103(MAR 25)103(MAR 24) Cr 0.69(MAR 28)0.68(MAR 26)0.73(MAR 25)0.77(MAR 24) BUN 10(MAR 28)10(MAR 26)L 6(MAR 25)L 5(MAR 24) Glucose Random 96(MAR 28)H 100(MAR 26)99(MAR 25)H 125(MAR 24) Mg H 2.5(MAR 20) Phos 3.6(MAR 20) Ca 9.5(MAR 28)9.3(MAR 26)9.3(MAR 25)9.5(MAR 24) PT 13.4(MAR 19)13.2(MAR 19) INR 1.04(MAR 19)1.02(MAR 19) PTT 28.6(MAR 19) Troponin <0.02(MAR 19) Total CK H 226(MAR 19) Radiology: 03/20 MRI C-spine: No acute [...] home given impulsivity and unsteady gait. Pending [facility] assisted living once approved by Assessment and Plan: A 33 y/o female with a PMHx significant for Crohn's disease and history of EtOH use was brought to [facility] on 03/19 s/p fall. LOC positive. Trauma workup revealed the followin. 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 Mccrary from [facility] consulted. Keppra for seizure ppx. Pain control. Monitoring. - Cont Risperidone for impulsivity, home Cymbalta - Cont Sitter, may able to d/c sitter to [place] - will need outpatient f/u with NSGY and - Encouraged pt to get OOB and work with PT/OT today. 2. Chronic EtOH use - Per patient's , she has had a h istory of alcoholism. - No clinical signs of withdrawal [facility] Charting performed by yue Greenfield for Dr. Duran. All medical record entries made by the scribe were at my direction. I have reviewed the chart and agree that the record accurately reflects my personal performance of the history, physical exam, hospital course, and assessment and plan. Extracted from: Title: Psychiatry Consultation Note Author: Mirna Myrick MD Date: 03/25/19 PSYCHIATRY CONSULTATION NOTE DATE: 03/25/19 REFERRING PHYSICIAN: Dr. Duran CONSULTING TEAM: Psychiatry Reason for Consultation: agitation, [...] On exam today patient seen with her fuktup-je-ibe present. Pt asked for MIL to stay [...] easily frustrated. Pt provided consent for this marketing underwriter to speak to her family, but specifically requested I speak to her mayngg-di-uru Cee who is at bedside. Spoke to Cee, patient's [id number]. Per Cee patient has a history of depression and anxiety, but unclear if she has had treatment. Went to alcohol treatment in July 2018 and this is where she was started on Cymbalta. She does not have outpatient psychiatrist, but appears to be doing better after rehab in July. She is [facility] and has been easily frustrated, gets easily confused, gets agitated, wants to get up and leave. At baseline pt has some anxiety, depression and alcohol abuse but no confusion or agitation. Somewhat calmer today. NO apparent psychosis. No drug history. She has always been on medication for Crohn's. Cee asked that this marketing underwriter call patient's mother, Hayley, but pt did not provide consent and when specifically asked if this marketing underwriter could call her mother patient said no. Per Cee, pt's mother is worried about Caroline and wants her to receive neurocognitive rehab and f/u with psychiatry. Discussed recommendation to follow up terminal make up operator with psychiatrist and therapist as well as [...] ml/hr 03/19/19 potassium chloride 20 mEq PO MI N 03/19/19 potassium chloride 20 mEq NJ MI N 03/19/19 potassium phosphate + Sodium Ch [...] O ONCE Continuous Infusions: None Allergies (1) ActiveReaction No Known AllergiesNone documented Family Psychiatric History: none noted Social and Developmental History: Lives with and dog. 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 PT states [...] not assessed, sitting in bed VS/Laboratory Data: VitalsTmp(F)[id number] 03/25 04:00-------119/[id number]--- 03/25 03:0897.9 03/24 23:5497.404218/255223--- 03/24 20:0498.4150184/977082--- 03/24 17:1298.7---129/81-------- 24 Hr Tmax: 98.7F (37.06c) at 03/24 17:1 2Vital Signs are the last 5 in the past 48 hours. 24hr Labs 03/25 0311 Sodium Uor303 Potassium Lvl3.9 Chloride Eey768 CO230 AGAP8.9 L Glucose Lvl99 Creatinine Lvl0.73 BUN6 L B/C Ratio8 Total Protein7.3 Albumin Lvl3.1 L Globulin4.2 A/G Ratio0.7 Calcium Lvl9.3 ALT19 AST16 Alk Phos76 Bili Total0.2 bDIB265 WBC8.6 RBC4.01 L Hgb13.7 Hct38.4 MCV95.9 MCH34.2 H MCHC35.7 RDW13.0 Pyhhgvrt459 MPV7.2 L Segs55.6 Xpavrvizi30.6 H Xswkuehqdzs11.6 Eosinophils2.2 Basophils1.0 Neutrophils #4.8 Lymphocytes #2.0 Monocytes #1.5 H Eosinophils #0.2 Basophils #0.1 Imaging Data: PROCEDURE INFORMATION: Exam: CT Head [...] Dr. Duran. Please call [facility] at [phone] or page via [employer] for any additional questions or concerns. Mónica Myrick MD Psychiatrist with [facility] Team Extracted from: Title: History and Physical Author: Jennifer Macdonald MD Dawson e: 03/19/19 This is a 33 yo f [...] was sleeping. Jennifer Macdonald MD Addendum by Also with base of skull fra Jennifer Ceja MD on 03/19/2019 22:05 THREAD TWISTER
--- OUTSIDE RECORDS SUMMARY | 2019-12-20 02:43 | XMS REPORT | Summary of Care ---
Author Author [facility] Organization [facility] Address Unknown Phone Unavailable Encounter DENNIS Acosta(LINDA) [id number] Date(s): 06/28/19 - 06/29/19 [facility] [address] [place] [address]- Encounter Diagnosis Acute alcohol intoxication (Discharge Diagnosis) - 06/28/19 Discharge Disposition: Home or Self Care Attending Physician: Maureen Valentino MD Vital Signs 1 2 3 Most recent to oldest [Reference Range]: 172.72 cm (06/28/19 3:54 PM) Height 98.1 DegF (06/29/19 4:48 AM) 98.4 DegF (06/29/19 12:17 AM) 98.6 DegF (06/28/19 9:09 PM) Temperature Oral [96.4-99.1 DegF] 122/77 mmHg (06/29/19 8:30 AM) 118/71 mmHg (06/29/19 7:30 AM) 126/79 mmHg (06/29/19 4:48 AM) Blood Pressure [90-140/60-90 mmHg] 18 BRMIN (06/29/19 4:48 AM) 20 BRMIN (06/29/19 12:17 AM) 14 BRMIN (06/28/19 9:09 PM) Respiratory Rate [14-20 BRMIN] 99 bpm (06/28/19 3:54 PM) Peripheral Pulse Rate [60-100 bpm] 65.909 kg (06/28/19 3:54 PM) Weight 22.09 m2 (06/28/19 3:54 PM) Body Mass Index Problem List Condition Effective Dates Status Health Status Informan t Anxiety(Confirmed) Resolved CD (Crohn's Resolved disease)(Confirmed) Chronic back Active pain(Confirmed) Crohn's Active disease(Confirmed) Chronic alcohol Active use(Confirmed) Diarrhea(Confirmed) Active Focal hemorrhagic Active contusion of cerebrum(Confirmed) Fracture of clivus Active of occipital bone(Confirmed) Nausea(Confirmed) Active Nephrotic Resolved syndrome(Confirmed) Pain(Confirmed) Active TBI (traumatic brain Active injury)(Confirmed) Sandeep Parkinson Resolved White syndrome(Confirmed) Allergies, Adverse Reactions, Alerts Substance Reaction Severity Status promethazine Active Medications Ativan 1 mg, Route: IVP, Drug form: INJ, ONCE, Dosing Weight 65.909, kg, Priority: STAT , Start date: 06/29/19 7:32:00 ALIGNMENT SPECIALIST, Stop date: 06/29/19 7:32:00 ALIGNMENT SPECIALIST Start Date: 06/29/19 Stop Date: 06/29/19 Status: Completed Ativan 2 mg, 1 mL, Route: IVP, Drug form: INJ, ONCE, Dosing Weight 67.273, kg, Priority : STAT, Start date: 06/28/19 15:53:00 ALIGNMENT SPECIALIST, Stop date: 06/28/19 15:53:00 ALIGNMENT SPECIALIST, 0 Notes: (Same as: Ativan) Start Date: 06/28/19 Stop Date: 06/28/19 Status: Discontinued chlordiazePOXIDE 25 mg oral capsule (Librium) 50 mg, Route: PO, Drug form: CAP, ONCE, Dosing Weight 65.909, kg, Alcohol Withdr awal, Start date: 06/29/19 6:20:00 ALIGNMENT SPECIALIST, Stop date: 06/29/19 6:20:00 ALIGNMENT SPECIALIST Start Date: 06/29/19 Stop Date: 06/29/19 Status: Completed chlordiazePOXIDE 25 mg oral capsule (Librium) See Instructions, PRN Anxiety, 2 cap PO QID the first day 2 cap PO TID the seco nd day 2 cap PO BID the third day 2 cap PO QHS the fourth day, # 20 tab, 0 Refil l(s) Start Date: 06/28/19 Stop Date: 06/28/19 Status: Completed chlordiazePOXIDE 25 mg oral capsule (Librium) 50 mg, Route: PO, Drug form: CAP, ONCE, Dosing Weight 65.909, kg, Alcohol Withdr awal, Start date: 06/29/19 0:56:00 ALIGNMENT SPECIALIST, Stop date: 06/29/19 0:56:00 ALIGNMENT SPECIALIST Start Date: 06/29/19 Stop Date: 06/29/19 Status: Completed folic acid 1 mg oral tablet 1 mg = 1 tab, PO, Daily, # 30 tab, 0 Refill(s) Start Date: 06/28/19 Status: Ordered Haldol 2.5 mg, 0.5 mL, Route: IVP, Drug form: INJ, Q15Min, Dosing Weight 67.273, kg, TN N as needed for agitation, Start date: 06/28/19 15:54:00 ALIGNMENT SPECIALIST, Duration: 2 doses or times, Stop date: Limited # of times, 0 Notes: (Same as: Haldol) Start Date: 06/28/19 Stop Date: 06/28/19 Status: Completed NS (Bolus) IV 2,000 mL, 2000 ml/hr, Infuse Over: 1 hr, Route: IV, 2,000, Drug form: INJ, ONCE, Priority: STAT, Dosing Weight 67.273 kg, Start date: 06/28/19 15:53:00 ALIGNMENT SPECIALIST, Stop date: 06/28/19 15:53:00 ALIGNMENT SPECIALIST, 0 Start Date: 06/28/19 Stop Date: 06/28/19 Status: Completed thiamine 100 mg oral tablet 100 mg = 1 tab, PO, Daily, X 7 day, # 7 tab, 0 Refill(s) Start Date: 06/28/19 Stop Date: 07/05/19 Status: Ordered Results 1 2 3 Most recent to oldest [Reference Range]: 9.6 K/CMM *HI* (06/28/19 4:02 PM) Neutrophils # [1.5-8.1 K/CMM] 1.9 K/CMM (06/28/19 4:02 PM) Lymphocytes # [1.0-5.5 K/CMM] 0.5 K/CMM (06/28/19 4:02 PM) Monocytes # [0.0-0.8 K/CMM] 0.1 K/CMM (06/28/19 4:02 PM) Basophils # [0.0-0.2 K/CMM] Unable to Calculate *NA* (06/28/19 4:02 PM) Bili Indirect [0.0-1.0] 114 mL/min/1.73m2 1 *NA* (06/28/19 4:02 PM) eGFR See Note (06/28/19 4:02 PM) UDS Note 1.2 (06/28/19 4:02 PM) A/G Ratio [0.7-1.6] <2 ug/ml *LOW* (06/28/19 4:02 PM) Acetaminoph Lvl [10-20 ug/ml] 3.7 g/dL (06/28/19 4:02 PM) Albumin Lvl [3.5-5.0 g/dL] 70 unit/L (06/28/19 4:02 PM) Alk Phos [39-136 unit/L] 47 unit/L (06/28/19 4:02 PM) ALT [0-65 unit/L] Negative *NA* (06/28/19 4:02 PM) U Amph Scr [Negative] 14.7 mEq/L (06/28/19 4:02 PM) AGAP [10.0-20.0 mEq/L] 32 unit/L (06/28/19 4:02 PM) AST [0-37 unit/L] Negative *NA* (06/28/19 4:02 PM) U Zo Scr [Negative] 1.0 % (06/28/19 4:02 PM) Basophils [0.0-1.0 %] Negative *NA* (06/28/19 4:02 PM) U Benzodiaz Scr [Negative] <1 mIU/mL *NA* (06/28/19 4:02 PM) hCG Tot 8 mg/dL (06/28/19 4:02 PM) BUN [7-22 mg/dL] 7.8 mg/dL *LOW* (06/28/19 4:02 PM) Calcium Lvl [8.5-10.5 mg/dL] 109 mEq/L (06/28/19 4:02 PM) Chloride Lvl [95-109 mEq/L] 24 mEq/L (06/28/19 4:02 PM) CO2 [24-32 mEq/L] Negative *NA* (06/28/19 4:02 PM) U Cocaine Scr [Negative] 0.68 mg/dL (06/28/19 4:02 PM) Creatinine Lvl [0.50-1.40 mg/dL] <0.1 mg/dL (06/28/19 4:02 PM) Bili Direct [0.0-0.3 mg/dL] .093 % *NA* (06/29/19 7:38 AM) .130 % *NA* (06/29/19 6:26 AM) .232 % *NA* (06/29/19 1:42 AM) Etoh (%) 93 mg/dL *NA* (06/29/19 7:38 AM) 130 mg/dL *NA* (06/29/19 6:26 AM) 232 mg/dL *NA* (06/29/19 1:42 AM) Ethanol Lvl 3.1 g/dL (06/28/19 4:02 PM) Globulin [2.7-4.2 g/dL] 96 mg/dL (06/28/19 4:02 PM) Glucose Lvl [70-99 mg/dL] 41.4 % (06/28/19 4:02 PM) Hct [36.0-48.0 %] 14.2 g/dL (06/28/19 4:02 PM) Hgb [12.0-16.0 g/dL] 3.7 mEq/L (06/28/19 4:02 PM) Potassium Lvl [3.5-5.1 mEq/L] 15.6 % *LOW* (06/28/19 4:02 PM) Lymphocytes [20.0-40.0 %] 33.0 pg *HI* (06/28/19 4:02 PM) MCH [27.0-31.0 pg] 34.4 g/dL (06/28/19 4:02 PM) MCHC [32.0-36.0 g/dL] 96.0 fL (06/28/19 4:02 PM) MCV [80.0-98.0 fL] 4.2 % (06/28/19 4:02 PM) Monocytes [2.0-12.0 %] 6.9 fL *LOW* (06/28/19 4:02 PM) MPV [7.4-10.4 fL] 144 mEq/L (06/28/19 4:02 PM) Sodium Lvl [135-145 mEq/L] Negative *NA* (06/28/19 4:02 PM) U Opiate Scr [Negative] Negative *NA* (06/28/19 4:02 PM) U Phencyclidine Scr [Negative] 490 K/CMM *HI* (06/28/19 4:02 PM) Platelet [133-450 K/CMM] 79.2 % *HI* (06/28/19 4:02 PM) Segs [45.0-75.0 %] 6.8 g/dL (06/28/19 4:02 PM) Total Protein [6.4-8.4 g/dL] 4.31 M/CMM (06/28/19 4:02 PM) RBC [4.20-5.40 M/CMM] 14.0 % (06/28/19 4:02 PM) RDW [11.5-14.5 %] 2.6 mg/dL (06/28/19 4:02 PM) Salicylate Lvl [0.0-30.0 mg/dL] 0.1 mg/dL *LOW* (06/28/19 4:02 PM) Bili Total [0.2-1.3 mg/dL] Negative *NA* (06/28/19 4:02 PM) U Cannab Scr [Negative] Negative *NA* (06/28/19 4:02 PM) UA Bili [Negative] Moderate *ABN* (06/28/19 4:02 PM) UA Blood [Negative] Straw *NA* (06/28/19 4:02 PM) UA Color Negative mg/dL *NA* (06/28/19 4:02 PM) UA Glucose [Negative mg/dL] Negative mg/dL *NA* (06/28/19 4:02 PM) UA Ketones [Negative mg/dL] Negative (06/28/19 4:02 PM) UA Leuk Est [Negative] Few /LPF *NA* (06/28/19 4:02 PM) UA Mucus [None Seen /LPF] Negative (06/28/19 4:02 PM) UA Nitrite [Negative] 6.0 (06/28/19 4:02 PM) UA pH [5.0-8.0] Negative mg/dL (06/28/19 4:02 PM) UA Protein [Negative mg/dL] <1 /HPF (06/28/19 4:02 PM) UA RBC [0-2 /HPF] 1.005 (06/28/19 4:02 PM) UA Spec Grav [<=1.030] None Seen *NA* (06/28/19 4:02 PM) UA Sq Epi Clear (06/28/19 4:02 PM) UA Turbidity [Clear] <=1.0 mg/dL *NA* (06/28/19 4:02 PM) UA Urobilinogen [0.1-1.0 mg/dL] <1 /HPF (06/28/19 4:02 PM) UA WBC [0-5 /HPF] 12.1 K/CMM *HI* (06/28/19 4:02 PM) WBC [3.7-10.4 K/CMM] 1Result Comment: The eGFR [...] Daily. Employment/School Status: Employed. 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 Exercise Exercise frequency: 5-6 karen es/week. Self assessment: Excellent condition. Sexual Sexually active: Yes. Substance Abuse Use: None. Smoking Status Current some day smoker; Ty pe: Cigarettes; Exposure to Tobacco Smoke None; Cigarette Smoking Last 365 Days No; Reg Smoking Cessation Counseling No entered on: 06/28/19 Assessment and Plan No data available for this section
--- OUTSIDE RECORDS SUMMARY | 2019-12-20 02:43 | XMS REPORT | Summary of Care ---
Author Author [facility] Organization [facility] Address Unknown Phone Unavailable Encounter DENNIS Acosta(LINDA) [id number] Date(s): 12/22/18 - 12/22/18 [facility] [address] [place] [address]- Discharge Disposition: Left Without Being Seen Attending Physician: Roberto Carrillo MD Vital Signs Most recent to 1 oldest [Reference Range]: Height 172.72 cm (12/22/18 8:47 PM) Temperature Oral 98.6 DegF [96.4-99.1 DegF] (12/22/18 8:47 PM) Blood Pressure 120/86 mmHg [90-140/60-90 mmHg] (12/22/18 8:47 PM) Respiratory Rate 20 BRMIN [14-20 BRMIN] (12/22/18 8:47 PM) Peripheral Pulse 107 bpm Rate [60-100 bpm] *HI* (12/22/18 8:47 PM) Weight 68.182 kg (12/22/18 8:47 PM) Body Mass Index 22.86 m2 (12/22/18 8:47 PM) Problem List Condition Effective Dates Status Health Status Informan t Anxiety(Confirmed) Resolved CD (Crohn's Resolved disease)(Confirmed) Crohn's Active disease(Confirmed) Diarrhea(Confirmed) Active Nausea(Confirmed) Active Nephrotic Resolved syndrome(Confirmed) Pain(Confirmed) Active Sandeep Parkinson Resolved White syndrome(Confirmed) Allergies, Adverse Reactions, Alerts No data available for this section Medications No data available for this section Results No data available for this section Immunizations No data available for this section Procedures No data available for this section Social History Social History Type Response Substance Abuse Use: None. Alcohol Current, Type Liquor. Freq uency: 1-2 times per month. Smoking Status Current some day smoker; Ty pe: Cigarettes; Exposure to Tobacco Smoke None; Cigarette Smoking Last 365 Days No; Reg Smoking Cessation Counseling No entered on: 12/23/18 Assessment and Plan No data available for this section
--- OUTSIDE RECORDS SUMMARY | 2019-12-20 02:43 | XMS REPORT | Summary of Care ---
Author Author [facility] Organization [facility] Address Unknown Phone Unavailable Encounter DENNIS Acosta(LINDA) [id number] Date(s): 12/23/18 - 12/23/18 [facility] [address] [place] [address]- Encounter Diagnosis Alcohol abuse (Discharge Diagnosis) - 12/23/18 Discharge Disposition: Home or Self Care Attending Physician: Chico Aviles MD Vital Signs Most recent to 1 2 oldest [Reference Range]: Temperature Oral 98.6 DegF 98.5 DegF [96.4-99.1 DegF] (12/23/18 3:00 PM) (12/23/18 10:33 AM) Blood Pressure 140/78 mmHg 183/86 mmHg [90-140/60-90 mmHg] (12/23/18 3:00 PM) *HI* (12/23/18 10:33 AM) Respiratory Rate 16 BRMIN 16 BRMIN [14-20 BRMIN] (12/23/18 3:00 PM) (12/23/18 10:33 AM) Peripheral Pulse 88 bpm 100 bpm Rate [60-100 bpm] (12/23/18 3:00 PM) (12/23/18 10:33 AM) Weight 68.182 kg (12/23/18 10:33 AM) Problem List Condition Effective Dates Status Health Status Informan t Anxiety(Confirmed) Resolved CD (Crohn's Resolved disease)(Confirmed) Crohn's Active disease(Confirmed) Diarrhea(Confirmed) Active Nausea(Confirmed) Active Nephrotic Resolved syndrome(Confirmed) Pain(Confirmed) Active Sandeep Parkinson Resolved White syndrome(Confirmed) Allergies, Adverse Reactions, Alerts No data available for this section Medications Ativan 1 mg, 0.5 mL, Route: IVP, Drug form: INJ, ONCE, Dosing Weight 68.182, kg, Priori ty: STAT, Start date: 12/23/18 11:21:00 CDT, Stop date: 12/23/18 11:21:00 CDT, 0 Notes: (Same as: Ativan) Start Date: 12/23/18 Stop Date: 12/23/18 Status: Completed chlordiazePOXIDE 25 mg oral capsule (Librium) See Instructions, PRN Alcohol Withdrawal, Taper: Days 1-2: 3 tabs Days 3-4: 2 t abs Days 5-6: 1 tab, # 12 cap, 0 Refill(s) Start Date: 12/23/18 Stop Date: 12/29/18 Status: Ordered chlordiazePOXIDE 25 mg oral capsule (Librium) 25 mg, 1 cap, Route: PO, Drug form: CAP, ONCE, Dosing Weight 68.182, kg, Start d ate: 12/23/18 14:11:00 CDT, Stop date: 12/23/18 14:11:00 CDT, 0 Start Date: 12/23/18 Stop Date: 12/23/18 Status: Completed oxazepam 30 mg oral capsule 30 mg, Route: PO, ONCE, Dosing Weight 68.182, kg, Start date: 12/23/18 13:57:00 CDT, Stop date: 12/23/18 13:57:00 CDT Start Date: 12/23/18 Stop Date: 12/23/18 Status: Discontinued oxazepam 30 mg oral capsule 30 mg, 1 cap, Route: PO, QID, Dosing Weight 68.182, kg, Start date: 12/23/18 17: 00:00 CDT, Duration: 30 day, Stop date: 01/22/19 13:00:00 CDT Start Date: 12/23/18 Stop Date: 12/23/18 Status: Canceled Sodium Chloride 0.9% (Bolus) IV 1,000 mL, 1000 ml/hr, Infuse Over: 1 hr, Route: IV, 1,000, Drug form: INJ, ONCE, Priority: STAT, Dosing Weight 68.182 kg, Start date: 12/23/18 11:20:00 CDT, Stop date: 12/23/18 11:20:00 CDT, 0 Start Date: 12/23/18 Stop Date: 12/23/18 Status: Completed Results Most recent to 1 oldest [Reference Range]: Neutrophils # 7.0 K/CMM [1.5-8.1 K/CMM] (12/23/18 11:46 AM) Lymphocytes # 1.6 K/CMM [1.0-5.5 K/CMM] (12/23/18 11:46 AM) Monocytes # [0.0-0.8 0.6 K/CMM K/CMM] (12/23/18 11:46 AM) Basophils # [0.0-0.2 0.1 K/CMM K/CMM] (12/23/18 11:46 AM) eGFR 100 mL/min/1.73m2 1 *NA* (12/23/1846 AM) A/G Ratio [0.7-1.6] 1.3 (12/23/18 11:46 AM) Albumin Lvl [3.5-5.0 4.3 g/dL g/dL] (12/23/18 1146 AM) Alk Phos [39-136 75 unit/L unit/L] (12/23/18 1146 AM) ALT [0-65 unit/L] 43 unit/L (12/23/18 11:46 AM) AGAP [10.0-20.0 14.3 mEq/L mEq/L] (12/23/18 11:46 AM) AST [0-37 unit/L] 41 unit/L *HI* (12/23/18 11:46 AM) B/C Ratio [6-25] 6 (12/23/18 11:46 AM) Basophils [0.0-1.0 1.0 % %] (12/23/18 11:46 AM) BUN [7-22 mg/dL] 5 mg/dL *LOW* (12/23/1846 AM) Calcium Lvl 8.9 mg/dL [8.5-10.5 mg/dL] (12/23/18 11:46 AM) Total CK [12-191 374 unit/L unit/L] *HI* (12/23/18 11:46 AM) Chloride Lvl [95-109 106 mEq/L mEq/L] (12/23/18 11:46 AM) CO2 [24-32 mEq/L] 26 mEq/L (12/23/18 11:46 AM) Creatinine Lvl 0.77 mg/dL [0.50-1.40 mg/dL] (12/23/1846 AM) Eosinophils [0.0-4.0 0.2 % %] (12/23/1846 AM) Etoh (%) .282 % *CRIT* (12/23/1846 AM) Ethanol Lvl 282 mg/dL 2 *CRIT* (12/23/1846 AM) Globulin [2.7-4.2 3.3 g/dL g/dL] (12/23/1846 AM) Glucose Lvl [70-99 82 mg/dL mg/dL] (12/23/1846 AM) Hct [36.0-48.0 %] 42.6 % (12/23/1846 AM) Hgb [12.0-16.0 g/dL] 14.4 g/dL (12/23/1846 AM) Potassium Lvl 4.3 mEq/L [3.5-5.1 mEq/L] (12/23/18:46 AM) Lymphocytes 16.8 % [20.0-40.0 %] *LOW* (12/23/1846 AM) MCH [27.0-31.0 pg] 32.8 pg *HI* (12/23/18:46 AM) MCHC [32.0-36.0 33.8 g/dL g/dL] (12/23/1846 AM) MCV [80.0-98.0 fL] 97.2 fL (12/23/1846 AM) Magnesium Lvl 2.0 mg/dL [1.8-2.4 mg/dL] (12/23/1846 AM) Monocytes [2.0-12.0 6.9 % %] (12/23/1846 AM) MPV [7.4-10.4 fL] 7.1 fL *LOW* (12/23/1846 AM) Sodium Lvl [135-145 142 mEq/L mEq/L] (12/23/1846 AM) Platelet [133-450 353 K/CMM K/CMM] (12/23/18 11:46 AM) Segs [45.0-75.0 %] 75.1 % *HI* (12/23/18 11:46 AM) Total Protein 7.6 g/dL [6.4-8.4 g/dL] (12/23/18 11:46 AM) RBC [4.20-5.40 4.39 M/CMM M/CMM] (12/23/18 11:46 AM) RDW [11.5-14.5 %] 12.8 % (12/23/18 11:46 AM) S Preg [Negative] Negative *NA* (12/23/18 11:46 AM) Bili Total [0.2-1.3 0.5 mg/dL mg/dL] (12/23/18 11:46 AM) WBC [3.7-10.4 K/CMM] 9.3 K/CMM (12/23/18 11:46 AM) 1Result Comment: The eGFR is calculated using [...] BMI. 2Result Comment: Critical Result(s) called to Lauren Starks at 12/23/2018 12:44 by EFA. Read back OK. Immunizations No data available for this section Procedures No data available for this section Social History Social History Type Response Substance Abuse Use: None. Alcohol Current, Type Liquor. Freq uency: 1-2 times per month. Smoking Status Current some day smoker; Ty pe: Cigarettes; Exposure to Tobacco Smoke None; Cigarette Smoking Last 365 Days No; Reg Smoking Cessation Counseling No entered on: 8/11/19 Assessment and Plan No data available for this section
--- OUTSIDE RECORDS SUMMARY | 2019-12-20 02:43 | XMS REPORT | Summary of Care ---
Author Author [facility] Organization [facility] Address Unknown Phone Unavailable Encounter HQ Dave(FIN) [id number] Date(s): 05/22/19 - 05/22/19 [facility] [address] [place] [address]- Encounter Diagnosis Agitation (Discharge Diagnosis) - 05/22/19 Delirium (Discharge Diagnosis) - 05/22/19 Discharge Disposition: Home or Self Care Attending Physician: Josh Cohen DO Vital Signs 1 2 3 Most recent to oldest [Reference Range]: 172.72 cm (05/22/19 12:19 PM) Height 99 DegF (05/22/19 12:19 PM) Temperature Oral [96.4-99.1 DegF] 121/65 mmHg (05/22/19 5:00 PM) 113/56 mmHg (05/22/19 2:00 PM) 125/59 mmHg (05/22/19 1:00 PM) Blood Pressure [90-140/60-90 mmHg] 20 BRMIN (05/22/19 5:00 PM) 16 BRMIN (05/22/19 2:00 PM) 17 BRMIN (05/22/19 1:00 PM) Respiratory Rate [14-20 BRMIN] 104 bpm *HI* (05/22/19 12:19 PM) Peripheral Pulse Rate [60-100 bpm] 68.182 kg (05/22/19 12:19 PM) Weight 22.86 m2 (05/22/19 12:19 PM) Body Mass Index Problem List Condition Effective Dates Status Health Status Informan t Anxiety(Confirmed) Resolved CD (Crohn's Resolved disease)(Confirmed) Crohn's Active disease(Confirmed) Diarrhea(Confirmed) Active Nausea(Confirmed) Active Nephrotic Resolved syndrome(Confirmed) Pain(Confirmed) Active Sandeep Parkinson Resolved White syndrome(Confirmed) Allergies, Adverse Reactions, Alerts No Known Allergies Medications Ativan 1 mg, Route: IVP, Drug form: INJ, ONCE, Dosing Weight 68.182, kg, Priority: STAT , Start date: 05/22/19 12:40:00 ULTRASONIC SOLDERER, Stop date: 05/22/19 12:40:00 ULTRASONIC SOLDERER Start Date: 05/22/19 Stop Date: 05/22/19 Status: Completed Ativan 1 mg, Route: IVP, Drug form: INJ, ONCE, Dosing Weight 68.182, kg, Priority: STAT , Start date: 05/22/19 12:41:00 ULTRASONIC SOLDERER, Stop date: 05/22/19 12:41:00 ULTRASONIC SOLDERER Start Date: 05/22/19 Stop Date: 05/22/19 Status: Completed Benadryl 50 mg, 1 mL, Route: IVP, Drug form: INJ, ONCE, Dosing Weight 68.182, kg, Priorit y: STAT, Start date: 05/22/19 12:41:00 ULTRASONIC SOLDERER, Stop date: 05/22/19 12:41:00 ULTRASONIC SOLDERER, 0 Notes: (Same as: Benadryl) Start Date: 05/22/19 Stop Date: 05/22/19 Status: Ordered haloperidol 5 mg, Route: IM, ONCE, Dosing Weight 68.182, kg, Priority: STAT, Start date: 01/01 12:39:00 ULTRASONIC SOLDERER, Stop date: 05/22/19 12:39:00 ULTRASONIC SOLDERER Start Date: 05/22/19 Stop Date: 05/22/19 Status: Completed NS (Bolus) IV 1,000 mL, 1,000 ml/hr, Infuse Over: 1 hr, Route: IV, 1,000, Drug form: INJ, ONCE , Priority: STAT, Dosing Weight 68.182 kg, Start date: 05/22/19 14:25:00 ULTRASONIC SOLDERER, St op date: 05/22/19 14:25:00 ULTRASONIC SOLDERER, 0 Start Date: 05/22/19 Stop Date: 05/22/19 Status: Completed Results Most recent to 1 2 oldest [Reference Range]: Neutrophils # 12.0 K/CMM [1.5-8.1 K/CMM] *HI* (05/22/19 1:10 PM) Lymphocytes # 0.5 K/CMM [1.0-5.5 K/CMM] *LOW* (05/22/19 1:10 PM) Monocytes # [0.0-0.8 0.1 K/CMM K/CMM] (05/22/19 1:10 PM) Basophils # [0.0-0.2 0.1 K/CMM K/CMM] (05/22/19 1:10 PM) Plt Morph [Normal] Normal (05/22/19 1:10 PM) Bili Indirect Unable to Calculate [0.0-1.0] *NA* (05/22/19 1:10 PM) eGFR 93 mL/min/1.73m2 1 *NA* (05/22/19 1:10 PM) A/G Ratio [0.7-1.6] 1.1 (05/22/19 1:10 PM) Albumin Lvl [3.5-5.0 3.7 g/dL g/dL] (05/22/19 1:10 PM) Alk Phos [39-136 43 unit/L unit/L] (05/22/19 1:10 PM) ALT [0-65 unit/L] 29 unit/L (05/22/19 1:10 PM) AGAP [10.0-20.0 13.0 mEq/L mEq/L] (05/22/19 1:10 PM) AST [0-37 unit/L] 19 unit/L (05/22/19 1:10 PM) Basophils [0.0-1.0 0.8 % %] (05/22/19 1:10 PM) BUN [7-22 mg/dL] 11 mg/dL (05/22/19 1:10 PM) Calcium Lvl 8.8 mg/dL [8.5-10.5 mg/dL] (05/22/19 1:10 PM) Chloride Lvl [95-109 108 mEq/L mEq/L] (05/22/19 1:10 PM) CO2 [24-32 mEq/L] 22 mEq/L *LOW* (05/22/19 1:10 PM) Creatinine Lvl 0.82 mg/dL [0.50-1.40 mg/dL] (05/22/19 1:10 PM) Bili Direct [0.0-0.3 <0.1 mg/dL mg/dL] (05/22/19 1:10 PM) Globulin [2.7-4.2 3.3 g/dL g/dL] (05/22/19 1:10 PM) Glucose Lvl [70-99 148 mg/dL mg/dL] *HI* (05/22/19 1:10 PM) Hct [36.0-48.0 %] 39.1 % (05/22/19 1:10 PM) Hgb [12.0-16.0 g/dL] 12.7 g/dL (05/22/19 1:10 PM) INR [0.85-1.17] 1.01 (05/22/19 1:10 PM) Potassium Lvl 4.0 mEq/L [3.5-5.1 mEq/L] (05/22/19 1:10 PM) Lactic Acid Lvl 1.2 mMol/L 2.7 mMol/L [0.5-2.2 mMol/L] (05/22/19 3:52 PM) *HI* (05/22/19 1:10 PM) Lipase Lvl [73-393 58 unit/L unit/L] *LOW* (05/22/19 1:10 PM) Lymphocytes 4.3 % [20.0-40.0 %] *LOW* (05/22/19 1:10 PM) Macrocyte [None 1+ Seen] *ABN* (05/22/19 1:10 PM) MCH [27.0-31.0 pg] 32.6 pg *HI* (05/22/19 1:10 PM) MCHC [32.0-36.0 32.5 g/dL g/dL] (05/22/19 1:10 PM) MCV [80.0-98.0 fL] 100.3 fL *HI* (05/22/19 1:10 PM) Monocytes [2.0-12.0 1.0 % %] *LOW* (05/22/19 1:10 PM) MPV [7.4-10.4 fL] 7.1 fL *LOW* (05/22/19 1:10 PM) Sodium Lvl [135-145 139 mEq/L mEq/L] (05/22/19 1:10 PM) Platelet [133-450 463 K/CMM K/CMM] *HI* (05/22/19 1:10 PM) Segs [45.0-75.0 %] 93.9 % *HI* (05/22/19 1:10 PM) Total Protein 7.0 g/dL [6.4-8.4 g/dL] (05/22/19 1:10 PM) PT [12.0-14.7 13.3 seconds seconds] (05/22/19 1:10 PM) RBC [4.20-5.40 3.89 M/CMM M/CMM] *LOW* (05/22/19 1:10 PM) RDW [11.5-14.5 %] 14.0 % (05/22/19 1:10 PM) Bili Total [0.2-1.3 0.2 mg/dL mg/dL] (05/22/19 1:10 PM) UA Bacteria [None Occasional /HPF Seen /HPF] *NA* (05/22/19 1:10 PM) UA Bili [Negative] Negative *NA* (05/22/19 1:10 PM) UA Blood [Negative] Negative (05/22/19 1:10 PM) UA Color YELLOW *NA* (05/22/19 1:10 PM) UA Glucose [Negative Negative mg/dL mg/dL] *NA* (05/22/19 1:10 PM) UA Ketones [Negative Negative mg/dL mg/dL] *NA* (05/22/19 1:10 PM) UA Leuk Est Negative [Negative] (05/22/19 1:10 PM) UA Mucus [None Seen Few /LPF /LPF] *NA* (05/22/19 1:10 PM) UA Nitrite Negative [Negative] (05/22/19 1:10 PM) UA pH [5.0-8.0] 7.0 (05/22/19 1:10 PM) UA Protein [Negative Negative mg/dL mg/dL] (05/22/19 1:10 PM) UA RBC [0-2 /HPF] 2 /HPF (05/22/19 1:10 PM) UA Spec Grav 1.009 [<=1.030] (05/22/19 1:10 PM) UA Sq Epi [Few /LPF] Occasional /LPF *NA* (05/22/19 1:10 PM) UA Turbidity [Clear] Clear (05/22/19 1:10 PM) UA Urobilinogen <=1.0 mg/dL [0.1-1.0 mg/dL] *NA* (05/22/19 1:10 PM) WBC [3.7-10.4 K/CMM] 12.8 K/CMM *HI* (05/22/19 1:10 PM) 1Result Comment: The eGFR is calculated [...] Daily. Employment/School Status: Employed. 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 Exercise Exercise frequency: 5-6 karen es/week. Self assessment: Excellent condition. Sexual Sexually active: Yes. Substance Abuse Use: None. Smoking Status Current some day smoker; Ty pe: Cigarettes; Exposure to Tobacco Smoke None; Cigarette Smoking Last 365 Days No; Reg Smoking Cessation Counseling No entered on: 05/05/19 Assessment and Plan No data available for this section
--- OUTSIDE RECORDS SUMMARY | 2019-12-20 02:43 | XMS REPORT | Summary of Care ---
Author Author [facility] Organization [facility] Address Unknown Phone Unavailable Encounter HQ Dave(FIN) [id number] Date(s): 05/05/19 - 05/05/19 [facility] [address] [place] [id number]- Encounter Diagnosis Abrasion of knee, bilateral (Discharge Diagnosis) - 05/05/19 Chronic back pain (Discharge Diagnosis) - 05/05/19 Encephalomalacia (Discharge Diagnosis) - 05/05/19 Acute stress reaction (Discharge Diagnosis) - 05/05/19 Left lumbar radiculopathy (Discharge Diagnosis) - 05/05/19 Fall on same level (Discharge Diagnosis) - 05/05/19 Alcohol dependence with acute alcoholic intoxication (Discharge Diagnosis) - 05/05/19 Discharge Disposition: Home or Self Care Attending Physician: Maureen Valentino MD Vital Signs Most recent to 1 2 oldest [Reference Range]: Height 172.72 cm (05/05/19 2:28 AM) Temperature Oral 98.5 DegF [96.4-99.1 DegF] (05/05/19 2:28 AM) Blood Pressure 153/96 mmHg 142/99 mmHg [90-140/60-90 mmHg] *HI* *HI* (05/05/19 3:43 AM) (05/05/19 2:28 AM) Respiratory Rate 16 BRMIN [14-20 BRMIN] (05/05/19 2:28 AM) Peripheral Pulse 107 bpm Rate [60-100 bpm] *HI* (05/05/19 2:28 AM) Weight 67.273 kg (05/05/19 2:28 AM) Body Mass Index 22.55 m2 (05/05/19 2:28 AM) Problem List Condition Effective Dates Status Health Status Informan t Anxiety(Confirmed) Resolved CD (Crohn's Resolved disease)(Confirmed) Crohn's Active disease(Confirmed) Diarrhea(Confirmed) Active Nausea(Confirmed) Active Nephrotic Resolved syndrome(Confirmed) Pain(Confirmed) Active Sandeep Parkinson Resolved White syndrome(Confirmed) Allergies, Adverse Reactions, Alerts No Known Allergies Medications Dilaudid 0.5 mg, 0.5 mL, Route: IVP, Drug form: INJ, ONCE, Dosing Weight 67.273, kg, Prio rity: STAT, Start date: 05/05/19 3:01:00 EXCAVATION LABORER, Stop date: 05/05/19 3:01:00 EXCAVATION LABORER, 0 Notes: Same as: Dilaudid Start Date: 05/05/19 Stop Date: 05/05/19 Status: Completed Phenergan 12.5 mg, 0.5 mL, Route: IM, Drug form: INJ, ONCE, Dosing Weight 67.273, kg, Prio rity: STAT, Start date: 05/05/19 4:30:00 EXCAVATION LABORER, Stop date: 05/05/19 4:30:00 EXCAVATION LABORER, 0 Notes: Do not give IV push. (Same as: Phenergan) Start Date: 05/05/19 Stop Date: 05/05/19 Status: Completed Sodium Chloride 0.9% (Bolus) IV 1,000 mL, 1000 ml/hr, Infuse Over: 1 hr, Route: IV, 1,000, Drug form: INJ, ONCE, Priority: STAT, Dosing Weight 67.273 kg, Start date: 05/05/19 2:44:00 EXCAVATION LABORER, Stop date: 05/05/19 2:44:00 EXCAVATION LABORER, 0 Start Date: 05/05/19 Stop Date: 05/05/19 Status: Completed thiamine 100 mg, 1 mL, Route: IV, Drug form: INJ, ONCE, Dosing Weight 67.273, kg, Priorit y: STAT, Start date: 05/05/19 2:44:00 EXCAVATION LABORER, Stop date: 05/05/19 2:44:00 EXCAVATION LABORER, 0 Notes: (Same As: Vitamin B1) Start Date: 05/05/19 Stop Date: 05/05/19 Status: Completed Zofran 4 mg, 2 mL, Route: IVP, Drug form: INJ, ONCE, Dosing Weight 67.273, kg, Priority : STAT, Start date: 05/05/19 3:01:00 EXCAVATION LABORER, Stop date: 05/05/19 3:01:00 EXCAVATION LABORER, 0 Notes: (Same as: Janee) MEDICATION WASTE Product Size: 4 mgProduct Was selena: ___ mg Start Date: 05/05/19 Stop Date: 05/05/19 Status: Completed Results Most recent to 1 oldest [Reference Range]: Neutrophils # 5.4 K/CMM [1.5-8.1 K/CMM] (05/05/19 2:59 AM) Lymphocytes # 2.5 K/CMM [1.0-5.5 K/CMM] (05/05/19 2:59 AM) Monocytes # [0.0-0.8 0.9 K/CMM K/CMM] *HI* (05/05/19 2:59 AM) Basophils # [0.0-0.2 0.1 K/CMM K/CMM] (05/05/19 2:59 AM) eGFR 125 mL/min/1.73m2 1 *NA* (05/05/19 2:59 AM) UDS Note See Note (05/05/19 3:06 AM) A/G Ratio [0.7-1.6] 1.2 (05/05/19 2:59 AM) Acetaminoph Lvl <2 ug/ml [10-20 ug/ml] *LOW* (05/05/19 2:59 AM) Albumin Lvl [3.5-5.0 3.9 g/dL g/dL] (05/05/19 2:59 AM) Alk Phos [39-136 67 unit/L unit/L] (05/05/19 2:59 AM) ALT [0-65 unit/L] 41 unit/L (05/05/19 2:59 AM) U Amph Scr Negative [Negative] *NA* (05/05/19 3:06 AM) AGAP [10.0-20.0 14.7 mEq/L mEq/L] (05/05/19 2:59 AM) AST [0-37 unit/L] 47 unit/L *HI* (05/05/19 2:59 AM) B/C Ratio [6-25] 10 (05/05/19 2:59 AM) U Zo Scr Negative [Negative] *NA* (05/05/19 3:06 AM) Basophils [0.0-1.0 0.6 % %] (05/05/19 2:59 AM) U Benzodiaz Scr Negative [Negative] *NA* (05/05/19 3:06 AM) BUN [7-22 mg/dL] 5 mg/dL *LOW* (05/05/19 2:59 AM) Calcium Lvl 8.1 mg/dL [8.5-10.5 mg/dL] *LOW* (05/05/19 2:59 AM) Chloride Lvl [95-109 111 mEq/L mEq/L] *HI* (05/05/19 2:59 AM) CO2 [24-32 mEq/L] 20 mEq/L *LOW* (05/05/19 2:59 AM) U Cocaine Scr Negative [Negative] *NA* (05/05/19 3:06 AM) Creatinine Lvl 0.51 mg/dL [0.50-1.40 mg/dL] (05/05/19 2:59 AM) Eosinophils [0.0-4.0 0.5 % %] (05/05/19 2:59 AM) Etoh (%) .256 % *CRIT* (05/05/19 2:59 AM) Ethanol Lvl 256 mg/dL 2 *CRIT* (05/05/19 2:59 AM) Globulin [2.7-4.2 3.3 g/dL g/dL] (05/05/19 2:59 AM) Glucose Lvl [70-99 95 mg/dL mg/dL] (05/05/19 2:59 AM) Hct [36.0-48.0 %] 38.6 % (05/05/19 2:59 AM) Hgb [12.0-16.0 g/dL] 13.2 g/dL (05/05/19 2:59 AM) INR [0.85-1.17] 1.01 (05/05/19 2:59 AM) Potassium Lvl 3.7 mEq/L [3.5-5.1 mEq/L] (05/05/19 2:59 AM) Lipase Lvl [73-393 171 unit/L unit/L] (05/05/19 2:59 AM) Lymphocytes 28.4 % [20.0-40.0 %] (05/05/19 2:59 AM) MCH [27.0-31.0 pg] 32.6 pg *HI* (05/05/19 2:59 AM) MCHC [32.0-36.0 34.1 g/dL g/dL] (05/05/19 2:59 AM) MCV [80.0-98.0 fL] 95.7 fL (05/05/19 2:59 AM) Monocytes [2.0-12.0 9.7 % %] (05/05/19 2:59 AM) MPV [7.4-10.4 fL] 7.1 fL *LOW* (05/05/19 2:59 AM) Sodium Lvl [135-145 142 mEq/L mEq/L] (05/05/19 2:59 AM) U Opiate Scr Negative [Negative] *NA* (05/05/19 3:06 AM) U Phencyclidine Scr Negative [Negative] *NA* (05/05/19 3:06 AM) Platelet [133-450 330 K/CMM K/CMM] (05/05/19 2:59 AM) Segs [45.0-75.0 %] 60.8 % (05/05/19 2:59 AM) Total Protein 7.2 g/dL [6.4-8.4 g/dL] (05/05/19 2:59 AM) PT [12.0-14.7 13.3 seconds seconds] (05/05/19 2:59 AM) PTT [22.9-35.8 24.5 seconds seconds] (05/05/19 2:59 AM) RBC [4.20-5.40 4.03 M/CMM M/CMM] *LOW* (05/05/19 2:59 AM) RDW [11.5-14.5 %] 13.2 % (05/05/19 2:59 AM) S Preg [Negative] Negative *NA* (05/05/19 2:59 AM) Salicylate Lvl <1.7 mg/dL [0.0-30.0 mg/dL] (05/05/19 2:59 AM) Bili Total [0.2-1.3 0.6 mg/dL mg/dL] (05/05/19 2:59 AM) U Cannab Scr Negative [Negative] *NA* (05/05/19 3:06 AM) Troponin-I <0.02 ng/mL [0.00-0.40 ng/mL] (05/05/19 2:59 AM) UA Bacteria [None Occasional /HPF Seen /HPF] *NA* (05/05/19 3:06 AM) UA Bili [Negative] Negative *NA* (05/05/19 3:06 AM) UA Blood [Negative] Moderate *ABN* (05/05/19 3:06 AM) UA Color Straw *NA* (05/05/19 3:06 AM) UA Glucose [Negative Negative mg/dL mg/dL] *NA* (05/05/19 3:06 AM) UA Ketones [Negative Negative mg/dL mg/dL] *NA* (05/05/19 3:06 AM) UA Leuk Est Negative [Negative] (05/05/19 3:06 AM) UA Mucus [None Seen Few /LPF /LPF] *NA* (05/05/19 3:06 AM) UA Nitrite Negative [Negative] (05/05/19 3:06 AM) UA pH [5.0-8.0] 7.0 (05/05/19 3:06 AM) UA Protein [Negative Negative mg/dL mg/dL] (05/05/19 3:06 AM) UA RBC [0-2 /HPF] 3 /HPF *HI* (05/05/19 3:06 AM) UA Spec Grav 1.005 [<=1.030] (05/05/19 3:06 AM) UA Sq Epi [Few /LPF] Occasional /LPF *NA* (05/05/19 3:06 AM) UA Turbidity [Clear] Clear (05/05/19 3:06 AM) UA Urobilinogen <=1.0 mg/dL [0.1-1.0 mg/dL] *NA* (05/05/19 3:06 AM) UA WBC [0-5 /HPF] <1 /HPF (05/05/19 3:06 AM) WBC [3.7-10.4 K/CMM] 8.9 K/CMM (05/05/19 2:59 AM) 1Result Comment: The eGFR is calculated [...] tiplied by the estimated BMI. 2Result Comment: critical results called to marisol heredia at 05/05/2019 03:26 by zev. read back ok. Immunizations Given and Recorded Vaccine Date Status Refusal Reason influenza virus vaccine, inactivated 03/29/19 G iven Procedures No data available for this section Social History Social History Type Response Alcohol Current, Type Wine, Liquor. Frequency: Daily. Employment/School Status: Employed. 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 Exercise Exercise frequency: 5-6 karen es/week. Self assessment: Excellent condition. Sexual Sexually active: Yes. Substance Abuse Use: None. Smoking Status Current some day smoker; Ty pe: Cigarettes; Exposure to Tobacco Smoke None; Cigarette Smoking Last 365 Days No; Reg Smoking Cessation Counseling No entered on: 05/05/19 Assessment and Plan No data available for this section
--- OUTSIDE RECORDS SUMMARY | 2019-12-20 02:43 | XMS REPORT | Summary of Care ---
Author Author [facility] Organization [facility] Address Unknown Phone Unavailable Encounter DENNIS Acosta(FIN) [id number] Date(s): 04/03/19 - 04/04/19 [facility] [place] [address] [place] [address] [phone] Vital Signs No data available for this [...] Daily. Employment/School Status: Employed. 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 Exercise Exercise frequency: 5-6 karen es/week. Self assessment: Excellent condition. Sexual Sexually active: Yes. Substance Abuse Use: None. Smoking Status Current some day smoker; Ty pe: Cigarettes; Exposure to Tobacco Smoke None; Cigarette Smoking Last 365 Days No; Reg Smoking Cessation Counseling No entered on: 03/19/19 Assessment and Plan No data available for this section
--- OUTSIDE RECORDS SUMMARY | 2019-12-20 02:43 | XMS REPORT | Summary of Care ---
Author Author [facility] Organization [facility] Address Unknown Phone Unavailable Encounter DENNIS Acosta(LINDA) [id number] Date(s): 01/10/18 - 01/10/18 [facility] [address] [place] [address]- Encounter Diagnosis Mononucleosis (Discharge Diagnosis) - 01/10/18 Infectious mononucleosis, unspecified without complication (Final) - 01/15/18 Pre-excitation syndrome (Final) - Crohn's disease, unspecified, without complications (Final) - Discharge Disposition: Home or Self Care Attending Physician: Chico Davis MD Vital Signs Most recent to 1 2 oldest [Reference Range]: Temperature Oral 98.9 DegF [96.4-99.1 DegF] (01/10/18 4:29 PM) Blood Pressure 113/79 mmHg 150/93 mmHg [90-140/60-90 mmHg] (01/10/18 8:05 PM) *HI* (01/10/18 4:29 PM) Respiratory Rate 16 BRMIN 18 BRMIN [14-20 BRMIN] (01/10/18 8:05 PM) (01/10/18 4:29 PM) Peripheral Pulse 107 bpm Rate [60-100 bpm] *HI* (01/10/18 4:29 PM) Weight 71.023 kg (01/10/18 4:29 PM) Problem List Condition Effective Dates Status Health Status Informan t Anxiety(Confirmed) Resolved CD (Crohn's Resolved disease)(Confirmed) Crohn's Active disease(Confirmed) Diarrhea(Confirmed) Active Nausea(Confirmed) Active Nephrotic Resolved syndrome(Confirmed) Pain(Confirmed) Active Sandeep Parkinson Resolved White syndrome(Confirmed) Allergies, Adverse Reactions, Alerts Substance Reaction Severity Status NKDA Active Medications acetaminophen 975 mg, 3 tab, Route: PO, Drug form: TAB, ONCE, Dosing Weight 71.023, kg, Priori ty: STAT, Start date: 01/10/18 16:58:00 CDT, Stop date: 01/10/18 16:58:00 CDT Notes: Do not exceed 4 gm/day. (Same as: Tylenol) Start Date: 01/10/18 Stop Date: 01/10/18 Status: Completed ibuprofen 600 mg, 1 tab, Route: PO, Drug form: TAB, ONCE, Dosing Weight 71.023, kg, Priori ty: STAT, Start date: 01/10/18 16:58:00 CDT, Stop date: 01/10/18 16:58:00 CDT Notes: (Same as: Motrin)"Do Not Crush" Take with food. Start Date: 01/10/18 Stop Date: 01/10/18 Status: Completed Saline Flush 0.9% 10 mL, Route: IVP, Drug Form: INJ, Dosing Weight 71.023, kg, PRN, PRN Line Flush , Start date: 01/10/18 16:33:00 CDT, Duration: 30 day, Stop date: 02/09/18 16:32 :00 CDT Notes: preservative free. Start Date: 01/10/18 Stop Date: 01/10/18 Status: Discontinued Sodium Chloride 0.9% (Bolus) IV 1,000 mL, 1000 ml/hr, Infuse Over: 1 hr, Route: IVPB, 1,000, Drug form: INJ, ONC E, Priority: STAT, Dosing Weight 71.023 kg, Start date: 01/10/18 16:58:00 CDT, S top date: 01/10/18 16:58:00 CDT Start Date: 01/10/18 Stop Date: 01/10/18 Status: Completed Results ELECTROLYTES Most recent to 1 oldest [Reference Range]: Sodium Lvl [135-145 138 mEq/L mEq/L] (01/10/18 5:09 PM) Potassium Lvl 3.6 mEq/L [3.5-5.1 mEq/L] (01/10/18 5:09 PM) Chloride Lvl [95-109 104 mEq/L mEq/L] (01/10/18 5:09 PM) CO2 [24-32 mEq/L] 27 mEq/L (8/29/18 5:09 PM) AGAP [10.0-20.0 10.6 mEq/L mEq/L] (01/10/18 5:09 PM) CHEM PANEL Most recent to 1 oldest [Reference Range]: Creatinine Lvl 0.90 mg/dL [0.50-1.40 mg/dL] (01/10/18 5:09 PM) eGFR 84 mL/min/1.73m2 1 *NA* (01/10/18:09 PM) BUN [7-22 mg/dL] 10 mg/dL (01/10/18 5:09 PM) B/C Ratio [6-25] 11 (01/10/18 5:09 PM) Glucose Lvl [70-99 84 mg/dL mg/dL] (01/10/18 5:09 PM) Total Protein 7.0 g/dL [6.4-8.4 g/dL] (01/10/18 5:09 PM) Albumin Lvl [3.5-5.0 3.5 g/dL g/dL] (01/10/18 5:09 PM) Globulin [2.7-4.2 3.5 g/dL g/dL] (01/10/18 5:09 PM) A/G Ratio [0.7-1.6] 1.0 (01/10/18 5:09 PM) Calcium Lvl 8.4 mg/dL [8.5-10.5 mg/dL] *LOW* (01/10/18 5:09 PM) ALT [0-65 unit/L] 407 unit/L *HI* (01/10/18 5:09 PM) AST [0-37 unit/L] 302 unit/L *HI* (01/10/18 5:09 PM) Alk Phos [39-136 357 unit/L unit/L] *HI* (01/10/18 5:09 PM) Bili Total [0.2-1.3 2.3 mg/dL mg/dL] *HI* (01/10/18 5:09 PM) Lactic Acid Lvl 0.8 mMol/L [0.5-2.2 mMol/L] (01/10/18 5:09 PM) 1Result Comment: The eGFR is calculated [...] be mul tiplied by the estimated BMI. ENDOCRINOLOGY Most recent to 1 oldest [Reference Range]: S Preg [Negative] Negative *NA* (01/10/18 6:42 PM) IMMUNOLOGY Most recent to 1 oldest [Reference Range]: [place] Scr [Negative] Positive *ABN* (01/10/18 6:42 PM) HEMATOLOGY Most recent to 1 oldest [Reference Range]: WBC [3.7-10.4 K/CMM] 4.7 K/CMM (01/10/18 5:09 PM) RBC [4.20-5.40 4.74 M/CMM M/CMM] (01/10/18 5:09 PM) Hgb [12.0-16.0 g/dL] 15.2 g/dL (01/10/18 5:09 PM) Hct [36.0-48.0 %] 44.4 % (01/10/18 5:09 PM) MCV [80.0-98.0 fL] 93.6 fL (01/10/18 5:09 PM) MCH [27.0-31.0 pg] 32.0 pg *HI* (01/10/18 5:09 PM) MCHC [32.0-36.0 34.2 g/dL g/dL] (01/10/18 5:09 PM) RDW [11.5-14.5 %] 13.8 % (01/10/18 5:09 PM) MPV [7.4-10.4 fL] 8.9 fL (01/10/18 5:09 PM) Platelet [133-450 97 K/CMM K/CMM] *LOW* (01/10/18 5:09 PM) Segs [45.0-75.0 %] 53.0 % (01/10/18 5:09 PM) Bands [0.0-11.0 %] 8.0 % (01/10/18 5:09 PM) Lymphocytes 34.0 % [20.0-40.0 %] (01/10/18 5:09 PM) Atypical Lymphs 4.0 % [<=0.0 %] *HI* (01/10/18 5:09 PM) Monocytes [2.0-12.0 1.0 % %] *LOW* (01/10/18 5:09 PM) Neutrophils # 2.9 K/CMM [1.5-8.1 K/CMM] (01/10/18 5:09 PM) Lymphocytes # 1.8 K/CMM [1.0-5.5 K/CMM] (01/10/18 5:09 PM) Monocytes # [0.0-0.8 0.0 K/CMM K/CMM] (01/10/18 5:09 PM) Anisocyte [None 1+ Seen] *ABN* (01/10/18 5:09 PM) Immunizations No data available for this section Procedures No data available for this section Social History Social History Type Response Substance Abuse Use: None. Alcohol Current, Type Liquor. Freq uency: 1-2 times per month. Smoking Status Never smoker; Exposure to T obacco Smoke None; Cigarette Smoking Last 365 Days No; Reg Smoking Cessation Counseli ng No entered on: 01/10/18 Assessment and Plan No data available for this section
--- OUTSIDE RECORDS SUMMARY | 2019-12-20 02:44 | XMS REPORT | Summary of Care ---
Author Author [facility] Organization [facility] Address Unknown Phone Unavailable Encounter DENNIS Acosta(LINDA) [id number] Date(s): 05/16/19 - 05/16/19 [facility] [address] [place] [address]- Discharge Disposition: Home or Self Care Attending Physician: Yung Crook MD Vital Signs Most recent to 1 oldest [Reference Range]: Height 172.72 cm (05/16/19 9:38 AM) Weight 68.182 kg (05/16/19 9:38 AM) Body Mass Index 22.86 m2 (05/16/19 9:38 AM) Problem List Condition Effective Dates Status Health Status Informan t Anxiety(Confirmed) Resolved CD (Crohn's Resolved disease)(Confirmed) Crohn's Active disease(Confirmed) Diarrhea(Confirmed) Active Nausea(Confirmed) Active Nephrotic Resolved syndrome(Confirmed) Pain(Confirmed) Active Sandeep Parkinson Resolved White syndrome(Confirmed) Allergies, Adverse Reactions, Alerts No Known Allergies Medications No data available for this section Results Most recent to 1 oldest [Reference Range]: Neutrophils # 3.3 K/CMM [1.5-8.1 K/CMM] (05/16/19 9:30 AM) Lymphocytes # 1.8 K/CMM [1.0-5.5 K/CMM] (05/16/19 9:30 AM) Monocytes # [0.0-0.8 1.0 K/CMM K/CMM] *HI* (05/16/19 9:30 AM) Eosinophils # 0.2 K/CMM [0.0-0.5 K/CMM] (05/16/19 9:30 AM) Basophils # [0.0-0.2 0.1 K/CMM K/CMM] (05/16/19 9:30 AM) eGFR 107 mL/min/1.73m2 1 *NA* (05/16/19 9:30 AM) A/G Ratio [0.7-1.6] 1.6 (05/16/19 9:30 AM) Albumin Lvl [3.5-5.0 4.0 g/dL g/dL] (05/16/19 9:30 AM) Alk Phos [39-136 48 unit/L unit/L] (05/16/19 9:30 AM) ALT [0-65 unit/L] 42 unit/L (05/16/19 9:30 AM) AGAP [10.0-20.0 9.3 mEq/L mEq/L] *LOW* (05/16/19 9:30 AM) AST [0-37 unit/L] 26 unit/L (05/16/19 9:30 AM) B/C Ratio [6-25] 12 (05/16/19 9:30 AM) Basophils [0.0-1.0 1.9 % %] *HI* (05/16/19 9:30 AM) BUN [7-22 mg/dL] 9 mg/dL (05/16/19 9:30 AM) Calcium Lvl 9.1 mg/dL [8.5-10.5 mg/dL] (05/16/19 9:30 AM) Chloride Lvl [95-109 107 mEq/L mEq/L] (05/16/19 9:30 AM) CO2 [24-32 mEq/L] 28 mEq/L (05/16/19 9:30 AM) Creatinine Lvl 0.73 mg/dL [0.50-1.40 mg/dL] (05/16/19 9:30 AM) Eosinophils [0.0-4.0 3.8 % %] (05/16/19 9:30 AM) Globulin [2.7-4.2 2.5 g/dL g/dL] *LOW* (05/16/19 9:30 AM) Glucose Lvl [70-99 88 mg/dL mg/dL] (05/16/19 9:30 AM) Hct [36.0-48.0 %] 38.2 % (05/16/19 9:30 AM) Hgb [12.0-16.0 g/dL] 12.9 g/dL (05/16/19 9:30 AM) INR [0.85-1.17] 0.94 (05/16/19 9:30 AM) Potassium Lvl 4.3 mEq/L [3.5-5.1 mEq/L] (05/16/19 9:30 AM) Lymphocytes 27.8 % [20.0-40.0 %] (05/16/19 9:30 AM) MCH [27.0-31.0 pg] 33.6 pg *HI* (05/16/19 9:30 AM) MCHC [32.0-36.0 33.8 g/dL g/dL] (05/16/19 9:30 AM) MCV [80.0-98.0 fL] 99.2 fL *HI* (05/16/19 9:30 AM) Monocytes [2.0-12.0 15.5 % %] *HI* (05/16/19 9:30 AM) MPV [7.4-10.4 fL] 6.8 fL *LOW* (05/16/19 9:30 AM) Sodium Lvl [135-145 140 mEq/L mEq/L] (05/16/19 9:30 AM) Platelet [133-450 399 K/CMM K/CMM] (05/16/19 9:30 AM) Segs [45.0-75.0 %] 51.0 % (05/16/19 9:30 AM) Total Protein 6.5 g/dL [6.4-8.4 g/dL] (05/16/19 9:30 AM) PT [12.0-14.7 12.6 seconds seconds] (05/16/19 9:30 AM) PTT [22.9-35.8 26.6 seconds seconds] (05/16/19 9:30 AM) RBC [4.20-5.40 3.85 M/CMM M/CMM] *LOW* (05/16/19 9:30 AM) RDW [11.5-14.5 %] 13.9 % (05/16/19 9:30 AM) S Preg [Negative] Negative *NA* (05/16/19 9:30 AM) Bili Total [0.2-1.3 0.2 mg/dL mg/dL] (05/16/19 9:30 AM) UA Bili [Negative] Negative *NA* (05/16/19 9:30 AM) UA Blood [Negative] Negative (05/16/19 9:30 AM) UA Color YELLOW *NA* (05/16/19 9:30 AM) UA Glucose [Negative Negative mg/dL mg/dL] *NA* (05/16/19 9:30 AM) UA Ketones [Negative Negative mg/dL mg/dL] *NA* (05/16/19 9:30 AM) UA Leuk Est Negative [Negative] (05/16/19 9:30 AM) UA Nitrite Negative [Negative] (05/16/19 9:30 AM) UA pH [5.0-8.0] 6.0 (05/16/19 9:30 AM) UA Protein [Negative Negative mg/dL mg/dL] (05/16/19 9:30 AM) UA Spec Grav 1.020 [<=1.030] (05/16/19 9:30 AM) UA Turbidity [Clear] Clear (05/16/19 9:30 AM) UA Urobilinogen <=1.0 mg/dL [0.1-1.0 mg/dL] *NA* (05/16/19 9:30 AM) WBC [3.7-10.4 K/CMM] 6.5 K/CMM (05/16/19 9:30 AM) Micro? Not Indicated *NA* (05/16/19 9:30 AM) 1Result Comment: The eGFR is calculated [...] Daily. Employment/School Status: Employed. 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 Exercise Exercise frequency: 5-6 karen es/week. Self assessment: Excellent condition. Sexual Sexually active: Yes. Substance Abuse Use: None. Smoking Status Current some day smoker; Ty pe: Cigarettes; Exposure to Tobacco Smoke None; Cigarette Smoking Last 365 Days No; Reg Smoking Cessation Counseling No entered on: 05/05/19 Assessment and Plan No data available for this section
--- OUTSIDE RECORDS SUMMARY | 2019-12-20 02:44 | XMS REPORT | CCD ---
Author Author DAWSON Childress [facility] Address Unknown Phone Unavailable Care Team Providers Care [employer] Driver Name Role Phone Jerrod De Souza CP Allergies, Adverse Reactions, Alerts Substance Reaction Status NKDA Active Problem List Condition Effective Dates Status Crohn's disease Active Diarrhea Active Nausea Active Pain Active Medications Medication Instructions Start Date End Date Status BD Normal Saline 3 mL, Route: IVP, Drug Form: INJ, 01/31/2012 02/04/2012 Discontinued Flush PRN, PRN Line Flush, Start date: 01/31/12 12:59:00, Duration: 30 day, Stop date: 03/01/12 12:58:00 BD Normal Saline 3 mL, Route: IVP, Drug Form: INJ, 01/31/2012 02/04/2012 Discontinued Flush Q8H, Start date: 01/31/12 1 6:00:00, Duration: 30 day, Stop date: 03/01/12 8:00:00 Imuran 150 mg, 3 tab, Route: PO, Drug 01/31/2012 02/04/20 12 Discontinued form: TAB, Daily, Start date: 01/31/12 14:00:00, Stop date: 03/01/12 9:00:00 Zofran 4 mg, 2 mL, Route: IVP, Drug form: 01/30/201201/14 Discontinued INJ, Q6H, PRN Vomiting, Start date: 01/30/12 18:23:00, Duration: 30 day, Stop date: 02/29/12 18:22:00 Ambien 10 mg, 2 tab, Route: PO, Drug form: 01/31/2012 Discontinued TAB, Bedtime, Start date: 01/31/12 21:00:00, Duration: 30 day, Stop date: 02/29/12 21:00:00 Dextrose 5% in 1,000 mL, Rate: 100 ml/hr, Infuse 01/31/2012 Discontinued Lactated Ringers IV over: 10 hr, Route: IV, kg, Total 1,000 mL Volume: 1,000, Start date: 01/31/12 7:46:00, Duration: 30 day, Stop date: 03/01/12 7:45:00 Cymbalta 20 mg, 1 cap, Route: PO, Drug form: 01/31/2012 Discontinued DRC, Daily, Start date: 01/31/12 14:00:00, Duration: 30 day, Stop date: 03/01/12 9:00:00 Dextrose 5% in 1,000 mL, Rate: 150 ml/hr, Infuse 01/30/2012 Completed Lactated Ringers IV over: 6.7 hr, Route: IV, kg , Total 1,000 mL Volume: 1,000, Start date: 01/30/12 18:22:00, Duration: 2 doses or times, Stop date: 01/31/12 7:45:00 Dilaudid 1 mg, 0.5 mL, Route: IV, Drug form: 02/02/2012 Discontinued INJ, Q3H, PRN Severe Pain, Start date: 02/02/12 12:29:00, Duration: 30 day, Stop date: 03/03/12 12:28:00 Phenergan 12.5 mg, 0.5 tab, Route: PO, Drug 02/01/201202/03 Discontinued form: TAB, Q6H, Start date: 02/01/12 12:00:00, Duration: 30 day, Stop date: 03/02/12 6:00:00 Citrate of Magnesia 300 mL, Route: PO, Drug Form: LIQ, 201102/01/2012 Completed BID, Start date: 02/01/12 12:00:00, Duration: 2 doses or times, Stop date: 02/01/12 18:00:00 Phenergan 12.5 mg, 0.5 tab, Route: PO, Drug 01/30/201201/29 Discontinued form: TAB, Q6H, Start date: 01/30/12 20:00:00, Duration: 30 day, Stop date: 02/29/12 14:00:00 Dilaudid 2 mg, 1 mL, Route: IV, Drug form: 01/30/201202/01 Discontinued INJ, Q3H, PRN Pain, Start date: 01/30/12 18:29:00, Duration: 30 day, Stop date: 02/29/12 18:28:00 Asacol 800 mg, 2 tab, Route: PO, Drug 02/02/2012 02/04/20 Discontinued form: ECTAB, TID, Start date: 02/02/12 10:00:00, Duration: 30 day, Stop date: 03/03/12 9:00:00 Ambien 10 mg, 2 tab, Route: PO, Drug form: 01/30/2012 Discontinued TAB, Bedtime, PRN Insomnia, Start date: 01/30/12 18:26:00, Duration: 30 day, Stop date: 02/29/12 18:25:00 Cipro 400 mg, 200 mL, Route: IVPB, Drug 01/30/201202/03 Discontinued form: INJ, Q12H, Start date: 01/30/12 20:00:00, Duration: 30 day, Stop date: 02/29/12 8:00:00 Flagyl 500 mg, 100 mL, Route: IVPB, Drug 01/30/201202/03 Discontinued form: INJ, Q8H, Start date: 01/30/12 18:45:00, Duration: 30 day, Stop date: 02/29/12 18:00:00 Tylenol 650 mg, 2 tab, Route: PO, Drug 01/30/2012 02/04/20 Discontinued form: TAB, Q4H, PRN Temperature >100.4, Start date: 01/30/12 18:25:00, Duration: 30 day, Stop date: 02/29/12 18:24:00 methylPREDNISolone 40 mg, 1 mL, Route: IVP, Drug form: 201102/04/2012 Discontinued INJ, Q12H, Start date: 02/02/12 18:30:00, Duration: 30 day, Stop date: 03/03/12 18:00:00 Phenergan 12.5 mg, 50 mL, Route: IVPB, Drug 01/30/201201/29 Deleted form: SOLN, Q6H, Start date: 01/30/12 20:00:00, Duration: 30 day, Stop date: 02/29/12 14:00:00 Sodium Chloride 0.9% IV, 0 ml/hr, PRN, PRN Line Flush, 201102/04/2012 Discontinued IV Start date: 02/02/12 19:51: 00, Duration: 30, 100 ml Vital Signs Most recent to oldest [Reference Range]: 1 2 3 Height 172.72 cm (01/30/2012 18:08:00) Temperature Oral [96.4-99.1 DegF] 98.1 DegF (02/04/2012 11:31:00) 97.7 DegF (02/04/2012 07:41:00) 97.5 DegF (02/04/2012 04:30:00) Systolic Blood Pressure [90-140 mmHg] 108 mmHg (02/04/2012 11:31:00) 101 mmHg (02/04/2012 07:41:00) 101 mmHg (02/04/2012 04:30:00) Diastolic Blood Pressure [60-90 mmHg] 67 mmHg (02/04/2012 11:31:00) 60 mmHg (02/04/2012 07:41:00) 50 mmHg *LOW* (02/04/2012 04:30:00) Respiratory Rate [14-20 BRMIN] 16 BRMIN (02/04/2012 11:31:00) 16 BRMIN (02/04/2012 07:41:00) 18 BRMIN (02/04/2012 04:30:00) Peripheral Pulse Rate [60-100 bpm] 63 bpm (02/04/2012 11:31:00) 58 bpm *LOW* (02/04/2012 07:41:00) 62 bpm (02/04/2012 04:30:00) Weight 68.182 kg (01/30/2012 18:08:00) Results INFECTIOUS DISEASES Most recent to oldest [Reference Range]: 1 C difficile DNA [Negative] Negative 1 (01/30/2012 22:07:00) 1Interpretive Data: [employer] Clostridium difficile assay utilizes loop-mediated isothermal DNA amplification (LAMP) technology to detect a 204 bp region of the tcdA gene within the PaLoc gene segment present in all known toxigenic C. difficile strains. The assay utilizes FDA cleared IVD reagents. Performance characteristics have be en verified by the [facility] within the [facility]. The [facility] is authorized under the Clinical Labo ratory Improvement Amendment of 1988 (CLIA-88) to perform high complexity testin g. CHEMISTRY Most recent to oldest [Reference Range]: 1 Sodium Lvl [135-145 mEq/L] 138 mEq/L (01/30/2012 18:25:00) Potassium Lvl [3.5-5.1 mEq/L] 3.8 mEq/L (01/30/2012 18:25:00) Chloride Lvl [95-109 mEq/L] 102 mEq/L (01/30/2012:25:00) CO2 [24-32 mEq/L] 30 mEq/L (01/30/2012 18:25:00) AGAP [10.0-20.0 mEq/L] 9.8 mEq/L *LOW* (01/30/2012:25:00) Creatinine Lvl [0.5-1.4 mg/dL] 0.8 mg/dL (01/30/2012 18:25:00) BUN [7-22 mg/dL] 4 mg/dL *LOW* (01/30/2012 18:25:00) Glucose Lvl [70-99 mg/dL] 84 mg/dL 2 (01/30/2012 18:25:00) Total Protein [6.4-8.4 g/dL] 7.2 g/dL (01/30/2012:25:00) Albumin Lvl [3.5-5.0 g/dL] 3.7 g/dL (01/30/2012 18:25:00) Globulin [2.0-4.0 g/dL] 3.5 g/dL (01/30/2012 18:25:00) A/G Ratio [0.7-1.6] 1.1 (01/30/2012 18:25:00) Calcium Lvl [8.5-10.5 mg/dL] 8.9 mg/dL (01/30/2012 18:25:00) ALT [0-65 unit/L] 40 unit/L (01/30/2012 18:25:00) AST [0-37 unit/L] 23 unit/L (01/30/2012 18:25:00) Alk Phos [39-136 unit/L] 70 unit/L (01/30/2012 18:25:00) Bili Total [0.2-1.3 mg/dL] 0.2 mg/dL (01/30/2012 18:25:00) Bili Direct [0.0-0.3 mg/dL] 0.1 mg/dL (01/30/2012 18:25:00) Bili Indirect [0.0-1.0 mg/dL] 0.1 mg/dL (01/30/2012 18:25:00) tTG IgG <1 unit/mL 3 *NA* (01/30/2012 18:25:00) tTG IgA <1 unit/mL 4 *NA* (01/30/2012 18:25:00) 2Interpretive Data: Adult reference range values reflect the clinical guidelines of the [place] [employer]. 3Result Comment: <6 No Antibody Detected > OR = 6 Antibody Detected Test Performed at: [facility] [address] [id number] Don Davis MD, PhD 4Result Comment: <4 No Antibody Detected > OR = 4 Antibody Detected Test Performed at: [facility] [address] [phone] Don Davis MD, PhD HEMATOLOGY Most recent to oldest [Reference Range]: 1 WBC [3.7-10.4 K/CMM] 7.0 K/CMM (01/30/2012 18:25:00) RBC [4.20-5.40 M/CMM] 3.86 M/CMM *LOW* (01/30/2012:25:00) Hgb [12.0-16.0 g/dL] 12.1 g/dL (01/30/2012 18:25:00) Hct [36.0-48.0 %] 35.9 % *LOW* (01/30/2012 18:25:00) MCV [81.0-99.0 fL] 93.0 fL (01/30/2012 18:25:00) MCH [27.0-31.0 pg] 31.4 pg *HI* (01/30/2012 18:25:00) MCHC [32.0-36.0 g/dL] 33.8 g/dL (01/30/2012 18:25:00) RDW [11.5-14.5 %] 13.5 % (01/30/2012 18:25:00) Platelet [133-450 K/CMM] 308 K/CMM (01/30/2012 18:25:00) MPV [7.4-10.4 fL] 7.2 fL *LOW* (01/30/2012 18:25:00) Segs [45.0-75.0 %] 43.1 % *LOW* (01/30/2012 18:25:00) Lymphocytes [20.0-40.0 %] 35.0 % (01/30/2012 18:25:00) Monocytes [2.0-12.0 %] 11.4 % (01/30/2012 18:25:00) Eosinophils [0.0-4.0 %] 9.7 % *HI* (01/30/2012 18:25:00) Basophils [0.0-1.0 %] 0.8 % (01/30/2012 18:25:00) Segs-Bands # [1.5-8.1 K/CMM] 3.0 K/CMM (01/30/2012 18:25:00) Lymphocytes # [1.0-5.5 K/CMM] 2.5 K/CMM (01/30/2012 18:25:00) Monocytes # [0.0-0.8 K/CMM] 0.8 K/CMM (01/30/2012 18:25:00) Eosinophils # [0.0-0.5 K/CMM] 0.7 K/CMM *HI* (01/30/2012 18:25:00) Basophils # [0.0-0.2 K/CMM] 0.1 K/CMM (01/30/2012 18:25:00) IMMUNOLOGY Most recent to oldest [Reference Range]: 1 IgA Lvl [81-463 mg/dL] 189 mg/dL 5 *NA* (01/30/2012 18:25:00) Gliadin (Deamidated Peptide)IgG Ab [<20 Units] 2 Units 6 *NA* (01/30/2012 18:25:00) Gliadin (Deamidated Peptide)IgA Ab [<20 Units] 4 Units 7 *NA* (01/30/2012 18:25:00) Endomysial IgA [NEGATIVE] NEGATIVE 8 *NA* (01/30/2012 18:25:00) 5Result Comment: Test Performed at: [facility] [address] [phone] Don Davis MD, PhD 6Result Comment: Reference Ranges for Gliadin (Deamidated Peptide) Antibody (IgG): <20 units Antibody Not Detected > or = 20 units Antibody Detected Test Performed at: [facility] [address] [id number] Don Davis MD, PhD 7Result Comment: Reference Ranges for Gliadin (Deamidated Peptide) Antibody (IgA): <20 units Antibody Not Detected > or = 20 units Antibody Detected Test Performed at: [facility] [address] [phone] Don Davis MD, PhD 8Result Comment: Test Performed at: [facility] [address] [id number] Don Davis MD, PhD
--- OUTSIDE RECORDS SUMMARY | 2019-12-20 02:44 | XMS REPORT | Summary of Care ---
Author Author [facility] Organization [facility] Address Unknown Phone Unavailable Care Team Providers Care Hides Soaker Name Role Phone Lucina Guerin PCP Encounter HQ Eve_jeniffer([facility]) [phone] Date(s): 11/08/19 - 11/09/[address] [address]- Encounter Diagnosis Suicidal ideation (Discharge Diagnosis) - 11/08/19 Hematoma of scalp (Discharge Diagnosis) - 11/08/19 Discharge Disposition: Home or Self Care Attending Physician: Aldair Dye MD Vital Signs 1 2 3 Most recent to oldest [Reference Range]: 172.72 cm (11/08/19 11:29 PM) Height 98.6 DegF (11/09/19 10:05 PM) 99.2 DegF *HI* (11/09/19 4:00 PM) 98.5 DegF (11/09/19 1:30 PM) Temperature Oral [96.4-99.1 DegF] 128/65 mmHg (11/09/19 10:51 PM) 122/78 mmHg (11/09/19 10:05 PM) 136/80 mmHg (11/09/19 8:17 PM) Blood Pressure [90-140/60-90 mmHg] 18 BRMIN (11/09/19 10:51 PM) 20 BRMIN (11/09/19 10:05 PM) 20 BRMIN (11/09/19 8:17 PM) Respiratory Rate [14-20 BRMIN] 93 bpm (11/09/19 4:00 PM) 111 bpm *HI* (11/09/19 1:30 PM) 93 bpm (11/09/19 6:18 AM) Peripheral Pulse Rate [60-100 bpm] 67.273 kg (11/08/19 11:29 PM) Weight 22.55 m2 (11/08/19 11:29 PM) Body Mass Index Problem List Condition [...] syndrome(Confirmed) Allergies, Adverse Reactions, Alerts No Known Medication Allergies Substance Reaction Severity Status NKFA Active Medications Ativan 1 mg, 0.5 mL, Route: IVP, Drug form: INJ, ONCE, Dosing Weight 67.273, kg, Priori ty: STAT, Start date: 11/09/19 20:51:00 CDT, Stop date: 11/09/19 20:51:00 CDT, 0 Notes: (Same as: Ativan) Start Date: 11/09/19 Stop Date: 11/09/19 Status: Ordered droperidol 2.5 mg, Route: IV, ONCE, Dosing Weight 67.273, kg, Start date: 11/09/19 18:28:00 CDT, Stop date: 11/09/19 18:28:00 CDT Start Date: 11/09/19 Stop Date: 11/09/19 Status: Completed droperidol 2.5 mg, 1 mL, Route: IV, Drug form: INJ, Q30Min, Dosing Weight 67.273, kg, PRN A gitation, Start date: 11/09/19 18:28:00 CDT, Stop date: 11/09/19 20:00:00 CDT, 0 Notes: (Same as: Inapsine) Start Date: 11/09/19 Stop Date: 11/09/19 Status: Completed Geodon 20 mg, Route: IM, Drug form: PDR/INJ, ONCE, Dosing Weight 67.273, kg, Priority: STAT, Start date: 11/09/19 7:29:00 CDT, Stop date: 11/09/19 7:29:00 CDT, 0 Notes: Reconstitute with 1.2 ml of sterile water. Final concentration = 20 mg/1 ml. Maximum 40 mg/24 hours (Same As: Geodon).Hazardous Drug Group 3:Rep roductive risk Hazardous Drug -- Refer to safe handling procedure PPE Matrix * MEDICATION WASTE Product Size: 20 mgProduct Wasted: ___ mg Start Date: 11/09/19 Stop Date: 11/09/19 Status: Discontinued Geodon 20 mg, Route: IM, ONCE, Dosing Weight 67.273, kg, Priority: STAT, Start date: 19:18:00 CDT, Stop date: 11/09/19 19:18:00 CDT Start Date: 11/09/19 Stop Date: 11/09/19 Status: Completed Geodon 20 mg, Route: IM, Drug form: PDR/INJ, ONCE, Dosing Weight 67.273, kg, Priority: STAT, Start date: 11/08/19 23:59:00 CDT, Stop date: 11/08/19 23:59:00 CDT, 0 Notes: Reconstitute with 1.2 ml of sterile water. Final concentration = 20 mg/1 ml. Maximum 40 mg/24 hours (Same As: Geodon).Hazardous Drug Group 3:Rep roductive risk Hazardous Drug -- Refer to safe handling procedure PPE Matrix * MEDICATION WASTE Product Size: 20 mgProduct Wasted: ___ mg Start Date: 11/08/19 Stop Date: 11/09/19 Status: Completed ketAMINE 300 mg, Route: IM, ONCE, Dosing Weight 67.273, kg, Start date: 11/09/19 18:27:00 CDT, Stop date: 11/09/19 18:27:00 CDT Start Date: 11/09/19 Stop Date: 11/09/19 Status: Completed midazolam 2 mg, Route: IVP, Q15Min, Dosing Weight 67.273, kg, PRN Agitation, Priority: STA T, Start date: 11/09/19 18:39:00 CDT, Stop date: 11/09/19 21:00:00 CDT Start Date: 11/09/19 Stop Date: 11/09/19 Status: Discontinued nicotine 21 mg, 1 patch, Route: TOP, Drug form: ERFILM, Daily, Dosing Weight 67.273, kg, Start date: 11/10/19 9:00:00 CDT, Duration: 30 day, Stop date: 12/09/19 9:00:00 CDT, 0 Notes: (Same as: Habitrol)"Remove old patch before application of new patch"WAST E: F/P - P Waste Black; E - P Waste Black Start Date: 11/10/19 Stop Date: 11/10/19 Status: Canceled Warren 5/325 oral tablet 1 tab, Route: PO, Drug Form: TAB, Dosing Weight 67.273, kg, ONCE, STAT, Start da te: 11/09/19 19:21:00 CDT, Stop date: 11/09/19 19:21:00 CDT Start Date: 11/09/19 Stop Date: 11/09/19 Status: Completed Sodium Chloride 0.9% (Bolus) IV 1,000 mL, 1000 ml/hr, Infuse Over: 1 hr, Route: IV, 1,000, Drug form: INJ, ONCE, Priority: STAT, Dosing Weight 67.273 kg, Start date: 11/08/19 23:35:00 CDT, Stop date: 11/08/19 23:35:00 CDT, 0 Start Date: 11/08/19 Stop Date: 11/09/19 Status: Completed thiamine + Sodium Chloride 0.9% IV 50 mL 100 mg, 1 mL, Route: IV, ONCE, Dosing Weight 67, kg, Priority: STAT, Start date: 11/08/19 23:35:00 CDT, Stop date: 11/08/19 23:35:00 CDT, 0 Notes: (Same As: Vitamin B1) Start Date: 11/08/19 Stop Date: 11/09/19 Status: Completed Valium 10 mg, Route: PO, Drug form: TAB, ONCE, Dosing Weight 67.273, kg, Priority: STAT , Start date: 11/09/19 8:12:00 CDT, Stop date: 11/09/19 8:12:00 CDT Start Date: 11/09/19 Stop Date: 11/09/19 Status: Completed Valium 5 mg, 1 tab, Route: PO, Drug form: TAB, ONCE, Dosing Weight 67.273, kg, Priority : STAT, Start date: 11/09/19 17:37:00 CDT, Stop date: 11/09/19 17:37:00 CDT, 0 Notes: (Same as: Valium) Start Date: 11/09/19 Stop Date: 11/09/19 Status: Completed Valium 10 mg, 2 tab, Route: PO, Drug form: TAB, ONCE, Dosing Weight 67.273, kg, Priorit y: STAT, Start date: 11/09/19 14:19:00 CDT, Stop date: 11/09/19 14:19:00 CDT, 0 Notes: (Same as: Valium) Start Date: 11/09/19 Stop Date: 11/09/19 Status: Completed Results Most recent to 1 oldest [Reference Range]: Neutrophils # 6.3 K/CMM [1.5-8.1 K/CMM] (11/09/19 12:41 AM) Lymphocytes # 1.9 K/CMM [1.0-5.5 K/CMM] (11/09/19 12:41 AM) Monocytes # [0.0-0.8 0.5 K/CMM K/CMM] (11/09/19 12:41 AM) Eosinophils # 0.1 K/CMM [0.0-0.5 K/CMM] (11/09/19 12:41 AM) Basophils # [0.0-0.2 0.1 K/CMM K/CMM] (11/09/19 12:41 AM) eGFR 101 mL/min/1.73m2 1 *NA* (11/09/19 12:41 AM) UDS Note See Note (11/09/19 6:54 AM) A/G Ratio [0.7-1.6] 1.3 (11/09/19 12:41 AM) Acetaminoph Lvl <2 ug/ml [10-20 ug/ml] *LOW* (11/09/19 12:41 AM) Albumin Lvl [3.5-5.0 4.5 g/dL g/dL] (11/09/19 12:41 AM) Alk Phos [39-136 65 unit/L unit/L] (11/09/19 12:41 AM) ALT [0-65 unit/L] 33 unit/L (11/09/19 12:41 AM) U Amph Scr Negative [Negative] *NA* (11/09/19 6:54 AM) AGAP [10.0-20.0 9.6 mEq/L mEq/L] *LOW* (11/09/19 12:41 AM) AST [0-37 unit/L] 38 unit/L *HI* (11/09/19 12:41 AM) B/C Ratio [6-25] 8 (11/09/19 12:41 AM) U Zo Scr Negative [Negative] *NA* (11/09/19 6:54 AM) Basophils [0.0-1.0 1.3 % %] *HI* (11/09/19 12:41 AM) U Benzodiaz Scr Positive [Negative] *ABN* (11/09/19 6:54 AM) BUN [7-22 mg/dL] 6 mg/dL *LOW* (11/09/19 12:41 AM) Calcium Lvl 8.7 mg/dL [8.5-10.5 mg/dL] (11/09/19 12:41 AM) Chloride Lvl [95-109 108 mEq/L mEq/L] (11/09/19 12:41 AM) CO2 [24-32 mEq/L] 27 mEq/L (11/09/19 12:41 AM) U Cocaine Scr Negative [Negative] *NA* (11/09/19 6:54 AM) Creatinine Lvl 0.76 mg/dL [0.50-1.40 mg/dL] (11/09/19 12:41 AM) Eosinophils [0.0-4.0 0.6 % %] (11/09/19 12:41 AM) Etoh (%) .353 % 2 *CRIT* (11/09/19 12:41 AM) Ethanol Lvl 353 mg/dL 3 *CRIT* (11/09/19 12:41 AM) Globulin [2.7-4.2 3.5 g/dL g/dL] (11/09/19 12:41 AM) Glucose Lvl [70-99 79 mg/dL mg/dL] (11/09/19 12:41 AM) Hct [36.0-48.0 %] 45.7 % (11/09/19 12:41 AM) Hgb [12.0-16.0 g/dL] 15.5 g/dL (11/09/19 12:41 AM) INR [0.85-1.17] 0.96 (11/09/19 12:41 AM) Potassium Lvl 3.6 mEq/L [3.5-5.1 mEq/L] (11/09/19 12:41 AM) Lipase Lvl [73-393 54 unit/L unit/L] *LOW* (11/09/19 12:41 AM) Lymphocytes 21.8 % [20.0-40.0 %] (11/09/19 12:41 AM) Macrocyte [None 1+ Seen] *ABN* (11/09/19: AM) MCH [27.0-31.0 pg] 34.0 pg *HI* (11/09/19 12:41 AM) MCHC [32.0-36.0 34.0 g/dL g/dL] (11/09/19 12:41 AM) MCV [80.0-98.0 fL] 100.2 fL *HI* (11/09/19 12:41 AM) Monocytes [2.0-12.0 5.5 % %] (11/09/19 12:41 AM) MPV [7.4-10.4 fL] 6.7 fL *LOW* (11/09/19 12:41 AM) Sodium Lvl [135-145 141 mEq/L mEq/L] (11/09/19 12:41 AM) U Opiate Scr Negative [Negative] *NA* (11/09/19 6:54 AM) U Phencyclidine Scr Negative [Negative] *NA* (11/09/19 6:54 AM) Platelet [133-450 383 K/CMM K/CMM] (11/09/19 12:41 AM) Segs [45.0-75.0 %] 70.8 % (11/09/19 12:41 AM) Total Protein 8.0 g/dL [6.4-8.4 g/dL] (11/09/19 12:41 AM) PT [12.0-14.7 12.8 seconds seconds] (11/09/19 12:41 AM) PTT [22.9-35.8 25.8 seconds seconds] (11/09/19 12:41 AM) RBC [4.20-5.40 4.56 M/CMM M/CMM] (11/09/19 12:41 AM) RDW [11.5-14.5 %] 14.0 % (11/09/19 12:41 AM) S Preg [Negative] Negative *NA* (11/09/19 12:41 AM) Salicylate Lvl 2.7 mg/dL [0.0-30.0 mg/dL] (11/09/19 12:41 AM) Bili Total [0.2-1.3 0.4 mg/dL mg/dL] (11/09/19 12:41 AM) U Cannab Scr Negative [Negative] *NA* (11/09/19 6:54 AM) UA Bacteria [None Many /HPF Seen /HPF] *ABN* (11/09/19 6:54 AM) UA Bili [Negative] Negative *NA* (11/09/19 6:54 AM) UA Blood [Negative] Small *ABN* (11/09/19 6:54 AM) UA Color Straw *NA* (11/09/19 6:54 AM) UA Glucose [Negative Negative mg/dL mg/dL] *NA* (11/09/19 6:54 AM) UA Ketones [Negative Negative mg/dL mg/dL] *NA* (11/09/19 6:54 AM) UA Leuk Est Negative [Negative] (11/09/19 6:54 AM) UA Mucus [None Seen Few /LPF /LPF] *NA* (11/09/19 6:54 AM) UA Nitrite Negative [Negative] (11/09/19 6:54 AM) UA pH [5.0-8.0] 6.0 (11/09/19 6:54 AM) UA Protein [Negative Negative mg/dL mg/dL] (11/09/19 6:54 AM) UA RBC [0-2 /HPF] 3 /HPF *HI* (11/09/19 6:54 AM) UA Spec Grav 1.005 [<=1.030] (11/09/19 6:54 AM) UA Sq Epi [Few /LPF] Occasional /LPF *NA* (11/09/19 6:54 AM) UA Turbidity [Clear] Clear (11/09/19 6:54 AM) UA Urobilinogen <=1.0 mg/dL [0.1-1.0 mg/dL] *NA* (11/09/19 6:54 AM) UA WBC [0-5 /HPF] 1 /HPF (11/09/19 6:54 AM) WBC [3.7-10.4 K/CMM] 8.9 K/CMM (11/09/19 12:41 AM) 1Result Comment: The eGFR is calculated [...] BMI. 2Result Comment: Critical Result(s) called to Laverne Chen at 11/09/2019 01:14 by [facility]. Read back OK. 3Result Comment: Critical Result(s) called to Laverne Chen at 11/09/2019 01:14 by s. Read back OK. Immunizations Given and Recorded Vaccine Date Status Refusal Reason diphtheria/pertussis, acel/tetanus adult 11/09/19 Given influenza virus vaccine, inactivated 03/29/19 G iven Procedures Procedure Date Related Diagnosis Body Site Status Laminectomy Completed Social History Social History Type Response Alcohol Past, Type Wine, Liquor. F requency: Daily. Household alcohol concerns: No.1 Employment/School Status: Employed. 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 Exercise Exercise frequency: 5-6 karen es/week. Self assessment: Excellent condition. Sexual Sexually active: Yes. Substance Abuse Use: None. Cessation Educa tion Provided: No. Smoking Status Former smoker; Type: Cigare ttes; Exposure to Tobacco Smoke None; Cigarette Smoking Last 365 Days No; Reg Smoking C essation Counseling No entered on: 11/09/19 1Pt stopped 06/28/2019 Assessment and Plan No data available for this section
--- OUTSIDE RECORDS SUMMARY | 2019-12-20 02:44 | XMS REPORT | Summary of Care ---
Author Author SHER Figueroa [facility] Organization [facility] Address Unknown Phone Unavailable Encounter DENNIS Acosta(LINDA) [id number] Date(s): 06/19/19 - 06/19/19 SHER Figueroa [place] [address] [place] [address] [phone] Attending Physician: Triston Benavidez DO Referring Physician: Rudy Mccrary MD Vital Signs No data available for this section Problem List Condition Effective Dates Status Health Status Informan t Anxiety(Confirmed) Resolved CD (Crohn's Resolved disease)(Confirmed) Crohn's Active disease(Confirmed) Diarrhea(Confirmed) Active Nausea(Confirmed) Active Nephrotic Resolved syndrome(Confirmed) Pain(Confirmed) Active Sandeep Parkinson Resolved White syndrome(Confirmed) Allergies, Adverse Reactions, Alerts Substance Reaction Severity Status promethazine Active Medications No data available for this section Results No data available for this section Immunizations Given and Recorded Vaccine Date Status Refusal Reason influenza virus vaccine, inactivated 03/29/19 G iven Procedures No data available for this section Social History Social History Type Response Alcohol Current, Type Wine, Liquor. Frequency: Daily. Employment/School Status: Employed. 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 Exercise Exercise frequency: 5-6 karen es/week. Self assessment: Excellent condition. Sexual Sexually active: Yes. Substance Abuse Use: None. Smoking Status Current some day smoker; Ty pe: Cigarettes; Exposure to Tobacco Smoke None; Cigarette Smoking Last 365 Days No; Reg Smoking Cessation Counseling No entered on: 06/12/19 Assessment and Plan No data available for this section
--- OUTSIDE RECORDS SUMMARY | 2019-12-20 02:44 | XMS REPORT | CCD ---
Author Author Auto DAWSON Schmit[facility] Organization [facility] Address Unknown Phone Unavailable Care Team Providers Care Route Specialist Name Role Phone Vee Gaitan CP Allergies, Adverse Reactions, Alerts Substance Reaction Status Phenergan severe arm redness Active Problem List Condition Effective Dates Status Crohn's disease Active Diarrhea Active Nausea Active Pain Active Medications Medication Instructions Start Date End Date Status Dilaudid 1 mg, Route: IV, ONCE, Dosing 12/31/2011 2 Completed Weight 70.455, kg, Start date: 12/31/11 2:08:00, Stop date: 12/31/11 2:08:00 Alexander 5/325 oral 1 tab, PO, Q4H, PRN, 10 tab, for 12/31/2011 Ordered tablet pain, Substitution Allowed, Soft Stop, TAB Dilaudid 1 mg, 0.5 mL, Route: IV, Drug form: 12/30/2011 Completed INJ, ONCE, kg, Start date: 12/30/11 22:42:00, Stop date: 12/30/11 22:42:00 Zofran 8 mg, 4 mL, Route: IVP, Drug form: 12/30/201112/13 Completed INJ, ONCE, kg, Priority: STAT, Start date: 12/30/11 22:41:00, Stop date: 12/30/11 22:41:00 Sodium Chloride 0.9% 1,000 mL, Rate: 1,000 ml/hr, Infuse 12/1312/30/2011 Completed (Bolus) IV 1,000 mL over: 1 hr, Route: IV, Dosi ng Weight 70.455 kg, Total Volume: 1,000, Bolus Dose, Priority: STAT, Start date: 12/30/11 22:41:00, Duration: 1 doses or times, Stop date: 12/30/11 23:40:00 Zofran 4 mg, 2 mL, Route: IVP, Drug form: 12/31/201112/13 Completed INJ, ONCE, kg, Priority: STAT, Start date: 12/31/11 0:08:00, Stop date: 12/31/11 0:08:00 Dilaudid 1 mg, 0.5 mL, Route: IV, Drug form: 12/31/2011 Completed INJ, ONCE, kg, Start date: 12/31/11 0:07:00, Stop date: 12/31/11 0:07:00 Vital Signs Most recent to oldest [Reference Range]: 1 Height 172.72 cm (12/30/2011 21:40:00) Weight 70.455 kg (12/30/2011 21:40:00) Results URINALYSIS Most recent to oldest [Reference Range]: 1 UA Turbidity [Clear] Slight Cloudy (12/30/2011 22:42:00) UA Color [Yellow] Yellow *NA* (12/30/2011 22:42:00) UA pH [5.0-8.0] 7.5 (12/30/2011 22:42:00) UA Spec Grav [<=1.030] 1.015 (12/30/2011 22:42:00) UA Glucose [Negative] Negative (12/30/2011 22:42:00) UA Blood [Negative] Trace *ABN* (12/30/2011 22:42:00) UA Ketones [Negative] Negative *NA* (12/30/2011 22:42:00) UA Protein [Negative] Negative (12/30/2011 22:42:00) UA Urobilinogen [0.1-1.0 EU/dL] 0.2 EU/dL (12/30/2011 22:42:00) UA Bili [Negative] Negative *NA* (12/30/2011 22:42:00) UA Leuk Est [Negative] Trace *ABN* (12/30/2011 22:42:00) UA Nitrite [Negative] Negative (12/30/2011 22:42:00) UA WBC [None Seen /HPF] 3-5 /HPF (12/30/2011 22:42:00) UA RBC [0-2 /HPF] 3-5 /HPF *ABN* (12/30/2011 22:42:00) UA Bacteria [None Seen /HPF] Moderate /HPF (12/30/2011 22:42:00) UA Sq Epi [Few /LPF] Few /LPF (12/30/2011 22:42:00) UA Mucus [None Seen /LPF] Few /LPF (12/30/2011 22:42:00) Micro? Performed (12/30/2011 22:42:00) CHEMISTRY Most recent to oldest [Reference Range]: 1 Sodium Lvl [135-145 mEq/L] 139 mEq/L (12/30/2011 22:45:00) Potassium Lvl [3.5-5.1 mEq/L] 4.6 mEq/L (12/30/2011 22:45:00) Chloride Lvl [95-109 mEq/L] 105 mEq/L (12/30/2011 22:45:00) CO2 [24-32 mEq/L] 26 mEq/L (12/30/2011 22:45:00) AGAP [10.0-20.0 mEq/L] 12.6 mEq/L (12/30/2011 22:45:00) Creatinine Lvl [0.5-1.4 mg/dL] 0.8 mg/dL (12/30/2011 22:45:00) BUN [7-22 mg/dL] 8 mg/dL (12/30/2011 22:45:00) B/C Ratio [6-25] 10 (12/30/2011 22:45:00) Glucose Lvl [70-99 mg/dL] 91 mg/dL 1 (12/30/2011 22:45:00) Total Protein [6.4-8.4 g/dL] 7.4 g/dL (12/30/2011 22:45:00) Albumin Lvl [3.5-5.0 g/dL] 4.0 g/dL (12/30/2011 22:45:00) Globulin [2.0-4.0 g/dL] 3.4 g/dL (12/30/2011 22:45:00) A/G Ratio [0.7-1.6] 1.2 (12/30/2011 22:45:00) Calcium Lvl [8.5-10.5 mg/dL] 9.4 mg/dL (12/30/2011 22:45:00) ALT [0-65 unit/L] 45 unit/L (12/30/2011 22:45:00) AST [0-37 unit/L] 19 unit/L (12/30/2011 22:45:00) Alk Phos [39-136 unit/L] 73 unit/L (12/30/2011 22:45:00) Bili Total [0.2-1.3 mg/dL] 0.3 mg/dL (12/30/2011 22:45:00) Lipase Lvl [73-393 unit/L] 168 unit/L (12/30/2011 22:45:00) U Preg [Negative] Negative (12/30/2011 22:42:00) 1Interpretive Data: Adult reference range values reflect the clinical guidelines of the [place] [employer]. HEMATOLOGY Most recent to oldest [Reference Range]: 1 WBC [3.7-10.4 K/CMM] 9.5 K/CMM (12/30/2011 22:45:00) RBC [4.20-5.40 M/CMM] 4.68 M/CMM (12/30/2011 22:45:00) Hgb [12.0-16.0 g/dL] 14.5 g/dL (12/30/2011 22:45:00) Hct [36.0-48.0 %] 43.0 % (12/30/2011 22:45:00) MCV [81.0-99.0 fL] 91.8 fL (12/30/2011 22:45:00) MCH [27.0-31.0 pg] 30.9 pg (12/30/2011 22:45:00) MCHC [32.0-36.0 g/dL] 33.7 g/dL (12/30/2011 22:45:00) RDW [11.5-14.5 %] 12.8 % (12/30/2011 22:45:00) Platelet [133-450 K/CMM] 363 K/CMM (12/30/2011 22:45:00) MPV [7.4-10.4 fL] 7.4 fL (12/30/2011 22:45:00) Segs [45.0-75.0 %] 61.2 % (12/30/2011 22:45:00) Lymphocytes [20.0-40.0 %] 20.2 % (12/30/2011 22:45:00) Monocytes [2.0-12.0 %] 12.1 % *HI* (12/30/2011 22:45:00) Eosinophils [0.0-4.0 %] 6.1 % *HI* (12/30/2011 22:45:00) Basophils [0.0-1.0 %] 0.4 % (12/30/2011 22:45:00) Segs-Bands # [1.5-8.1 K/CMM] 5.9 K/CMM (12/30/2011 22:45:00) Lymphocytes # [1.0-5.5 K/CMM] 1.9 K/CMM (12/30/2011 22:45:00) Monocytes # [0.0-0.8 K/CMM] 1.1 K/CMM *HI* (12/30/2011 22:45:00) Eosinophils # [0.0-0.5 K/CMM] 0.6 K/CMM *HI* (12/30/2011 22:45:00) Basophils # [0.0-0.2 K/CMM] 0.0 K/CMM (12/30/2011 22:45:00)
--- OUTSIDE RECORDS SUMMARY | 2019-12-20 02:44 | XMS REPORT | Summary of Care ---
Author Organization Unknown Address Unknown Phone Unavailable Encounter DENNIS Acosta(LINDA) [id number] Date(s): 02/19/14 - 02/20/14 [facility] [address] [address]- [facility] Discharge Diagnosis: Abdominal pain Discharge Diagnosis: Diarrhea Discharge Disposition: Home Physician Attending: Christie Mendoza DO Reason for Visit SENT BY DR MORGAN FOR POSS BLOCKAGE Vital Signs Most recent to 1 2 oldest [Reference Range]: Height 172.72 cm (02/19/14 9:52 PM) Temperature Oral 98.9 DegF [96.4-99.1 DegF] (02/19/14 9:52 PM) Systolic Blood 131 mmHg 134 mmHg Pressure [90-140 (02/20/14 3:20 AM) (02/19/14 9:52 PM) mmHg] Diastolic Blood 88 mmHg 93 mmHg Pressure [60-90 (02/20/14 3:20 AM) *HI* mmHg] (02/19/14 9:52 PM) Respiratory Rate 15 BRMIN 16 BRMIN [14-20 BRMIN] (02/20/14 3:20 AM) (02/19/14 9:52 PM) Peripheral Pulse 89 bpm Rate [60-100 bpm] (02/19/14 9:52 PM) Weight 70.455 kg (02/19/14 9:52 PM) Body Mass Index 23.62 m2 (02/19/14 9:52 PM) Problem List Condition Effective Dates Status Health Status Informan t Anxiety(Confirmed) Resolved CD (Crohn's Resolved disease)(Confirmed) Crohn's Active disease(Confirmed) Diarrhea(Confirmed) Active Nausea(Confirmed) Active Nephrotic Resolved syndrome(Confirmed) Pain(Confirmed) Active Sandeep Parkinson Resolved White syndrome(Confirmed) Allergies, Adverse Reactions, Alerts Substance Reaction Severity Status NKDA Active Medications acetaminophen-hydrocodone 325 mg-5 mg oral tablet 2 tab, Route: PO, Drug Form: TAB, Dosing Weight 70.455, kg, ONCE, STAT, Start da te: 02/20/14 2:54:00, Stop date: 02/20/14 2:54:00 Notes: (Same as: [place] 325/5) Do not exceed 4gm/day of acetaminophen. Start Date: 02/20/14 Stop Date: 02/20/14 Status: Completed morphine Sulfate 4 mg, 1 mL, Route: IVP, Drug form: INJ, ONCE, Dosing Weight 70.455, kg, Priority : STAT, Start date: 02/20/14 0:07:00, Stop date: 02/20/14 0:07:00 Notes: (Same as:MORPhine Sulfate) Start Date: 02/20/14 Stop Date: 02/20/14 Status: Completed ondansetron 4 mg, 2 mL, Route: IVP, Drug form: INJ, ONCE, Dosing Weight 70.455, kg, Priority : STAT, Start date: 02/20/14 0:07:00, Stop date: 02/20/14 0:07:00 Notes: (Same as: Zofran) Start Date: 02/20/14 Stop Date: 02/20/14 Status: Completed Saline Flush 0.9% 10 mL, Route: IVP, Drug Form: INJ, Dosing Weight 70.455, kg, PRN, PRN Line Flush , Start date: 02/20/14 0:07:00, Duration: 30 day, Stop date: 03/21/14 23:06:00 Notes: Same as: BD Posiflush Sterile Start Date: 02/20/14 Stop Date: 02/20/14 Status: Discontinued Sodium Chloride 0.9% (Bolus) IV 1,000 mL, 1000 ml/hr, Infuse Over: 1 hr, Route: IV, 1,000, Drug form: INJ, ONCE, Priority: STAT, Dosing Weight 70.455 kg, Start date: 02/20/14 0:07:00, Duration: 1 doses or times, Stop date: 02/20/14 0:07:00 Start Date: 02/20/14 Stop Date: 02/20/14 Status: Completed Results ELECTROLYTES Most recent to 1 oldest [Reference Range]: Sodium Lvl [135-145 140 mEq/L mEq/L] (02/20/14 1:07 AM) Potassium Lvl 3.8 mEq/L [3.5-5.1 mEq/L] (02/20/14 1:07 AM) Chloride Lvl [95-109 104 mEq/L mEq/L] (02/20/14 1:07 AM) CO2 [24-32 mEq/L] 29 mEq/L (02/20/14 1:07 AM) AGAP [10.0-20.0 10.8 mEq/L mEq/L] (02/20/14 1:07 AM) CHEM PANEL Most recent to 1 oldest [Reference Range]: Creatinine Lvl 1.0 mg/dL [0.5-1.4 mg/dL] (02/20/14 1:07 AM) eGFR 76 mL/min/1.73m2 1 *NA* (02/20/14 1:07 AM) BUN [7-22 mg/dL] 9 mg/dL (02/20/14 1:07 AM) B/C Ratio [6-25] 9 (02/20/14 1:07 AM) Glucose Lvl [70-99 79 mg/dL 2 mg/dL] (02/20/14 1:07 AM) Total Protein 8.0 g/dL [6.4-8.4 g/dL] (02/20/14 1:07 AM) Albumin Lvl [3.5-5.0 4.2 g/dL g/dL] (02/20/14 1:07 AM) Globulin [2.0-4.0 3.8 g/dL g/dL] (02/20/14 1:07 AM) A/G Ratio [0.7-1.6] 1.1 (02/20/14 1:07 AM) Calcium Lvl 9.6 mg/dL [8.5-10.5 mg/dL] (02/20/14 1:07 AM) ALT [0-65 unit/L] 21 unit/L (02/20/14 1:07 AM) AST [0-37 unit/L] 23 unit/L (02/20/14 1:07 AM) Alk Phos [39-136 42 unit/L unit/L] (02/20/14 1:07 AM) Bili Total [0.2-1.3 0.3 mg/dL mg/dL] (02/20/14 1:07 AM) Lipase Lvl [73-393 88 unit/L unit/L] (02/20/14 1:07 AM) 1Result Comment: The eGFR is calculated [...] be mul tiplied by the estimated BMI. 2Interpretive Data: Adult reference range values reflect the clinical guidelines of the [place] [employer]. URINE CHEM Most recent to 1 oldest [Reference Range]: U Preg [Negative] Negative (02/20/14 1:11 AM) URINE AND STOOL Most recent to 1 oldest [Reference Range]: UA Turbidity [Clear] Clear (02/20/14 1:11 AM) UA Color [Yellow] Yellow *NA* (02/20/14 1:11 AM) UA pH [5.0-8.0] 7.0 (02/20/14 1:11 AM) UA Spec Grav 1.011 [<=1.030] (02/20/14 1:11 AM) UA Glucose [Negative Negative mg/dL mg/dL] *NA* (02/20/14 1:11 AM) UA Blood [Negative] Small *ABN* (02/20/14 1:11 AM) UA Ketones [Negative Negative mg/dL mg/dL] *NA* (02/20/14 1:11 AM) UA Protein [Negative Negative mg/dL mg/dL] (02/20/14 1:11 AM) UA Urobilinogen <=1.0 mg/dL [0.1-1.0 mg/dL] *NA* (02/20/14 1:11 AM) UA Bili [Negative] Negative *NA* (02/20/14 1:11 AM) UA Leuk Est Negative [Negative] (02/20/14 1:11 AM) UA Nitrite Negative [Negative] (02/20/14 1:11 AM) UA WBC [0-5 /HPF] 1 /HPF (02/20/14 1:11 AM) UA RBC [0-2 /HPF] 7 /HPF *HI* (02/20/14 1:11 AM) UA Sq Epi [Few /LPF] Occasional /LPF *NA* (02/20/14 1:11 AM) IMMUNOLOGY Most recent to 1 oldest [Reference Range]: CDC HIV 4th GEN Negative [Negative] (02/20/14 1:07 AM) HEMATOLOGY Most recent to 1 oldest [Reference Range]: WBC [3.7-10.4 K/CMM] 7.3 K/CMM (02/20/14 1:07 AM) RBC [4.20-5.40 4.09 M/CMM M/CMM] *LOW* (02/20/14 1:07 AM) Hgb [12.0-16.0 g/dL] 13.1 g/dL (02/20/14 1:07 AM) Hct [36.0-48.0 %] 39.3 % (02/20/14 1:07 AM) MCV [80.0-98.0 fL] 96.1 fL (02/20/14 1:07 AM) MCH [27.0-31.0 pg] 32.1 pg *HI* (02/20/14 1:07 AM) MCHC [32.0-36.0 33.4 g/dL g/dL] (02/20/14 1:07 AM) RDW [11.5-14.5 %] 13.8 % (02/20/14 1:07 AM) Platelet [133-450 358 K/CMM K/CMM] (02/20/14 1:07 AM) MPV [7.4-10.4 fL] 7.7 fL (02/20/14 1:07 AM) Segs [45.0-75.0 %] 52.9 % (02/20/14 1:07 AM) Lymphocytes 34.0 % [20.0-40.0 %] (02/20/14 1:07 AM) Monocytes [2.0-12.0 11.2 % %] (02/20/14 1:07 AM) Eosinophils [0.0-4.0 1.3 % %] (02/20/14 1:07 AM) Basophils [0.0-1.0 0.6 % %] (02/20/14 1:07 AM) Segs-Bands # 3.9 K/CMM [1.5-8.1 K/CMM] (02/20/14 1:07 AM) Lymphocytes # 2.5 K/CMM [1.0-5.5 K/CMM] (02/20/14 1:07 AM) Monocytes # [0.0-0.8 0.8 K/CMM K/CMM] (02/20/14 1:07 AM) Eosinophils # 0.1 K/CMM [0.0-0.5 K/CMM] (02/20/14 1:07 AM) Basophils # [0.0-0.2 0.0 K/CMM K/CMM] (02/20/14 1:07 AM) Medications Administered During Your Visit No data available for this section Immunizations No data available for this section Social History Social History Type Response Substance Abuse Use: None Alcohol Use: Current, Type: Liquor, Frequency: 1-2 times per month Smoking Status Never smoker, Exposure to T obacco Smoke None, Cigarette Smoking Last 365 Days No, Reg Smoking Cessation Counseli ng No
--- OUTSIDE RECORDS SUMMARY | 2019-12-20 02:44 | XMS REPORT | Summary of Care ---
Author Author [facility] Organization [facility] Address Unknown Phone Unavailable Encounter DENNIS Acosta(FIN) [id number] Date(s): 12/01/19 - 12/03/[address] [address]- Encounter Diagnosis Acute alcohol intoxication (Discharge Diagnosis) - 12/02/19 Suicidal ideation (Discharge Diagnosis) - 12/02/19 Discharge Disposition: Left Against Medical Advise Attending Physician: Ashwin Spence MD Admitting Physician: Ashwin Spence MD Vital Signs 1 2 3 Most recent to oldest [Reference Range]: 98.9 DegF (12/02/19 9:26 AM) Temperature Oral [96.4-99.1 DegF] 141/91 mmHg *HI* (12/03/19 8:52 AM) 146/96 mmHg *HI* (12/03/19 7:15 AM) 161/97 mmHg *HI* (12/02/19 10:45 PM) Blood Pressure [90-140/60-90 mmHg] 16 BRMIN (12/03/19 8:52 AM) 20 BRMIN (12/03/19 7:15 AM) 18 BRMIN (12/02/19 11:38 PM) Respiratory Rate [14-20 BRMIN] 108 bpm *HI* (12/02/19 1:43 PM) 106 bpm *HI* (12/01/19 10:56 PM) Peripheral Pulse Rate [60-100 bpm] 63.636 kg (12/01/19 10:56 PM) Weight Problem List Condition Effective Dates Status Health [...] Substance Reaction Severity Status NKFA Active Medications acetaminophen 650 mg, 2 tab, Route: PO, Drug form: TAB, Q4H, Dosing Weight 63.636, kg, PRN Florinda n 1-3/Temp > 100.4 F, Start date: 12/02/19 16:05:00 CDT, Duration: 30 day, Stop date: 01/01/20 16:04:00 CDT, 0 Notes: Do not exceed 4 gm/day. (Same as: Tylenol) Start Date: 12/02/19 Stop Date: 12/03/19 Status: Discontinued Ativan 1 mg, 0.5 mL, Route: IVP, Drug form: INJ, Q2H, Dosing Weight 63.636, kg, PRN Dali adams, Start date: 12/02/19 16:09:00 CDT, Duration: 30 day, Stop date: 01/01/20 1 6:08:00 CDT, 0 Notes: (Same as: Ativan) Start Date: 12/02/19 Stop Date: 12/03/19 Status: Discontinued chlordiazePOXIDE(Librium) 50 mg, 2 cap, Route: PO, Drug form: CAP, Q6H, Dosing Weight 63.636, kg, Start da te: 12/02/19 18:00:00 CDT, Duration: 24 hr, Stop date: 12/03/19 12:00:00 CDT, 0 Start Date: 12/02/19 Stop Date: 12/03/19 Status: Discontinued chlordiazePOXIDE(Librium) 50 mg, 2 cap, Route: PO, Drug form: CAP, Q8H, Dosing Weight 63.636, kg, Start da te: 12/04/19 0:00:00 CDT, Duration: 24 hr, Stop date: 12/04/19 16:00:00 CDT, 0 Start Date: 12/04/19 Stop Date: 12/03/19 Status: Canceled chlordiazePOXIDE(Librium) 50 mg, 2 cap, Route: PO, Drug form: CAP, Q12H, Dosing Weight 63.636, kg, Start d ate: 12/04/19 21:00:00 CDT, Duration: 24 hr, Stop date: 12/05/19 9:00:00 CDT, 0 Start Date: 12/04/19 Stop Date: 12/03/19 Status: Canceled Dextrose 50% Syringe (D50W) 12.5 gm, 25 mL, Route: IVP, Drug Form: INJ, Dosing Weight 63.636, kg, PRN, PRN B lood Glucose Results, Start date: 12/02/19 16:05:00 CDT, Duration: 30 day, Stop date: 01/01/20 16:04:00 CDT, 0 Start Date: 12/02/19 Stop Date: 12/03/19 Status: Discontinued Dextrose 50% Syringe (D50W) 25 gm, 50 mL, Route: IVP, Drug Form: INJ, Dosing Weight 63.636, kg, PRN, PRN Blo od Glucose Results, Start date: 12/02/19 16:05:00 CDT, Duration: 30 day, Stop da te: 01/01/20 16:04:00 CDT, 0 Start Date: 12/02/19 Stop Date: 12/03/19 Status: Discontinued folic acid 1 mg, Route: IV, ONCE, Dosing Weight 63.636, kg, Start date: 12/02/19 15:04:00 C DT, Stop date: 12/02/19 15:04:00 CDT Start Date: 12/02/19 Stop Date: 12/02/19 Status: Deleted folic acid 1 mg, 1 tab, Route: PO, Drug form: TAB, Daily, Dosing Weight 63.636, kg, Start d ate: 12/03/19 9:00:00 CDT, Duration: 5 day, Stop date: 12/07/19 9:00:00 CDT, 0 Notes: (Same as: Folvite) Start Date: 12/03/19 Stop Date: 12/03/19 Status: Discontinued folic acid + Sodium Chloride 0.9% IV 100 mL 1 mg, 0.2 mL, Route: IV, Drug form: INJ, ONCE, Start date: 12/02/19 15:47:00 CDT , Stop date: 12/02/19 15:47:00 CDT, 0 Notes: (Same as: Folvite) Start Date: 12/02/19 Stop Date: 12/02/19 Status: Completed Geodon 20 mg, Route: IM, ONCE, Dosing Weight 63.636, kg, Priority: STAT, Start date: 1:44:00 CDT, Stop date: 12/02/19 1:44:00 CDT Start Date: 12/02/19 Stop Date: 12/02/19 Status: Completed glucagon 1 mg, Route: IM, Drug form: PDR/INJ, PRN, Dosing Weight 63.636, kg, PRN Blood Gl ucose Results, Start date: 12/02/19 16:05:00 CDT, Duration: 30 day, Stop date: 0 01/01/20 16:04:00 CDT, 0 Start Date: 12/02/19 Stop Date: 12/03/19 Status: Discontinued Haldol 5 mg, Route: IM, ONCE, Dosing Weight 63.636, kg, Priority: STAT, Start date: 8:53:00 CDT, Stop date: 12/02/19 8:53:00 CDT Start Date: 12/02/19 Stop Date: 12/02/19 Status: Completed LORazepam 0.5 mg, 1 tab, Route: PO, Drug form: TAB, Q6H, Dosing Weight 63.636, kg, PRN Elizabeth tation, Start date: 12/02/19 16:09:00 CDT, Duration: 30 day, Stop date: 01/01/20 16:08:00 CDT, 0 Notes: (Same as: Ativan) Start Date: 12/02/19 Stop Date: 12/03/19 Status: Discontinued multivitamin 1 tab, Route: PO, Drug Form: TAB, Dosing Weight 63.636, kg, Daily, Start date: 0 12/03/19 9:00:00 CDT, Duration: 5 day, Stop date: 12/07/19 9:00:00 CDT, 0 Notes: (Same as:Thercrys)WASTE: F/P - Black; E - Municipal Trash Bin Take with vasquez d. Start Date: 12/03/19 Stop Date: 12/03/19 Status: Discontinued NS (Bolus) IV 1,000 mL, 1,000 ml/hr, Infuse Over: 1 hr, Route: IV, 1,000, Drug form: INJ, ONCE , Priority: STAT, Dosing Weight 63.636 kg, Start date: 12/02/19 15:04:00 CDT, St op date: 12/02/19 15:04:00 CDT, 0 Start Date: 12/02/19 Stop Date: 12/02/19 Status: Completed ondansetron 4 mg, 2 mL, Route: IVP, Drug form: INJ, Q8H, Dosing Weight 63.636, kg, PRN Nause a & Vomiting, Start date: 12/02/19 16:05:00 CDT, Duration: 30 day, Stop date: 01/01/20 16:04:00 CDT, 0 Notes: (Same as: Janee) MEDICATION WASTE Product Size: 4 mgProduct Was selena: ___ mg Start Date: 12/02/19 Stop Date: 12/03/19 Status: Discontinued Saline Flush 0.9% 10 ml, Route: IVP, Drug Form: INJ, Dosing Weight 63.636, kg, PRN, PRN Line Flush , Start date: 12/02/19 16:09:00 CDT, Duration: 30 day, Stop date: 01/01/20 16:08 :00 CDT, 0 Notes: Same as: BD Posiflush Sterile Start Date: 12/02/19 Stop Date: 12/03/19 Status: Discontinued Sodium Chloride 0.9% (Bolus) IV 1,000 mL, Infuse Over: 1 hr, Route: IV, ONCE, Priority: STAT, Dosing Weight 63.6 36 kg, Start date: 12/01/19 23:11:00 CDT, Stop date: 12/01/19 23:11:00 CDT Start Date: 12/01/19 Stop Date: 12/01/19 Status: Completed Sodium Chloride 0.9% IV 1,000 mL 1,000 mL, Rate: 125 ml/hr, Infuse over: 8 hr, Route: IV, Dosing Weight 63.636 kg , Total Volume: 1,000, Start date: 12/02/19 16:09:00 CDT, Duration: 30 day, Stop date: 01/01/20 16:08:00 CDT, 1.76, m2, 0 Start Date: 12/02/19 Stop Date: 12/03/19 Status: Discontinued Sodium Chloride 0.9% IV 1,000 mL + M.V.I.-12 10 mL Daily + folic acid IV 1 mg Da debra + thiamine IV 1 1,000 mL, Rate: 100 ml/hr, Infuse over: 10.1 hr, Route: IV, Dosing Weight 63.636 kg, Total Volume: 1,011.2, Start date: 12/02/19 16:09:00 CDT, Duration: 1 doses or times, Stop date: 12/03/19 2:14:00 CDT, 1.76, m2, 0 Start Date: 12/02/19 Stop Date: 12/02/19 Status: Completed thiamine 100 mg, Route: IV, Drug form: INJ, ONCE, Dosing Weight 63.636, kg, Priority: STA T, Start date: 12/02/19 15:03:00 CDT, Stop date: 12/02/19 15:03:00 CDT Start Date: 12/02/19 Stop Date: 12/02/19 Status: Completed thiamine 100 mg, 1 tab, Route: PO, Drug form: TAB, Daily, Dosing Weight 63.636, kg, Start date: 12/03/19 9:00:00 CDT, Duration: 5 day, Stop date: 12/07/19 9:00:00 CDT, 0 Notes: (Same As: Vitamin B1) Start Date: 12/03/19 Stop Date: 12/03/19 Status: Discontinued Valium 10 mg, 2 mL, Route: IVP, Drug form: INJ, ONCE, Dosing Weight 63.636, kg, Priorit y: STAT, Start date: 12/02/19 14:52:00 CDT, Stop date: 12/02/19 14:52:00 CDT, 0 Notes: (Same as: Valium)WASTE: F/P - Black; E - White/Blue Start Date: 12/02/19 Stop Date: 12/02/19 Status: Completed Valium 20 mg, Route: IVP, Drug form: INJ, ONCE, Dosing Weight 63.636, kg, Start date: 0 12/02/19 15:32:00 CDT, Stop date: 12/02/19 15:32:00 CDT Start Date: 12/02/19 Stop Date: 12/02/19 Status: Completed Results Most recent to 1 2 oldest [Reference Range]: Neutrophils # 6.2 K/CMM 4.2 K/CMM [1.5-8.1 K/CMM] (12/03/19 10:36 AM) (12/01/19 11:13 PM) Lymphocytes # 0.9 K/CMM 1.5 K/CMM [1.0-5.5 K/CMM] *LOW* (12/01/19 11:13 PM) (12/03/19 10:36 AM) Monocytes # [0.0-0.8 0.7 K/CMM 0.5 K/CMM K/CMM] (12/03/19 10:36 AM) (12/01/19 11:13 PM) Eosinophils # 0.1 K/CMM [0.0-0.5 K/CMM] (12/03/19 10:36 AM) Basophils # [0.0-0.2 0.1 K/CMM 0.1 K/CMM K/CMM] (12/03/19 10:36 AM) (12/01/19 11:13 PM) eGFR 119 mL/min/1.73m2 1 116 mL/min/1.73m2 2 *NA* *NA* (12/03/19 10:36 AM) (12/01/19 11:13 PM) UDS Note See Note (12/01/19 11:13 PM) A/G Ratio [0.7-1.6] 1.2 1.2 (12/03/19 10:36 AM) (12/01/19 11:13 PM) Acetaminoph Lvl <2 [10-20] (12/01/19 11:13 PM) Albumin Lvl [3.5-5.0 4.3 g/dL 4.4 g/dL g/dL] (12/03/19 10:36 AM) (12/01/19 11:13 PM) Alk Phos [39-136 76 unit/L 72 unit/L unit/L] (12/03/19 10:36 AM) (12/01/19 11:13 PM) ALT [0-65 unit/L] 72 unit/L 61 unit/L *HI* (12/01/19 11:13 PM) (12/03/19 10:36 AM) U Amph Scr Negative [Negative] *NA* (12/01/19 11:13 PM) AGAP [10.0-20.0 11.4 mEq/L 11.0 mEq/L mEq/L] (12/03/19 10:36 AM) (12/01/19 11:13 PM) AST [0-37 unit/L] 88 unit/L 54 unit/L *HI* *HI* (12/03/19 10:36 AM) (12/01/19 11:13 PM) B/C Ratio [6-25] 7 6 (12/03/19 10:36 AM) (12/01/19 11:13 PM) U Zo Scr Negative [Negative] *NA* (12/01/19 11:13 PM) Basophils [0.0-1.0 1.1 % 1.3 % %] *HI* *HI* (12/03/19 10:36 AM) (12/01/19 11:13 PM) U Benzodiaz Scr Negative [Negative] *NA* (12/01/19 11:13 PM) BUN [7-22 mg/dL] 4 mg/dL 4 mg/dL *LOW* *LOW* (12/03/19 10:36 AM) (12/01/19 11:13 PM) Calcium Lvl 9.1 mg/dL 8.4 mg/dL [8.5-10.5 mg/dL] (12/03/19 10:36 AM) *LOW* (12/01/19 11:13 PM) Total CK [12-191 297 unit/L unit/L] *HI* (12/01/19 11:13 PM) Chloride Lvl [95-109 101 mEq/L 113 mEq/L mEq/L] (12/03/19 10:36 AM) *HI* (12/01/19 11:13 PM) CO2 [24-32 mEq/L] 25 mEq/L 24 mEq/L (12/03/19 10:36 AM) (12/01/19 11:13 PM) U Cocaine Scr Negative [Negative] *NA* (12/01/19 11:13 PM) Creatinine Lvl 0.59 mg/dL 0.62 mg/dL [0.50-1.40 mg/dL] (12/03/19 10:36 AM) (12/01/19 11:13 PM) Eosinophils [0.0-4.0 0.9 % 0.7 % %] (12/03/19 10:36 AM) (12/01/19 11:13 PM) Etoh (%) .191 % .451 % 3 *NA* *CRIT* (12/02/19 8:02 AM) (12/01/19 11:13 PM) Ethanol Lvl 191 mg/dL 451 mg/dL 4 *NA* *CRIT* (12/02/19 8:02 AM) (12/01/19 11:13 PM) Globulin [2.7-4.2 3.6 g/dL 3.6 g/dL g/dL] (12/03/19 10:36 AM) (12/01/19 11:13 PM) Glucose Lvl [70-99 83 mg/dL 87 mg/dL mg/dL] (12/03/19 10:36 AM) (12/01/19 11:13 PM) Hct [36.0-48.0 %] 42.2 % 43.8 % (12/03/19 10:36 AM) (12/01/19 11:13 PM) Hgb [12.0-16.0 g/dL] 14.3 g/dL 14.9 g/dL (12/03/19 10:36 AM) (12/01/19 11:13 PM) Potassium Lvl 3.4 mEq/L 4.0 mEq/L [3.5-5.1 mEq/L] *LOW* (12/01/19 11:13 PM) (12/03/19 10:36 AM) Lymphocytes 11.9 % 23.3 % [20.0-40.0 %] *LOW* (12/01/19 11:13 PM) (12/03/19 10:36 AM) Macrocyte [None 1+ 1+ Seen] *ABN* *ABN* (12/03/19 10:36 AM) (12/01/19 11:13 PM) MCH [27.0-31.0 pg] 33.8 pg 34.3 pg *HI* *HI* (12/03/19 10:36 AM) (12/01/19 11:13 PM) MCHC [32.0-36.0 33.7 g/dL 34.1 g/dL g/dL] (12/03/19 10:36 AM) (12/01/19 11:13 PM) MCV [80.0-98.0 fL] 100.1 fL 100.6 fL *HI* *HI* (12/03/19 10:36 AM) (12/01/19 11:13 PM) Magnesium Lvl 2.3 mg/dL [1.8-2.4 mg/dL] (12/03/19 3:15 AM) Monocytes [2.0-12.0 8.3 % 7.3 % %] (12/03/19 10:36 AM) (12/01/19 11:13 PM) MPV [7.4-10.4 fL] 7.9 fL 7.1 fL (12/03/19 10:36 AM) *LOW* (12/01/19 11:13 PM) Sodium Lvl [135-145 134 mEq/L 144 mEq/L mEq/L] *LOW* (12/01/19 11:13 PM) (12/03/19 10:36 AM) U Opiate Scr Negative [Negative] *NA* (12/01/19 11:13 PM) U Phencyclidine Scr Negative [Negative] *NA* (12/01/19 11:13 PM) Phosphorus [2.5-4.5 2.9 mg/dL mg/dL] (12/03/19 3:15 AM) Platelet [133-450 209 K/CMM 245 K/CMM K/CMM] (12/03/19 10:36 AM) (12/01/19 11:13 PM) Segs [45.0-75.0 %] 77.8 % 67.4 % *HI* (12/01/19 11:13 PM) (12/03/19 10:36 AM) Total Protein 7.9 g/dL 8.0 g/dL [6.4-8.4 g/dL] (12/03/19 10:36 AM) (12/01/19 11:13 PM) RBC [4.20-5.40 4.22 M/CMM 4.36 M/CMM M/CMM] (12/03/19 10:36 AM) (12/01/19 11:13 PM) RDW [11.5-14.5 %] 13.6 % 13.8 % (12/03/19 10:36 AM) (12/01/19 11:13 PM) S Preg [Negative] Negative *NA* (12/01/19 11:13 PM) Salicylate Lvl <1.7 mg/dL [0.0-30.0 mg/dL] (12/01/19 11:13 PM) Bili Total [0.2-1.3 2.0 mg/dL 0.5 mg/dL mg/dL] *HI* (12/01/19 11:13 PM) (12/03/19 10:36 AM) U Cannab Scr Negative [Negative] *NA* (12/01/19 11:13 PM) WBC [3.7-10.4 K/CMM] 7.9 K/CMM 6.3 K/CMM (12/03/19 10:36 AM) (12/01/19 11:13 PM) 1Result Comment: The eGFR is calculated [...] tiplied by the estimated BMI. 3Result Comment: Critical Result(s) called to Don Celery at 12/01/2019 23:51 by AM. Read back OK. 4Result Comment: Critical Result(s) called to [employer] at 12/01/2019 23:51 by AM. Read back OK. Immunizations Given and Recorded Vaccine Date Status Refusal Reason diphtheria/pertussis, acel/tetanus adult 11/09/19 Given influenza virus vaccine, inactivated 03/29/19 G iven Procedures Procedure Date Related Diagnosis Body Site Status Laminectomy Completed Social History Social History Type Response Alcohol Past, Type Wine, Liquor. F requency: Daily. Household alcohol concerns: No.1 Employment/School Status: Employed. 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 Exercise Exercise frequency: 5-6 karen es/week. Self assessment: Excellent condition. Sexual Sexually active: Yes. Substance Abuse Use: None. Cessation Educa tion Provided: No. Smoking Status Former smoker; Type: Cigare ttes; Exposure to Tobacco Smoke None; Cigarette Smoking Last 365 Days No; Reg Smoking C essation Counseling No entered on: 12/02/19 1Pt stopped 06/28/2019 Assessment and Plan Extracted from: Title: IM- Progress Note * Author: Lj Castro DO Date : 12/03/19 Impression and Plan The patient was seen and examined by me with the resident/[employer]/PA and I agree with the History/Exam documented. Acute alcohol intoxication (F10.929) Alcohol withdrawal (F10.239) librium/prn ativan ?Seizure (R56.9) - patient denied and want to sign out ama -consult neurology Suicidal ideation (R45.921) - not currently psych response cleared 12/01 Patient denies any suicidal ideation Plan: Admit to hospital- inpatient status IVF plus banana bag daily Ativan for seizure Alcohol withdrawal protocol Repeat Labs pending Prophylaxis SCD Patient wants to sign out ama psych response cleared from suicidal ideation Patient wants to sign out AMA and does not want to stay in hospital; Extracted from: Title: Hospitalist Author: Ashwin Spence MD Date: 12/02/19 Acute alcohol intoxication(F10.929) Ordered: Admit/Condition, 12/02/19 16:05:00 CDT, Status: Inpatient, Telemetry Capable Location, Expected LOS: 2 Midnights, Ashwin Spence MD, Anuj ASH Review/Approve Yes, Isolation: No Isolation/Standard Precautions, Acute alcohol intoxication | Alcohol withdrawal | Sei... Alcohol withdrawal(F10.239) Ordered: Admit/Condition, 12/02/19 15:02:00 CDT, Status: Inpatient, IMU, Expected LOS: 2 Midnights, Ashwin Spence MD, it Review/Approve Yes, Isolation: No Isolation/Standard Precautions, Alcohol withdrawal | Seizure Admit/Condition, 12/02/19 16:05:00 CDT, Status: Inpatient, Telemetry Capable Location, Expected LOS: 2 Midnights, Ashwin Spence MD, it Review/Approve Yes, Isolation: No Isolation/Standard Precautions, Acute alcohol intoxication | Alcohol withdrawal | Sei... Seizure(R56.9) Ordered: Admit/Condition, 12/02/19 15:02:00 CDT, Status: Inpatient, IMU, Expected LOS: 2 Midnights, Ashwin Spence MD, it Review/Approve Yes, Isolation: No Isolation/Standard Precautions, Alcohol withdrawal | Seizure Admit/Condition, 12/02/19 16:05:00 CDT, Status: Inpatient, Telemetry Capable Location, Expected LOS: 2 Midnights, Ashwin Spence MD, it Review/Approve Yes, Isolation: No Isolation/Standard Precautions, Acute alcohol intoxication | Alcohol withdrawal | Sei... Suicidal ideation(R45.851) Ordered: Admit/Condition, 12/02/19 16:05:00 CDT, Status: Inpatient, Telemetry Capable Location, Expected LOS: 2 Midnights, Ashwin Spence MD, Admit MD Review/Approve Yes, Isolation: No Isolation/Standard Precautions, Acute alcohol intoxication | Alcohol withdrawal | Sei... Plan: Admit to hospital- inpatientstatus IVF plus banana bag daily Ativan for seizure Alcohol withdrawal protocol Repeat Labs in am Nausea medications as needed Pain medications as needed See Admit orders for full plan of care Care plan discussed with patientand all questions answered SCD Admit to inpatient"
--- OUTSIDE RECORDS SUMMARY | 2019-12-20 02:44 | XMS REPORT | Summary of Care ---
Author Author [facility] Organization [facility] Address Unknown Phone Unavailable Encounter DENNIS Acosta(LINDA) [id number] Date(s): 08/12/19 - 08/13/19 [facility] [address] [place] [address]- Discharge Disposition: Home or Self Care Attending Physician: Josh Cohen DO Vital Signs 1 2 3 Most recent to oldest [Reference Range]: 172.72 cm (08/12/19 11:41 AM) Height 98.2 DegF (08/13/19 1:13 AM) 98.2 DegF (08/12/19 8:00 PM) 98.6 DegF (08/12/19 5:34 PM) Temperature Oral [96.4-99.1 DegF] 124/85 mmHg (08/13/19 1:13 AM) 130/82 mmHg (08/12/19 8:00 PM) 131/85 mmHg (08/12/19 5:34 PM) Blood Pressure [90-140/60-90 mmHg] 16 BRMIN (08/13/19 1:13 AM) 16 BRMIN (08/12/19 8:00 PM) 18 BRMIN (08/12/19 5:34 PM) Respiratory Rate [14-20 BRMIN] 75 bpm (08/13/19 1:13 AM) 79 bpm (08/12/19 8:00 PM) 79 bpm (08/12/19 5:34 PM) Peripheral Pulse Rate [60-100 bpm] 67 kg (08/12/19 11:41 AM) Weight 22.46 m2 (08/12/19 11:41 AM) Body Mass Index Problem List Condition Effective [...] Reactions, Alerts Substance Reaction Severity Status promethazine Irritates the veins Active IV ONLY NKFA Active Medications Ativan 2 mg, 1 mL, Route: IVP, Drug form: INJ, ONCE, Dosing Weight 67, kg, Priority: ST AT, Start date: 08/12/19 20:39:00 CDT, Stop date: 08/12/19 20:39:00 CDT, 0 Notes: (Same as: Ativan) Start Date: 08/12/19 Stop Date: 08/12/19 Status: Completed Ativan 1 mg, Route: IVP, Drug form: INJ, ONCE, Dosing Weight 67, kg, Priority: STAT, St art date: 08/12/19 12:59:00 CDT, Stop date: 08/12/19 12:59:00 CDT Start Date: 08/12/19 Stop Date: 08/12/19 Status: Completed Ativan 0.5 mg, 0.25 mL, Route: IV, Drug form: INJ, ONCE, Dosing Weight 67, kg, Start da te: 08/12/19 13:37:00 CDT, Stop date: 08/12/19 13:37:00 CDT, 0 Notes: (Same as: Ativan) Start Date: 08/12/19 Stop Date: 08/12/19 Status: Completed chlordiazePOXIDE 25 mg oral capsule (Librium) See Instructions, PRN Anxiety, 2 cap PO QID the first day 2 cap PO TID the seco nd day 2 cap PO BID the third day 2 cap PO QHS the fourth day, # 20 tab, 0 Refil l(s) Start Date: 08/13/19 Stop Date: 08/13/19 Status: Completed folic acid 1 mg oral tablet 1 mg = 1 tab, PO, Daily, # 30 tab, 0 Refill(s) Start Date: 08/13/19 Status: Ordered Geodon 10 mg, Route: IM, Drug form: PDR/INJ, ONCE, Dosing Weight 67, kg, Priority: STAT , Start date: 08/12/19 17:52:00 CDT, Stop date: 08/12/19 17:52:00 CDT, 0 Notes: Reconstitute with 1.2 ml of sterile water. Final concentration = 20 mg/1 ml. Maximum 40 mg/24 hours (Same As: Arti).Hazardous Drug Group 3:Rep roductive risk Hazardous Drug -- Refer to safe handling procedure PPE Matrix * MEDICATION WASTE Product Size: 20 mgProduct Wasted: ___ mg Start Date: 08/12/19 Stop Date: 08/12/19 Status: Completed Geodon 10 mg, Route: IM, Drug form: PDR/INJ, ONCE, Dosing Weight 67, kg, Priority: STAT , Start date: 08/12/19 12:22:00 CDT, Stop date: 08/12/19 12:22:00 CDT, 0 Notes: Reconstitute with 1.2 ml of sterile water. Final concentration = 20 mg/1 ml. Maximum 40 mg/24 hours (Same As: Arti).Hazardous Drug Group 3:Rep roductive risk Hazardous Drug -- Refer to safe handling procedure PPE Matrix * MEDICATION WASTE Product Size: 20 mgProduct Wasted: ___ mg Start Date: 08/12/19 Stop Date: 08/12/19 Status: Completed thiamine 100 mg oral tablet 100 mg = 1 tab, PO, Daily, X 7 day, # 7 tab, 0 Refill(s) Start Date: 08/13/19 Stop Date: 08/20/19 Status: Ordered Results Most recent to 1 2 oldest [Reference Range]: Neutrophils # 5.1 K/CMM [1.5-8.1 K/CMM] (08/12/19 12:07 PM) Lymphocytes # 1.7 K/CMM [1.0-5.5 K/CMM] (08/12/19 12:07 PM) Monocytes # [0.0-0.8 0.6 K/CMM K/CMM] (08/12/19 12:07 PM) Eosinophils # 0.1 K/CMM [0.0-0.5 K/CMM] (08/12/19 12:07 PM) Basophils # [0.0-0.2 0.2 K/CMM K/CMM] (08/12/19 12: PM) eGFR 119 mL/min/1.73m2 1 *NA* (08/12/19: PM) UDS Note See Note (08/12/19 12: PM) A/G Ratio [0.7-1.6] 1.1 (08/12/19: PM) Acetaminoph Lvl <2 [10-20] (08/12/19: PM) Albumin Lvl [3.5-5.0 3.8 g/dL g/dL] (08/12/19 PM) Alk Phos [39-136 54 unit/L unit/L] (08/12/19: PM) ALT [0-65 unit/L] 45 unit/L (08/12/19: PM) U Amph Scr Negative [Negative] *NA* (08/12/19 PM) AGAP [10.0-20.0 10.0 mEq/L mEq/L] (08/12/19 12: PM) AST [0-37 unit/L] 38 unit/L *HI* (08/12/19: PM) B/C Ratio [6-25] 12 (08/12/19 12:07 PM) U Zo Scr Negative [Negative] *NA* (08/12/19) Basophils [0.0-1.0 2.6 % %] *HI* (08/12/19: PM) U Benzodiaz Scr Positive [Negative] *ABN* (08/12/19: PM) BUN [7-22 mg/dL] 7 mg/dL (08/12/19: PM) Calcium Lvl 9.1 mg/dL [8.5-10.5 mg/dL] (08/12/19 12:07 PM) Chloride Lvl [95-109 111 mEq/L mEq/L] *HI* (08/12/19: PM) CO2 [24-32 mEq/L] 28 mEq/L (3/30/20 12:07 PM) U Cocaine Scr Negative [Negative] *NA* (08/12/19 12: PM) Creatinine Lvl 0.59 mg/dL [0.50-1.40 mg/dL] (08/12/19:07 PM) Eosinophils [0.0-4.0 1.3 % %] (08/12/19 12:07 PM) Etoh (%) .150 % .306 % 2 *NA* *CRIT* (08/12/19 6:42 PM) (08/12/19:07 PM) Ethanol Lvl 150 mg/dL 306 mg/dL 3 *NA* *CRIT* (08/12/19 6:42 PM) (08/12/19: PM) Globulin [2.7-4.2 3.4 g/dL g/dL] (08/12/19 PM) Glucose Lvl [70-99 86 mg/dL mg/dL] (08/12/19: PM) Hct [36.0-48.0 %] 43.0 % (08/12/19 PM) Hgb [12.0-16.0 g/dL] 14.4 g/dL (08/12/19 PM) Potassium Lvl 4.0 mEq/L [3.5-5.1 mEq/L] (08/12/19 PM) Lymphocytes 21.9 % [20.0-40.0 %] (08/12/19: PM) MCH [27.0-31.0 pg] 32.5 pg *HI* (08/12/19 PM) MCHC [32.0-36.0 33.5 g/dL g/dL] (08/12/19:07 PM) MCV [80.0-98.0 fL] 97.1 fL (08/12/19 PM) Monocytes [2.0-12.0 8.2 % %] (08/12/19 PM) MPV [7.4-10.4 fL] 7.1 fL *LOW* (08/12/19 PM) Sodium Lvl [135-145 145 mEq/L mEq/L] (3/30/20 12:07 PM) U Opiate Scr Negative [Negative] *NA* (08/12/19 12:07 PM) U Phencyclidine Scr Negative [Negative] *NA* (08/12/19 12: PM) Platelet [133-450 419 K/CMM K/CMM] (08/12/19 12:07 PM) Segs [45.0-75.0 %] 66.0 % (08/12/19 12:07 PM) Total Protein 7.2 g/dL [6.4-8.4 g/dL] (08/12/19 12:07 PM) RBC [4.20-5.40 4.43 M/CMM M/CMM] (08/12/19 12:07 PM) RDW [11.5-14.5 %] 14.5 % (08/12/19 12: PM) S Preg [Negative] Negative *NA* (08/12/19: PM) Salicylate Lvl 3.1 mg/dL [0.0-30.0 mg/dL] (08/12/19: PM) Bili Total [0.2-1.3 0.5 mg/dL mg/dL] (08/12/19 12:07 PM) U Cannab Scr Negative [Negative] *NA* (08/12/19: PM) UA Bili [Negative] Negative *NA* (08/12/19 12:07 PM) UA Blood [Negative] Moderate *ABN* (08/12/19 12:07 PM) UA Color Colorless *NA* (08/12/19 12:07 PM) UA Glucose [Negative Negative mg/dL mg/dL] *NA* (08/12/19 12:07 PM) UA Ketones [Negative Negative mg/dL mg/dL] *NA* (08/12/19 12:07 PM) UA Leuk Est Negative [Negative] (08/12/19 12:07 PM) UA Nitrite Negative [Negative] (08/12/19 12:07 PM) UA pH [5.0-8.0] 7.0 (08/12/19 12:07 PM) UA Protein [Negative Negative mg/dL mg/dL] (08/12/19 12:07 PM) UA Spec Grav 1.002 [<=1.030] (08/12/19 12:07 PM) UA Sq Epi None Seen *NA* (08/12/19 12:07 PM) UA Turbidity [Clear] Clear (08/12/19 12:07 PM) UA Urobilinogen <=1.0 mg/dL [0.1-1.0 mg/dL] *NA* (08/12/19 12:07 PM) WBC [3.7-10.4 K/CMM] 7.8 K/CMM (08/12/19 12:07 PM) 1Result Comment: The eGFR is calculated [...] BMI. 2Result Comment: critical results called to jc rojas at 08/12/2019 12:38 by jw. read back ok. 3Result Comment: critical results called to jc rojas at 08/12/2019 12:38 by jw. read back ok. Immunizations Given and Recorded Vaccine Date Status Refusal Reason influenza virus vaccine, inactivated 03/29/19 G iven Procedures Procedure Date Related Diagnosis Body Site Status Laminectomy Completed Social History Social History Type Response Alcohol Past, Type Wine, Liquor. F requency: Daily. Household alcohol concerns: No.1 Employment/School Status: Employed. 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 Exercise Exercise frequency: 5-6 karen es/week. Self assessment: Excellent condition. Sexual Sexually active: Yes. Substance Abuse Use: None. Cessation Educa tion Provided: No. Smoking Status Former smoker; Type: Cigare ttes; Exposure to Tobacco Smoke None; Cigarette Smoking Last 365 Days No; Reg Smoking C essation Counseling No entered on: 08/12/19 1Pt stopped 06/28/2019 Assessment and Plan No data available for this section
--- OUTSIDE RECORDS SUMMARY | 2019-12-20 02:44 | XMS REPORT | CCD ---
Author Author [facility] Address Unknown Phone Unavailable Care Team Providers Care Home Theater Installer Name Role Phone Marcia Richards CP Allergies, Adverse Reactions, Alerts Substance Reaction Status Phenergan severe arm redness Active Problem List Condition Effective Dates Status Crohn's disease Active Diarrhea Active Nausea Active Pain Active Medications Medication Instructions Start Date End Date Status morphine Sulfate 4 mg, Route: IVP, ONCE, Dosing 01/26/2012 Completed Weight 68.182, kg, Priority: STAT, Start date: 01/26/12 7:37:00, Stop date: 01/26/12 7:37:00 Omnipaque 240 50 mL, Route: PO, Drug Form: SOLN, 01/26/2012 Completed Dosing Weight 68.182, kg, ONCE, Start date: 01/26/12 5:47:00, Stop date: 01/26/12 5:47:00 Apriso 0.375 g oral 1.5 gm, 4 cap, PO, QAM, 120 cap, 3, 01/2501/27/2012 Discontinued capsule, extended 3, Substitution Allowed, ER CAP release Flagyl 500 mg oral 500 mg, 1 tab, PO, Q8H, 30 tab, 01/26/2012 01/27/2012 Discontinued tablet Substitution Allowed ciprofloxacin 500 mg 500 mg, 1 tab, PO, Q12H, 20 tab, 01/26/2012 01/27/2012 Discontinued oral tablet Substitution Allowed, TAB Sodium Chloride 0.9% 1,000 mL, Rate: 1,000 ml/hr, Infuse 01/1301/26/2012 Completed (Bolus) IV 1,000 mL over: 1 hr, Route: IV, kg, Total Volume: 1,000, Bolus Dose, Priority: STAT, Start date: 01/26/12 9:10:00, Duration: 1 doses or times, Stop date: 01/26/12 10:09:00 chorionic Substitution Allowed 01/26/2012 01/27/2012 Disco ntinued gonadotropin (HCG) clonazepam Substitution Allowed 01/26/2012 01/27/2012 Disco ntinued cyproheptadine Substitution Allowed 01/26/2012 01/27/2012 Di scontinued Fish Oil Substitution Allowed 01/26/2012 01/27/2012 Disco ntinued Oracea Substitution Allowed 01/26/2012 01/27/2012 Disco ntinued Levsin SL 0.25 mg, 2 tab, Route: PO, Drug 01/26/2012 012 Completed form: TAB, ONCE, Dosing Weight 68.182, kg, Start date: 01/26/12 6:56:00, Stop date: 01/26/12 6:56:00 Flagyl 500 mg, 1 tab, Route: PO, Drug 01/26/2012 01/26/20 12 Completed form: TAB, ONCE, Dosing Weight 68.182, kg, Priority: STAT, Start date: 01/26/12 6:55:00, Stop date: 01/26/12 6:55:00 ciprofloxacin 500 mg, 1 tab, Route: PO, Drug 01/26/20122011 Completed form: TAB, ONCE, Dosing Weight 68.182, kg, Priority: STAT, Start date: 01/26/12 6:55:00, Stop date: 01/26/12 6:55:00 acetaminophen-hydroc 2 tab, Route: PO, Drug Form: TAB, 201101/26/2012 Completed odone 325 mg-7.5 mg Dosing Weight 68.182, kg, O NCE, oral tablet STAT, Start date: 01/26/12 9:12:00, Stop date: 01/26/12 9:12:00 morphine Sulfate 4 mg, 1 mL, Route: IVP, Drug form: 01/26/2012 01/26/2012 Completed INJ, ONCE, Dosing Weight 68.182, kg, Priority: STAT, Start date: 01/26/12 5:33:00, Stop date: 01/26/12 5:33:00 ondansetron 4 mg, 2 mL, Route: IVP, Drug form: 01/26/201201/13 Completed INJ, ONCE, Dosing Weight 68.182, kg, Priority: STAT, Start date: 01/26/12 5:33:00, Stop date: 01/26/12 5:33:00 Sodium Chloride 0.9% 1,000 mL, Rate: 1,000 ml/hr, Infuse 01/1301/26/2012 Completed (Bolus) IV 1,000 mL over: 1 hr, Route: IV, kg, Total Volume: 1,000, Bolus Dose, Priority: STAT, Start date: 01/26/12 5:33:00, Duration: 1 doses or times, Stop date: 01/26/12 6:32:00 predniSONE 10 mg See Instructions, 4 tabs po daily 01/26/2012 01/27/2012 Discontinued oral tablet for 1 week, then 3 tabs kurtis ly for 1 week, then 2 tabs daily for 1 week , then 1 tab daily for 1 week, 70 tab, Substitution Allowed 4 tabs po daily for 1 week, then 3 tabs daily for 1 week, then 2 tabs daily for 1 week , then 1 tab daily for 1 week Saline Flush 0.9% 5 ml, Route: IVP, Drug Form: INJ, 01/26/2012 01/26/2012 Discontinued Dosing Weight 68.182, kg, PRN, PRN Line Flush, Start date: 01/26/12 5:33:00, Duration: 24 hr, Stop date: 01/27/12 5:32:00 Vital Signs Most recent to oldest [Reference Range]: 1 Height 172.72 cm (01/26/2012 05:03:00) Weight 68.182 kg (01/26/2012 05:03:00) Results URINALYSIS Most recent to oldest [Reference Range]: 1 UA Turbidity [Clear] Slight *ABN* (01/26/2012 06:40:00) UA Color [Yellow] Light Yellow *NA* (01/26/2012 06:40:00) UA pH [5.0-8.0] 8.0 (01/26/2012 06:40:00) UA Spec Grav [<=1.030] 1.004 (01/26/2012 06:40:00) UA Glucose [Negative mg/dL] Negative mg/dL *NA* (01/26/2012 06:40:00) UA Blood [Negative] Negative (01/26/2012 06:40:00) UA Ketones [Negative mg/dL] Negative mg/dL *NA* (01/26/2012 06:40:00) UA Protein [Negative mg/dL] Negative mg/dL (01/26/2012 06:40:00) UA Urobilinogen [0.1-1.0 mg/dL] <=1.0 mg/dL *NA* (01/26/2012 06:40:00) UA Bili [Negative] Negative *NA* (01/26/2012 06:40:00) UA Leuk Est [Negative] Negative (01/26/2012 06:40:00) UA Nitrite [Negative] Negative (01/26/2012 06:40:00) UA WBC [0-5 /HPF] 1 /HPF (01/26/2012 06:40:00) UA RBC [0-2 /HPF] 1 /HPF (01/26/2012 06:40:00) UA Bacteria [None Seen /HPF] Occasional /HPF *NA* (01/26/2012 06:40:00) UA Sq Epi [Few /LPF] Occasional /LPF *NA* (01/26/2012 06:40:00) STOOL TESTS Most recent to oldest [Reference Range]: 1 Occult Bld Stl [Negative] Negative (01/26/2012 07:15:00) Fecal Leukocyte None Seen 1 (01/26/2012 07:15:00) 1Interpretive Data: A Value of None Seen, Rare, or Few is Normal. CHEMISTRY Most recent to oldest [Reference Range]: 1 Sodium Lvl [135-145 mEq/L] 142 mEq/L (01/26/2012 05:42:00) Potassium Lvl [3.5-5.1 mEq/L] 4.0 mEq/L (01/26/2012 05:42:00) Chloride Lvl [95-109 mEq/L] 104 mEq/L (01/26/2012 05:42:00) CO2 [24-32 mEq/L] 34 mEq/L *HI* (01/26/2012 05:42:00) AGAP [10.0-20.0 mEq/L] 8.0 mEq/L *LOW* (01/26/2012 05:42:00) Creatinine Lvl [0.5-1.4 mg/dL] 1.1 mg/dL (01/26/2012 05:42:00) BUN [7-22 mg/dL] 8 mg/dL (01/26/2012 05:42:00) B/C Ratio [6-25] 7 (01/26/2012 05:42:00) Glucose Lvl [70-99 mg/dL] 92 mg/dL 2 (01/26/2012 05:42:00) Total Protein [6.4-8.4 g/dL] 7.1 g/dL (01/26/2012 05:42:00) Albumin Lvl [3.5-5.0 g/dL] 3.6 g/dL (01/26/2012 05:42:00) Globulin [2.0-4.0 g/dL] 3.5 g/dL (01/26/2012 05:42:00) A/G Ratio [0.7-1.6] 1.0 (01/26/2012 05:42:00) Calcium Lvl [8.5-10.5 mg/dL] 8.6 mg/dL (01/26/2012 05:42:00) ALT [0-65 unit/L] 31 unit/L (01/26/2012 05:42:00) AST [0-37 unit/L] 19 unit/L (01/26/2012 05:42:00) Alk Phos [39-136 unit/L] 58 unit/L (01/26/2012 05:42:00) Bili Total [0.2-1.3 mg/dL] 0.3 mg/dL (01/26/2012 05:42:00) Amylase Lvl [25-115 unit/L] 26 unit/L (01/26/2012 05:42:00) Lipase Lvl [73-393 unit/L] 93 unit/L (01/26/2012 05:42:00) U Preg [Negative] Negative (01/26/2012 06:40:00) 2Interpretive Data: Adult reference range values reflect the clinical guidelines of the [place] [employer]. HEMATOLOGY Most recent to oldest [Reference Range]: 1 WBC [3.7-10.4 K/CMM] 14.9 K/CMM *HI* (01/26/2012 05:42:00) RBC [4.20-5.40 M/CMM] 3.88 M/CMM *LOW* (01/26/2012 05:42:00) Hgb [12.0-16.0 g/dL] 12.2 g/dL (01/26/2012 05:42:00) Hct [36.0-48.0 %] 35.9 % *LOW* (01/26/2012 05:42:00) MCV [81.0-99.0 fL] 92.6 fL (01/26/2012 05:42:00) MCH [27.0-31.0 pg] 31.4 pg *HI* (01/26/2012 05:42:00) MCHC [32.0-36.0 g/dL] 33.9 g/dL (01/26/2012 05:42:00) RDW [11.5-14.5 %] 14.2 % (01/26/2012 05:42:00) Platelet [133-450 K/CMM] 321 K/CMM (01/26/2012 05:42:00) MPV [7.4-10.4 fL] 7.2 fL *LOW* (01/26/2012 05:42:00) Segs [45.0-75.0 %] 78.1 % *HI* (01/26/2012 05:42:00) Lymphocytes [20.0-40.0 %] 9.6 % *LOW* (01/26/2012 05:42:00) Monocytes [2.0-12.0 %] 8.7 % (01/26/2012 05:42:00) Eosinophils [0.0-4.0 %] 3.2 % (01/26/2012 05:42:00) Basophils [0.0-1.0 %] 0.4 % (01/26/2012 05:42:00) Segs-Bands # [1.5-8.1 K/CMM] 11.7 K/CMM *HI* (01/26/2012 05:42:00) Lymphocytes # [1.0-5.5 K/CMM] 1.4 K/CMM (01/26/2012 05:42:00) Monocytes # [0.0-0.8 K/CMM] 1.3 K/CMM *HI* (01/26/2012 05:42:00) Eosinophils # [0.0-0.5 K/CMM] 0.5 K/CMM (01/26/2012 05:42:00) Basophils # [0.0-0.2 K/CMM] 0.1 K/CMM (01/26/2012 05:42:00) Microbiology Reports PROCEDURE:Culture: Stool STATUS: In Progress BODY SITE: COLLECTED DATE/TIME: 01/26/2012 07:15:00 SOURCE: Stool FREE TEXT SOURCE: PRELIMINARY REPORTS Preliminary Report Holding For Better Growth
[2019-12-20 02:45] LABS: BILIRUBIN,URINE NEGATIVE (NEGATIVE); CLARITY,URINE SL CLOUDY (CLEAR); COLOR,URINE YELLOW (YELLOW); KETONES,URINE NEGATIVE (NEGATIVE); LEUKOCYTE ESTERASE ,URINE MODERATE (NEGATIVE); NITRITE,URINE NEGATIVE (NEGATIVE); PREGNANCY TEST, URINE NEGATIVE (NEGATIVE); PROTEIN,URINE DIPSTICK NEGATIVE (NEGATIVE); URINE UROBILINOGEN 0.2 mg/dL (0.2 - 1)
--- OUTSIDE RECORDS SUMMARY | 2019-12-20 02:45 | XMS REPORT | Summary of Care ---
Author Author [facility] Organization [facility] Address Unknown Phone Unavailable Encounter DENNIS Acosta(FIN) [id number] Date(s): 12/08/19 - 12/08/[address] [address]- Encounter Diagnosis Alcohol abuse (Discharge Diagnosis) - 12/08/19 Suicidal ideation (Discharge Diagnosis) - 12/08/19 Discharge Disposition: Home or Self Care Attending Physician: Mirela Everett MD Vital Signs 1 2 3 Most recent to oldest [Reference Range]: 177.8 cm (12/08/19 12:39 AM) Height 97.6 DegF (12/08/19 12:39 AM) Temperature Oral [96.4-99.1 DegF] 120/77 mmHg (12/08/19 4:34 PM) 110/62 mmHg (12/08/19 2:06 PM) 139/62 mmHg (12/08/19 12:54 PM) Blood Pressure [90-140/60-90 mmHg] 20 BRMIN (12/08/19 4:34 PM) 16 BRMIN (12/08/19 2:06 PM) 29 BRMIN *HI* (12/08/19 12:54 PM) Respiratory Rate [14-20 BRMIN] 101 bpm *HI* (12/08/19 12:39 AM) Peripheral Pulse Rate [60-100 bpm] 73.636 kg (12/08/19 12:39 AM) Weight 23.29 m2 (12/08/19 12:39 AM) Body Mass Index Problem List Condition [...] Reaction Severity Status NKFA Active Medications Ativan 2 mg, 1 mL, Route: IVP, Drug form: INJ, ONCE, Dosing Weight 73.636, kg, Priority : STAT, Start date: 12/08/19 3:26:00 CDT, Stop date: 12/08/19 3:26:00 CDT, 0 Notes: (Same as: Ativan) Start Date: 12/08/19 Stop Date: 12/08/19 Status: Completed chlordiazePOXIDE 25 mg oral capsule (Librium) 25 mg, 1 cap, Route: PO, Drug form: CAP, ONCE, Dosing Weight 73.636, kg, Alcohol Withdrawal, Start date: 12/08/19 16:02:00 CDT, Stop date: 12/08/19 16:02:00 CDT, 0 Start Date: 12/08/19 Stop Date: 12/08/19 Status: Completed Geodon 10 mg, Route: IM, Drug form: PDR/INJ, ONCE, Dosing Weight 73.636, kg, Priority: STAT, Start date: 12/08/19 5:26:00 CDT, Stop date: 12/08/19 5:26:00 CDT, 0 Notes: Reconstitute with 1.2 ml of sterile water. Final concentration = 20 mg/1 ml. Maximum 40 mg/24 hours (Same As: Geodon).Hazardous Drug Group 3:Rep roductive risk Hazardous Drug -- Refer to safe handling procedure PPE Matrix * MEDICATION WASTE Product Size: 20 mgProduct Wasted: ___ mg Start Date: 12/08/19 Stop Date: 12/08/19 Status: Completed Haldol 2 mg, 0.4 mL, Route: IM, Drug form: INJ, ONCE, Dosing Weight 73.636, kg, Priorit y: STAT, Start date: 12/08/19 4:05:00 CDT, Stop date: 12/08/19 4:05:00 CDT, 0 Notes: (Same as: Haldol) Start Date: 12/08/19 Stop Date: 12/08/19 Status: Completed nicotine 21 mg, 1 patch, Route: TOP, Drug form: ERFILM, Daily, Dosing Weight 73.636, kg, Start date: 12/08/19 16:00:00 CDT, Duration: 30 day, Stop date: 01/07/20 9:00:00 CDT, 0 Notes: (Same as: Habitrol)"Remove old patch before application of new patch"WAST E: F/P - P Waste Black; E - P Waste Black Start Date: 12/08/19 Stop Date: 12/08/19 Status: Discontinued nicotine 14 mg, 1 patch, Route: TOP, Drug form: ERFILM, ONCE, Dosing Weight 73.636, kg, S tart date: 12/08/19 4:59:00 CDT, Stop date: 12/08/19 4:59:00 CDT, 0 Notes: (Same as: Habitrol)"Remove old patch before application of new patch"WAST E: F/P - P Waste Black; E - P Waste Black Start Date: 12/08/19 Stop Date: 12/08/19 Status: Completed Sodium Chloride 0.9% (Bolus) IV 1,000 mL, 1000 ml/hr, Infuse Over: 1 hr, Route: IV, 1,000, Drug form: INJ, ONCE, Priority: STAT, Dosing Weight 63.636 kg, Start date: 12/08/19 0:21:00 CDT, Stop date: 12/08/19 0:21:00 CDT, 0 Start Date: 12/08/19 Stop Date: 12/08/19 Status: Completed Valium 10 mg, 2 mL, Route: IVP, Drug form: INJ, ONCE, Dosing Weight 73.636, kg, Priorit y: STAT, Start date: 12/08/19 16:03:00 CDT, Stop date: 12/08/19 16:03:00 CDT, 0 Notes: (Same as: Valium)WASTE: F/P - Black; E - White/Blue Start Date: 12/08/19 Stop Date: 12/08/19 Status: Completed Valium 10 mg, 2 tab, Route: PO, Drug form: TAB, ONCE, Dosing Weight 73.636, kg, Priorit y: STAT, Start date: 12/08/19 16:14:00 CDT, Stop date: 12/08/19 16:14:00 CDT, 0 Notes: (Same as: Valium) Start Date: 12/08/19 Stop Date: 12/08/19 Status: Completed Results Most recent to 1 2 oldest [Reference Range]: Neutrophils # 4.7 K/CMM [1.5-8.1 K/CMM] (12/08/19 12:40 AM) Lymphocytes # 1.4 K/CMM [1.0-5.5 K/CMM] (12/08/19 12:40 AM) Monocytes # [0.0-0.8 0.7 K/CMM K/CMM] (12/08/19 12:40 AM) eGFR 120 mL/min/1.73m2 1 *NA* (12/08/19 12:40 AM) UDS Note See Note (12/08/19 12:40 AM) A/G Ratio [0.7-1.6] 1.2 (12/08/19 12:40 AM) Acetaminoph Lvl <2 ug/ml [10-20 ug/ml] *LOW* (12/08/19 12:40 AM) Albumin Lvl [3.5-5.0 4.0 g/dL g/dL] (12/08/19 12:40 AM) Alk Phos [39-136 64 unit/L unit/L] (12/08/19 12:40 AM) ALT [0-65 unit/L] 95 unit/L *HI* (12/08/19 12:40 AM) U Amph Scr Negative [Negative] *NA* (12/08/19 12:40 AM) AGAP [10.0-20.0 8.5 mEq/L mEq/L] *LOW* (12/08/19 12:40 AM) AST [0-37 unit/L] 82 unit/L *HI* (12/08/19 12:40 AM) B/C Ratio [6-25] 9 (12/08/19 12:40 AM) U Zo Scr Negative [Negative] *NA* (12/08/19 12:40 AM) Basophils [0.0-1.0 0.7 % %] (12/08/19 12:40 AM) U Benzodiaz Scr Positive [Negative] *ABN* (12/08/19 12:40 AM) BUN [7-22 mg/dL] 5 mg/dL *LOW* (12/08/19 12:40 AM) Calcium Lvl 8.6 mg/dL [8.5-10.5 mg/dL] (12/08/19 12:40 AM) Chloride Lvl [95-109 111 mEq/L mEq/L] *HI* (12/08/19 12:40 AM) CO2 [24-32 mEq/L] 28 mEq/L (12/08/19 12:40 AM) U Cocaine Scr Negative [Negative] *NA* (12/08/19 12:40 AM) Creatinine Lvl 0.57 mg/dL [0.50-1.40 mg/dL] (12/08/19 12:40 AM) Eosinophils [0.0-4.0 0.5 % %] (12/08/19 12:40 AM) Etoh (%) .026 % .388 % 2 *NA* *CRIT* (12/08/19 3:50 PM) (12/08/19 12:40 AM) Ethanol Lvl 26 mg/dL 388 mg/dL 3 *NA* *CRIT* (12/08/19 3:50 PM) (12/08/19 12:40 AM) Globulin [2.7-4.2 3.4 g/dL g/dL] (12/08/19 12:40 AM) Glucose Lvl [70-99 72 mg/dL mg/dL] (12/08/19 12:40 AM) Hct [36.0-48.0 %] 40.4 % (12/08/19 12:40 AM) Hgb [12.0-16.0 g/dL] 13.6 g/dL (12/08/19 12:40 AM) Potassium Lvl 3.5 mEq/L [3.5-5.1 mEq/L] (12/08/19 12:40 AM) Lymphocytes 20.4 % [20.0-40.0 %] (12/08/19 12:40 AM) MCH [27.0-31.0 pg] 33.8 pg *HI* (12/08/19 12:40 AM) MCHC [32.0-36.0 33.8 g/dL g/dL] (12/08/19 12:40 AM) MCV [80.0-98.0 fL] 100.0 fL *HI* (12/08/19 12:40 AM) Monocytes [2.0-12.0 10.4 % %] (12/08/19 12:40 AM) MPV [7.4-10.4 fL] 7.4 fL (12/08/19:40 AM) Sodium Lvl [135-145 144 mEq/L mEq/L] (12/08/1940 AM) U Opiate Scr Negative [Negative] *NA* (12/08/1940 AM) U Phencyclidine Scr Negative [Negative] *NA* (12/08/19:40 AM) Platelet [133-450 204 K/CMM K/CMM] (12/08/19:40 AM) Segs [45.0-75.0 %] 68.0 % (12/08/19 12:40 AM) Total Protein 7.4 g/dL [6.4-8.4 g/dL] (12/08/19:40 AM) RBC [4.20-5.40 4.04 M/CMM M/CMM] *LOW* (12/08/19 12:40 AM) RDW [11.5-14.5 %] 13.7 % (12/08/19 12:40 AM) S Preg [Negative] Negative *NA* (12/08/19:40 AM) Salicylate Lvl <1.7 mg/dL [0.0-30.0 mg/dL] (12/08/19:40 AM) Bili Total [0.2-1.3 0.3 mg/dL mg/dL] (12/08/19:40 AM) U Cannab Scr Negative [Negative] *NA* (12/08/19 12:40 AM) UA Bili [Negative] Negative *NA* (12/08/19 12:40 AM) UA Blood [Negative] Small *ABN* (7/26/20 12:40 AM) UA Color Straw *NA* (12/08/19 12:40 AM) UA Glucose [Negative Negative mg/dL mg/dL] *NA* (12/08/19 12:40 AM) UA Ketones [Negative Negative mg/dL mg/dL] *NA* (12/08/19 12:40 AM) UA Leuk Est Negative [Negative] (12/08/19 12:40 AM) UA Nitrite Negative [Negative] (12/08/19:40 AM) UA pH [5.0-8.0] 7.0 (12/08/19 12:40 AM) UA Protein [Negative Negative mg/dL mg/dL] (12/08/19 12:40 AM) UA RBC [0-2 /HPF] <1 /HPF (12/08/19 12:40 AM) UA Spec Grav 1.003 [<=1.030] (12/08/19 12:40 AM) UA Sq Epi [Few /LPF] Occasional /LPF *NA* (12/08/19:40 AM) UA Turbidity [Clear] Clear (12/08/19 12:40 AM) UA Urobilinogen <=1.0 mg/dL [0.1-1.0 mg/dL] *NA* (12/08/19 12:40 AM) UA WBC [0-5 /HPF] <1 /HPF (12/08/19 12:40 AM) WBC [3.7-10.4 K/CMM] 7.0 K/CMM (12/08/19 12:40 AM) 1Result Comment: The eGFR is calculated [...] BMI. 2Result Comment: Critical Result(s) called to Jos eMCharlotte Wang at 12/08/2019 01:[address] Read back OK. 3Result Comment: Critical Result(s) called to Jose MCharlotte Wang at 12/08/2019 01:[address] Read back OK. Immunizations Given and Recorded Vaccine Date Status Refusal Reason diphtheria/pertussis, acel/tetanus adult 11/09/19 Given influenza virus vaccine, inactivated 03/29/19 G iven Procedures Procedure Date Related Diagnosis Body Site Status Laminectomy Completed Social History Social History Type Response Alcohol Past, Type Wine, Liquor. F requency: Daily. Household alcohol concerns: No.1 Employment/School Status: Employed. 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 Exercise Exercise frequency: 5-6 karen es/week. Self assessment: Excellent condition. Sexual Sexually active: Yes. Substance Abuse Use: None. Cessation Educa tion Provided: No. Smoking Status Former smoker; Type: Cigare ttes; Exposure to Tobacco Smoke None; Cigarette Smoking Last 365 Days No; Reg Smoking C essation Counseling No entered on: 12/08/19 1Pt stopped 06/28/2019 Assessment and Plan No data available for this section
--- OUTSIDE RECORDS SUMMARY | 2019-12-20 02:45 | XMS REPORT ---
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 Info Not Available Non Drug Allergy Problems Problem Type Condition Code Onset Dates Condition Statu s Assessment Pre-op evaluation Z01.818 Active Problem Other chronic pain G89.29 Active Assessment Low back pain M54.5 Active Assessment Other chronic pain G89.29 Active Medications Medication Code System Code Instructions Start Date End Date Status Dosage Imuran [facility] [address]-36 50 mg Orally daily Active 2 tablet Cymbalta [facility] [address]-24 60 MG Orally Once a day A ctive 2 capsule Vital Signs Date/Time: May 16, 2019 Blood Pressure Systolic 124 mm Hg Height 68 in Weight 160 lbs BMI 24.33 Index Cardiac Monitoring Heart Rate 44 /min Temperature 97.3 F Blood Pressure Diastolic 86 mm Hg Results No Known Results Summary Purpose [employer] Submission
--- OUTSIDE RECORDS SUMMARY | 2019-12-20 02:46 | XMS REPORT | Continuity of Care Document ---
Author Author [facility] t Organization [facility] Address [address] [place] [address] Phone Unavailable Care Team Providers Care Booking Supervisor Name Role Phone Nelly ASH, Donna PCP Unavailable Joseph MATT, Faby Girard Attphys [phone] FABY NARANJO Attphys Unavailable Kezia Everett Attphys Edward Spencem Attphys Ja Dye Attphys Eulogio Cohen Attphys Fredi Valentino Attphys [place] Attphys Daniel Orourke Attphys Yoly Crook Attphys Renae, Jennifer Attphys Corina Aviles Attphys Roberto Carrillo Attphys Thomas Davis Attphys Lynn Mendoza Attphys Bebe, Leon Ashwin Admphys Renae, Jennifer Admphys Problems Condition Name Condition Details Condition Category Status Onset Date Resolution Date Last Treatment Date Treating Clinician Comments Source SI SI Active 12/08/2019 [facility] Diagnosis Active 2019-12-08 00:00:00 2019-12-12 17:32:00 [facility] AL[facility]HOL WITHDRAWAL, SEIZURE AL COHOL WITHDRAWAL, SEIZURE Active 12/01/2019 [facility] Diagnosis Active 2019-12-01 00:00:00 2019-12-03 13:35:00 [facility] SPINAL STENOSIS, LUMBOSACRAL REGION SPINAL STENOSIS, LUMBOSACRAL REGION Active 07/09/2019 [facility] Diagnosis Active 2019-07-09 00:00:00 2019-08-13 13:10:00 [facility] ETOH ETOH Active 06/28/2019 [facility] Diagnosis Active 2019-06-28 00:00:00 2019-06-28 16:23:00 [facility] [place] SI/ PSYC SI/ PSYC Active 06/12/2019 [facility] Diagnosis Active 2019-06-12 00:00:00 2019-06-12 18:51:00 [facility] POST SURGERY POST SURGERY Active 05/22/2019 [facility] Diagnosis Active 2019-05-22 00:00:00 2019-05-22 12:47:00 [facility] M48.07 M54.17 M48. 07 M54.17 Active 05/16/2019 [facility] Diagnosis Active 2019-05-16 00:00:00 2019-05-16 08:35:00 [facility] PANIC ATTACK INO C ATTACK Active 05/05/2019 [facility] Diagnosis Active 2019-05-05 00:00:00 2019-05-05 06:02:00 [facility] AMS AMS Active 03/19/2019 [facility] Diagnosis Active 2019-03-19 00:00:00 2019-03-19 17:11:00 [facility] CEREBRAL CONTUSION.CHORDOMA OF CLIVUS/AM CEREBRAL CONTUSION.CHORDOMA OF CLIVUS/AM Active 03/19/2019 [facility] Diagnosis Active 2019-03-19 00:00:00 2019-03-21 11:56:00 [facility] INTOXICATION INTO XICATION Active 12/23/2018 [facility] Diagnosis Active 2018-12-23 00:00:00 2018-12-23 12:55:00 [facility] OTHER OTHE R Active 12/22/2018 [facility] Diagnosis Active 2018-12-22 00:00:00 2018-12-22 21:17:00 Dodie Mccall FEVER, BODY ACHES FEVE R, BODY ACHES Active 01/10/2018 [facility] Diagnosis Active 2018-01-10 00:00:00 2018-01-10 17:24:00 Dodie Mccall SENT BY DR MORGAN FOR POSS BLOCKAGE SENT BY DR MORGAN FOR POSS BLOCKAGE Active 02/19/2014 [facility] Diagnosis Active 2014-02-19 00:00:00 2014-02-20 00:22:00 [facility] LEFT LOWER QAUDRANT ABD PAIN L EFT LOWER QAUDRANT ABD PAIN Active 01/30/2012 [facility] Diagnosis Active 2012-01-30 08:0 0:00 2012-01-31 15:27:00 Dodie Mccall CHRONS/COLITIS [employer] NS/COLITIS Active 01/27/2012 [facility] Diagnosis Active 2012-01-27 00:00:00 2012-02-02 1 0:57:00 Dodie Mccall CROHNS, VOMITING, DIARRHEA CLINICAL OB HNS, VOMITING, DIARRHEA Active 01/26/2012 [facility] Diagnosis Active 2012-01-26 00:00:00 2012-01-26 06:40:00 Dodie Mccall CHRONES FLARE UP [employer] DIANE FLARE UP Active 12/30/2011 [facility] Diagnosis Active 2011-12-30 00:00:00 2011-12-30 2 3:23:00 Dodie Mccall Pre-excitation syndrome Pre- excitation syndrome 07/30/2018 [facility] Problem 2018-07-30 15:36:16 Dodie Mccall Crohn's disease, unspecified, without complications Crohn's disease, unspecified, without complications 07/30/2018 [facility] Problem 2018-07-30 15:36:16 Dodie Mcclal Anxiety (finding) Anxi ety (finding) Resolved [facility]10[facility]olved 2019-12-10 21:32:56 Dodie Mccall Crohn's disease (disorder) 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) 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 Problem 12/10/2019 [facility] Resolved 2019-12-10 21:32:56 Sofía Mccall Nephrotic syndrome (disorder) Nephrotic syndrome (disorder) Resolved Problem 12/10/2019 [facility] Resolved 2019-12-10 21:32:56 [facility] [place] Oooas-Twubmcckl-Xoxxw pattern (disorder) Xztel-Mpfyaqeqj-Astwl pattern (disorder) Resolved Problem 12/10/2019 [facility] Problem Resolved 2019-12-10 21:32: 56 [facility] [place] Diarrhea (finding) Diar flavia (finding) Active Problem 12/10/2019 [facility] [place] Problem Active 2019-12-10 21:32:56 [facility] Nausea (finding) Naus ea (finding) Active Problem 12/10/2019 [facility] Problem Active 2019-12-10 21:32:56 [facility] [place] Pain (finding) Pain (finding) Active Problem 12/10/2019 [facility] Problem Active 2019-12-10 21:32:56 [facility] Crohn's disease Croh n's disease Active Problem 02/06/2012 [facility] Problem Active 2012-02-06 08:20:04 [facility] [place] Diarrhea Diar flavia Active Problem 02/06/2012 [facility] Problem Active 2012-02-06 08:20:0 4 [facility] [place] Nausea Naus ea Active Problem 02/06/2012 [facility] Problem Active 2012-02-06 08:20:0 4 [facility] [place] Pain Pain Active Problem 02/06/2012 [facility] [place] Problem Active 2012-02-06 08:20:04 Dodie Mccall Chronic back pain (disorder) C hronic back pain (disorder) Active Problem 12/10/2019 [facility] Problem Active 2019-12-10 21:32:56 Dodie Mccall Current drinker of alcohol (finding) Current drinker of alcohol (finding) Active Problem 12/10/2019 [facility] Problem Active 2019-12-10 21:32:56 oDdie Mccall 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 Problem 12/10/2019 [facility] Problem Active 2019-12-10 21:32:56 Dodie Mccall Fracture of clivus of occipital bone (disorder) Fracture of clivus of occipital bone (disorder) Active Problem 12/10/2019 [facility] Problem Active 2019-12-10 21:32:56 [facility] Traumatic brain injury (disorder) Traumatic brain injury (disorder) Active Problem 12/10/2019 [facility] Problem Active 2019-12-10 21:32:56 Dodie Mccall Pre-op evaluation Pre- op evaluation Active Diagnosis 09/17/2019 [facility] Diagnosis Active 2019-09-17 02:4 6:26 [facility] Other chronic pain Othe r chronic pain Active Problem 09/17/2019 [facility] Problem Active 2019-09-17 02:46: 26 Dodie Merlosann Low back pain Low back pain Active Diagnosis 09/17/2019 [facility] Diagnosis Active 2019-09-17 02:4 6:26 Dodie Mccall ADMINISTRTVE ENCOUNT NOS ADMI NISTRTVE ENCOUNT NOS Active [facility] Diagnosis Active 2012-02-02 10:57:00 Dodie Mccall ABDMNAL PAIN LT LWR QUAD ABDM NAL PAIN LT LWR QUAD Active [facility] Diagnosis Active 2012-01-31 15:27:00 Dodie Mccall CONTUS/LAC CEREB, W LOC OF UNSP DURATION CONTUS/LAC CEREB, W LOC OF UNSP DURATION Active [facility] Diagnosis Active 2019-03-21 11:56:00 Dodie Mccall 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 AND Active [facility] Diagnosis Active 2019-03-21 11:56:00 Dodie Mccall ALTERED MENTAL STATUS, UNSPECIFIED ALTERED MENTAL STATUS, UNSPECIFIED Active [facility] Diagnosis Active 2019-03-21 11:56:00 Dodie Mccall ALCOHOL DEPENDENCE WITH WITHDRAWAL, UNSP ALCOHOL DEPENDENCE WITH WITHDRAWAL, UNSP Active [facility] Diagnosis Active 2019-12-03 13:35:00 [facility] UNSPECIFIED CONVULSIONS UNSP ECIFIED CONVULSIONS Active [facility] Diagnosis Active 2019-12-03 13:35:00 [facility] Alcohol abuse, uncomplicated A lcohol abuse, uncomplicated 12/08/2019 12/10/2019 [facility] Problem 2019-12-08 17:00:00 2019-12-10 21:32:56 2019-12-10 21:32:56 [facility] Suicidal ideations Suic idal ideations 12/08/2019 12/10/2019 [facility] Problem 2019-12-08 17:00:00 2019-12-10 21:3 2:56 2019-12-10 21:32:56 [facility] Alcohol use, unspecified with intoxication, unspecifie d Alcohol use, unspecified with intoxication, unspecified 12/02/2019 12/05/2019 [facility] Problem 2019-12-02 17:00:00 2019-12-05 21:41:25 2019-12-05 21:41:25 [facility] [place] Contusion of scalp, initial encounter Contusion of scalp, initial encounter 11/08/2019 11/11/2019 [facility] Problem 2019-11-08 17:00:00 2019-11-11 22:14:52 2019-11-11 22:14:52 [facility] [place] Restlessness and agitation Res tlessness and agitation 05/22/2019 05/24/2019 [facility] Problem 2019-05-22 18:00:00 2019-05-24 23:26:38 2019-05-24 23:26:38 [facility] Disorientation, unspecified Di sorientation, unspecified 05/22/2019 05/24/2019 [facility] Problem 2019-05-22 18:00:00 2019-05-24 23:26:38 2019-05-24 23:26:38 [facility] Abrasion, right knee, initial encounter Abrasion, right knee, initial encounter 05/05/2019 05/07/2019 [facility] Problem 2019-05-05 18:00:00 2019-05-07 22:06:42 2019-05-07 22:06:42 [facility] [place] Dorsalgia, unspecified Dors algia, unspecified 05/05/2019 05/07/2019 [facility] Problem 2019-05-05 18:00:00 2018 22:06:42 2019-05-07 22:06:42 [facility] [place] Other specified disorders of brain Other specified disorders of brain 05/05/2019 05/07/2019 [facility] Problem 2019-05-05 18:00:00 2019-05-07 22:06:42 2019-05-07 22:06:42 [facility] Acute stress reaction Acut e stress reaction 05/05/2019 05/07/2019 [facility] Problem 2019-05-05 18:00:00 2018 22:06:42 2019-05-07 22:06:42 [facility] [place] Radiculopathy, lumbar region R adiculopathy, lumbar region 05/05/2019 05/07/2019 [place] Problem 201 01-24-22 18:00:00 2019-05-07 22:06:42 2019-05-07 22:06:42 [facility] Fall on same level, unspecified, initial encounter Fall on same level, unspecified, initial encounter 05/05/2019 05/07/2019 [facility] Problem 2019-05-05 18:00:00 2019-05-07 22:06:42 2019-05-07 22:06 :42 [facility] [place] Alcohol dependence with intoxication, unspecified Alcohol dependence with intoxication, unspecified 05/05/2019 05/07/2019 [facility] Problem 2019-05-05 18:00:00 2019-05-07 22:06:42 2019-05-07 22:06:42 [facility] [place] Infectious mononucleosis, unspecified without complica tion Infectious mononucleosis, unspecified without complication 01/10/2018 07/30/2018 [facility] Problem 2018-01-10 05:00:00 2018-07-30 15:36 :16 2018-07-30 15:36:16 [facility] [place] Discharge Diagnosis: Abdominal pain Discharge Diagnosis: Abdominal pain 02/20/2014 02/23/2014 [facility] Problem 2014-02-20 05:00:00 2014-02-23 02:36:18 2014-02-23 02:36:18 [facility] Discharge Diagnosis: Diarrhea Discharge Diagnosis: Diarrhea 02/20/2014 02/23/2014 [facility] Problem 2 05:00:00 2014-02-23 02:36:18 2014-02-23 02:36:18 [facility] Allergies, Adverse Reactions, Alerts Allergy Name Allergy Type Status Severity Reaction(s) Onset Date Inacti ve Date Treating Clinician Comments Source N.AntoineA. MargieA. Active Info Not Available 2019-05-16 00:00:00 [facility] [place] Promethazine Propensity to adverse reactions Active 201 12-21-05 00:00:00 IV bruises vein [facility] Phenergan Phenergan Active Louis riadarian Cal promethazine promethazine Active [facility] NKFA NKFA Active [facility] melissa No Known Medication Allergies No Known Medication Allergies Active [facility] Social History Social Habit Start Date Stop Date Quantity Comments Source History of tobacco use Cigarette Smoker [facility] Sex Assigned At [facility] Alcohol Comment 2018-01-18 00:00:00 2018-01-18 00:00:00 2-3 drin ks/1-2 times per week [facility] Social History 2014-02-20 05:55:08 2014-02-20 05:55:08 [facility] Smoking Status Start Date Stop Date Source Current every day smoker 2019-12-19 00:00:00 [facility] Medications Ordered Medication Name Filled Medication Name Start Date Stop Da te Current Medication? Ordering Clinician Indication Dosage Frequency Signature (SIG) Comments Components Source ALPRAZolam (XANAX XR) 0.5 MG 24 hr tablet 2019-12-19 13:55:33 Yes .5mg Take 0.5 mg by mouth as needed. [facility] azaTHIOprine (IMURAN) 50 mg tablet 2019-12-19 13:55:33 Yes 50mg QD Take 50 mg by mouth daily. [facility] cephalexin (KEFLEX) 500 MG capsule 2019-12-19 00:00:00 2019-12-26 23:59:00 Yes 500mg [id number] Take 1 capsule (500 mg total) by mouth 3 (three) times daily for 7 days. [facility] Valium 2019-12-08 21:14:00 No Notes: (Same as: Valium) [facility] Valium 2019-12-08 21:03:00 No Notes: (Same as: Valium) WASTE: F/P - Black; E - White/Blue [facility] Chlordiazepoxide Hydrochloride 25 MG Oral Capsule 2019-12-08 21:02:00 No 25 mg, 1 cap, Route: PO, Drug form: CAP, ONCE, Dosing Weight 73.636, kg, Alcohol Withdrawal, Start date: 12/08/19 16:02:00 CDT, Stop date: 12/08/19 16:02:00 CDT, 0 [facility] Nicotine 2019-12-08 21:00:00 No Notes: (Same as: Habitrol) "Remove old patch before application of new patch" WASTE: F/P - P Waste Black; E - P Waste Black Dodie Mccall Geodon 2019-12-08 10:26:00 No Notes: Reconstitute with 1.2 ml of sterile water. Final concentration = 20 mg/1ml. Maximum 40 mg/24 hours (Same As: Arti). Hazardous Drug Group 3:Reproductive risk Hazardous Drug -- Refer to safe handling procedure PPE Matrix MEDICATION WASTE Product Size: 20 mg Product Wasted: ___ mg Dodie Mccall Nicotine 2019-12-08 09:59:00 No Notes: (Same as: Habitrol) "Remove old patch before application of new patch" WASTE: F/P - P Waste Black; E - P Waste Black Dodie Mccall Haldol 2019-12-08 09:05:00 No Notes: (Same as: Haldol) [facility] [place] Ativan 2019-12-08 08:26:00 No Notes: (Same as: Ativan) Dodie Mccall Sodium Chloride 0.9% (Bolus) IV 2019-12-08 05:21:00 No 1,000 mL, 1000 ml/hr, Infuse Over: 1 hr, Route: IV, 1,000, Drug form: INJ, ONCE, Priority: STAT, Dosing Weight 63.636 kg, Start date: 12/08/19 0:21:00 CDT, Stop date: 12/08/19 0:21:00 CDT, 0 [facility] Chlordiazepoxide 2019-12-05 02:00:00 No 50 mg, 2 cap, Route: PO, Drug form: CAP, Q12H, Dosing Weight 63.636, kg, Start date: 12/04/19 21:00:00 CDT, Duration: 24 hr, Stop date: 12/05/19 9:00:00 CDT, 0 Dodie Merlosann Chlordiazepoxide 2019-12-04 05:00:00 No 50 mg, 2 cap, Route: PO, Drug form: CAP, Q8H, Dosing Weight 63.636, kg, Start date: 12/04/19 0:00:00 CDT, Duration: 24 hr, Stop date: 12/04/19 16:00:00 CDT, 0 [facility] Folic Acid 2019-12-03 14:00:00 No Notes: (S nalini as: Folvite) [facility] multivitamin 2019-12-03 14:00:00 No Notes: (Same as:Thera) WASTE: F/P - Black; E - Municipal Trash Bin Take with food. [facility] Thiamine 2019-12-03 14:00:00 No Notes: (Too e As: Vitamin B1) [facility] Chlordiazepoxide 2019-12-02 23:00:00 No 50 mg, 2 cap, Route: PO, Drug form: CAP, Q6H, Dosing Weight 63.636, kg, Start date: 12/02/19 18:00:00 CDT, Duration: 24 hr, Stop date: 12/03/19 12:00:00 CDT, 0 [facility] Sodium Chloride 0.9% IV 1,000 mL + M.V.I .-12 10 mL Daily + folic acid IV 1 mg Daily + thiamine IV 1 2019-12-02 21:09:00 No 1,000 mL, Rate: 100 ml/hr, Infuse over: 10.1 hr, Route: IV, Dosing Weight 63.636 kg, Total Volume: 1,011.2, Start date: 12/02/19 16:09:00 CDT, Duration: 1 doses or times, Stop date: 12/03/19 2:14:00 CDT, 1.76, m2, 0 [facility] Sodium Chloride 0.9% IV 1,000 mL 2019-12-02 21:09:00 No 1,000 mL, Rate: 125 ml/hr, Infuse over: 8 hr, Route: IV, Dosing Weight 63.636 kg, Total Volume: 1,000, Start date: 12/02/19 16:09:00 CDT, Duration: 30 day, Stop date: 01/01/20 16:08:00 CDT, 1.76, m2, 0 [facility] [place] Saline Flush 0.9% 2019-12-02 21:09:00 No Notes: Same as: BD Posiflush Sterile [facility] Lorazepam 2019-12-02 21:09:00 No Notes: (Sa me as: Ativan) [facility] Ativan 2019-12-02 21:09:00 No Notes: (Same as: Ativan) Dodie Mccall Dextrose 50% Syringe (D50W) 2019-12-02 21:05:00 No 12.5 gm, 25 mL, Route: IVP, Drug Form: INJ, Dosing Weight 63.636, kg, PRN, PRN Blood Glucose Results, Start date: 12/02/19 16:05:00 CDT, Duration: 30 day, Stop date: 01/01/20 16:04:00 CDT, 0 Dodie Serafin n Glucagon 2019-12-02 21:05:00 No 1 mg, Route: IM, Drug form: PDR/INJ, PRN, Dosing Weight 63.636, kg, PRN Blood Glucose Results, Start date: 12/02/19 16:05:00 CDT, Duration: 30 day, Stop date: 01/01/20 16:04:00 CDT, 0 Dodie Mccall Ondansetron 2019-12-02 21:05:00 No Notes: (Same as: Janee) MEDICATION WASTE Product Size: 4 mg Product Wasted: ___ mg Dodie Mccall Acetaminophen 2019-12-02 21:05:00 No Notes: Do not exceed 4 gm/day. (Same as: Tylenol) Dodie Mccall folic acid + Sodium Chloride 0.9% IV 100 mL 2019-12-02 20:47:00 No Notes: (Same as: Folvite) Dodie Camacho nn Valium 2019-12-02 20:32:00 No 20 mg, Route: IVP, Drug form: INJ, ONCE, Dosing Weight 63.636, kg, Start date: 12/02/19 15:32:00 CDT, Stop date: 12/02/19 15:32:00 CDT Dodie Mccall Folic Acid 2019-12-02 20:04:00 No 1 mg, Route: IV, ONCE, Dosing Weight 63.636, kg, Start date: 12/02/19 15:04:00 CDT, Stop date: 12/02/19 15:04:00 CDT Dodie Mccall NS (Bolus) IV 2019-12-02 20:04:00 No 1,000 mL, 1,000 ml/hr, Infuse Over: 1 hr, Route: IV, 1,000, Drug form: INJ, ONCE, Priority: STAT, Dosing Weight 63.636 kg, Start date: 12/02/19 15:04:00 CDT, Stop date: 12/02/19 15:04:00 CDT, 0 [facility] Thiamine 2019-12-02 20:03:00 No 100 mg, Route: IV, Drug form: INJ, ONCE, Dosing Weight 63.636, kg, Priority: STAT, Start date: 12/02/19 15:03:00 CDT, Stop date: 12/02/19 15:03:00 CDT Me omer Mccall Valium 2019-12-02 19:52:00 No Notes: (Same as: Valium) WASTE: F/P - Black; E - White/Blue [facility] Haldol 2019-12-02 13:53:00 No 5 mg, Route: IM, ONCE, Dosing Weight 63.636, kg, Priority: STAT, Start date: 12/02/19 8:53:00 CDT, Stop date: 12/02/19 8:53:00 CDT [facility] Geodon 2019-12-02 06:44:00 No 20 mg, Route: IM, ONCE, Dosing Weight 63.636, kg, Priority: STAT, Start date: 12/02/19 1:44:00 CDT, Stop date: 12/02/19 1:44:00 CDT [facility] Sodium Chloride 0.9% (Bolus) IV 2019-12-02 04:11:00 No 1,000 mL, Infuse Over: 1 hr, Route: IV, ONCE, Priority: STAT, Dosing Weight 63.636 kg, Start date: 12/01/19 23:11:00 CDT, Stop date: 12/01/19 23:11:00 CDT [facility] Nicotine 2019-11-10 14:00:00 No Notes: (Same as: Habitrol) "Remove old patch before application of new patch" WASTE: F/P - P Waste Black; E - P Waste Black [facility] Ativan 2019-11-10 01:51:00 Yes Notes: (Same as: Ativan) [facility] Acetaminophen 325 MG / Hydrocodone Bitartrate 5 MG Oral Tabl et [Clements 5/325] 2019-11-10 00:21:00 No 1 tab, Route: PO, Drug Form: TAB, Dosing Weight 67.273, kg, ONCE, STAT, Start date: 11/09/19 19:21:00 CDT, Stop date: 11/09/19 19:21:00 CDT [facility] Geodon 2019-11-10 00:18:00 No 20 mg, Route: IM, ONCE, Dosing Weight 67.273, kg, Priority: STAT, Start date: 11/09/19 19:18:00 CDT, Stop date: 11/09/19 19:18:00 CDT [facility] Midazolam 2019-11-09 23:39:00 No 2 mg, Route: IVP, Q15Min, Dosing Weight 67.273, kg, PRN Agitation, Priority: STAT, Start date: 11/09/19 18:39:00 CDT, Stop date: 11/09/19 21:00:00 CDT [facility] Droperidol 2019-11-09 23:28:00 No 2.5 mg, Route: IV, ONCE, Dosing Weight 67.273, kg, Start date: 11/09/19 18:28:00 CDT, Stop date: 11/09/19 18:28:00 CDT [facility] Ketamine 2019-11-09 23:27:00 No 300 mg, Route: IM, ONCE, Dosing Weight 67.273, kg, Start date: 11/09/19 18:27:00 CDT, Stop date: 11/09/19 18:27:00 CDT [facility] Valium 2019-11-09 22:37:00 No Notes: (Same as: Valium) [facility] Valium 2019-11-09 19:19:00 No Notes: (Same as: Valium) [facility] Valium 2019-11-09 13:12:00 No 10 mg, Route: PO, Drug form: TAB, ONCE, Dosing Weight 67.273, kg, Priority: STAT, Start date: 11/09/19 8:12:00 CDT, Stop date: 11/09/19 8:12:[address] [facility] [address] 2019-11-09 12:29:00 No Notes: Reconstitute with 1.2 ml of sterile water. Final concentration = 20 mg/1ml. Maximum 40 mg/24 hours (Same As: Arti). Hazardous Drug Group 3:Reproductive risk Hazardous Drug -- Refer to safe handling procedure PPE Matrix MEDICATION WASTE Product Size: 20 mg Product Wasted: ___ mg Dodie Chi 2019-11-09 04:59:00 No Notes: Reconstitute with 1.2 ml of sterile water. Final concentration = 20 mg/1ml. Maximum 40 mg/24 hours (Same As: Arti). Hazardous Drug Group 3:Reproductive risk Hazardous Drug -- Refer to safe handling procedure PPE Matrix MEDICATION WASTE Product Size: 20 mg Product Wasted: ___ mg Dodie Mccall Sodium Chloride 0.9% (Bolus) IV 2019-11-09 04:35:00 No 1,000 mL, 1000 ml/hr, Infuse Over: 1 hr, Route: IV, 1,000, Drug form: INJ, ONCE, Priority: STAT, Dosing Weight 67.273 kg, Start date: 11/08/19 23:35:00 CDT, Stop date: 11/08/19 23:35:00 CDT, 0 Dodie Serafin n Thiamine 2019-11-09 04:35:00 No Notes: (Too e As: Vitamin B1) Dodie Mccall Imuran 2019-09-17 02:46:26 Yes Lucina Truong 2 tablet Dodie Cal Cymbalta 2019-09-17 02:46:26 Yes Lucina Truong 2 capsule Dodie Mccall Chlordiazepoxide Hydrochloride 25 MG Oral Capsule 2019-08-13 05:36:00 No See Instructions, [facility] Anxiety, 2 cap PO QID the first day 2 cap PO TID the second day 2 cap PO BID the third day 2 cap PO QHS the fourth day, # 20 tab, 0 Refill(s) Dodie Merlosann thiamine 100 mg oral tablet 2019-08-13 05:36:00 Yes 100 mg = 1 tab, PO, Daily, X 7 day, # 7 tab, 0 Refill(s) Dodie Merlosann Folic Acid 1 MG Oral Tablet 2019-08-13 05:36:00 Yes 1 mg = 1 tab, PO, Daily, # 30 tab, 0 Refill(s) Memoria darian Mccall Ativan 2019-08-13 01:39:00 No Notes: (Same as: Ativan) Dodie Chi 2019-08-12 22:52:00 No Notes: Reconstitute with 1.2 ml of sterile water. Final concentration = 20 mg/1ml. Maximum 40 mg/24 hours (Same As: Arti). Hazardous Drug Group 3:Reproductive risk Hazardous Drug -- Refer to safe handling procedure PPE Matrix MEDICATION WASTE Product Size: 20 mg Product Wasted: ___ mg Dodie Ly 2019-08-12 18:37:00 No Notes: (Same as: Ativan) Dodie Ly 2019-08-12 17:59:00 No 1 mg, Route: IVP, Drug form: INJ, ONCE, Dosing Weight 67, kg, Priority: STAT, Start date: 08/12/19 12:59:00 CDT, Stop date: 08/12/19 12:59:00 CDT Mily Chi 2019-08-12 17:22:00 No Notes: Reconstitute with 1.2 ml of sterile water. Final concentration = 20 mg/1ml. Maximum 40 mg/24 hours (Same As: Arti). 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, Stop date: 06/29/19 7:32:00 LOCK PLATER [facility] Cal Chlordiazepoxide Hydrochloride 25 MG Oral Capsule 2019-06-29 12:20:00 No 50 mg, Route: PO, Dr ug form: CAP, ONCE, Dosing Weight 65.909, kg, Alcohol Withdrawal, Start date: 06/29/19 6:20:00 LOCK PLATER, Stop date: 06/29/19 6:20:00 LOCK PLATER Dodie Mccall Chlordiazepoxide Hydrochloride 25 MG Oral Capsule 2019-06-29 06:56:00 No 50 mg, Route: PO, Dr ug form: CAP, ONCE, Dosing Weight 65.909, kg, Alcohol Withdrawal, Start date: 06/29/19 0:56:00 LOCK PLATER, Stop date: 06/29/19 0:56:00 LOCK PLATER Dodie Mccall Chlordiazepoxide Hydrochloride 25 MG Oral Capsule 2019-06-29 00:26:00 No See Instructions, [facility] N Anxiety, 2 cap PO QID the first day 2 cap PO TID the second day 2 cap PO BID the third day 2 cap PO QHS the fourth day, # 20 tab, 0 Refill(s) Dodie Mccall Folic Acid 1 MG Oral Tablet 2019-06-29 00:26:00 Yes 1 mg = 1 tab, PO, Daily, # 30 tab, 0 Refill(s) Mily Mccall thiamine 100 mg oral tablet 2019-06-29 00:26:00 Yes 100 mg = 1 tab, PO, Daily, X 7 day, # 7 tab, 0 Refill(s) Dodie Mccall Haldol 2019-06-28 21:54:00 No Notes: (Same as: Haldol) Dodie Mccall NS (Bolus) IV 2019-06-28 21:53:00 No 2,000 mL, 2000 ml/hr, Infuse Over: 1 hr, Route: IV, 2,000, Drug form: INJ, ONCE, Priority: STAT, Dosing Weight 67.273 kg, Start date: 06/28/19 15:53:00 LOCK PLATER, Stop date: 06/28/19 15:53:00 LOCK PLATER, 0 Dodie Mccall Ativan 2019-06-28 21:53:00 No Notes: (Same as: Ativan) Dodie Mccall Depakote 2019-06-14 14:00:00 No Notes: (Same as: Depakote ER) (Do Not Crush) "Do Not Crush" Dodie magaña Ativan 2019-06-14 13:36:00 No Notes: (Same as: Ativan) Dodie Mccall Ativan 2019-06-14 13:35:00 No 2 mg, Route: IVP, Drug form: INJ, ONCE, Dosing Weight 67.273, kg, Priority: STAT, Start date: 06/14/19 7:35:00 LOCK PLATER, Stop date: 06/14/19 7:35:00 LOCK PLATER Bozena [facility]rial Cal Benadryl 2019-06-14 13:34:00 No Notes: (Too e as: Benadryl) [facility] Cal Diphenhydramine 2019-06-14 05:58:00 No Notes: (Same as: Benadryl) [facility] Cal Haldol 2019-06-14 05:58:00 No Notes: (Same as: Haldol) Dodie Merlosann Ativan 2019-06-14 05:58:00 No Notes: (Same as: Ativan) [facility] Cal olanzapine 2019-06-14 04:39:00 No Notes: (Same As: ZyPREXA IM). Reconstitute with 2.1 ml sterile water for injection; use within 1 hour after reconstitution. For IM use only; do not administer IV or SUB-Q. [facility] Cal Depakote 2019-06-14 03:00:00 No Notes: (Same as: Depakote ER) Once daily dosing; indicated for migraines. Divalproex sodium extended-release tab. Do not chew or crush. "Do Not Crush" [facility] Cal Risperdal 2019-06-13 23:00:00 No Notes: ([facility] as: Risperdal) [facility] Cal Ativan 2019-06-13 21:30:00 No Notes: (Same as: Ativan) [facility] Cal Ativan 2019-06-13 20:18:00 No Notes: (Same as: Ativan) [facility] Cal Haldol 2019-06-13 14:54:00 No 5 mg, Route: IM, ONCE, Dosing Weight 67.273, kg, Priority: STAT, Start date: 06/13/19 8:54:00 LOCK PLATER, Stop date: 06/13/19 8:54:00 [facility]ATER [facility] At[facility] 2019-06-13 14:46:00 No 1 mg, Route: IVP, Drug form: INJ, ONCE, Dosing Weight 67.273, kg, Priority: STAT, Start date: 06/13/19 8:46:00 LOCK PLATER, Stop date: 06/13/19 8:46:00 LOCK PLATER [facility] Cal Ativan 2019-06-13 04:57:00 No Notes: (Same as: Ativan) [facility] Lor[facility]am 2019-06-13 02:55:00 No Notes: ([facility] as: Ativan) [facility] Lor[facility]am 2019-06-13 00:47:00 No 1 mg, Route: IVP, Drug form: INJ, ONCE, Dosing Weight 67.273, kg, Priority: STAT, Start date: 06/12/19 18:47:00 LOCK PLATER, Stop date: 06/12/19 18:47:00 LOCK PLATER Tn omer Mccall Lorazepam 2019-06-13 00:13:00 No Notes: ([facility] as: Ativan) Dodie Mccall olanzapine 2019-06-13 00:12:00 No Notes: (Same As: ZyPREXA IM). Reconstitute with 2.1 ml sterile water for injection; use within 1 hour after reconstitution. For IM use only; do not administer IV or SUB-Q. Dodie Mccall NS (Bolus) IV 2019-05-22 20:25:00 No 1,000 mL, 1,000 ml/hr, Infuse Over: 1 hr, Route: IV, 1,000, Drug form: INJ, ONCE, Priority: STAT, Dosing Weight 68.182 kg, Start date: 05/22/19 14:25:00 LOCK PLATER, Stop date: 05/22/19 14:25:00 LOCK PLATER, 0 Dodie Mccall Ativan 2019-05-22 18:41:00 No 1 mg, Route: IVP, Drug form: INJ, ONCE, Dosing Weight 68.182, kg, Priority: STAT, Start date: 05/22/19 12:41:00 LOCK PLATER, Stop date: 05/22/19 12:41:00 LOCK PLATER Tn omer Mccall Benadryl 2019-05-22 18:41:00 Yes Notes: ([facility] e as: Benadryl) Dodie Mccall Ativan 2019-05-22 18:40:00 No 1 mg, Route: IVP, Drug form: INJ, ONCE, Dosing Weight 68.182, kg, Priority: STAT, Start date: 05/22/19 12:40:00 LOCK PLATER, Stop date: 05/22/19 12:40:00 LOCK PLATER Tn omer Mccall Haloperidol 2019-05-22 18:39:00 No 5 mg, Route: IM, ONCE, Dosing Weight 68.182, kg, Priority: STAT, Start date: 05/22/19 12:39:00 LOCK PLATER, Stop date: 05/22/19 12:39:00 LOCK PLATER [facility] Cal Phenergan 2019-05-05 10:30:00 No Notes: Do not give IV push. (Same as: Phenergan) Dodie Mccall Dilaudid 2019-05-05 09:01:00 No Notes: Same as: Dilaudid Dodie Mccall Zofran 2019-05-05 09:01:00 No Notes: (Same as: Zofran) MEDICATION WASTE Product Size: 4 mg Product Wasted: ___ mg Dodie Mccall Sodium Chloride 0.9% (Bolus) IV 2019-05-05 08:44:00 No 1,000 mL, 1000 ml/hr, Infuse Over: 1 hr, Route: IV, 1,000, Drug form: INJ, ONCE, Priority: STAT, Dosing Weight 67.273 kg, Start date: 05/05/19 2:44:00 LOCK PLATER, Stop date: 05/05/19 2:44:00 LOCK PLATER, 0 Dodie Mccall Thiamine 2019-05-05 08:44:00 No Notes: (Too e As: Vitamin B1) Dodie Mccall Acetaminophen 325 MG Oral Tablet 2019-03-29 22:19:00 Yes 100.4 F, 0 Refill(s) Dodie Mccall Diazepam 2019-03-25 23:00:00 No Notes: (Too e as: Valium) Dodie Mccall Cymbalta 2019-03-25 18:00:00 No Notes: (Same as: Cymbalta) (Do Not Crush) Dodie Mccall Divalproex Sodium 500 MG Enteric Coated Tablet 2019-03-25 15:14: 00 No Notes: (Same as: Depakote Delayed Releas e) Do not confuse with the extended- release tablet. Delayed absorption enteric coated tablet. Do not crush Dodie Mccall Risperidone 2019-03-24 20:10:00 No Notes: ( Same as: Risperdal) Dodie Mccall Zofran 2019-03-24 13:28:00 No Notes: (Same as: Zofran) Dodie Mccall Diazepam 2019-03-24 05:51:00 No Notes: (Too e as: Valium) Dodie Mccall Risperidone 2019-03-23 18:22:00 No Notes: ( Same as: Risperdal) Dodie Mccall Thiamine 2019-03-23 15:00:00 No Notes: (Too e As: Vitamin B1) Dodie Mccall Risperidone 2019-03-23 03:20:00 No Notes: ( Same as: Risperdal) [facility] [place] Valium 2019-03-22 03:24:00 No Notes: (Same as: Valium) [facility] Cal gabapentin 2019-03-22 02:00:00 No Notes: (S nalini as: Neurontin) Dodie Mccall Fioricet with Codeine 2019-03-22 00:12:00 No Notes: Non-Formulary Drug. Do not exceed 4 gm/day of acetaminophen. (Same as: Fioricet with Codeine) (Same as: Fioricet with Codeine) [facility] Cal heparin 2019-03-21 22:00:00 No Notes: porci ne heparin [facility] potassium phosphate-sodium phosphate 250 mg-280 mg-160 mg oral powder for reconstitution 2019-03-21 18:00:00 No Notes: (Same as: Phos-NaK) Each 1.5 gm pkt has 250mg phosphorous. Mix w/2.5oz water and stir. [facility] Nephro-May[facility] Rx 2019-03-21 15:00:00 No Notes: (Same as: Nephro-Maynor Rx and Diatx) Give with food. [facility] Cal Levetiracetam 500 MG Oral Tablet [Keppra] 2019-03-21 15:00:00 No Notes: (Same as:Keppra) [facility] [place] Diazepam 2019-03-20 22:00:00 No 10 mg, Route: PO, Drug form: TAB, Q8H, Dosing Weight 71.4, kg, Start date: 03/20/19 16:00:00 LOCK PLATER, Duration: 30 day, Stop date: 04/19/19 8:00:00 LOCK PLATER [facility] [place] Keppra 2019-03-20 15:00:00 No Notes: Same as Keppra Mix with 100 mL NS, LR or D5W MEDICATION WASTE Product Size: 500 mg Product Wasted: ___ mg [facility] [place] Thiamine 2019-03-20 15:00:00 No Notes: (Too e As: Vitamin B1) [facility] Cal Nephro-Maynor Rx 2019-03-20 15:00:00 No 1 tab, Route: PO, Drug Form: TAB, Dosing Weight 71.4, kg, Daily, Start date: 03/20/19 9:00:00 LOCK PLATER, Duration: 30 day, Stop date: 04/18/19 9:00:00 LOCK PLATER Dodie Mccall Diazepam 2019-03-20 15:00:00 No Notes: (Too e as: Valium) Dodie Mccall NS 1,000 mL 2019-03-20 14:54:00 No 1,000 mL, Rate: 100 ml/hr, Infuse over: 10 hr, Route: IV, Dosing Weight 71.4 kg, Total Volume: 1,000, Start date: 03/20/19 8:54:00 LOCK PLATER, Duration: 30 day, Stop date: 04/19/19 8:53:00 LOCK PLATER, 1.86, m2, 0 Dodie Mccall Potassium Chloride 2019-03-20 05:30:00 No Notes: (Same as: KCL) Infuse no faster than 10 mEq/hr if given peripherally. Dodie Mccall sodium phosphate 2019-03-20 05:30:00 No Notes: Infuse over 4 hour. Do not infuse phosphorous concurrently in the same line as TPN or IVF that contains calcium. For double lumen central lines, phosphorous may be infused in a separate lumen from TPN. Dodie magaña potassium phosphate 2019-03-20 05:30:00 No Notes: (Same as: K Phosphate.) Do not infuse phosphorous concurrently in the same line as TPN or IVF that contains calcium. For double lumen central lines, phosphorous may be infused in a separate lumen from TPN. 1 mMol phoshate has 1.47 mEq potassium Infuse over 4 hours [facility] Cal potassium phosphate-sodium phosphate 250 mg-280 mg-160 mg oral powder for reconstitution 2019-03-20 05:30:00 No Notes: (Same as: Phos-NaK) Each 1.5 gm pkt has 250mg phosphorous. Mix w/2.5oz water and stir. Dodie Mccall Magnesium Sulfate 2019-03-20 05:30:00 No Notes: WASTE: F/P - Sink; E - Municipal Trash Bin Dodie Mccall Magnesium Oxide 2019-03-20 05:30:00 No Notes: (Same as: Mag-Ox 400) Magnesium oxide [id number] elemental magnesium Dose=____mg magnesium oxide (___mg elemental magnesium) Dodie kitchen Calcium Gluconate 2019-03-20 05:30:00 No Notes: WASTE: F/P - Sink; E - Municipal Trash Bin Dodie Mccall Calcium Carbonate 500 MG Chewable Tablet 2019-03-20 05:30:00 No Notes: (Same As: Terrance) Calcium Carbonate 500 mg = 200 mg elemental calcium Dose = mg calcium carbonate ( mg elemental calcium) Dodie Mccall Sodium Chloride 0.9% IV 1,000 mL + M.V.I .-12 10 mL Daily + folic acid IV 1 mg Daily + thiamine IV 1 2019-03-20 03:09:00 No 1,000 mL, Rate: 100 ml/hr, Infuse over: 10.1 hr, Route: IV, Dosing Weight 63.636 kg, Total Volume: 1,011.2, Start date: 03/19/19 21:09:00 LOCK PLATER, Duration: 3 day, Stop date: 03/22/19 21:08:00 LOCK PLATER, 1.74, m2, 0 [facility] Chelita magaña normal saline 0.9% IV 1000 mL 2019-03-20 03:06:00 No 1,000 mL, Rate: 125 ml/hr, Infuse over: 8 hr, Route: IV, Dosing Weight 63.636 kg, Total Volume: 1,000, Start date: 03/19/19 21:06:00 LOCK PLATER, Duration: 30 day, Stop date: 04/18/19 21:05:00 LOCK PLATER, 1.74, m2 Dodie Mccall Morphine 2019-03-20 03:01:00 No Not es: (Same as:MORPhine Sulfate) Dodie Mccall Acetaminophen 2019-03-20 02:59:00 No Notes: Do not exceed 4 gm/day. (Same as: Tylenol) Dodie Mccall Ondansetron 2 MG/ML Injectable Solution [Zofran] 2019-03-20 02:5 9:00 No Notes: (Same as: Zofran) * MEDICATION WASTE Product Size: 4 mg Product Wasted: ___ mg Dodie Mccall Morphine 2019-03-20 01:45:00 No Not es: (Same as:MORPhine Sulfate) Dodie Mccall Keppra 2019-03-20 01:16:00 No 1,000 mg, 100 mL, Route: IV, Drug form: INJ, ONCE, Dosing Weight 63.636, kg, Start date: 03/19/19 19:16:00 LOCK PLATER, Stop date: 03/19/19 19:16:00 LOCK PLATER, 0 Louis Mccall Tylenol 2019-03-19 23:05:00 No Notes: Max acetaminophen 4000 mg/day (4 gm/day). (Same as: Tylenol Extra Strength) Dodie Mccall Compazine 2019-03-19 23:05:00 No Notes: ([facility] as: Compazine) Dodie Mccall Magnesium Sulfate 2019-03-19 23:05:00 No Notes: WASTE: F/P - Sink; E - Municipal Trash Bin Dodie Mccall NS (Bolus) IV 2019-03-19 23:04:00 No 1,000 mL, 1,000 ml/hr, Infuse Over: 1 hr, Route: IV, 1,000, Drug form: INJ, ONCE, Priority: STAT, Dosing Weight 63.636 kg, Start date: 03/19/19 17:04:00 LOCK PLATER, Stop date: 03/19/19 17:04:00 LOCK PLATER, 0 Dodie Mccall Benadryl 2019-03-19 23:04:00 No Notes: ([facility] as: Benadryl) Dodie Mccall Oxazepam 30 MG Oral Capsule 2018-12-23 22:00:00 No 30 mg, 1 cap, Route: PO, QID, Dosing Weight 68.182, kg, Start date: 12/23/18 17:00:00 CDT, Duration: 30 day, Stop date: 01/22/19 13:00:00 CDT Dodie Mccall Chlordiazepoxide Hydrochloride 25 MG Oral Capsule 2018-12-23 19:46:00 Yes See Instructions, [facility] N Alcohol Withdrawal, Taper: Days 1-2: 3 tabs Days 3- 4: 2 tabs Days 5-6: 1 tab, # 12 cap, 0 Refill(s) Dodie Mccall Chlordiazepoxide Hydrochloride 25 MG Oral Capsule 2018-12-23 19:11:00 No 25 mg, 1 cap, Route: PO, Drug form: CAP, ONCE, Dosing Weight 68.182, kg, Start date: 12/23/18 14:11:00 CDT, Stop date: 12/23/18 14:11:00 CDT, 0 Dodie Mccall Oxazepam 30 MG Oral Capsule 2018-12-23 18:57:00 No 30 mg, Route: PO, ONCE, Dosing Weight 68.182, kg, Start date: 12/23/18 13:57:00 CDT, Stop date: 12/23/18 13:57:00 CDT Dodie Mccall Ativan 2018-12-23 16:21:00 No Notes: (Same as: Ativan) Dodie Mccall Sodium Chloride 0.9% (Bolus) IV 2018-12-23 16:20:00 No 1,000 mL, 1000 ml/hr, Infuse Over: 1 hr, Route: IV, 1,000, Drug form: INJ, ONCE, Priority: STAT, Dosing Weight 68.182 kg, Start date: 12/23/18 11:20:00 CDT, Stop date: 12/23/18 11:20:00 CDT, 0 Dodie norton DULoxetine (CYMBALTA) 20 MG capsule 2018-01-18 10:47:15 Yes 20mg QD Take 20 mg by mouth daily. [facility] levonorgestrel (KYLEENA IU) 2018-01-18 10:47:15 Yes by Intrauterine route. [facility] azaTHIOprine (IMURAN) 50 mg tablet 2018-01-18 10:45:36 Yes Imuran 50 mg tablet [facility] Ibuprofen 2018-01-10 21:58:00 No Notes: (Same as: Motrin) "Do Not Crush" Take with food. [facility] Cal Acetaminophen 2018-01-10 21:58:00 No Notes: Do not exceed 4 gm/day. (Same as: Tylenol) Dodie Mccall Sodium Chloride 0.9% (Bolus) IV 2018-01-10 21:58:00 No 1,000 mL, 1000 ml/hr, Infuse Over: 1 hr, Route: IVPB, 1,000, Drug form: INJ, ONCE, Priority: STAT, Dosing Weight 71.023 kg, Start date: 01/10/18 16:58:00 CDT, Stop date: 01/10/18 16:58:00 CDT Dodie marroquin Saline Flush 0.9% 2018-01-10 21:33:00 No Notes: preservative free. [facility] Cal promethazine (PHENERGAN) 25 MG tablet 2017-12-14 00:00:00 Y es TK 1 T PO Q 8 H [facility] Acetaminophen 325 MG / Hydrocodone Bitartrate 5 MG Oral Tabl et 2014-02-20 07:54:00 No Notes: (Sa me as: Clements 325/5) Do not exceed 4gm/day of acetaminophen. [facility] Ondansetron 2014-02-20 05:07:00 No Notes: ( Same as: Zofran) [facility] Morphine 2014-02-20 05:07:00 No Not es: (Same as:MORPhine Sulfate) [facility] Sodium Chloride 0.154 MEQ/ML Injectable Solution 2014-02-20 05:0 7:00 No 1,000 mL, 1000 ml/hr, Infuse Over: 1 hr, Route: IV, 1,000, Drug form: INJ, ONCE, Priority: STAT, Dosing Weight 70.455 kg, Start date: 02/20/14 0:07:00, Duration: 1 doses or times, Stop date: 02/20/14 0:07:00 [facility] Saline Flush 0.9% 2014-02-20 05:07:00 No Notes: Same as: BD Posiflush Sterile [facility] Sodium Chloride 0.9% IV 2012-02-03 00:51:00 No Efrain De Souza IV, 0 ml/hr, PRN, PRN Line Flush, Start date: 02/02/12 19:51:00, Duration: 30, 100 ml [facility] methylPREDNISolone 2012-02-02 23:30:00 No Jerrod De Souza 40 mg, 1 mL, Route: IVP, Drug form: INJ, Q12H, Start date: 02/02/12 18:30:00, Duration: 30 day, Stop date: 03/03/12 18:00:00 [facility] Dilaudid 2012-02-02 17:29:00 No Jerrod Richter n 1 mg, 0.5 mL, Route: IV, Drug form: INJ, Q3H, PRN Severe Pain, Start date: 02/02/12 12:29:00, Duration: 30 day, Stop date: 03/03/12 12:28:00 [facility] Asacol 2012-02-02 15:00:00 No Jerrod Jones [place] 800 mg, 2 tab, Route: PO, Drug form: ECTAB, TID, Start date: 02/02/12 10:00:00, Duration: 30 day, Stop date: 03/03/12 9:00:00 Mily Mccall Phenergan 2012-02-01 17:00:00 No Jerrod Jones Thurm an 12.5 mg, 0.5 tab, Route: PO, Drug form: TAB, Q6H, Start date: 02/01/12 12:00:00, Duration: 30 day, Stop date: 03/02/12 6:00:00 Louis Mccall Citrate of Magnesia 2012-02-01 17:00:00 No Jerrod Magnolia olph Ap 300 mL, Route: PO, Drug Form: LIQ, BID, Start date: 02/01/12 12:00:00, Duration: 2 doses or times, Stop date: 02/01/12 18:00:00 [facility] Jacqueline 2012-02-01 02:00:00 No Jerrod Jones Ap 10 mg, 2 tab, Route: PO, Drug form: TAB, Bedtime, Start date: 01/31/12 21:00:00, Duration: 30 day, Stop date: 02/29/12 21:00:00 Aman Guadalupe BD Normal Saline Flush 2012-01-31 21:00:00 No Dougl as Jones Ap 3 mL, Route: IVP, Drug Form: INJ, Q8H, S tart date: 01/31/12 16:00:00, Duration: 30 day, Stop date: 03/01/12 8:00:00 Bozena Mccall Imuran 2012-01-31 19:00:00 No Jerrod Jones [place] 150 mg, 3 tab, Route: PO, Drug form: TAB, Daily, Start date: 01/31/12 14:00:00, Stop date: 03/01/12 9:00:00 [facility] Cymbalta 2012-01-31 19:00:00 No Jerrod Jones Thurma n 20 mg, 1 cap, Route: PO, Drug form: DRC, Daily, Start date: 01/31/12 14:00:00, Duration: 30 day, Stop date: 03/01/12 9:00:00 Mily Mccall BD Normal Saline Flush 2012-01-31 17:59:00 No Dougl as Jones [place] 3 mL, Route: IVP, Drug Form: INJ, PRN, P RN Line Flush, Start date: 01/31/12 12:59:00, Duration: 30 day, Stop date: 03/01/12 12:58:00 Dodie Mccall Dextrose 5% in Lactated Ringers IV 1,000 mL 2012-01-31 12: 46:00 No Jerrod Jones [place] 1,000 mL, Rate: 100 ml/hr, Infuse over: 10 hr, Route: IV, kg, Total Volume: 1,000, Start date: 01/31/12 7:46:00, Duration: 30 day, Stop date: 03/01/12 7:45:00 Dodie Mccall Phenergan 2012-01-31 01:00:00 No Jerrod Jones Thurm an 12.5 mg, 0.5 tab, Route: PO, Drug form: TAB, Q6H, Start date: 01/30/12 20:00:00, Duration: 30 day, Stop date: 02/29/12 14:00:00 Bozena Mccall Cipro 2012-01-31 01:00:00 No Jerrod Jones Ap 400 mg, 200 mL, Route: IVPB, Drug form: INJ, Q12H, Start date: 01/30/12 20:00:00, Duration: 30 day, Stop date: 02/29/12 8:00:00 Mily Mccall Flagyl 2012-01-30 23:45:00 No Jerrod Jones Ap 500 mg, 100 mL, Route: IVPB, Drug form: INJ, Q8H, Start date: 01/30/12 18:45:00, Duration: 30 day, Stop date: 02/29/12 18:00:00 Aman Guadalupe Dilaudid 2012-01-30 23:29:00 No Jerrod Jones Thurma n 2 mg, 1 mL, Route: IV, Drug form: INJ, Q3H, PRN Pain, Start date: 01/30/12 18:29:00, Duration: 30 day, Stop date: 02/29/12 18:28:00 [facility] Ambien 2012-01-30 23:26:00 No Jerrod Jones [place] 10 mg, 2 tab, Route: PO, Drug form: TAB, Bedtime, PRN Insomnia, Start date: 01/30/12 18:26:00, Duration: 30 day, Stop date: 02/29/12 18:25:00 [facility] Tylenol 2012-01-30 23:25:00 No Jerrod Jones [place] 650 mg, 2 tab, Route: PO, Drug form: TAB, Q4H, PRN Temperature >100.4, Start date: 01/30/12 18:25:00, Duration: 30 day, Stop date: 02/29/12 18:24:00 [facility] Zofran 2012-01-30 23:23:00 No Jerrod Jones [place] 4 mg, 2 mL, Route: IVP, Drug form: INJ, Q6H, PRN Vomiting, Start date: 01/30/12 18:23:00, Duration: 30 day, Stop date: 02/29/12 18:22:00 [facility] Dextrose 5% in Lactated Ringers IV 1,000 mL 2012-01-30 23: 22:00 No Jerrod Jones [place] 1,000 mL, Rate: 150 ml/hr, Infuse over: 6.7 hr, Route: IV, kg, Total Volume: 1,000, Start date: 01/30/12 18:22:00, Duration: 2 doses or times, Stop date: 01/31/12 7:45:00 Louis Mccall Imuran 2012-01-28 20:00:00 No Dustin Chibueze Osuagwu 100 mg, 2 tab, Route: PO, Drug form: TAB, Daily, Dosing Weight 68, kg, Start date: 01/28/12 15:00:00, Duration: 30 day, Stop date: 02/27/12 9:00:00 [facility] Ultram 50 mg oral tablet 2012-01-28 19:35:18 Yes Ear l Chibueze Osuagwu 50 mg, 1 tab, PO, Q6H, PRN, 28 tab, Pain, Substitution Allowed, TAB [facility] Ultram 50 mg oral tablet 2012-01-28 15:10:00 No Dustin Ch ibueze Osuagwu 50 mg, 1 tab, Route: PO, Drug form: TAB, Q6H, Dosing Weight 68, kg, PRN Pain, Start date: 01/28/12 10:10:00, Duration: 30 day, Stop date: 02/27/12 10:09:00 [facility] Clements 10/325 oral tablet 2012-01-28 15:10:00 No Dustin Ch ibueze Osuagwu 1 tab, Route: PO, Drug Form: TAB, Dosing Weight 68, kg, Q6H, PRN Pain, Start date: 01/28/12 10:10:00, Duration: 30 day, Stop date: 02/27/12 10:09:00 [facility] Klonopin 2012-01-28 01:58:00 No Sarah Aguirrea Nick 0.25 mg, 0.5 tab, Route: PO, Drug form: TAB, BID, Dosing Weight 68, kg, Priority: NOW, Start date: 01/27/12 20:58:00, Duration: 30 day, Stop date: 02/26/12 17:00:00 [facility] [place] 7.5/325 oral tablet 2012-01-28 01:20:00 No Ea candy Chibueze Osuagwu 1 tab, Route: PO, Drug Form: TAB, Dosing Weight 68, kg, Q6H, PRN Pain, Start date: 01/27/12 20:20:00, Duration: 30 day, Stop date: 02/26/12 20:19:00 [facility] heparin 2012-01-27 14:00:00 No Sarahjumana Aguirrea Nick 5,000 unit, 1 mL, Route: SUB-Q, Drug form: INJ, Q12H, Dosing Weight 68.182, kg, Start date: 01/27/12 9:00:00, Duration: 30 day, Stop date: 02/25/12 21:00:00 [facility] Flagyl 2012-01-27 11:00:00 No Sarahjumana Aguirrea Nick 500 mg, 100 mL, Route: IVPB, Drug form: INJ, [id number], Dosing Weight 68.182, kg, Start date: 01/27/12 6:00:00, Duration: 30 day, Stop date: 02/25/12 22:00:00 [facility] Cal Cipro 2012-01-27 11:00:00 No Sarah Wilder Nick 400 mg, 200 mL, Route: IVPB, Drug form: INJ, [id number], Dosing Weight 68.182, kg, Start date: 01/27/12 6:00:00, Duration: 30 day, Stop date: 02/25/12 18:00:00 [facility] Imuran 2012-01-27 10:57:36 Yes 100 mg, PO, Daily, Substitution Allowed [facility] chorionic gonadotropin (HCG) 2012-01-27 10:56:57 No 1,000 unit, [facility].5 [facility] oral tablet 2012-01-27 10:53:35 No 0.25 mg, 0.5 tab, PO, TID, Substitution Allowed [facility] [place] cyproheptadine 2012-01-27 10:52:48 No Subst itution Allowed [facility] Multiple Vitamins with Minerals oral liquid 2012-01-27 10:52:19 No [facility] Allowed[facility] 2012-01-27 10:50:52 Yes Sub stitution Allowed, Maintenance [facility] Fish Oil 2012-01-27 10:48:33 Yes [facility] Oracea 40 mg oral delayed release capsule 2012-01-27 10:48:03 No 40 mg, 1 cap, PO, Daily, [facility] Cymbalta 20 mg oral delayed release capsule 2012-01-27 10:47:23 Yes 20 mg, 1 cap, PO, Daily, Substitution Allowed [facility] Toradol 15 mg/mL injectable solution 2012-01-27 10:44:00 No Sarah Aguirrea Nick 15 mg, 1 mL, Rou te: IV, Drug form: INJ, Q6H, Dosing Weight 68.182, kg, PRN Pain, Start date: 01/27/12 5:44:00, Duration: 4 day, Stop date: 01/31/12 5:43:00 [facility] Zofran 2012-01-27 10:41:00 No Sarah Aguirrea Nick 4 mg, 2 mL, Route: IV, Drug form: INJ, Q6H, Dosing Weight 68.182, kg, PRN Nausea, Start date: 01/27/12 5:41:00, Duration: 30 day, Stop date: 02/26/12 5:40:00 Dodie Mccall D5W 1/2NS + KCL 20mEq/L 1000ml (Premix) 1,000 mL 2012-01-14 4 10:40:00 No Sarah Romero 1,000 mL, Rate: 100 ml/hr, Infuse over: 10 hr, Route: IV, kg, Total Volume: 1,000, Start date: 01/27/12 5:40:00, Duration: 30 day, Stop date: 02/26/12 5:39:00 Mily Mccall DULoxetine (CYMBALTA) 20 MG capsule 2012-01-27 00:00:00 Yes 20mg QD Take 20 mg by mouth daily. [facility] predniSONE 10 mg oral tablet 2012-01-26 15:23:38 No Sarah Romero See Instructions, 4 tabs po daily for 1 week, then 3 tabs daily for 1 week, then 2 tabs daily for 1 week , then 1 tab daily for 1 week, 70 tab, Substitution Allowed4 tabs po daily for 1 week, then 3 tabs daily for 1 week, then 2 tabs daily for 1 week , then 1 tab daily for 1 week [facility] 0.375 g oral capsule, extended release 2012-01-26 1 5:22:06 No Sarah Romero 1.5 gm, 4 cap, P O, QAM, 120 cap, 3, 3, Substitution Allowed, ERCAP [facility] Flagyl 500 mg oral tablet 2012-01-26 15:21:43 No An sherri Aguirrea Nick 500 mg, 1 tab, PO, Q8H, 30 tab, Substitution Allowed [facility] ciprofloxacin 500 mg oral tablet 2012-01-26 15:21:36 No Sarah Aguirrea Nick 500 mg, 1 tab, PO, Q12H, 20 tab, Substit ution Allowed, TAB [facility] acetaminophen-hydrocodone 325 mg-7.5 mg oral tablet 01-25 14:12:00 No Marcia Richards 2 tab, Rout e: PO, Drug Form: TAB, Dosing Weight 68.182, kg, ONCE, STAT, Start date: 01/26/12 9:12:00, Stop date: 01/26/12 9:12:00 [facility] [place] Sodium Chloride 0.9% (Bolus) IV 1,000 mL 2012-01-26 14:10: 00 No Marcia Cheryl Richards 1,000 mL, Rate: 1,000 ml/hr, Infuse over: 1 hr, Route: IV, kg, Total Volume: 1,000, Bolus Dose, Priority: STAT, Start date: 01/26/12 9:10:00, Duration: 1 doses or times, Stop date: 01/26/12 10:09:00 [facility] morphine Sulfate 2012-01-26 12:37:00 No Marcia Cheryl M cNeil 4 mg, Route: IVP, ONCE, Dosing Weight 68.182, kg, Priority: STAT, Start date: 01/26/12 7:37:00, Stop date: 01/26/12 7:37:00 [facility] Levsin SL 2012-01-26 11:56:00 No Marcia Cheryl Richards 0.25 mg, 2 tab, Route: PO, Drug form: TAB, ONCE, Dosing Weight 68.182, kg, Start date: 01/26/12 6:56:00, Stop date: 01/26/12 6:56:00 [facility] 2012-01-26 11:55:00 No Marcia Cheryl Richards 500 mg, 1 tab, Route: PO, Drug form: TAB, ONCE, Dosing Weight 68.182, kg, Priority: STAT, Start date: 01/26/12 6:55:00, Stop date: 01/26/12 6:55:00 [facility] ciprofloxacin 2012-01-26 11:55:00 No Marcia Cheryl McNe il 500 mg, 1 tab, Route: PO, Drug form: TAB, ONCE, Dosing Weight 68.182, kg, Priority: STAT, Start date: 01/26/12 6:55:00, Stop date: 01/26/12 6:55:00 [facility] chorionic gonadotropin (HCG) 2012-01-26 11:19:23 No Substitution Allowed [facility] clonazepam 2012-01-26 11:19:06 No Substitut ion Allowed [facility] cyproheptadine 2012-01-26 11:18:41 No Subst itution Allowed [facility] Fish Oil 2012-01-26 11:18:23 No Substitutio n Allowed [facility] Oracea 2012-01-26 11:18:04 No Substitution Allowed [facility] Omnipaque 240 2012-01-26 10:47:00 No Ignacio Sorto 50 mL, Route: PO, Drug Form: SOLN, Dosing Weight 68.182, kg, ONCE, Start date: 01/26/12 5:47:00, Stop date: 01/26/12 5:47:00 [facility] morphine Sulfate 2012-01-26 10:33:00 No Ignacio Sorto 4 mg, 1 mL, Route: IVP, Drug form: INJ, ONCE, Dosing Weight 68.182, kg, Priority: STAT, Start date: 01/26/12 5:33:00, Stop date: 01/26/12 5:33:00 [facility] ondansetron 2012-01-26 10:33:00 No Ignacio Sorto 4 mg, 2 mL, Route: IVP, Drug form: INJ, ONCE, Dosing Weight 68.182, kg, Priority: STAT, Start date: 01/26/12 5:33:00, Stop date: 01/26/12 5:33:00 [facility] Sodium Chloride 0.9% (Bolus) IV 1,000 mL 2012-01-26 10:33:00 No Ignacio Sorto 1,000 mL, Rate: 1,00 0 ml/hr, Infuse over: 1 hr, Route: IV, kg, Total Volume: 1,000, Bolus Dose, Priority: STAT, Start date: 01/26/12 5:33:00, Duration: 1 doses or times, Stop date: 01/26/12 6:32:00 [facility] Saline Flush 0.9% 2012-01-26 10:33:00 No Ignacio Sorto 5 ml, Route: IVP, Drug Form: INJ, Dosing Weight 68.182, kg, PRN, PRN Line Flush, Start date: 01/26/12 5:33:00, Duration: 24 hr, Stop date: 01/27/12 5:32:00 [facility] Clements 5/325 oral tablet 2011-12-31 07:36:50 Yes Blake May ur Howard 1 tab, PO, Q4H, PRN, 10 tab, for pain, Substitution Allowed, Soft Stop, TAB [facility] 2011-12-31 07:08:00 No Blake Brennon Howard 1 mg, Route: IV, ONCE, Dosing Weight 70.455, kg, Start date: 12/31/11 2:08:00, Stop date: 12/31/11 2:08:00 [facility] 2011-12-31 05:08:00 No Blake Brennon Howard 4 mg, 2 mL, Route: IVP, Drug form: INJ, ONCE, kg, Priority: STAT, Start date: 12/31/11 0:08:00, Stop date: 12/31/11 0:08:00 [facility] 2011-12-31 05:07:00 No Blake Brennon Howard 1 mg, 0.5 mL, Route: IV, Drug form: INJ, ONCE, kg, Start date: 12/31/11 0:07:00, Stop date: 12/31/11 0:07:00 [facility] 2011-12-31 03:42:00 No Blake Brennon Howard 1 mg, 0.5 mL, Route: IV, Drug form: INJ, ONCE, kg, Start date: 12/30/11 22:42:00, Stop date: 12/30/11 22:42:00 [facility] 2011-12-31 03:41:00 No Blake Brennon Howard 8 mg, 4 mL, Route: IVP, Drug form: INJ, ONCE, kg, Priority: STAT, Start date: 12/30/11 22:41:00, Stop date: 12/30/11 22:41:00 [facility] Sodium Chloride 0.9% (Bolus) IV 1,000 mL 2011-12-31 03:41: 00 No Blake Brennon Howard 1,000 mL, Rate: 1,000 ml/hr, Infuse over: 1 hr, Route: IV, Dosing Weight 70.455 kg, Total Volume: 1,000, Bolus Dose, Priority: STAT, Start date: 12/30/11 22:41:00, Duration: 1 doses or times, Stop date: 12/30/11 23:40:00 [facility] Vital Signs Vital Name Observation Time Observation Value Comments Source Systolic blood pressure 2019-12-19 16:33:00 138 mm[Hg] [facility] Diastolic blood pressure 2019-12-19 16:33:00 92 mm[Hg] [facility] Heart rate 2019-12-19 16:33:00 98 /min [facility] Body temperature 2019-12-19 16:33:00 36.83 Pearl [facility] Respiratory rate 2019-12-19 16:33:00 16 /min [facility] Oxygen saturation in Arterial blood by Pulse oximetry 12-18 16:33:00 98 /min [facility] r Body weight Measured 2019-12-19 13:48:00 74.844 kg [facility] BMI 2019-12-19 13:48:00 25.09 kg/m2 [facility] Respitory Rate 2019-12-08 21:34:00 [facility] Systolic (mm Hg) 2019-12-08 21:34:00 [facility] [place] Diastolic (mm Hg) 2019-12-08 21:34:00 [facility] Respitory Rate 2019-12-08 19:06:00 [facility] Systolic (mm Hg) 2019-12-08 19:06:00 [facility] Diastolic (mm Hg) 2019-12-08 19:06:00 [facility] Respitory Rate 2019-12-08 17:54:00 [facility] Systolic (mm Hg) 2019-12-08 17:54:00 [facility] [place] Diastolic (mm Hg) 2019-12-08 17:54:00 [facility] [place] Height 2019-12-08 05:39:00 177.8 cm [facility] BMI Calculated 2019-12-08 05:39:00 [facility] [place] Weight 2019-12-08 05:39:00 [facility] Heart Rate 2019-12-08 05:39:00 [facility] Temperature Oral (F) 2019-12-08 05:39:00 97.6 F [facility] Respitory Rate 2019-12-03 13:52:00 [facility] Systolic (mm Hg) 2019-12-03 13:52:00 [facility] [place] Diastolic (mm Hg) 2019-12-03 13:52:00 [facility] [place] Respitory Rate 2019-12-03 12:15:00 [facility] [place] Systolic (mm Hg) 2019-12-03 12:15:00 [facility] [place] Diastolic (mm Hg) 2019-12-03 12:15:00 [facility] Respitory Rate 2019-12-03 04:38:00 [facility] Systolic (mm Hg) 2019-12-03 03:45:00 [facility] [place] Diastolic (mm Hg) 2019-12-03 03:45:00 [facility] Heart Rate 2019-12-02 18:43:00 [facility] [place] Temperature Oral (F) 2019-12-02 14:26:00 98.9 F [facility] Weight 2019-12-02 03:56:00 [facility] Heart Rate 2019-12-02 03:56:00 [facility] [place] Respitory Rate 2019-11-10 03:51:00 [facility] Systolic (mm Hg) 2019-11-10 03:51:00 [facility] Diastolic (mm Hg) 2019-11-10 03:51:00 [facility] [place] Respitory Rate 2019-11-10 03:05:00 [facility] Systolic (mm Hg) 2019-11-10 03:05:00 [facility] Diastolic (mm Hg) 2019-11-10 03:05:00 [facility] [place] Temperature Oral (F) 2019-11-10 03:05:00 98.6 F [facility] Respitory Rate 2019-11-10 01:17:00 [facility] [place] Systolic (mm Hg) 2019-11-10 01:17:00 [facility] Diastolic (mm Hg) 2019-11-10 01:17:00 [facility] Temperature Oral (F) 2019-11-09 21:00:00 99.2 F [facility] [place] Heart Rate 2019-11-09 21:00:00 [facility] Temperature Oral (F) 2019-11-09 18:30:00 98.5 F [facility] Heart Rate 2019-11-09 18:30:00 [facility] Heart Rate 2019-11-09 11:18:00 [facility] Height 2019-11-09 04:29:00 172.72 cm [facility] BMI Calculated 2019-11-09 04:29:00 [facility] [place] Weight 2019-11-09 04:29:00 [facility] [place] Temperature Oral (F) 2019-08-13 06:13:00 98.2 F [facility] Heart Rate 2019-08-13 06:13:00 [facility] Respitory Rate 2019-08-13 06:13:00 [facility] [place] Systolic (mm Hg) 2019-08-13 06:13:00 [facility] [place] Diastolic (mm Hg) 2019-08-13 06:13:00 [facility] Temperature Oral (F) 2019-08-13 01:00:00 98.2 F [facility] [place] Heart Rate 2019-08-13 01:00:00 [facility] [place] Respitory Rate 2019-08-13 01:00:00 [facility] [place] Systolic (mm Hg) 2019-08-13 01:00:00 [facility] Diastolic (mm Hg) 2019-08-13 01:00:00 [facility] [place] Temperature Oral (F) 2019-08-12 22:34:00 98.6 F [facility] Respitory Rate 2019-08-12 22:34:00 [facility] Heart Rate 2019-08-12 22:34:00 [facility] Systolic (mm Hg) 2019-08-12 22:34:00 [facility] Diastolic (mm Hg) 2019-08-12 22:34:00 [facility] [place] Height 2019-08-12 16:41:00 172.72 cm [facility] BMI Calculated 2019-08-12 16:41:00 [facility] Weight 2019-08-12 16:41:00 [facility] Systolic (mm Hg) 2019-06-29 14:30:00 [facility] Diastolic (mm Hg) 2019-06-29 14:30:00 [facility] [place] Systolic (mm Hg) 2019-06-29 13:30:00 [facility] [place] Diastolic (mm Hg) 2019-06-29 13:30:00 [facility] Temperature Oral (F) 2019-06-29 10:48:00 98.1 F [facility] [place] Respitory Rate 2019-06-29 10:48:00 [facility] Systolic (mm Hg) 2019-06-29 10:48:00 [facility] Diastolic (mm Hg) 2019-06-29 10:48:00 [facility] [place] Respitory Rate 2019-06-29 06:17:00 [facility] [place] Temperature Oral (F) 2019-06-29 06:17:00 98.4 F [facility] [place] Respitory Rate 2019-06-29 03:09:00 [facility] [place] Temperature Oral (F) 2019-06-29 03:09:00 98.6 F [facility] [place] Heart Rate 2019-06-28 21:54:00 [facility] Height 2019-06-28 21:54:00 172.72 cm [facility] [place] BMI Calculated 2019-06-28 21:54:00 [facility] [place] Weight 2019-06-28 21:54:00 [facility] Systolic (mm Hg) 2019-06-13 16:41:00 [facility] [place] Diastolic (mm Hg) 2019-06-13 16:41:00 [facility] [place] Respitory Rate 2019-06-13 16:41:00 [facility] Heart Rate 2019-06-13 16:41:00 [facility] [place] Temperature Oral (F) 2019-06-13 16:41:00 98.8 F [facility] [place] Temperature Oral (F) 2019-06-13 11:48:00 98.0 F [facility] Respitory Rate 2019-06-13 11:48:00 [facility] Systolic (mm Hg) 2019-06-13 11:48:00 [facility] [place] Diastolic (mm Hg) 2019-06-13 11:48:00 [facility] [place] Temperature Oral (F) 2019-06-13 03:15:00 98.2 F [facility] [place] Heart Rate 2019-06-13 03:15:00 [facility] [place] Respitory Rate 2019-06-13 03:15:00 [facility] Systolic (mm Hg) 2019-06-13 03:15:00 [facility] [place] Diastolic (mm Hg) 2019-06-13 03:15:00 [facility] [place] Heart Rate 2019-06-12 23:17:00 [facility] Height 2019-06-12 23:17:00 172.72 cm [facility] [place] BMI Calculated 2019-06-12 23:17:00 [facility] Weight 2019-06-12 23:17:00 [facility] [place] Systolic (mm Hg) 2019-05-22 23:00:00 [facility] Diastolic (mm Hg) 2019-05-22 23:00:00 [facility] Respitory Rate 2019-05-22 23:00:00 [facility] [place] Respitory Rate 2019-05-22 20:00:00 [facility] [place] Systolic (mm Hg) 2019-05-22 20:00:00 [facility] Diastolic (mm Hg) 2019-05-22 20:00:00 [facility] [place] Respitory Rate 2019-05-22 19:00:00 [facility] [place] Systolic (mm Hg) 2019-05-22 19:00:00 [facility] [place] Diastolic (mm Hg) 2019-05-22 19:00:00 [facility] Heart Rate 2019-05-22 18:19:00 [facility] Temperature Oral (F) 2019-05-22 18:19:00 99 F [facility] [place] Height 2019-05-22 18:19:00 172.72 cm [facility] [place] BMI Calculated 2019-05-22 18:19:00 [facility] Weight 2019-05-22 18:19:00 [facility] Height 2019-05-16 15:38:00 172.72 cm [facility] [place] Weight 2019-05-16 15:38:00 [facility] BMI Calculated 2019-05-16 15:38:00 [facility] [place] Systolic (mm Hg) 2019-05-16 15:30:00 [facility] Height 2019-05-16 15:30:00 [facility] Weight 2019-05-16 15:30:00 [facility] Heart Rate 2019-05-16 15:30:00 [facility] Temperature Oral (F) 2019-05-16 15:30:00 97.3 F [facility] [place] Diastolic (mm Hg) 2019-05-16 15:30:00 [facility] [place] Systolic (mm Hg) 2019-05-05 09:43:00 [facility] Diastolic (mm Hg) 2019-05-05 09:43:00 [facility] Systolic (mm Hg) 2019-05-05 08:28:00 [facility] [place] Diastolic (mm Hg) 2019-05-05 08:28:00 [facility] [place] Heart Rate 2019-05-05 08:28:00 [facility] Respitory Rate 2019-05-05 08:28:00 [facility] Temperature Oral (F) 2019-05-05 08:28:00 98.5 F [facility] Height 2019-05-05 08:28:00 172.72 cm [facility] [place] BMI Calculated 2019-05-05 08:28:00 [facility] [place] Weight 2019-05-05 08:28:00 [facility] Systolic (mm Hg) 2019-03-29 20:00:00 [facility] [place] Diastolic (mm Hg) 2019-03-29 20:00:00 [facility] Temperature Oral (F) 2019-03-29 20:00:00 97.6 F [facility] [place] Heart Rate 2019-03-29 20:00:00 [facility] Heart Rate 2019-03-29 13:00:00 [facility] [place] Systolic (mm Hg) 2019-03-29 13:00:00 [facility] Diastolic (mm Hg) 2019-03-29 13:00:00 [facility] [place] Temperature Oral (F) 2019-03-29 13:00:00 97.5 F [facility] [place] Temperature Oral (F) 2019-03-29 10:00:00 98 F [facility] [place] Systolic (mm Hg) 2019-03-29 10:00:00 [facility] Diastolic (mm Hg) 2019-03-29 10:00:00 [facility] Heart Rate 2019-03-29 10:00:00 [facility] Respitory Rate 2019-03-29 10:00:00 [facility] [place] Respitory Rate 2019-03-29 06:00:00 [facility] Respitory Rate 2019-03-29 02:00:00 [facility] Height 2019-03-20 03:59:00 172.72 cm [facility] [place] Weight 2019-03-20 03:59:00 [facility] BMI Calculated 2019-03-20 03:59:00 [facility] [place] Height 2019-03-19 22:54:00 170.18 cm [facility] BMI Calculated 2019-03-19 22:54:00 [facility] [place] Weight 2019-03-19 22:54:00 [facility] Systolic (mm Hg) 2018-12-23 20:00:00 [facility] Diastolic (mm Hg) 2018-12-23 20:00:00 [facility] Respitory Rate 2018-12-23 20:00:00 [facility] [place] Temperature Oral (F) 2018-12-23 20:00:00 98.6 F [facility] Heart Rate 2018-12-23 20:00:00 [facility] Weight 2018-12-23 15:33:00 [facility] [place] Systolic (mm Hg) 2018-12-23 15:33:00 [facility] Diastolic (mm Hg) 2018-12-23 15:33:00 [facility] Heart Rate 2018-12-23 15:33:00 [facility] Respitory Rate 2018-12-23 15:33:00 [facility] Temperature Oral (F) 2018-12-23 15:33:00 98.5 F [facility] Height 2018-12-23 01:47:00 172.72 cm [facility] Weight 2018-12-23 01:47:00 [facility] BMI Calculated 2018-12-23 01:47:00 [facility] Heart Rate 2018-12-23 01:47:00 [facility] [place] Respitory Rate 2018-12-23 01:47:00 [facility] Temperature Oral (F) 2018-12-23 01:47:00 98.6 F [facility] Systolic (mm Hg) 2018-12-23 01:47:00 [facility] Diastolic (mm Hg) 2018-12-23 01:47:00 [facility] Systolic (mm Hg) 2018-01-11 01:05:00 [facility] Diastolic (mm Hg) 2018-01-11 01:05:00 [facility] [place] Respitory Rate 2018-01-11 01:05:00 [facility] Weight 2018-01-10 21:29:00 [facility] Temperature Oral (F) 2018-01-10 21:29:00 98.9 F [facility] [place] Respitory Rate 2018-01-10 21:29:00 [facility] [place] Heart Rate 2018-01-10 21:29:00 [facility] [place] Systolic (mm Hg) 2018-01-10 21:29:00 [facility] [place] Diastolic (mm Hg) 2018-01-10 21:29:00 [facility] [place] Systolic (mm Hg) 2014-02-20 08:20:00 [facility] [place] Diastolic (mm Hg) 2014-02-20 08:20:00 [facility] Respitory Rate 2014-02-20 08:20:00 [facility] Diastolic (mm Hg) 2014-02-20 02:52:00 [facility] Systolic (mm Hg) 2014-02-20 02:52:00 [facility] [place] Respitory Rate 2014-02-20 02:52:00 [facility] Temperature Oral (F) 2014-02-20 02:52:00 98.9 F [facility] Heart Rate 2014-02-20 02:52:00 [facility] Height 2014-02-20 02:52:00 172.72 cm [facility] BMI Calculated 2014-02-20 02:52:00 [facility] [place] Weight 2014-02-20 02:52:00 [facility] Temperature Oral (F) 2012-02-04 16:31:00 98.1 F [facility] Heart Rate 2012-02-04 16:31:00 [facility] [place] Respitory Rate 2012-02-04 16:31:00 [facility] [place] Systolic (mm Hg) 2012-02-04 16:31:00 [facility] Diastolic (mm Hg) 2012-02-04 16:31:00 [facility] Systolic (mm Hg) 2012-02-04 12:41:00 [facility] Respitory Rate 2012-02-04 12:41:00 [facility] [place] Diastolic (mm Hg) 2012-02-04 12:41:00 [facility] Temperature Oral (F) 2012-02-04 12:41:00 97.7 F [facility] [place] Heart Rate 2012-02-04 12:41:00 [facility] [place] Diastolic (mm Hg) 2012-02-04 09:30:00 [facility] [place] Systolic (mm Hg) 2012-02-04 09:30:00 [facility] [place] Heart Rate 2012-02-04 09:30:00 [facility] [place] Respitory Rate 2012-02-04 09:30:00 [facility] Temperature Oral (F) 2012-02-04 09:30:00 97.5 F [facility] [place] Height 2012-01-30 23:08:00 172.72 cm [facility] Weight 2012-01-30 23:08:00 [facility] Diastolic (mm Hg) 2012-01-28 12:00:00 [facility] [place] Temperature Oral (F) 2012-01-28 12:00:00 98.2 F [facility] Heart Rate 2012-01-28 12:00:00 [facility] Respitory Rate 2012-01-28 12:00:00 [facility] [place] Systolic (mm Hg) 2012-01-28 12:00:00 [facility] Diastolic (mm Hg) 2012-01-28 09:00:00 [facility] Systolic (mm Hg) 2012-01-28 09:00:00 [facility] [place] Heart Rate 2012-01-28 09:00:00 [facility] [place] Respitory Rate 2012-01-28 09:00:00 [facility] Temperature Oral (F) 2012-01-28 09:00:00 98.1 F [facility] [place] Heart Rate 2012-01-28 01:00:00 [facility] Temperature Oral (F) 2012-01-28 01:00:00 98.2 F [facility] [place] Respitory Rate 2012-01-28 01:00:00 [facility] [place] Systolic (mm Hg) 2012-01-28 01:00:00 [facility] [place] Diastolic (mm Hg) 2012-01-28 01:00:00 [facility] Weight 2012-01-27 10:47:00 [facility] Height 2012-01-27 10:47:00 173.00 cm [facility] [place] Height 2012-01-26 10:03:00 172.72 cm [facility] [place] Weight 2012-01-26 10:03:00 [facility] Height 2011-12-31 02:40:00 172.72 cm [facility] [place] Weight 2011-12-31 02:40:00 [facility] [place] Procedures Procedure Date / Time Performed Performing Clinician [facility] e CT BRAIN WITHOUT IV CONTRAST 2019-12-19 15:51:00 Joseph, Era Faby [facility] ED ECG INTERPRETATION 2019-12-19 15:28:04 Era Naranjo [facility] ECG 12-LEAD 2019-12-19 14:52:49 Unknown, Hl7 Doctor [facility] CREATINE KINASE (CK) 2019-12-19 14:14:00 Era Naranjo [facility] SALICYLATE LEVEL 2019-12-19 14:14:00 Era Naranjo [facility] COMPREHENSIVE METABOLIC PANEL 2019-12-19 14:14:00 Anna Naranjo [facility] CBC W/PLT COUNT & AUTO DIFFERENTIAL 2019-12-19 14:14:00 Era Naranjo [facility] SCREEN, URINE 2019-12-19 14:08:00 Era Naranjo [facility] RAPID DRUG SCREEN, URINE 2019-12-19 14:08:00 Era Naranjo [facility] URINALYSIS W/ REFLEX URINE CULTURE 2019-12-19 14:08:00 Era Naranjo [facility] Laminectomy [facility] Plan of Care Planned Activity Planned Date Details Comments Source Future Scheduled Test 2020-01-14 00:00:00 INFLUENZA VACCINE (#1) [code = INFLUENZA VACCINE (#1)] [facility] Future Scheduled Test 2004-09-01 00:00:00 Screening for kyle gnant neoplasm of cervix (procedure) [code = 995013763] [facility] Future Scheduled Test 2003 00:00:00 Lipid panel (proce dure) [code = 58805653] [facility] Future Scheduled Test 1989-09-01 00:00:00 PNEUMOCOCCAL VACCI NE 2-64 YEARS AT RISK (1 of 1 - PPSV23) [code = PNEUMOCOCCAL VACCINE 2-64 YEARS AT RISK (1 of 1 - PPSV23)] [facility] Encounters Start Date/Time End Date/Time Encounter Type Admission Type Attendi [facility] Care Department Encounter ID Source 2019-12-08 00:19:00 2019-12-08 16:37:00 Outpatient Mirela Everett [facility] [id number] 2019-12-08 00:18:00 2019-12-08 00:18:00 Emergency E MHTW MHTW [id number] MHTW 2019-12-01 22:42:41 2019-12-03 11:05:00 Outpatient Ashwin Spence MH[facility] WOOD [id number] 2019-12-02 15:02:00 2019-12-01 22:42:00 Inpatient E MHTW MED [id number] MHTW 2019-11-08 23:28:58 2019-11-09 23:17:00 Outpatient Laurence Dye MHWOOD MHWOOD [id number] 2019-11-08 23:28:00 2019-11-08 23:28:00 Emergency E MHTW MHTW [id number] MHTW 2019-08-12 11:34:02 2019-08-13 01:20:00 Outpatient Josh Cohen [facility] [id number] 2019-08-12 11:34:00 2019-08-12 11:34:00 Emergency E MHTW MHTW [id number] MHTW 2019-07-09 08:00:00 2019-07-09 08:00:00 Outpatient MHTW MHTW [id number] MHTW 2019-06-28 15:40:31 2019-06-29 08:44:00 Outpatient Maureen Valentino [facility] [id number] 2019-06-28 15:40:00 2019-06-28 15:40:00 Emergency E MHTW MHTW [id number] MHTW 2019-06-19 11:20:00 2019-06-19 11:20:00 Outpatient Triston Benavidez MHMISCHER MHMISCHER [id number] 2019-06-12 17:11:14 2019-06-14 10:39:00 Outpatient Al Orourke [facility] [id number] 2019-06-12 17:11:00 2019-06-12 17:11:00 Emergency E MHTW MHTW [id number] MHTW 2019-05-22 12:18:12 2019-05-22 17:29:00 Outpatient Josh Cohen MHWO[facility] WOOD [id number] 2019-05-22 12:18:00 2019-05-22 12:18:00 Emergency E MHTW MHTW [id number] MHTW 2019-05-16 08:34:00 2019-05-16 23:59:00 Outpatient Roberth Crook [facility] [id number] 2019-05-16 10:30:00 2019-05-16 10:30:00 Outpatient [facility] [id number] [facility] 2019-05-16 08:34:00 2019-05-16 08:34:00 Outpatient MHTW MHTW [id number] MHTW 2019-05-05 02:27:21 2019-05-05 06:00:00 Outpatient Maureen Valentino [facility] [id number] 2019-05-05 02:27:00 2019-05-05 02:27:00 Emergency E MHTW MHTW [id number] 2019-04-03 11:48:19 2019-04-04 23:59:59 Outpatient MHMIS NATALIYA MHMISCHER [id number] 2019-04-03 11:39:19 2019-04-04 23:59:59 Outpatient MHMIS NATALIYA MHMISCHER [id number] 2019-04-01 12:30:39 2019-04-02 23:59:59 Outpatient MHMIS NATALIYA MHMISCHER [id number] 2019-03-19 16:47:20 2019-03-29 18:15:00 Outpatient Jennifer Macdonald [facility] [id number] 2019-03-19 19:43:00 2019-03-19 16:47:00 Inpatient E MHTW PADMAJA [id number] MHTW 2018-12-23 10:31:59 2018-12-23 15:00:00 Outpatient Yara Aviles MHSE MHSE [id number] 2018-12-23 10:31:00 2018-12-23 10:31:00 Emergency E MHSE MHSE [id number] [facility] 2018-12-22 19:59:31 2018-12-22 23:30:00 Outpatient Janice Carrillo [facility] [id number] 2018-12-22 19:59:00 2018-12-22 19:59:00 [id number] 2018-01-10 16:25:00 2018-01-10 20:13:00 Outpatient [place] Davis 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 If there is persistent clinical concern for intracranial pathology, MR examination is recommended for further characterization. Signed: Leatha Pratereport Verified Date/Time: 12/19/2019 16:06:46 brain without IV contrast 2019-12-19 16:06:00 Interface, External Ris In - 12/19/2019 4:[address], BRAIN, WITHOUT CONTRAST INDICATION: alteredaltered TECHNIQUE: Noncontrast axial imaging was obtained from the vertex to the skull base. Axial images were reconstructed using a bone algorithm. 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 If there is persistent clinical concern for intracranial pathology, MR examination is recommended for further characterization. Signed: Leatha Prater MDReport Verified Date/Time: 12/19/2019 16:06:46 [facility] Acetaminophen level 2019-12-19 15:25:00 Test Item Acetaminophen Level (test code = 3298-7) <6.0 10-30 L [place]test code = [place] Orthopedic Shoe Maker ID - [id number] Lab Interpretation (test code = 02984-8) [facility]normal [facility]EN [id number] 15:25:00* Test Item Value Reference Range Interpretation Comments ACETAMINOPHEN LEVEL (BEAKER) (test code = 344) < ug/mL 10.0-30 .0 L Orthopedic Shoe Maker ID - [id number] bxjjn2188-06-38 15:24:00* Test Item Value Reference Range Interpretation Comments Salicylate Lvl (test code = 4024-6) <5.0 20-30 L [place]test [place] = [place] Orthopedic Shoe Maker ID - [id number] Lab Interpretation (test code = 32911-4) [facility] [id number] 15:24:00* Test Item Value Reference Range Interpretation Comments SALICYLATE LEVEL (BEAKER) (test code = 764) < mg/dL 20.0-30.0 L Orthopedic Shoe Maker ID - [id number] metabolic [id number] 15:22:00* Test Item Value Reference Range Interpretation Comments Protein, Total (test code = 2885-2) 7.8 6.0- 8.5 gm/dL Albumin (test code = 25952-8) 4.9 g/dL 3.5-5 Alkaline Phosphatase (test code = 6768-6) 68 U/L 30-115 Total Bilirubin (test code = 1975-2) 0.7 mg/dL 0.1-1.3 Sodium (test code = 2951-2) 142 meq/L 135-148 Potassium (test code = 2823-3) 4.0 meq/L 3.5-5.5 Chloride (test code = 2075-0) 104 meq/L 98-106 CO2 (test code = 2027-9) 23 meq/L 20-31 BUN (test code = 3094-0) 7 mg/dL 10-26 L Creatinine (test code = 2160-0) 0.74 mg/dL 0.5-1.2 Glucose (test code = 2345-7) 81 mg/dL 70-110 Calcium (test code = 05381-3) 9.4 mg/dL 8.5-10.5 AST (test code = 1920-8) 127 U/L 5-40 H ALT (test code = 1742-6) 137 U/L 6-50 H EGFR (test code = 01771-9) I NSUFFICIENT CLINICAL DATA TO CALCULATE ESTIMATED GFR. [place] = [place] Orthopedic Shoe Maker ID - [id number] Lab Interpretation (test code = 75814-4) [facility]normal [facility] (CK)2019-12-19 15:22:00* Test Item Value Reference Range Interpretation Comments Total CK (test code = 2157-6) 523 U/L 29-168 H [place] = [place] Orthopedic Shoe Maker ID - [id number] Lab Interpretation (test code = 33296-9) Abnormal [facility] (CK)2019-12-19 15:22:00* Test Item Value Reference Range Interpretation Comments CREATINE KINASE TOTAL (BEAKER) (test code = 380) 523 U/L 29-16 8 H Orthopedic Shoe Maker ID - [id number] METABOLIC [id number] 15:22:00* Test Item Value Reference Range Interpretation Comments TOTAL PROTEIN (BEAKER) (test code = 770) 7.8 gm/dL 6.0-8.5 ALBUMIN (BEAKER) (test code = 1145) 4.9 g/dL 3.5-5.0 ALKALINE PHOSPHATASE (BEAKER) (test code = 346) 68 U/L 30-115 BILIRUBIN TOTAL (BEAKER) (test code = 377) 0.7 mg/dL 0.1-1.3 SODIUM (BEAKER) (test code = 381) 142 meq/L 135-148 POTASSIUM (BEAKER) (test code = 379) 4.0 meq/L 3.5-5.5 CHLORIDE (BEAKER) (test code = 382) 104 meq/L 98-106 CO2 (BEAKER) (test code = 355) 23 meq/L 20-31 BLOOD UREA NITROGEN (BEAKER) (test code = 354) 7 mg/dL 10-26 L CREATININE (BEAKER) (test code = 358) 0.74 mg/dL 0.50-1.20 GLUCOSE RANDOM (BEAKER) (test code = 652) 81 mg/dL 70-110 CALCIUM (BEAKER) (test code = 697) 9.4 mg/dL 8.5-10.5 AST (SGOT) (BEAKER) (test code = 353) 127 U/L 5-40 H ALT (SGPT) (BEAKER) (test code = 347) 137 U/L 6-50 H EGFR (BEAKER) (test code = 1092) INSUFFICIENT CLINICAL DATA TO CALCULATE ESTIMATED GFR. Orthopedic Shoe Maker ID - [id number] 15:21:00* Test Item Value Reference Range Interpretation Comments Ethanol Lvl (test code = 5643-2) 134 mg/dL <=10 H [place]test [place] = [place] Orthopedic Shoe Maker ID - [id number] Lab Interpretation (test code = 95555-1) [facility] 15:21:00* Test Item Value Reference Range Interpretation Comments ETHANOL (BEAKER) (test code = 400) 134 mg/dL <=10 H Orthopedic Shoe Maker ID - [id number] drug screen, qocas8832-03-84 15:09:00* Test Item Value Reference Range Interpretation Comments Barbiturate Screen (test code = 89938-9) Negative Negative Benzodiazepine Screen (test code = 37134-0) Positive Negative A Cocaine (Metab.) Screen (test code = 3397-7) Negative Negative Methadone Screen (test code = 78576-5) Negative Negative Opiate Screen (test code = 53015-7) Negative Negative Cannabinoid Screen (test code = 50071-0) Negative Negative Amph/Methamph Screen (test code = 79624-0) Negative Negative Phencyclidine Screen (test code = 35036-0) Negative Negative pH, UA (test code = 5803-2) 6.0 5.0-8.0 [place]test [place] = [place] DRUG CUTOFF C ONC.Cocaine 300 ng/mL Cannabinoid 50 ng/mLBenzodiazepine 200 ng/mLBarbiturate 200 ng/mLPhencyclidine 25 ng/mLOpiate 300 ng/mLMethadone 300 ng/mLAmphetamine/ 1000 ng/mL Methamphetamine This assay provides an unconfirmed qualitative test result for the clinical management of patients in emergency situations. Chain of custody not maintained. Some qpcj-mfi-xieslbp medications, as well as adulterants, may cause inaccurate results. Clinical correlation should be applied. A more comprehensive drug screen or confirmation of a detected drug may be performed upon request.Orthopedic Shoe Maker ID - [id number] Lab Interpretation (test code = 66099-2) Abnormal [facility] CenterRAPID DRUG SCREEN, [id number] 15:09:00* Test Item Value Reference Range Interpretation Comments BARBITURATE URINE (BEAKER) (test code = 725) Negative Negative BENZODIAZEPINE SCREEN URINE (BEAKER) (test code = 726) Positive Negative A COCAINE (METAB.) SCREEN (BEAKER) (test code = 1164) Negative Ne gative METHADONE SCREEN (BEAKER) (test code = 1436) Negative Negative OPIATE SCREEN URINE (BEAKER) (test code = 734) Negative Negativ e CANNABINOID SCREEN URINE (BEAKER) (test code = 727) Negative Ne gative AMPH/METHAMPH SCREEN (BEAKER) (test code = 1438) Negative Negat mart PHENCYCLIDINE SCREEN URINE (BEAKER) (test code = 608) Negative Negative PH UA (BEAKER) (test code = 467) 6.0 5.0-8.0 DRUG CUTOFF CONC.Cocaine 300 ng/mL Cannabinoid 50 ng/mLBenzodiazepine 200 ng/mLBarbiturate 200 ng/mLPh encyclidine 25 ng/mLOpiate 300 ng/mLMethadone 300 ng/mLAmphetamine/ 1000 ng/mL MethamphetamineThis assay provides an unconfirmed qualitative test result for the clinical management of patients in emergency situations. Chain of custody not maintained. Some gsgb-jde-huiwrdm me dications, as well as adulterants, may cause inaccurate results. Clinical correl ation should be applied. A more comprehensive drug screen or confirmation of a d etected drug may be performed upon request.Orthopedic Shoe Maker ID - [id number] w/Microscopic + Reflex to [id number] 14:44:00* Test Item Value Reference Range Interpretation Comments Color, UA (test code = 5778-6) Yellow Clarity, UA (test code = 5767-9) Hazy Specific [place], UA (test code = 5811-5) 1.015 1.001-1.035 pH, UA (test code = 5803-2) 6.0 5.0-8.0 Protein, UA (test code = 75281-5) 30 mg/dL Negative A Glucose, UA (test code = 365) Negative Negative Ketones, UA (test code = 2514-8) Negative Negative Bilirubin, UA (test code = 97905-0) Negative Negative Blood, UA (test code = 84549-6) Moderate Negative A Nitrite, UA (test code = 5802-4) Negative Negative Leukocytes, UA (test code = 5799-2) Large Negative A Urobilinogen, UA (test code = 48132-2) 2.0 mg/dL 0.2-1 H RBC, UA (test code = 92409-6) 11 /HPF WBC, UA (test code = 5821-4) 187 /HPF Bacteria, UA (test code = 24062-6) Rare Mucus (test code = 8247-9) Few Squam Epithel, UA (test code = 07097-5) 3 /HPF Specimen Source (test code = 2795) [place]test code = [place] Orthopedic Shoe Maker ID - [auto]Orthopedic Shoe Maker ID - tech Lab Interpretation (test code = 64299-8) [facility]normal [facility]/ REFLEX URINE [id number] 14:44:00* Test Item Value Reference Range Interpretation Comments COLOR (BEAKER) (test code = 470) Yellow CLARITY (BEAKER) (test code = 469) Hazy SPECIFIC GRAVITY UA (BEAKER) (test code = 468) 1.015 1.001-1 .035 PH UA (BEAKER) (test code = 467) 6.0 5.0-8.0 PROTEIN UA (BEAKER) (test code = 464) 30 mg/dL Negative A GLUCOSE UA (BEAKER) (test code = 365) Negative Negative KETONES UA (BEAKER) (test code = 371) Negative Negative BILIRUBIN UA (BEAKER) (test code = 462) Negative Negative BLOOD UA (BEAKER) (test code = 461) Moderate Negative A NITRITE UA (BEAKER) (test code = 465) Negative Negative LEUKOCYTE ESTERASE UA (BEAKER) (test code = 466) Large Negat mart A UROBILINOGEN UA (BEAKER) (test code = 463) 2.0 mg/dL 0.2-1.0 H RBC UA (BEAKER) (test code = 519) 11 /HPF WBC UA (BEAKER) (test code = 520) 187 /HPF BACTERIA (BEAKER) (test code = 517) Rare MUCUS (BEAKER) (test code = 1574) Few SQUAMOUS EPITHELIAL (BEAKER) (test code = 516) 3 /HPF SOURCE(BEAKER) (test code = 2795) Orthopedic Shoe Maker ID - [auto]Orthopedic Shoe Maker ID - techPregnancy Screen, [id number] 14:42:00 * Test Item Value Reference Range Interpretation Comments Preg Test, Ur (test code = 2112-1) Negative [facility] S[facility]EN, [id number] 14:42:00* Test Item Value Reference Range Interpretation Comments TEST URINE (BEAKER) (test code = 583) Negative CBC with platelet count + automated [id number] 14:41:00* Test Item Value Reference Range Interpretation Comments WBC (test code = 6690-2) 7.5 4.0- 10.0 K/L RBC (test code = 789-8) 4.14 4.00- 5.00 M/L MCHC (test code = 786-4) 34.6 32.0- 36.0 GM/DL Hematocrit (test code = 4544-3) 40.7 % 36-46 MCV (test code = 787-2) 98.3 fL 82-99 MCH (test code = 785-6) 34.1 pg 27-33 H RDW (test code = 788-0) 13.9 % 12-15 Platelets (test code = 777-3) 272 150- 430 K/CU MM MPV (test code = 15525-6) 9.2 fL 6-11.5 nRBC (test code = 413) 0 0- 0 /100 WBC % Neutros (test code = 429) 77 % % Lymphs (test code = 430) 11 % % Monos (test code = 431) 9 % % Eos (test code = 432) 0 % % Baso (test code = 437) 2 % # Neutros (test code = 670) 5.77 1.80- 8.00 K/L # Lymphs (test code = 414) 0.81 1.48- 4.50 K/L L # Monos (test code = 415) 0.70 0.00- 1.30 K/L # Eos (test code = 416) 0.02 0.00- 0.50 K/L # Baso (test code = 417) 0.11 0.00- 0.20 K/L Immature Granulocytes-Relative (test code = 2801) 1 % 0-0 H Lab Interpretation (test code = 59289-1) Abnormal [facility] W/PLT COUNT & AUTO [id number] 14:41:00* Test Item Value Reference Range Interpretation Comments WHITE BLOOD CELL COUNT (BEAKER) (test code = 775) 7.5 K/ L 4.0- 10.0 RED BLOOD CELL COUNT (BEAKER) (test code = 761) 4.14 M/ L 4.00-5 .00 HEMOGLOBIN (BEAKER) (test code = 410) 14.1 GM/DL 12.0-15.5 HEMATOCRIT (BEAKER) (test code = 411) 40.7 % 36.0-46.0 MEAN CORPUSCULAR VOLUME (BEAKER) (test code = 753) 98.3 fL 82. 0-99.0 MEAN CORPUSCULAR HEMOGLOBIN (BEAKER) (test code = 751) 34.1 pg 27.0-33.0 H MEAN CORPUSCULAR HEMOGLOBIN CONC (BEAKER) (test code = 752) 34.6 GM/DL 32.0-36.0 RED CELL DISTRIBUTION WIDTH (BEAKER) (test code = 412) 13.9 % 12.0-15.0 PLATELET COUNT (BEAKER) (test code = 756) 272 K/CU MM 150-430 MEAN PLATELET VOLUME (BEAKER) (test code = 754) 9.2 fL 6.0-11 .5 NUCLEATED RED BLOOD CELLS (BEAKER) (test code = 413) 0 /100 WBC 0 -0 NEUTROPHILS RELATIVE PERCENT (BEAKER) (test code = 429) 77 % LYMPHOCYTES RELATIVE PERCENT (BEAKER) (test code = 430) 11 % MONOCYTES RELATIVE PERCENT (BEAKER) (test code = 431) 9 % EOSINOPHILS RELATIVE PERCENT (BEAKER) (test code = 432) 0 % BASOPHILS RELATIVE PERCENT (BEAKER) (test code = 437) 2 % NEUTROPHILS ABSOLUTE COUNT (BEAKER) (test code = 670) 5.77 K/ L 1.80-8.00 LYMPHOCYTES ABSOLUTE COUNT (BEAKER) (test code = 414) 0.81 K/ L 1.48-4.50 L MONOCYTES ABSOLUTE COUNT (BEAKER) (test code = 415) 0.70 K/ L 0. 00-1.30 EOSINOPHILS ABSOLUTE COUNT (BEAKER) (test code = 416) 0.02 K/ L 0.00-0.50 BASOPHILS ABSOLUTE COUNT (BEAKER) (test code = 417) 0.11 K/ L 0. 00-0.20 IMMATURE GRANULOCYTES-RELATIVE PERCENT (BEAKER) (test code = 2801) 1 % 0-0 H ICSSHRZYHX3092-53-66 20:50:0026[facility] HgpsdhzHKMANHFLDI9965-88-41 20:50:00 0.026[facility] HermannCHEM JUKFK4934-78-45 05:40:0072[facility] HermannCHEM PANEL 2019-12-08 05:40:005[facility]annCHEM FYQTM2438-52-15 05:40:000.57[facility]annCHEM AHJCH8878-12-41 05:40:68497Ivswozwl HermannCHEM LDBTS8023-12-38 05:40:003.5[facility]annCHEM OUBVE5456-07-15 05:40:14471Gncrmzmt HermannCHEM KGQSR0895-65-49 05:40:0028[facility]annCHEM WVVJN6821-32-05 05:40:008.6 [facility]annCHE[facility] YQQBY7041-32-19 05:40:007.4[facility]annCHEM PANEL 2019-12-08 05:40:004.0[facility]annCHEM ZXGOJ4127-97-95 05:40:0095[facility]annCHEM NGXBP1463-93-80 05:40:0082[facility]annCHEM URAUB3737-19-85 05:40:0064[facility]annCHEM GYLLR6714-42-74 05:40:000.3[facility]annCHEM EJPNK7217-39-27 05:40:008.5[facility]annCHEM EROHD9717-75-07 05:40:00* Test Item Value Reference Range Interpretation Comments B/C Ratio (test code = B/C Ratio) 9 1 6-25 [facility]annCHEM ZFARV0968-03-43 05:40:003.4[facility]annCHEM PANEL 2019-12-08 05:40:00* Test Item Value Reference Range Interpretation Comments A/G Ratio (test code = A/G Ratio) 1.2 1 0.7-1.6 [facility]annCHEM CQEYP2156-06-14 05:40:51241Pvsufysw HermannDRUG SCREEN 2019-12-08 05:40:00Negative *NA*(12/08/19 12:40 AM)[facility]annDRUG SCREEN 2019-12-08 05:40:00Negative *NA*(12/08/19 12:40 AM)[facility]annDRUG SCREEN 2019-12-08 05:40:00Positive *ABN*(12/08/19 12:40 AM)[facility]annDRUG SCREEN 2019-12-08 05:40:00Negative *NA*(12/08/19 12:40 AM)[facility]annDRUG SCREEN 2019-12-08 05:40:00Negative *NA*(12/08/19 12:40 AM)[facility]annDRUG SCREEN 2019-12-08 05:40:00Negative *NA*(12/08/19 12:40 AM)[facility]annDRUG SCREEN 2019-12-08 05:40:00Negative *NA*(12/08/19 12:40 AM)[facility]annDRUG SCREEN 2019-12-08 05:40:00See Note (12/08/19 12:40 AM)[facility]annENDOCRINOLOGY 2019-12-08 05:40:00Negative *NA*(12/08/19 12:40 AM)[facility] HermannHEMATOLOGY 2019-12-08 05:40:007.0[facility] LsesdsdEVWAWPQRDX3796-03-14 05:40:004.04[facility] BvbzbbsDDIOQOWABW3628-84-38 05:40:0013.6[facility] JsttmecHDINPEZDMB7955-18-36 05:40:0040.4[facility] QnxtjegZNKBWUKKPU9549-15-72 05:40:02275.0[facility] [place] [facility] NESVZSNIJM2706-18-37 05:40:00* Test Item Value Reference Range Interpretation Comments MCH (test code = MCH) 33.8 pg 27.0-31.0 [facility] AfpwgqfDZZFXQVKNT0557-61-78 05:40:0033.8[facility] HermannHEMATOLOGY 2019-12-08 05:40:0013.7[facility] VvdtadvMYKRRZCKOJ1129-35-15 05:40:88755Oobwbbgy AjyfjbwVXJTRNKFBP2550-35-16 05:40:007.4[facility] ZuixupxIPKBTMONXI7631-52-94 05:40:0068.0[facility] RhapixzSVNUJWYBCC6961-32-91 05:40:0020.4[facility] HNARHZETXP6071-90-26 05:40:0010.4[facility] QdbddudCILTJEFPJW6332-38-74 05:40:00 0.5[facility] IyyzvvkPHOSQDAXGA9988-02-21 05:40:000.7[facility] HermannHEMATOLOGY 2019-12-08 05:40:004.7[facility] KwzlwmjLXXVTGKIEN9438-74-32 05:40:001.4[facility] OjieksoRGGVJWQFQN6635-17-81 05:40:000.7[facility] SmuanqwSLTCJQGAUZ4581-78-61 05:40:00<2[facility] RpjhnvkARNIZTQFHU2966-49-42 05:40:80942Cxslskma Cal QOZBLSSHOU6953-12-54 05:40:000.388[facility] YxfssfoUAHCFWFIOO8630-95-29 05:40:00< 1.7[facility]annURINE AND BRDGN1590-33-86 05:40:00Clear (12/08/19 12:40 AM) [facility] WPUWR8590-49-18 05:40:00* Test Item Value Reference Range Interpretation Comments UA Spec Grav (test code = UA Spec Grav) 1.003 1 [facility] MCSOL6633-04-37 05:40:00* Test Item Value Reference Range Interpretation Comments UA pH (test code = UA pH) 7.0 1 5.0-8.0 [facility] AND ZJPSO4339-78-77 05:40:00Negative *NA*(12/08/19 12:40 AM)[facility] AND FZVCH9632-06-26 05:40:00Small *ABN*(12/08/19 12:40 AM)[facility] AND PQBSC7163-48-94 05:40:00Negative (12/08/19 12:40 AM) [facility] ROKAT1275-05-42 05:40:00Negative (12/08/19 12:40 AM) [facility] JYIDP8719-58-30 05:40:00<1[facility]annUR[facility] AND BYVDJ2670-21-66 05:40:00<1[facility] HermannCHEM SERQN2650-00-26 15:36:0083 [facility]annCHEM SFAPB0479-84-55 15:36:004[facility]annCHEM PANEL 2019-12-03 15:36:000.59[facility]annCHEM WSVJU2767-83-86 15:36:82939Fuqflvnt HermannCHEM JZFID9790-18-74 15:36:003.4[facility]annCHEM KMLPW7319-46-61 15:36:87686Ibobmnrj HermannCHEM VWBKG5067-25-23 15:36:0025[facility]annCHEM NMYEQ8715-19-84 15:36:0011.4[facility]annCHEM QBWVC6679-08-17 15:36:009.1 [facility]annCHEM APGBK5080-84-21 15:36:00* Test Item Value Reference Range Interpretation Comments B/C Ratio (test code = B/C Ratio) 7 1 6-25 [facility]annCHEM NLMCY6436-54-58 15:36:007.9[facility] HermannCHEM PANEL 2019-12-03 15:36:004.3[facility]annCHEM ESQMZ0807-00-92 15:36:003.6[facility]annCHEM LPRXZ4182-81-82 15:36:00* Test Item Value Reference Range Interpretation Comments A/G Ratio (test code = A/G Ratio) 1.2 1 0.7-1.6 [facility]annCHEM KBQCF2017-99-22 15:36:0072[facility] HermannCHEM PANEL 2019-12-03 15:36:0088[facility] HermannCHEM JJIBN5864-84-67 15:36:0076[facility] HermannCHEM HAEIE4342-25-87 15:36:002.0[facility]annCHEM HXZQS4836-26-56 15:36:89924Gshtdsmw QatupbjLDUVIRVHBK2175-43-76 15:36:007.9[facility] HOBJSMENUK4028-31-58 15:36:004.22[facility] QgrnfzaDVQHXJTUTL2870-23-69 15:36:00 14.3[facility] QjqqajbGEKSXYQDCR9227-43-96 15:36:0042.2[facility] HermannHEMATOLOGY 2019-12-03 15:36:56515.1[facility] OhibzehTOXXRDKXET3313-10-94 15:36:00* Test Item Value Reference Range Interpretation Comments MCH (test code = MCH) 33.8 pg 27.0-31.0 [facility] FyaandnJHLQDXJHQZ6700-91-38 15:36:0033.7[facility] HermannHEMATOLOGY 2019-12-03 15:36:0013.6[facility] CbxdrloIEMMJLFZGH7871-63-86 15:36:10208Pwxmpqpm EsisnlqGSXMTRJADX8826-40-17 15:36:007.9[facility] TsorqmeRBYAVOPJWA3645-67-12 15:36:0077.8[facility] BapkdczMDQCNGOBAO8747-89-35 15:36:0011.9[facility] DBZVIVOEWP5639-74-97 15:36:008.3[facility] ZoyiuuiBLSYZZUZDH8935-82-81 15:36:000.9 [facility] JbflxxnQXMHSXVSBG2375-57-47 15:36:001.1[facility] HermannHEMATOLOGY 2019-12-03 15:36:006.2[facility] ZqvsgwiLHAFAWYFLV3804-87-43 15:36:000.9[facility] RkxiwhoBDINYRAQOE1231-43-85 15:36:000.7[facility] JnfurxyAJTFKUJEWU1368-12-84 15:36:000.1[facility] EqzrxruOIAJBZCSTC9756-81-09 15:36:000.1[facility] Cal UNIWMZFFLT1855-26-65 15:36:001+ *ABN*(12/03/19 10:36 AM)[facility] HermannCHEM GHHEP9877-87-93 08:15:002.3[facility]annCHEM XNHVN4812-11-58 08:15:002.9 [facility] MczffboEUENWKORMF4632-67-25 13:02:33957Euiztuol HermannTOXICOLOGY 2019-12-02 13:02:460.191[facility] HermannCARDIAC KMMQDBY4078-37-64 04:13:53082 [facility]annCHEM JUWWV5961-36-30 04:13:0087[facility] HermannCHEM PANEL 2019-12-02 04:13:004[facility]annCHEM ZRXHD1784-11-37 04:13:000.62[facility] HermannCHEM QQORB5797-05-84 04:13:10817Vlaqnohs HermannCHEM MYOBQ6311-80-88 04:13:004.0[facility] HermannCHEM DQNNH3317-06-07 04:13:62670Mkgbodfy HermannCHEM EDKFN2780-04-93 04:13:0024[facility] HermannCHEM AWCEK9271-23-97 04:13:008.4 [facility]annCHEM ANTJK2544-19-31 04:13:008.0[facility] HermannCHEM PANEL 2019-12-02 04:13:004.4[facility]annCHEM TNUZX1977-35-93 04:13:0061[facility]annCHEM HBQGQ0970-82-82 04:13:0054[facility] HermannCHEM OKQFV8684-94-60 04:13:0072[facility]annCHEM AXQWW6438-39-05 04:13:000.5[facility]annCHEM EZPQB9591-09-12 04:13:0011.0[facility] HermannCHEM AYWYA8730-53-87 04:13:00* Test Item Value Reference Range Interpretation Comments B/C Ratio (test code = B/C Ratio) 6 1 6-25 [facility]annCHEM FDYVL1632-24-39 04:13:003.6[facility] HermannCHEM PANEL 2019-12-02 04:13:00* Test Item Value Reference Range Interpretation Comments A/G Ratio (test code = A/G Ratio) 1.2 1 0.7-1.6 [facility]annCHEM RVYKK6486-85-01 04:13:87731Ymtnbtrb HermannDRUG SCREEN 2019-12-02 04:13:00Negative *NA*(12/01/19 11:13 PM)[facility] HermannDRUG SCREEN 2019-12-02 04:13:00Negative *NA*(12/01/19 11:13 PM)[facility]annDRUG SCREEN 2019-12-02 04:13:00Negative *NA*(12/01/19 11:13 PM)[facility]annDRUG SCREEN 2019-12-02 04:13:00Negative *NA*(12/01/19 11:13 PM)[facility] HermannDRUG SCREEN 2019-12-02 04:13:00Negative *NA*(12/01/19 11:13 PM)[facility] HermannDRUG SCREEN 2019-12-02 04:13:00Negative *NA*(12/01/19 11:13 PM)[facility] HermannDRUG SCREEN 2019-12-02 04:13:00Negative *NA*(12/01/19 11:13 PM)[facility] 2019-12-02 04:13:00See Note (12/01/19 11:13 PM)[facility] 2019-12-02 04:13:00Negative *NA*(12/01/19 11:13 PM)[facility] 2019-12-02 04:13:006.3[facility] PunfdotKYJCKUOBOZ6386-66-91 04:13:004.36[facility] BtpskhmMBDCDYDOIA3789-80-28 04:13:0014.9[facility] UotupvoBDQRXRAQQK2418-23-55 04:13:0043.8[facility] AvctsbwJLBLCRMGPV6466-62-13 04:13:05554.6[facility] RIEEJIMZHL9486-34-27 04:13:00* Test Item Value Reference Range Interpretation Comments MCH (test code = MCH) 34.3 pg 27.0-31.0 [facility] CdgbofzNJHHQAGQQR0975-65-75 04:13:0034.1[facility] 2019-12-02 04:13:0013.8[facility] WqrbrbnSPMJGDGEGK0751-69-85 04:13:61445Nwopbrzf JvfinxeXHGNXZBDSK8501-12-62 04:13:007.1[facility] ZbfqgedWTPNKRTTLX4185-88-46 04:13:0067.4[facility] HbahdgtQXOFWOXUQD7918-82-26 04:13:0023.3[facility] BDSVZGIVUR6362-84-66 04:13:007.3[facility] HwizvgdMHEUWQWUBS0688-68-17 04:13:000.7 [facility] WgmftzaPPLAPSRQCH5883-45-21 04:13:001.3[facility] 2019-12-02 04:13:004.2[facility] GugnctqGWVWKRJTMJ0180-15-22 04:13:001.5[facility] LcjcdttPDCAQQGGGQ4981-62-36 04:13:000.5[facility] GicosjiXORLDIXKXP3498-64-18 04:13:000.1[facility] AhsykbhMGKDRAPFVA2601-45-03 04:13:001+ *ABN*(12/01/19 11:13 PM)[facility] EksymjtOTAUMUYSEV2296-41-39 04:13:00<2 (12/01/19 11:13 PM)[facility] VzejgsfWWXEFVXRIK9908-92-70 04:13:92921Qnbbolgm VaalvetOAJFHEHLXP7680-11-90 04:13:000.451[facility] JexxujbAPRMPBAUBU6839-80-59 04:13:00<1.7[facility] [place] [facility] NBHHLY5103-63-62 11:54:00Negative *NA*(11/09/19 6:54 AM)[facility] FPVEMP9406-54-82 11:54:00Negative *NA*(11/09/19 6:54 AM)[facility] BDZNKQ1580-41-92 11:54:00Positive *ABN*(11/09/19 6:54 AM)[facility] RXELRF8958-16-53 11:54:00Negative *NA*(11/09/19 6:54 AM)[facility] KUATKE0738-41-05 11:54:00Negative *NA*(11/09/19 6:54 AM)[facility] SASYMJ6977-89-91 11:54:00Negative *NA*(11/09/19 6:54 AM)[facility] RDZSTY8546-30-89 11:54:00Negative *NA*(11/09/19 6:54 AM)[facility] QAZLFK1736-82-81 11:54:00See Note (11/09/19 6:54 AM)[facility] OIGGB8280-39-94 11:54:00Clear (11/09/19 6:54 AM)[facility] STOOL 2019-11-09 11:54:00* Test Item Value Reference Range Interpretation Comments UA Spec Grav (test code = UA Spec Grav) 1.005 1 [facility] FASFB7077-26-73 11:54:00* Test Item Value Reference Range Interpretation Comments UA pH (test code = UA pH) 6.0 1 5.0-8.0 [facility] PFKKV5677-00-96 11:54:00Negative *NA*(11/09/19 6:54 AM) [facility] BMHCV6979-27-78 11:54:00Small *ABN*(11/09/19 6:54 AM) [facility] PLXYY7720-36-78 11:54:00Negative (11/09/19 6:54 AM) [facility] GQUTG2702-17-44 11:54:00Negative (11/09/19 6:54 AM) [facility] SISKU2074-54-19 11:54:001[facility] YDFCM5800-98-53 11:54:003[facility]annCHEM BRIKM8983-10-49 05:41:0079[facility]annCHE[facility] JBUTM4009-76-70 05:41:006[facility]annCHE[facility] IPELS3916-84-63 05:41:000.76[facility]annCHE[facility] PTTXO2561-23-57 05:41:93278Uyovsqyf HermannCHEM LHAMR8355-41-39 05:41:003.6[facility]annCHE[facility] XSNKI7015-23-68 05:41:73226 [facility] XMMVP8578-76-89 05:41:0027[facility]annCHE[facility] PANEL 2019-11-09 05:41:008.7[facility]annCHE[facility] USPBA8754-74-60 05:41:008.0[facility]annCHE[facility] PXCNI2468-74-07 05:41:004.5[facility]annCHEM RACXA2411-35-70 05:41:0033[facility]annCHEM VQFSN6792-49-66 05:41:0038[facility]annCHEM TWBMY1812-23-16 05:41:0065[facility]annCHEM BKIHH3002-48-74 05:41:000.4 [facility]CHE[facility] VUDXT9891-71-10 05:41:009.6[facility]annCHEM PANEL 2019-11-09 05:41:00* Test Item Value Reference Range Interpretation Comments B/C Ratio (test code = B/C Ratio) 8 1 -25 [facility]CHE[facility] ECEDT3466-27-78 05:41:003.5[facility]annCHEM PANEL 2019-11-09 05:41:00* Test Item Value Reference Range Interpretation Comments A/G Ratio (test code = A/G Ratio) 1.3 1 0.7-1.6 [facility]CHE[facility] KEJMC6031-76-47 05:41:20956Cxsblzkc HermannCHEM PANEL 2019-11-09 05:41:0054[facility] AojxnwlZBPDCTZVVBZBZ2430-06-89 05:41:00Negative *NA*(11/09/19 12:41 AM)[facility] SotepjeMIQECWQKQZ3383-00-66 05:41:008.9[facility] UvqgujkZCNQDGEJUN3385-56-54 05:41:004.56[facility] HhrpduxTDJELCQCVV1557-12-78 05:41:0015.5[facility] IucbgvpGWPFNURONP2534-16-81 05:41:0045.7[facility] QTBQKVQOPQ1531-74-07 05:41:00232.2[facility] MhbrtfwOIIFDTZXCF3652-09-32 05:41:00 * Test Item Value Reference Range Interpretation Comments MCH (test code = MCH) 34.0 pg 27.0-31.0 [facility] UelowkcVERWTJKOBK0022-50-47 05:41:0034.0[facility]annHEMATOLOGY 2019-11-09 05:41:0014.0[facility] RbvybbvNDFBEQEHNZ0967-73-54 05:41:55057Amoiphpz RjcticmWHSAMRXGHG3612-14-11 05:41:006.7[facility] XlniwvdTFILOCSNMU6844-05-22 05:41:00* Test Item Value Reference Range Interpretation Comments PT (test code = PT) 12.8 s 12.0-14.7 [facility] FvffpsnPJLOEBDRTN3550-93-22 05:41:00* Test Item Value Reference Range Interpretation Comments INR (test code = INR) 0.96 1 0.85-1.17 [facility] KxjgmjuJBUJPQWYMU3227-93-90 05:41:00* Test Item Value Reference Range Interpretation Comments PTT (test code = PTT) 25.8 s 22.9-35.8 [facility] GbuufdrYVFYJDFUJI2963-48-93 05:41:0070.8[facility]annHEMATOLOGY 2019-11-09 05:41:0021.8[facility] ZdlslrwBZGTIWHLXV4626-53-24 05:41:005.5[facility] NkugrtkKFZRPQVPMU7941-53-13 05:41:000.6[facility] ZgcnljrEIQOFJIGSU3559-33-01 05:41:001.3[facility] HdmfnidATLCIZNPYT9529-74-14 05:41:006.3[facility] JSQQJCWOXD2346-15-82 05:41:001.9[facility] SskrtliSZGHWEVTYC1172-67-77 05:41:000.5 [facility] LotyzonZWDDFEDJMX6327-89-28 05:41:000.1[facility]annHEMATOLOGY 2019-11-09 05:41:000.1[facility] HywtmghGSHGOPDOYF4158-14-12 05:41:001+ *ABN*(11/09/19 12:41 AM)[facility] CyhrkiwIRYOHMGOEJ0302-88-25 05:41:00<2[facility] ZyekxltQOGFQCJRCK3328-60-74 05:41:78915Gxcktdqi DoqfcjqZLGKVRDBTD1336-15-54 05:41:000.353[facility] TveexnzVZBVYJUTCQ4668-78-76 05:41:002.7[facility] QNRYDNFZPS6334-84-27 23:42:17298Wgmxerkf WzdpbvbBBQIGCAGLC8243-95-01 23:42:00 0.150[facility]annCHEM DLVUB9833-04-43 17:07:0086[facility]annCHEM PANEL 2019-08-12 17:07:007[facility]annCHEM DNTWF1089-99-53 17:07:000.59[facility]annCHEM FSTOE1197-65-79 17:07:29656Mkpmcaof HermannCHEM XTIIJ3716-44-70 17:07:004.0[facility]annCHEM KHQVJ8903-48-30 17:07:93787Djoqjygu HermannCHEM XBDYS4167-34-59 17:07:0028[facility]annCHEM POZKG3292-36-23 17:07:009.1 [facility]CHE[facility] MYYPW0525-59-88 17:07:007.2[facility]annCHEM PANEL 2019-08-12 17:07:003.8[facility]annCHEM UEBRI3457-77-07 17:07:0045[facility]annCHEM OBQIZ0868-56-33 17:07:0038[facility]annCHE[facility] QVQAN4056-92-58 17:07:0054[facility]annCHE[facility] EECKV1615-27-40 17:07:000.5[facility]annCHEM NYAHQ4300-06-77 17:07:0010.0[facility]annCHEM MSQAB0407-14-49 17:07:00* Test Item Value Reference Range Interpretation Comments B/C Ratio (test code = B/C Ratio) 12 1 6-25 [facility]annCHE[facility] RHASU1775-98-55 17:07:003.4[facility]annCHEM PANEL 2019-08-12 17:07:00* Test Item Value Reference Range Interpretation Comments A/G Ratio (test code = A/G Ratio) 1.1 1 0.7-1.6 [facility]annCHEM UCHRI3289-96-37 17:07:38919Lhuvuhbz HermannDRUG SCREEN 2019-08-12 17:07:00Negative *NA*(08/12/19 12:07 PM)[facility]annDR[facility] SCREEN 2019-08-12 17:07:00Negative *NA*(08/12/19 12:07 PM)[facility]annDR[facility] SCREEN 2019-08-12 17:07:00Positive *ABN*(08/12/19 12:07 PM)[facility]annDRUG SCREEN 2019-08-12 17:07:00Negative *NA*(08/12/19 12:07 PM)[facility]annDRUG SCREEN 2019-08-12 17:07:00Negative *NA*(08/12/19 12:07 PM)[facility]annDR[facility] SCREEN 2019-08-12 17:07:00Negative *NA*(08/12/19 12:07 PM)[facility]annDR[facility] SCREEN 2019-08-12 17:07:00Negative *NA*(08/12/19 12:07 PM)[facility]annDR[facility] SCREEN 2019-08-12 17:07:00See Note (08/12/19 12:07 PM)[facility]annENDOCRINOLOGY 2019-08-12 17:07:00Negative *NA*(08/12/19 12:07 PM)[facility]annHEMATOLOGY 2019-08-12 17:07:007.8[facility] LlfxeoxFSSOXWRHJC2519-21-62 17:07:004.43[facility] PejmysoEIACYUNTHS7704-71-81 17:07:0014.4[facility] BpdwzjqGGXSDPEARV4290-99-43 17:07:0043.0[facility] TqabgjyZXYXVTVWBV5674-19-75 17:07:0097.1[facility] FZNPMXKIKU6668-67-17 17:07:00* Test Item Value Reference Range Interpretation Comments MCH (test code = MCH) 32.5 pg 27.0-31.0 [facility] SanlkujGTWNVTMAHK3588-46-86 17:07:0033.5[facility]annHEMATOLOGY 2019-08-12 17:07:0014.5[facility] QpvmabxVMWIMDCXDQ2984-48-03 17:07:47801Yovjkwzo QmnpijwZBGXPEZEIH5649-84-98 17:07:007.1[facility] HcezakiXNXFSOELTN4469-37-07 17:07:0066.0[facility] IcknpwlONZVOZQQDG5973-60-73 17:07:0021.9[facility] ODRVGRZPJA0883-19-69 17:07:008.2[facility] KfqxueiRRPUFTCDGD7040-57-71 17:07:001.3 [facility] XbmuycrUYEGIRBSZD0451-05-57 17:07:002.6[facility]annHEMATOLOGY 2019-08-12 17:07:005.1[facility] OfjdminKUNZWKHJKI3107-32-58 17:07:001.7[facility] RwztondRPVZLAKGJF0676-03-38 17:07:000.6[facility] DagavxqASQZLXZIOX5867-21-02 17:07:000.1[facility] QydwckvBUZRKPWWIO6950-85-04 17:07:000.2[facility] EUVBRIURQB7163-85-84 17:07:00<2 (08/12/19 12:07 PM)[facility] HermannTOXICOLOGY 2019-08-12 17:07:43829Znjjtmwr MdgyadkNASFDJVOHG3200-21-76 17:07:000.306[facility] EdfigzmNPSAKOFPQO6769-89-53 17:07:003.1[facility]annURINE AND STOOL 2019-08-12 17:07:00Clear (08/12/19 12:07 PM)[facility] ST[facility]OL 2019-08-12 17:07:00* Test Item Value Reference Range Interpretation Comments UA Spec Grav (test code = UA Spec Grav) 1.002 1 [facility] CGMCE3598-32-28 17:07:00* Test Item Value Reference Range Interpretation Comments UA pH (test code = UA pH) 7.0 1 5.0-8.0 [facility] KDYFF4622-91-26 17:07:00Negative *NA*(08/12/19 12:07 PM)[facility] HQEYB6791-69-62 17:07:00Moderate *ABN*(08/12/19 12:07 PM)[facility] CEWBP2675-65-44 17:07:00Negative (08/12/19 12:07 PM)[facility] EBPSW9076-23-82 17:07:00Negative (08/12/19 12:07 PM)[facility] RaghbggHTRXGDEWEL2128-81-14 13:38:0093[facility] JXQOVQPHEH2615-95-74 13:38:000.093[facility] EqektojQEOKMKYFKO1847-67-11 12:26:00 130[facility] CydjfhpMURFRQHSDU6239-99-79 12:26:000.130[facility] HermannTOXICOLOGY 2019-06-29 07:42:73742Lxzjkgnd BbmswiaXYAYOFTFVO7356-14-47 07:42:000.232[facility]annCHEM EDSBW2018-80-81 22:02:0096[facility]annCHEM LTQIT5390-67-08 22:02:008[facility]annCHEM RIIEV0984-70-90 22:02:000.68[facility]annCHEM MOEUL1173-64-80 22:02:63060Xjdpwkxs HermannCHEM YEPCG4591-84-40 22:02:003.7 [facility]annCHE[facility] XVEHG7649-35-85 22:02:56157Lkwbplnz HermannCHEM PANEL 2019-06-28 22:02:0024[facility]annCHEM BGNIZ8841-20-44 22:02:007.8[facility]annCHEM EGUGU2188-38-15 22:02:0014.7[facility]annCHEM SVCVI2489-34-37 22:02:15117Thpgvjmv HermannCHEM HUXBS9798-66-05 22:02:006.8[facility]annCHEM XYFOU8831-71-49 22:02:003.7[facility]annCHEM JLONV9363-33-54 22:02:003.1 [facility]annCHEM FVMNT6273-13-71 22:02:00* Test Item Value Reference Range Interpretation Comments A/G Ratio (test code = A/G Ratio) 1.2 1 0.7-1.6 [facility]annCHE[facility] JRWUF0644-82-62 22:02:0047[facility]annCHEM PANEL 2019-06-28 22:02:0032[facility]annCHEM RPOHK8552-22-91 22:02:0070[facility]annCHEM IUNXF7861-37-54 22:02:000.1[facility]annCHEM JUAUI7067-74-65 22:02:00<0.1[facility] HermannDRUG KYACWI5415-42-61 22:02:00Negative *NA*(06/28/19 4:02 PM)[facility]annDRUG YYGRFY4808-21-24 22:02:00Negative *NA*(06/28/19 4:02 PM)[facility]annDRUG MQXEUW8923-02-37 22:02:00Negative *NA*(06/28/19 4:02 PM) [facility]annDR[facility] MXXLND6768-40-37 22:02:00Negative *NA*(06/28/19 4:02 PM) [facility]DR[facility] ADHBTL4387-01-48 22:02:00Negative *NA*(06/28/19 4:02 PM) [facility]DR[facility] TWGAZU8244-04-07 22:02:00Negative *NA*(06/28/19 4:02 PM) [facility]annDR[facility] NNHTCL7497-43-04 22:02:00Negative *NA*(06/28/19 4:02 PM) [facility]annDR[facility] SKGJCM1940-52-20 22:02:00See Note (06/28/19 4:02 PM)[facility] CjxionhCFLTZWZWVPJQG2494-53-82 22:02:00<1[facility] YtpjzfqAQXYHMWIGG9752-01-29 22:02:0012.1[facility] PyzszzcXNVECQTQWR1107-77-44 22:02:004.31[facility] VJNSIBKJWU0595-47-09 22:02:0014.2[facility] PphgbueNNDPQNNPHO9471-70-31 22:02:00 41.4[facility] WkvxwamQZKJQNPITH3477-42-63 22:02:0096.0[facility]annHEMATOLOGY 2019-06-28 22:02:00* Test Item Value Reference Range Interpretation Comments MCH (test code = MCH) 33.0 pg 27.0-31.0 [facility] RkzjmwnWXKAHSRBVJ2754-12-48 22:02:0034.4[facility] HermannHEMATOLOGY 2019-06-28 22:02:0014.0[facility] GnwreuzPSYVONNUKU1180-02-25 22:02:72338Radxfsfk CftqcuiYFRCVNAHKH6923-30-38 22:02:006.9[facility] TbwpcumFBCAAJNCBH6678-53-54 22:02:0079.2[facility] WfxdhrzNEUWUSAEKC6931-55-58 22:02:0015.6[facility] UQTRUXHEPG7450-01-40 22:02:004.2[facility] GqranhrDMGPXDMEDG7822-67-53 22:02:001.0 [facility] LiyuaomKATCBCMTOE5465-75-38 22:02:009.6[facility]annHEMATOLOGY 2019-06-28 22:02:001.9[facility] PtbbekcCGYPOTDDLB1245-17-46 22:02:000.5[facility] FulnskcVGSFBAEUEN5590-53-09 22:02:000.1[facility] IfqeggyHWOUZLIFIR5974-38-74 22:02:00<2[facility] EdnpbjaXBMOMGWMCG6550-60-24 22:02:002.6[facility]UR[facility] AND OSFRJ6491-82-98 22:02:00Clear (06/28/19 4:02 PM)[facility] JGJBE2006-37-32 22:02:00* Test Item Value Reference Range Interpretation Comments UA Spec Grav (test code = UA Spec Grav) 1.005 1 [facility] NBQMX1581-45-75 22:02:00* Test Item Value Reference Range Interpretation Comments UA pH (test code = UA pH) 6.0 1 5.0-8.0 [facility] LXQXE1339-40-67 22:02:00Negative *NA*(06/28/19 4:02 PM) [facility] ACKDS4694-07-39 22:02:00Moderate *ABN*(06/28/19 4:02 PM)[facility] GCXER2507-01-47 22:02:00Negative (06/28/19 4:02 PM) [facility] CWVDB0816-58-82 22:02:00Negative (06/28/19 4:02 PM) [facility] ZLIHR8036-33-45 22:02:00<1[facility] ARDYW4975-06-89 22:02:00<1[facility] TibiytwYCGIFNGAIX1560-15-27 03:19:19188 [facility] ZmvxlgkSUGOMMUDAZ2538-11-96 03:19:000.187[facility] HermannDRUG SCREEN 2019-06-13 01:30:00Negative *NA*(06/12/19 7:30 PM)[facility]annDRUG SCREEN 2019-06-13 01:30:00Negative *NA*(06/12/19 7:30 PM)[facility]annDRUG SCREEN 2019-06-13 01:30:00Negative *NA*(06/12/19 7:30 PM)[facility]annDRUG SCREEN 2019-06-13 01:30:00Negative *NA*(06/12/19 7:30 PM)[facility]annDRUG SCREEN 2019-06-13 01:30:00Negative *NA*(06/12/19 7:30 PM)[facility]annDRUG SCREEN 2019-06-13 01:30:00Negative *NA*(06/12/19 7:30 PM)[facility]annDRUG SCREEN 2019-06-13 01:30:00Negative *NA*(06/12/19 7:30 PM)[facility]annDR[facility] SCREEN 2019-06-13 01:30:00See Note *NA*(06/12/19 7:30 PM)[facility] STOOL 2019-06-13 01:30:00Clear (06/12/19 7:30 PM)[facility] STOOL 2019-06-13 01:30:00* Test Item Value Reference Range Interpretation Comments UA Spec Grav (test code = UA Spec Grav) 1.011 1 [facility] YXSMC1197-86-21 01:30:00* Test Item Value Reference Range Interpretation Comments UA pH (test code = UA pH) 5.0 1 5.0-8.0 [facility] HCNNJ6932-53-04 01:30:00Negative *NA*(06/12/19 7:30 PM) [facility] PTQZL6791-21-93 01:30:00Moderate *ABN*(06/12/19 7:30 PM)[facility] OCFJB0160-61-66 01:30:00Negative (06/12/19 7:30 PM) [facility] FYTFL5000-66-25 01:30:00Negative (06/12/19 7:30 PM) [facility] NHRYY1807-06-68 01:30:00<1[facility] PZQHI4502-62-09 01:30:00Performed *NA*(06/12/19 7:30 PM)[facility]annCHEM QWXUD5461-60-85 23:59:0071[facility]annCHEM PXNPK6411-31-03 23:59:008[facility]annCHEM ERKTE5960-09-27 23:59:000.65[facility]annCHEM MBTKI2385-08-48 23:59:56124Hpnmosxy HermannCHEM XJAEN9616-56-05 23:59:004.1[facility]annCHEM JCCFH6378-83-32 23:59:17080Gbopkxjn HermannCHEM AQSVK7795-10-39 23:59:0021 [facility]annCHE[facility] ZDFXR0750-61-40 23:59:009.1[facility]annCHEM PANEL 2019-06-12 23:59:007.7[facility]annCHEM BMSZZ0204-44-87 23:59:004.1[facility]annCHEM TBSVI5116-43-37 23:59:0037[facility]annCHEM GANWD7350-88-88 23:59:0030[facility]annCHEM EPGHF6463-72-78 23:59:0072[facility]annCHEM PCCPR4937-42-00 23:59:000.3[facility]annCHEM JNHSH0170-29-69 23:59:0017.1 [facility]annCHEM WHKSC8173-81-72 23:59:00* Test Item Value Reference Range Interpretation Comments B/C Ratio (test code = B/C Ratio) 12 1 6-25 [facility]annCHEM BEANE1378-93-39 23:59:003.6[facility]annCHEM PANEL 2019-06-12 23:59:00* Test Item Value Reference Range Interpretation Comments A/G Ratio (test code = A/G Ratio) 1.1 1 0.7-1.6 [facility]annCHEM XCHGO0269-10-83 23:59:46861Gbsldjyq HermannENDOCRINOLOGY 2019-06-12 23:59:00Negative *NA*(06/12/19 5:59 PM)[facility]annHEMATOLOGY 2019-06-12 23:59:009.6[facility] BedlwtpWCTACWNRRJ4075-69-30 23:59:004.90[facility] GpldfqzXODBFCTYZL0490-49-44 23:59:0015.9[facility] KotzjyzMIIJIRYKRB5487-25-03 23:59:0046.9[facility] NvbgpxpTWMWHWWLCH0820-82-53 23:59:0095.6[facility] QQKASCFIZL8413-45-89 23:59:00* Test Item Value Reference Range Interpretation Comments MCH (test code = MCH) 32.4 pg 27.0-31.0 [facility] VuzgdiyDKLHVAYVER4623-51-63 23:59:0033.8[facility]annHEMATOLOGY 2019-06-12 23:59:0013.6[facility] ZwkukycNSFNNOVPFR4467-31-68 23:59:27779Jhfrladp AvmmualIBROZNEJGB1177-79-03 23:59:007.1[facility] WjzvslqZHRTMCXIEC2087-14-04 23:59:0067.3[facility] YzlmuegPJKZJBDKAR6390-67-48 23:59:0026.9[facility] KXBADZPEOR3572-85-43 23:59:003.3[facility] UwfqmmuOCIMPURDNB5119-15-68 23:59:002.5 [facility] ReionznMVNQWGGFCD0533-04-08 23:59:006.5[facility]annHEMATOLOGY 2019-06-12 23:59:002.6[facility] FmbabqyCANXKPDZKL7244-88-80 23:59:000.3[facility] VpaovyfSHUIAOYCUC9857-75-88 23:59:000.2[facility] JmvpvnpYSNQPRSDLG3175-09-39 23:59:00<2[facility] OxbsayiYNZEFBARKA3577-67-17 23:59:18752Mxchtrbp Cal KNACXQTNZE5532-53-65 23:59:000.299[facility] UqsvfneWUESPYLQLP3083-17-56 23:59:00 3.1[facility] HermannCHEM RONZM5206-03-94 21:52:001.2[facility]annCHEM PANEL 2019-05-22 19:10:78566Djzfzesn HermannCHEM PWNEA7649-38-78 19:10:0011[facility]annCHEM KPBQS7054-20-83 19:10:000.82[facility]annCHEM BNDUS7757-27-20 19:10:34897Bhbjsjet HermannCHEM VBXEL0651-59-62 19:10:004.0[facility]annCHEM JGHSQ0584-35-17 19:10:57404Vvutsimf HermannCHEM ULZEF9296-67-90 19:10:0022 [facility]annCHEM WJPQE5693-34-84 19:10:008.8[facility]annCHEM PANEL 2019-05-22 19:10:0093[facility]annCHEM ZXFTP0299-61-93 19:10:0013.0[facility]annCHEM BRHNE5676-19-64 19:10:007.0[facility]annCHEM UVMTM0563-06-83 19:10:003.7[facility]annCHEM HGDCO3628-83-50 19:10:003.3[facility]annCHEM IHUEE7451-05-70 19:10:00* Test Item Value Reference Range Interpretation Comments A/G Ratio (test code = A/G Ratio) 1.1 1 0.7-1.6 [facility]annCHEM PGBHC2589-28-46 19:10:0029[facility]annCHEM PANEL 2019-05-22 19:10:0019[facility]annCHEM TMQWQ6530-30-32 19:10:0043[facility]annCHEM EVCOW7397-08-36 19:10:000.2[facility]annCHEM FMXYU8595-42-17 19:10:00<0.1[facility]annCHEM UVQAX1400-34-59 19:10:0058[facility]annCHEM UAVCL1544-27-22 19:10:002.7[facility] ZeiyhjkSCTFBEGFGC9385-72-49 19:10:0012.8 [facility] PenzcsqYEVJSUTFLP6334-83-74 19:10:003.89[facility]annHEMATOLOGY 2019-05-22 19:10:0012.7[facility] SgvbnhsJYGLEEGFBO8502-78-38 19:10:0039.1[facility] KasqmmxQVEYEQDNSJ2020-46-87 19:10:19506.3[facility] GbocupfLGNQZDEHFE2601-88-57 19:10:00* Test Item Value Reference Range Interpretation Comments MCH (test code = MCH) 32.6 pg 27.0-31.0 [facility] AvznyebLQRSHYLJLB4458-38-42 19:10:0032.5[facility] HermannHEMATOLOGY 2019-05-22 19:10:0014.0[facility] VefngvlBCEDAQBLQE3417-44-32 19:10:91963Bxelarsi RqfbggbHKUKVUSMUO5424-09-57 19:10:007.1[facility] DnkizpzCBYJGGJXOR4817-67-68 19:10:00* Test Item Value Reference Range Interpretation Comments PT (test code = PT) 13.3 s 12.0-14.7 [facility] UzirxymKXAGZNJNPY9261-95-81 19:10:00* Test Item Value Reference Range Interpretation Comments INR (test code = INR) 1.01 1 0.85-1.17 [facility] XvjmyqwRLGLWGHCXY5832-37-90 19:10:00Normal (05/22/19 1:10 PM)[facility] TqhgjzcTNGFRGHYEB3892-57-21 19:10:0093.9[facility] RcmyagjHJUMITNJQK9469-89-37 19:10:004.3[facility] EcjwymhCYGCXFAZGS5394-49-49 19:10:001.0[facility] KLLYRBLRQJ2458-37-89 19:10:000.8[facility] YbewvprNUSWMIWBAZ4828-78-81 19:10:00 12.0[facility] IganvzxFYKQNOKPLH8780-14-91 19:10:000.5[facility]annHEMATOLOGY 2019-05-22 19:10:000.1[facility] UldbdkzDPGETFKDQB1120-14-86 19:10:000.1[facility] IsmpqzxLWILGUSSDI4361-41-53 19:10:001+ *ABN*(05/22/19 1:10 PM)[facility] URINE AND ZXIGY6911-55-68 19:10:00Clear (05/22/19 1:10 PM)[facility] QXUPW7087-83-95 19:10:00* Test Item Value Reference Range Interpretation Comments UA Spec Grav (test code = UA Spec Grav) 1.009 1 [facility] ZYANM7083-32-05 19:10:00* Test Item Value Reference Range Interpretation Comments UA pH (test code = UA pH) 7.0 1 5.0-8.0 [facility] GXQRH7763-36-03 19:10:00Negative *NA*(05/22/19 1:10 PM) [facility] TFKZN5441-97-13 19:10:00Negative (05/22/19 1:10 PM) [facility] AUGWM5220-58-86 19:10:00Negative (05/22/19 1:10 PM) [facility] GUVHB3667-66-09 19:10:00Negative (05/22/19 1:10 PM) [facility] HXKXJ1667-57-16 19:10:002[facility] HermannELECTROLYTES 2019-05-16 15:30:009.3[facility] PvvpoitSQSFTEBZAVCP1182-38-08 15:30:00* Test Item Value Reference Range Interpretation Comments B/C Ratio (test code = B/C Ratio) 12 1 6-25 [facility] MybzavcBSWFRHYKFELO3330-61-19 15:30:002.5[facility] HermannELECTROLYTES 2019-05-16 15:30:00* Test Item Value Reference Range Interpretation Comments A/G Ratio (test code = A/G Ratio) 1.6 1 0.7-1.6 [facility] CpuusxlVCXAIQCQMXQL7354-39-07 15:30:0088[facility] HermannELECTROLYTES 2019-05-16 15:30:009[facility] GdrdeowHFQTDBNKOJNR4876-42-75 15:30:000.73[facility] KspwlpuWMGSCURCYIXB7776-42-43 15:30:10751Fuwrljwr IxyforiWACATLTHVFYO8199-94-40 15:30:004.3[facility] KtfjgefXKDSFOYYBKEK2420-72-18 15:30:25734Szddszmz Cal TZAYJJZUCMJU1712-03-56 15:30:0028[facility] VgakenlMGSBLTDKNMVP1802-87-50 15:30:00 9.1[facility] ZhaahgrNROPNRRQFRNJ7536-75-88 15:30:006.5[facility] VQGDDYUMDZTM4755-74-78 15:30:004.0[facility] WkqmbntYLRIDRTUFQUY6590-93-97 15:30:0042[facility] ZgveqdvOXZGFOBLRMGN3500-26-43 15:30:0026[facility] [place] LGDFKXWBULAT3099-47-65 15:30:0048[facility] ZnqltnzWNSYSKMLJPYU6330-00-89 15:30:00 0.2[facility] BwxdfcaASCOYXFUIFVQ6907-10-06 15:30:83786Dpnbptoh [place] TAMHPIHDRBYIQ7049-97-86 15:30:00Negative *NA*(05/16/19 9:30 AM)[facility] [place] KNWQDYXHGU4779-62-42 15:30:006.5[facility] NomxjdaSSTCUZMSDM2880-96-20 15:30:00 3.85[facility] KpxexosWWMPDNIJUV4504-80-22 15:30:0012.9[facility]OLOGY 2019-[facility]-16 15:30:0038.2[facility] RufqqghGYMDIEQHGH7802-61-11 15:30:0099.2[facility] ZxqrhhyXMTLFAHVYV9476-23-52 15:30:00* Test Item Value Reference Range Interpretation Comments MCH (test code = MCH) 33.6 pg 27.0-31.0 [facility] HfowdhpYNURXFSWUT0434-84-24 15:30:0033.8[facility]annHEMATOLOGY 2019-05-16 15:30:0013.9[facility] UfwndgkGXWUDSKHOI8763-99-06 15:30:92353Dpfsxxmz SfyeirkFLVCHNMNAC5745-44-14 15:30:006.8[facility] DyngnhpXXUSEEXKZE8943-26-93 15:30:00* Test Item Value Reference Range Interpretation Comments INR (test code = INR) 0.94 1 0.85-1.17 [facility] YunqurzISHFBMHDWS2778-98-58 15:30:00* Test Item Value Reference Range Interpretation Comments PT (test code = PT) 12.6 s 12.0-14.7 [facility] BdgogsgCLOFZTVBFQ7410-55-56 15:30:00* Test Item Value Reference Range Interpretation Comments PTT (test code = PTT) 26.6 s 22.9-35.8 [facility] WmaoelzXRTSJCCAHC6260-91-37 15:30:0051.0[facility]annHEMATOLOGY 2019-05-16 15:30:0027.8[facility] MscjzjyBQPLOGGXAE7444-43-52 15:30:0015.5[facility] UsyblyfEGZYKVNCQN0309-98-30 15:30:003.8[facility] NtecwdmDGEXGGKDPO7601-09-11 15:30:001.9[facility] RrlwfhwFZSXWTBTVD7902-47-72 15:30:003.3[facility] RMIFFKTIQY4950-69-96 15:30:001.8[facility] WkrzwquMDYQIYTMWG6147-58-29 15:30:001.0 [facility] ScztltbXMMJMCIIFC5802-07-27 15:30:000.2[facility]annHEMATOLOGY 2019-05-16 15:30:000.1[facility]annURINE AND ANDUN9309-62-40 15:30:00Clear (05/16/19 9:30 AM)[facility] ZWEQY0422-40-47 15:30:00* Test Item Value Reference Range Interpretation Comments UA Spec Grav (test code = UA Spec Grav) 1.020 1 [facility] OONIH6879-72-86 15:30:00* Test Item Value Reference Range Interpretation Comments UA pH (test code = UA pH) 6.0 1 5.0-8.0 [facility] XYPXB5454-62-93 15:30:00Negative *NA*(05/16/19 9:30 AM) [facility] MGRSS3994-28-95 15:30:00Negative (05/16/19 9:30 AM) [facility] YKVBU7405-32-80 15:30:00Negative (05/16/19 9:30 AM) [facility] GSPQM1697-26-82 15:30:00Negative (05/16/19 9:30 AM) [facility] VLHMM3335-47-79 15:30:00Not Indicated *NA*(05/16/19 9:30 AM)[facility] UWOMKW6562-09-62 09:06:00Negative *NA*(05/05/19 3:06 AM)[facility] PNMRTG7448-87-49 09:06:00Negative *NA*(05/05/19 3:06 AM) [facility] SAUZNM8740-14-04 09:06:00Negative *NA*(05/05/19 3:06 AM) [facility] UDELKM1360-51-75 09:06:00Negative *NA*(05/05/19 3:06 AM) [facility] BXQRGT6389-43-57 09:06:00Negative *NA*(05/05/19 3:06 AM) [facility] LTCWXP1385-33-79 09:06:00Negative *NA*(05/05/19 3:06 AM) [facility] ICLWKI8427-19-47 09:06:00Negative *NA*(05/05/19 3:06 AM) [facility] QXKZME3638-36-08 09:06:00See Note (05/05/19 3:06 AM) [facility] NPWLE6242-16-46 09:06:00Clear (05/05/19 3:06 AM) [facility] GXVQW8235-43-66 09:06:00* Test Item Value Reference Range Interpretation Comments UA Spec Grav (test code = UA Spec Grav) 1.005 1 [facility] DXJWH2061-53-80 09:06:00* Test Item Value Reference Range Interpretation Comments UA pH (test code = UA pH) 7.0 1 5.0-8.0 [facility] FNBGS0946-33-77 09:06:00Negative *NA*(05/05/19 3:06 AM)[facility] SUWEU7234-18-35 09:06:00Moderate *ABN*(05/05/19 3:06 AM)[facility] RDKXG6932-52-64 09:06:00Negative (05/05/19 3:06 AM)[facility] SDRRB0742-43-76 09:06:00Negative (05/05/19 3:06 AM)[facility] GHGJZ5664-92-10 09:06:00<1[facility] URINE AND KDAMA5816-22-38 09:06:003[facility]annCARDIAC BTXUOKF8971-02-74 08:59:00<0.02[facility] HermannCHEM JJMTU5562-97-12 08:59:97997Kogvdzxm Cal MFZSIZNOIVJU9490-72-28 08:59:0014.7[facility] GajzmcxBWXTLRNEACOD0961-96-12 08:59:00* Test Item Value Reference Range Interpretation Comments B/C Ratio (test code = B/C Ratio) 10 1 6-25 [facility] GyqargrIIQEBWBUKBXU9449-34-95 08:59:003.3[facility] HermannELECTROLYTES 2019-05-05 08:59:00* Test Item Value Reference Range Interpretation Comments A/G Ratio (test code = A/G Ratio) 1.2 1 0.7-1.6 [facility] JmeyjqzKFZCSYOZKTQI7187-63-44 08:59:0095[facility] HermannELECTROLYTES 2019-05-05 08:59:005[facility] QbduagvBYDFXFUTWNDO5530-96-08 08:59:000.51[facility] RoytobnQPWTKCMOYYMF4879-40-77 08:59:82577Kmimxaec BkysxvgJNITMWIBNNCI1028-35-23 08:59:003.7[facility] HxeofmrHREZOSGOTHQI0206-54-74 08:59:29869Tgolnano [place] EHPGMIJFWXZL6384-46-70 08:59:0020[facility] LhpjyzqHQTLCDXGRXYG7003-54-99 08:59:00 8.1[facility] OksdtnxMKEUDJZTPQBO4735-59-43 08:59:007.2[facility] SUYVVLQVSENB5258-85-33 08:59:003.9[facility] FiypikjVBJDVKAMMVZR5105-83-24 08:59:0041[facility] QiwiznwUIUOHWCTLJTN4649-31-41 08:59:0047[facility] KTDXHCBHQODT8939-41-90 08:59:0067[facility] KdfvdtoANGKCUQZFQFL0976-25-82 08:59:00 0.6[facility] QjcmiriYPXFXMSTBNDE2554-66-20 08:59:48037Dmtfvled [place] VAHZIGAZMOBAV4138-98-42 08:59:00Negative *NA*(05/05/19 2:59 AM)[facility] Cal DWMDZAGSNU2749-80-18 08:59:008.9[facility] DpztmxsIPHGSNENHB8797-71-22 08:59:00 4.03[facility] IjlcqtpVSZSUFECEN0679-28-51 08:59:0013.2[facility]annHEMATOLOGY 2019-05-05 08:59:0038.6[facility] GvmdhzcQNUXFBZNKZ9829-66-57 08:59:0095.7[facility] BjwefrpMZAUTILXWZ8896-09-82 08:59:00* Test Item Value Reference Range Interpretation Comments MCH (test code = MCH) 32.6 pg 27.0-31.0 [facility] GeucjjbEVMKQYPASE4360-81-66 08:59:0034.1[facility]annHEMATOLOGY 2019-05-05 08:59:0013.2[facility] CkmotbhGRLGOOBCHN4003-00-83 08:59:07951Mzfmdtia DwaslfsEKGJIUYZGH8531-01-09 08:59:007.1[facility] QhubzinDFAVTKJTOP2947-31-73 08:59:00* Test Item Value Reference Range Interpretation Comments INR (test code = INR) 1.01 1 0.85-1.17 [facility] FplmtoaKOLWSULZWJ1700-08-17 08:59:00* Test Item Value Reference Range Interpretation Comments PT (test code = PT) 13.3 s 12.0-14.7 [facility] FqpeybbRGUPDVJVGW0062-35-22 08:59:00* Test Item Value Reference Range Interpretation Comments PTT (test code = PTT) 24.5 s 22.9-35.8 [facility] WzmjkirEXKTUIDLAT1002-61-09 08:59:0060.8[facility]annHEMATOLOGY 2019-05-05 08:59:0028.4[facility] LhxqckhDDXCCRXXPB4117-01-26 08:59:009.7[facility] DrjnngfMCNFOHAPSY7936-52-03 08:59:000.5[facility] DvgegivFWBOOWWVQZ5220-47-49 08:59:000.6[facility] XnctazzVFPBDYFWJX9870-30-15 08:59:005.4[facility] GZLWVFKATT4796-29-32 08:59:002.5[facility] LkndkxaOXWACVOOYL0935-66-43 08:59:000.9 [facility] OkkpwxeNRKJPPQBPP1462-34-08 08:59:000.1[facility] HermannTOXICOLOGY 2019-05-05 08:59:00<2[facility] RitmxlsDRDEMEDJLP2161-92-49 08:59:55379Jzxfcoap KkvrvelPNGCUNMNYJ4300-39-78 08:59:000.256[facility] JifuwyuSBAFBRNMYM1235-22-54 08:59:00<1.7[facility] HermannCHEM FOEKZ8806-85-12 10:01:0096[facility]annCHEM EMLIX2080-84-72 10:01:0010[facility]annCHEM OFDIW5679-64-95 10:01:000.69 [facility]annCHEM SMXOG3628-92-25 10:01:24186Qsyuvfhr HermannCHEM PANEL 2019-03-28 10:01:003.9[facility] HermannCHEM CLKRJ7133-58-55 10:01:47110Bfvyxlza HermannCHEM TCDTQ5697-84-38 10:01:0032[facility]annCHEM GNVXC4361-64-36 10:01:009.5[facility] HermannCHEM LQMHZ6748-25-64 10:01:74183Gxonisle HermannCHEM XLBVT1727-13-57 10:01:006.9[facility] RorzrvkZHNPKVKIZP5271-87-25 10:01:007.4 [facility] YjaswztVIVSGCMICZ5846-15-87 10:01:003.91[facility]annHEMATOLOGY 2019-03-28 10:01:0013.3[facility] LqztyjvLISBCWDPYQ6637-62-67 10:01:0037.7[facility] CmludxkWWNNPXEQRL8986-37-99 10:01:0096.4[facility] ZoloxbrUBCCGRGAKZ2082-14-41 10:01:00* Test Item Value Reference Range Interpretation Comments MCH (test code = MCH) 34.0 pg 27.0-31.0 [facility] LosatgeXLYSISKFQA3814-92-35 10:01:0035.3[facility]annHEMATOLOGY 2019-03-28 10:01:0013.1[facility] RgegwmnMRKVDEGFTS2344-09-71 10:01:92442Yyzfbdzz XjgxohkQDGMQNQCLD1304-38-79 10:01:007.0[facility] VmirfojLWEFFDJFQG7590-98-19 10:01:00Normal (03/28/19 4:01 AM)[facility] UlqhxeiOMMQXEJOVK9539-30-56 10:01:00 Normal (03/28/19 4:01 AM)[facility] SfjkhldYIIDTGQUTC1654-01-32 10:01:0052.7 [facility] RlduigcEBTAOFPHPS4474-34-13 10:01:0032.3[facility]annHEMATOLOGY 2019-03-28 10:01:0012.1[facility] FrscelvOUXECGPPVU7819-31-75 10:01:001.8[facility] GiohizvWTEGSTZLFA9793-13-46 10:01:001.1[facility] KvoacvuFSGARRQIFJ5979-74-03 10:01:003.9[facility] DhtdnyhLOWCHZKFGN2272-98-02 10:01:002.4[facility] OKIAEKQXKJ9950-65-70 10:01:000.9[facility] JekdeapKBDZQCUUXS7185-54-16 10:01:000.1 [facility] OwgzhvtEYCJDCCACJ5668-60-57 10:01:000.1[facility] HermannELECTROLYTES 2019-03-26 09:23:008.9[facility] ZklxmlaMVWOCJMFVBCA7978-90-62 09:23:07866Pcpwqkez BzbbzinVTOFKSBXBGJZ8711-64-15 09:23:0010[facility] IztfhxnPWKBVCKNBTRJ8908-79-76 09:23:000.68[facility] MdvpcngARHINKFRKDNR6763-63-73 09:23:68812Lejulgma [place] MZFMRBFEDPOB5070-32-93 09:23:003.9[facility] SbhvhllFDZCKXAICUBV1059-01-44 09:23:49104Hbafqxxx JdsdqcuLGBOQQXOQUXP7356-28-52 09:23:0031[facility] [place] NGXKIZMIGHNG3097-58-76 09:23:009.3[facility] OlkoegsGTUVWJBFCYTY8396-90-02 09:23:43043Izbeduhr FfenehwYAAKVGWGYJ7659-25-52 09:23:0058.2[facility] DCVZESFLCQ2376-69-93 09:23:0023.9[facility] HqqflpyWBMZPGBWVT7739-66-35 09:23:00 14.8[facility] SwsymqaGQHGHGUDTS0203-54-97 09:23:001.9[facility]annHEMATOLOGY 2019-03-26 09:23:001.2[facility] VrfhmoiYZCBWTJOXQ7823-05-62 09:23:004.2[facility] ZcztawbZGCBMSZBRQ8623-50-09 09:23:001.7[facility] HismbvtXCZHOWQDIT0962-79-30 09:23:001.1[facility] VqcghdxOWHAHWZZYS1078-70-37 09:23:000.1[facility] [place] KGGEKOXKLO8510-85-22 09:23:000.1[facility] BasuzbpLBQHDLKATL4457-30-30 09:23:007.3 [facility] DejvjwbZYTOBMYPYE1171-63-73 09:23:003.80[facility]annHEMATOLOGY 2019-03-26 09:23:0013.0[facility] HrmaysyFSPUJYWLDB3217-96-85 09:23:0036.1[facility] UwsxavlHMFPJIPBFH0030-65-20 09:23:0095.1[facility] RgdrmmoISITUUFKPX8325-08-00 09:23:00* Test Item Value Reference Range Interpretation Comments MCH (test code = MCH) 34.3 pg 27.0-31.0 [facility] RcleadfHABMISEBZL7379-01-77 09:23:0036.1[facility] HermannHEMATOLOGY 2019-03-26 09:23:0012.9[facility] ShhgjwfTJZPGLWHAX1814-69-34 09:23:45244Ctnpyhum FiahwghIOKENWOIMR4299-05-75 09:23:006.8[facility] DnchvsqYBJMISPBHLII4916-27-17 09:11:008.9[facility] TmdoqgiOMGFIOPMIXHF1578-45-39 09:11:00* Test Item Value Reference Range Interpretation Comments B/C Ratio (test code = B/C Ratio) 8 1 6-25 [facility] MssvshaJGQPBXRTASEB5352-06-78 09:11:004.2[facility] HermannELECTROLYTES 2019-03-25 09:11:00* Test Item Value Reference Range Interpretation Comments A/G Ratio (test code = A/G Ratio) 0.7 1 0.7-1.6 [facility] PkogcpxWTVIGXJBITGK9162-28-02 09:11:0099[facility] HermannELECTROLYTES 2019-03-25 09:11:006[facility] CyohgtjMBSNCXQDZSDU7246-70-70 09:11:000.73[facility] DbkeibePKUJHYGJLYFP7810-13-31 09:11:81158Ranysrlc CvrgulqJOYGVIYOQPWO8712-27-44 09:11:003.9[facility] QdhamgwYSVUBDOCLBYB3749-79-28 09:11:68342Vhciqzfu [place] BZCSTCXELHGP9606-71-60 09:11:0030[facility] DylwzqsGBSPFNWIRFEY5239-73-88 09:11:00 9.3[facility] FjuwaiaTQLVSOQSNGCN0666-02-84 09:11:007.3[facility] HWJDBFSMKRCA9283-77-39 09:11:003.1[facility] TzlbhgkSTDSBOKEPYCB2096-09-71 09:11:0019[facility] NyfmvzhIMBPOUUSLQXL7428-93-46 09:11:0016[facility] WBSAUBMWCHOF9472-86-37 09:11:0076[facility] HepgzxuPHURCYJTTGLB1512-75-19 09:11:00 0.2[facility] UuofjkyRNHIULWQODHM0752-37-25 09:11:29861Wihrbdst HermannHEMATOLOGY 2019-03-25 09:11:008.6[facility] OsdxlgbRBMZFGCLZL3982-62-99 09:11:004.01[facility] TtecborXXLQLKLKNO8455-20-04 09:11:0013.7[facility] KwzcaxaSCHKCNUBJH9991-22-46 09:11:0038.4[facility] RcoshgtYYHOOVAMMP1162-56-49 09:11:0095.9[facility] RFBKAROEFI8101-33-05 09:11:00* Test Item Value Reference Range Interpretation Comments MCH (test code = MCH) 34.2 pg 27.0-31.0 [facility] RkjquxbOMUKIBNEDQ2056-22-28 09:11:0035.7[facility] HermannHEMATOLOGY 2019-03-25 09:11:0013.0[facility] HembytjZVUGYBIDMJ6758-70-68 09:11:13844Ezotkzwa FtkmzwpLUHNZFOXJM4708-12-28 09:11:007.2[facility] FoczkwwCTSCPKEPPF3701-42-52 09:11:0055.6[facility] TzzrotcQQKEIGAOBW1905-92-39 09:11:0023.6[facility] [place] DJYGGNMKZT4002-25-76 09:11:0017.6[facility] KycczwvCBVGQWTMQF2571-30-93 09:11:00 2.2[facility] NmxzvpxCADJFORFTT3499-77-40 09:11:001.0[facility]annHEMATOLOGY 2019-03-25 09:11:004.8[facility] SnejzfjDJHJMTGEKU3021-37-26 09:11:002.0[facility] IocktsjKMVWYIUJQO2430-27-64 09:11:001.5[facility] RvibxphIMIIGDRFJJ8377-18-11 09:11:000.2[facility] EohrpvzVERXKVZYFT4455-26-10 09:11:000.1[facility] HermannCHEM QBQXD5700-07-58 11:19:007.0[facility] HermannCHEM DBQXQ1537-51-66 11:19:003.1 [facility]annCHEM LUTQA5835-43-83 11:19:0023[facility] HermannCHEM PANEL 2019-03-24 11:19:0010[facility] HermannCHEM VWEES3670-62-55 11:19:0070[facility] HermannCHEM DNSXN2522-55-88 11:19:000.2[facility] HermannCHEM UJHJR2351-59-93 11:19:00* Test Item Value Reference Range Interpretation Comments B/C Ratio (test code = B/C Ratio) 6 1 6 [facility]annCHEM JXBJX3645-25-14 11:19:003.9[facility] HermannCHEM PANEL 2019-03-24 11:19:00* Test Item Value Reference Range Interpretation Comments A/G Ratio (test code = A/G Ratio) 0.8 1 0.7-1.6 [facility]annCHEM WDUBK3320-55-12 08:59:007.3[facility] HermannCHEM PANEL 2019-03-23 08:59:003.1[facility] HermannCHEM GYZUJ1842-23-41 08:59:0022[facility] HermannCHEM PUETH9864-48-10 08:59:0012[facility] HermannCHEM DINVA8608-87-08 08:59:0069[facility]annCHEM QUGDP3622-35-68 08:59:000.3[facility] HermannCHEM WAQQD8986-58-80 08:59:00* Test Item Value Reference Range Interpretation Comments B/C Ratio (test code = B/C Ratio) 3 1 6- [facility]annCHEM FSDGV6328-73-42 08:59:004.2[facility]annCHEM PANEL 2019-03-23 08:59:00* Test Item Value Reference Range Interpretation Comments A/G Ratio (test code = A/G Ratio) 0.7 1 0.7-1.6 [facility] KtftqdnWECECLMZPB7194-04-08 08:36:0018.2[facility] HermannIMMUNOLOGY 2019-03-21 08:36:0020.5[facility] HermannCHEM QZKWP8063-65-97 08:42:002.5[facility] HermannCHEM TGLLY9327-68-60 08:42:003.6[facility] HermannBACTERIAL - SEROLOGY 2019-03-20 05:32:00Negative (03/19/19 11:32 PM)[facility] HermannDRUG SCREEN 2019-03-20 05:11:00Negative *NA*(03/19/19 11:11 PM)[facility] HermannDRUG SCREEN 2019-03-20 05:11:00Negative *NA*(03/19/19 11:11 PM)[facility]annDRUG SCREEN 2019-03-20 05:11:00Negative *NA*(03/19/19 11:11 PM)[facility]annDRUG SCREEN 2019-03-20 05:11:00Negative *NA*(03/19/19 11:11 PM)[facility]annDRUG SCREEN 2019-03-20 05:11:00Negative *NA*(03/19/19 11:11 PM)[facility]annDRUG SCREEN 2019-03-20 05:11:00Positive *ABN*(03/19/19 11:11 PM)[facility]annDRUG SCREEN 2019-03-20 05:11:00Negative *NA*(03/19/19 11:11 PM)[facility] HermannDRUG SCREEN 2019-03-20 05:11:00See Note (03/19/19 11:11 PM)[facility]annHEMATOLOGY 2019-03-20 04:27:00* Test Item Value Reference Range Interpretation Comments PT (test code = PT) 13.4 s 12.0-14.7 [facility] JrbrrlzLPXZTUPKPL8547-25-09 04:27:00* Test Item Value Reference Range Interpretation Comments INR (test code = INR) 1.04 1 0.85-1.17 [facility] KpbxxpcVBJVQBMEIQ6703-34-40 04:27:00* Test Item Value Reference Range Interpretation Comments PTT (test code = PTT) 28.6 s 22.9-35.8 [facility] HermannCARDIAC BLNGXBT9650-49-22 02:52:31057Ypgnypba HermannCARDIAC PWNCRLS1838-98-63 02:52:00<0.02[facility] HermannCHEM RZQWA3509-96-02 02:52:000.3 [facility]annCHEM ZNVNB5055-61-82 02:52:000.7[facility] HermannCHEM PANEL 2019-03-20 02:52:0082[facility] YrwcompMGNVEKSFORPQZ3217-26-49 02:52:00Negative *NA*(03/19/19 8:52 PM)[facility] PwkjubgWGBDZYREKR6279-46-20 02:52:00* Test Item Value Reference Range Interpretation Comments PT (test code = PT) 13.2 s 12.0-14.7 [facility] LjnjjxcGWVMFTOAWN1156-55-32 02:52:00* Test Item Value Reference Range Interpretation Comments INR (test code = INR) 1.02 1 0.85-1.17 [facility] OdgopcqYRJPUIJQTJ9605-96-46 23:36:00<3[facility] HermannTOXICOLOGY 2019-03-19 23:36:00<0.003[facility] HermannCARDIAC WZXHVFK4623-10-59 16:46:16686 [facility] HermannCHEM MUZTN8534-93-43 16:46:002.0[facility] HermannELECTROLYTES 2018-12-23 16:46:0014.3[facility] VfubpxjFSQKWJTDFIFW3203-84-85 16:46:003.3 [facility] GhbkapwSNNKAVSTNGZL8898-99-26 16:46:00* Test Item Value Reference Range Interpretation Comments B/C Ratio (test code = B/C Ratio) 6 1 6-25 [facility] TezujkxXDPZKNPVNLFD2972-11-39 16:46:00* Test Item Value Reference Range Interpretation Comments A/G Ratio (test code = A/G Ratio) 1.3 1 0.7-1.6 [facility] LlihhluPUTOABEJBJXM8498-89-16 16:46:000.5[facility] HermannELECTROLYTES 2018-12-23 16:46:34676Rildlcoy CbdllzmEDRTYQNSJBYU6762-70-23 16:46:0082[facility] XdejwwcNJVBPHAEEIOA2450-12-11 16:46:005[facility] OcuedjlSQIKKXAJBVKI2171-87-11 16:46:000.77[facility] DlvlxdbHJZPRPBWRJWQ8723-74-75 16:46:23559Igyjhpde [place] HGVWKNCDSMDF1794-29-66 16:46:004.3[facility] BnwnsyiCFVKMUDBHENW8762-72-79 16:46:16471Tgyegxhw RqhtvmfJLTXAMLZBSMS3839-52-31 16:46:008.9[facility] [place] DOAGBDBAQTTK0016-05-68 16:46:0026[facility] VdzzvzjIZIKNMPWISDB8943-01-64 16:46:00 4.3[facility] DxlzmtqGUEJDZUIPSWI6536-92-14 16:46:0043[facility] HermannELECTROLYTES 2018-12-23 16:46:0041[facility] ZazklyeFIOVUTKPYYIT8305-85-42 16:46:0075[facility] CpwdvkxWFBZJZQMPBMJ5214-65-86 16:46:007.6[facility] AhnqaneEYTHCIUIZBJHD9795-05-44 16:46:00Negative *NA*(12/23/18 11:46 AM)[facility] NkesmlkOLGOEDZGHB6906-22-61 16:46:000.1[facility] BlbyueoGKRCBZWSCC7992-75-29 16:46:000.6[facility] EYDRLBADZE6349-83-52 16:46:001.0[facility] EjagjhdKEKJSAKSVR3510-81-24 16:46:00 16.8[facility] QvkxhcdOHUDQTQJVT3245-54-25 16:46:0075.1[facility] HermannHEMATOLOGY 2018-12-23 16:46:000.2[facility] SbxplbwUJQKKAAIAM7753-08-17 16:46:006.9[facility] AvskukfPGZYSSNUUL9784-27-28 16:46:007.0[facility] LccaycaMHUPLCAZBG8770-61-46 16:46:001.6[facility] UwoaozcMYYIVEHFCB7197-95-67 16:46:004.39[facility] RQBHLYTLNE4999-90-61 16:46:009.3[facility] RipilyaRZCVZBQWPA0215-71-62 16:46:00 14.4[facility] CppzpqbOQJEZIXMCS5615-43-85 16:46:01558Llutjmuj HermannHEMATOLOGY 2018-12-23 16:46:0012.8[facility] NdnfuszSBYATNVFQZ4117-40-11 16:46:007.1[facility] OqejsmeDBSKUVCNXA4297-89-39 16:46:0042.6[facility] WsyndmaSRMTEYJDCE8426-79-75 16:46:0097.2[facility] ZhjqsazVIXQYQTCIF5096-25-77 16:46:0033.8[facility] [place] AGNRGDWTLT9406-45-34 16:46:00* Test Item Value Reference Range Interpretation Comments MCH (test code = MCH) 32.8 pg 27.0-31.0 [facility] AyqqjtrRZCUFHXSAW0191-91-13 16:46:000.282[facility] HermannTOXICOLOGY 2018-12-23 16:46:51571Kzyedbac IbdvoxoNRZYQFPUJWVOB8974-60-12 23:42:00Negative *NA*(01/10/18 6:42 PM)[facility] TztlhitUMFJFZBDOX9780-00-26 23:42:00Positive *ABN*(01/10/18 6:42 PM)[facility]annCHEM ZMMFD1374-48-60 22:09:000.8[facility] HermannCHEM OWTLP7013-25-08 22:09:0084[facility]annCHEM LPQHD0181-41-63 22:09:002.3[facility]annCHEM ZEPCV4374-45-24 22:09:78824Ihdhljbc HermannCHEM SUOYI0917-30-28 22:09:003.5[facility] HermannCHEM EAYVH7137-82-48 22:09:68360 [facility]annCHEM LDMNX8405-51-90 22:09:96120Pcwdmczi HermannCHEM PANEL 2018-01-10 22:09:40988Uihngote HermannCHEM KTPNO7351-65-66 22:09:000.90[facility] HermannCHEM FMCEC9796-47-61 22:09:0010[facility] HermannCHEM OHOGD4007-25-44 22:09:0084[facility]annCHEM DGALT7223-11-17 22:09:007.0[facility]annCHEM VETUV0542-75-91 22:09:008.4[facility]annCHEM VVRTD8597-61-69 22:09:93572 [facility]annCHEM WOMMA6114-74-36 22:09:0027[facility]annCHEM PANEL 2018-01-10 22:09:003.6[facility]annCHEM ITTSL1823-80-74 22:09:0010.6[facility]annCHEM LJKDA8598-58-38 22:09:00* Test Item Value Reference Range Interpretation Comments B/C Ratio (test code = B/C Ratio) 11 1 6-25 [facility]annCHEM PKFOQ2785-76-16 22:09:003.5[facility] HermannCHEM PANEL 2018-01-10 22:09:00* Test Item Value Reference Range Interpretation Comments A/G Ratio (test code = A/G Ratio) 1.0 1 0.7-1.6 [facility] LpfaheoTQFPXBZIEG4718-74-54 22:09:001.0[facility]annHEMATOLOGY 2018-01-10 22:09:004.0[facility] MpamnwfZEABJRXPYC4022-26-63 22:09:008.0[facility] EdutfhbHFEBVJIDWZ5545-13-76 22:09:0053.0[facility] CpkuutjJLUJBXRWCJ1707-81-87 22:09:001+ *ABN*(01/10/18 5:09 PM)[facility] RoummhsYPCRTHARXP6265-61-59 22:09:00 34.0[facility] KzzpcerIQDXARZEYM2409-88-80 22:09:000.0[facility] HermannHEMATOLOGY 2018-01-10 22:09:002.9[facility] VcalhtwGCPQCHMEAX3260-05-61 22:09:001.8[facility] TmnqopxULLEFASYKF0852-72-89 22:09:0015.2[facility] QqephqeCGNSDOVPVY3127-85-40 22:09:004.7[facility] SmxnekrJMWVZLCBOU8603-36-21 22:09:004.74[facility] [place] ZYVVMXHXDQ8960-39-24 22:09:0034.2[facility] LmnjrdmMTVLCCDAEA5312-96-87 22:09:00 13.8[facility] ImsdvhyAYMHYLDZAQ5523-29-69 22:09:0044.4[facility]annHEMATOLOGY 2018-01-10 22:09:00* Test Item Value Reference Range Interpretation Comments MCH (test code = MCH) 32.0 pg 27.0-31.0 [facility] NcvwcihLOKDNUDVIK3831-95-52 22:09:0093.6[facility]annHEMATOLOGY 2018-01-10 22:09:0097[facility] TanghltHKTURNFSCJ5801-96-74 22:09:008.9[facility] HermannURINE AND SBCHI1691-74-92 06:11:001[facility]annURINE AND STOOL 2014-02-20 06:11:00Negative *NA*(02/20/14 1:11 AM)[facility]annUR[facility] STOOL 2014-02-20 06:11:00Small *ABN*(02/20/14 1:11 AM)[facility]UR[facility] STOOL 2014-02-20 06:11:007.0[facility]annURINE AND QCFYN6975-82-35 06:11:007 [facility]UR[facility] AND VLGCL9269-72-83 06:11:00Yellow *NA*(02/20/14 1:11 AM) [facility]UR[facility] AND UBGBB6756-36-28 06:11:00Clear (02/20/14 1:11 AM) [facility]UR[facility] AND NBRQD2021-19-66 06:11:001.011[facility]annUR[facility] AND MZNKS3743-51-28 06:11:00Negative (02/20/14 1:11 AM)[facility]UR[facility] AND HWKUH9873-60-47 06:11:00Negative (02/20/14 1:11 AM)[facility]annURINE CHEM 2014-02-20 06:11:00Negative (02/20/14 1:11 AM)[facility]annCHEM PANEL 2014-02-20 06:07:0076[facility] HermannCHEM UXFAW3851-20-05 06:07:0021[facility]annCHEM QWDMF8007-49-73 06:07:000.3[facility] HermannCHEM ANIPA1155-70-66 06:07:0023[facility]annCHEM MWFUQ5736-08-76 06:07:0042[facility]annCHEM FUVHA6775-03-57 06:07:55918Kpvfnmhc HermannCHEM ZWHJQ2157-57-54 06:07:0029 [facility]annCHEM FIRMF5548-77-93 06:07:81189Wybaskgu HermannCHEM PANEL 2014-02-20 06:07:003.8[facility] HermannCHEM RXRML3202-92-85 06:07:009[facility]annCHEM LZWRT9637-28-39 06:07:001.0[facility]annCHEM NRGJV1144-02-41 06:07:0079[facility]annCHEM OPVBQ0190-74-97 06:07:004.2[facility]annCHEM TDUGK5855-39-92 06:07:009.6[facility] HermannCHEM USHER7052-10-60 06:07:008.0 [facility]annCHEM GJUJZ2677-59-90 06:07:0010.8[facility] HermannCHEM PANEL 2014-02-20 06:07:009[facility] HermannCHEM NXPHI8803-79-33 06:07:003.8[facility] HermannCHEM AVLHL6570-55-49 06:07:001.1[facility]annCHEM QXLYC6453-51-99 06:07:0088[facility] BqxgmbtJWETTWTWIX2466-30-47 06:07:003.9[facility] PCLAUHXJAZ0361-32-34 06:07:0011.2[facility] RchidzhNWLNRCOXMQ5012-36-84 06:07:00 1.3[facility] VsodcxdQDMVEPJYAE9412-29-65 06:07:000.0[facility] HermannHEMATOLOGY 2014-02-20 06:07:000.6[facility] JsadmsoGYLEEBSHBE9405-67-46 06:07:000.8[facility] OqohonsOELJXPCHIC6289-09-10 06:07:002.5[facility] YukgxliLXTPEQUPNK6080-04-62 06:07:000.1[facility] HyruummPBBYJZYFKA3543-02-52 06:07:0034.0[facility] IMRIZUQLUS9079-67-20 06:07:0052.9[facility] HbznyvuUGISBGFUKM6806-10-80 06:07:00 39.3[facility] WqirtkvXNSFDLJEZC8269-26-56 06:07:0013.1[facility]annHEMATOLOGY 2014-02-20 06:07:00* Test Item Value Reference Range Interpretation Comments MCH (test code = MCH) 32.1 pg 27.0-31.0 [facility] VskaobdIQMNAAXJLE9497-14-44 06:07:0096.1[facility] HermannHEMATOLOGY 2014-02-20 06:07:007.3[facility] IwcsumqQJHYLPSIOL8092-53-60 06:07:004.09[facility] OebotkySTDZTAKXAV9555-99-09 06:07:0033.4[facility] BmpyqjuVHBBLCLGAQ5398-21-90 06:07:0013.8[facility] VehbjecUTPJDSQYHH1032-98-44 06:07:49481Kxxfvrup Cal GCNYGNPCSP8552-67-98 06:07:007.7[facility] RkkzkttWRQKRSEIIA5865-72-96 06:07:00 Negative (02/20/14 1:07 AM)[facility]annINFECTIOUS TNXMIFVV8748-11-15 03:07:00 Negative 1(01/30/2012 22:07:00) [facility] PkidadkMQRDRJWKV1312-09-15 23:25:000.1 [facility] OajobucRUZQPSQWJ0231-87-49 23:25:000.2[facility] HermannCHEMISTRY 2012-01-30 23:25:000.1[facility] NtpchhtWDSLOHQOC0736-64-53 23:25:0023[facility] XmlwefrIHNLAQZOI8332-74-99 23:25:0040[facility] FrhgxtpMANNDQPBX2499-69-68 23:25:001.1[facility] IrgyahdYOAKMOMVC0789-50-79 23:25:0070[facility] SBGXFWQSY1091-85-29 23:25:007.2[facility] PpzmuneOZABRNTDI1032-01-37 23:25:003.7 [facility] WqwmnlbPCAMUXYTA1953-28-06 23:25:003.5[facility] HermannCHEMISTRY 2012-01-30 23:25:009.8[facility] YdvoygmPIXZZSXFY9336-57-97 23:25:0030[facility] BwdrftxHEDZBZHID2646-39-90 23:25:99410Nacgveps DzwocxvQNIEYXLYN5164-16-81 23:25:83881Fxwlcswi KdtmdrqHAWBBMAOE9495-11-29 23:25:008.9[facility] BDBWLYFEK3173-17-45 23:25:003.8[facility] YtdoaqdJLOMTVJTT6988-47-25 23:25:0084 [facility] PmvrwlhKEKIWRGLA0633-88-57 23:25:004[facility] WxrvmqpDSTCNZITX8959-24-06 23:25:000.8[facility] VuhfiacYDYOJZSKPC8010-60-43 23:25:0013.5[facility] TNPWRNEIES2585-28-60 23:25:00* Test Item Value Reference Range Interpretation Comments MCH (test code = MCH) 31.4 pg 27.0-31.0 H [facility] TuenkcuSJJBLLNGWA1178-14-99 23:25:0033.8[facility]annHEMATOLOGY 2012-01-30 23:25:0035.9[facility] YsykvnrSNIMGYJQKH0510-99-20 23:25:0093.0[facility] LhdzlgzMXVGNZSEPD6724-89-54 23:25:24653Tgpdgnve AfgkffkWRPIZCAQMB2398-40-23 23:25:007.2[facility] JeuoxroGDZHEMJOAZ7400-45-21 23:25:007.0[facility] MPXPZVIDXT7597-13-15 23:25:003.86[facility] ZjsbiskWWHRIGLTQI1300-40-74 23:25:00 12.1[facility] BnbmpotNAENCBSLXY3845-80-65 23:25:0011.4[facility]annHEMATOLOGY 2012-01-30 23:25:0035.0[facility] MwlrhmcBGHKODGGED5070-34-75 23:25:000.1[facility] CawtpclBIPNTAGPMG0096-97-27 23:25:000.8[facility] MtctibwOQCUOUQGYC5100-37-72 23:25:000.7[facility] GutatecGUGGRRDVCH8689-20-47 23:25:0043.1[facility] EWVMVFDLME5147-79-82 23:25:002.5[facility] IivaolwKXMRZGFDJH5002-62-16 23:25:003.0 [facility] UvrlytsSYLZUFWRHO5478-00-10 23:25:000.8[facility]annHEMATOLOGY 2012-01-30 23:25:009.7[facility] VqjssbzTENPJOKNLW0235-17-24 23:25:002[facility] BeggbwzWQNOXGAJLK1725-38-23 23:25:00<1[facility] KcmuszaYZJQQDQARG7074-22-50 23:25:00<1[facility] BmpkhjvTGITSPQHRH7181-82-90 23:25:004[facility] LYGPRFUJCI0275-60-18 23:25:99167Hdoriypu YguwrsfTLZKHFDQE7685-36-06 19:51:00See Note 2(01/27/2012 14:51:00) [facility] AhpwtueMLBAFIYUT9194-78-46 19:51:00 Negative *NA*(01/27/2012 14:51:00) [facility] KmxxisxHKCIRINTD4845-76-41 19:51:00 Negative *NA*(01/27/2012 14:51:00) [facility] GokbiyxSLLAHVIOJ7586-81-38 19:51:00 Negative *NA*(01/27/2012 14:51:00) [facility] LpqjlvuMMCSNMJUH4399-86-09 19:51:00 Negative *NA*(01/27/2012 14:51:00) [facility] KksilshFCVTIMQSN8209-15-44 19:51:00 Positive *ABN*(01/27/2012 14:51:00) [facility]cl[facility]ouKHUNHFWZM3994-55-85 19:51:00Negative *NA*(01/27/2012 14:51:00) [facility] CenterHqshvbyVLBFWVZCQ9004-05-61 19:51:00Negative *NA*(01/27/2012 14:51:00) [facility] CenterVjecbwaUGYAKDIYN0707-89-61 19:51:00Negative *NA*(01/27/2012 14:51:00) [facility] PflczquKJFAZSFJJ0265-86-12 19:51:00Negative *NA*(01/27/2012 14:51:00) [facility] CenterVbuzixwOUBCGAIFXK2193-39-00 19:51:00Negative *NA*(01/27/2012 14:51:00) [facility] HermannURINALYSIS 2012-01-27 19:51:00Negative mg/dL *NA*(01/27/2012 14:51:00) [facility] Cal LFCOQYXARM9163-91-55 19:51:00Negative mg/dL *NA*(01/27/2012 14:51:00) [facility] QnniscsGBNWFEEIKH7855-75-76 19:51:00Negative (01/27/2012 14:51:00) [facility] DhgqyeyANKSPHMTGH5177-92-09 19:51:00Negative (01/27/2012 14:51:00) [facility] PpkbaxbYNVVWRTVKU4021-47-56 19:51:00Negative (01/27/2012 14:51:00) [facility] CenterUgmvfvoLPBJGDRNRV6362-59-47 19:51:00Few /LPF *NA*(01/27/2012 14:51:00) [facility] QwigpjiWIIEJMTLJM0844-93-64 19:51:00Few /LPF *NA*(01/27/2012 14:51:00) [facility] WdqjiopGEUYVFCRYO5441-73-03 19:51:00Moderate /HPF *ABN*(01/27/2012 14:51:00) [facility] HwkqfogBYUPJGRAIJ7647-41-72 19:51:00<1[facility] FSALBYABMR3214-80-30 19:51:001.004[facility] LuyqdzuZTDSCAJMMM9337-51-00 19:51:00 Clear (01/27/2012 14:51:00) [facility] InwjcydXIVYPEVFZX3263-11-13 19:51:00Light Yellow *NA*(01/27/2012 14:51:00) [facility] VusihlfKVZVTFQWCW2642-11-84 19:51:00 Negative mg/dL (01/27/2012 14:51:00) [facility] EdinybhDGRIJCBPJQ0918-13-06 19:51:008.0[facility] SmjvfwkSCEVQCRJO5726-65-93 12:44:008.2[facility] GHEEYWXAV7986-74-13 12:44:000.3[facility] DsuqrmoVUUSXBYDC6033-25-31 12:44:002.9 [facility] GvisrcnXHBWSJLSN5308-47-42 12:44:0026[facility]annCHEMISTRY 2012-01-27 12:44:0056[facility] NclhezvLXWDLZUXH5404-70-68 12:44:005.7[facility] NhwxicgYJSZHYYLU4236-19-45 12:44:0015[facility] KpawwyeMZOBHZJSH1355-91-80 12:44:000.9[facility] YuoaevkMXEUQPZBU2915-26-01 12:44:0086[facility] OLRDGDQEO8597-55-42 12:44:71331Ynmpevwn UkheajiRZDMMAJSV5353-38-11 12:44:003 [facility] UzgwrnlYPJQKEIVW3564-09-97 12:44:0027[facility] HermannCHEMISTRY 2012-01-27 12:44:38098Ehfoopxa TuhapseEQJWDIIKO2709-47-93 12:44:004.2[facility] EaecwdcDAGHLGYUW6876-47-59 12:44:002.8[facility] PricvkoNYUHDUDJK6870-06-74 12:44:001.0[facility] VvdhwauILUWGSPYH6921-94-69 12:44:003[facility] MSRZAGEQU0696-31-51 12:44:0016.2[facility] OaqwjpmKUVVIEFBAF8292-31-09 12:44:002.6 [facility] BhraneuJIPULZBFPG8012-10-12 12:44:000.9[facility]annHEMATOLOGY 2012-01-27 12:44:000.1[facility] XoqyeyqNZSQBNKHNO1256-85-90 12:44:000.7[facility] FhotqlqLZKRTCGMWI9892-67-47 12:44:003.3[facility] KxfdszhXUQTYKHICE5580-69-25 12:44:000.9[facility] SnlubpbGOCKRUZYXU4488-49-74 12:44:0011.5[facility] OBFUZVMAWN8258-39-26 12:44:0035.0[facility] YonwqihUUWBFMMUKN3216-98-74 12:44:00 8.8[facility] VkvrxxgJDCTNVRSUO9401-70-43 12:44:0043.8[facility] HermannHEMATOLOGY 2012-01-27 12:44:27304Pcxbuhed HklnibiKYVGODJBNA9932-06-86 12:44:007.5[facility] DosodbxNGFXZWDNQR3196-45-43 12:44:007.6[facility] DoxkcszVLHIOWLQOK0638-91-35 12:44:0033.1[facility] TwkxbfmTVUASLCGHJ3134-95-40 12:44:0013.8[facility] CSNRJEMYEY5797-78-94 12:44:003.66[facility] CpielxvHIYPQEEQDZ4072-94-57 12:44:00 11.3[facility] GohgouvDUNAQAPMDA6825-54-22 12:44:0034.2[facility]MAT[facility] 2012-01-27 12:44:0093.4[facility] IyevymxDRNNETSBMF3635-82-67 12:44:00* Test Item Value Reference Range Interpretation Comments MCH (test code = MCH) 30.9 pg 27.0-31.0 N [facility] HermannSTOOL EZSZO1496-87-87 12:15:00None Seen 1(01/26/2012 07:15:00) [facility] HermannSTOOL JSMJH0425-51-74 12:15:00Negative (01/26/2012 07:15:00) [facility] PxaahqoJOLQSMJWR3923-09-83 11:40:00Negative (01/26/2012 06:40:00) [facility] SyqifhuYLXKMKCEAZ0185-56-90 11:40:00Occasional /HPF *NA*(01/26/2012 06:40:00) [facility] JypeuupEVCISUIEGO4723-69-26 11:40:00Negative mg/dL *NA*(01/26/2012 06:40:00) [facility] FddhgznSFREOAEMOM4387-11-92 11:40:00Negative mg/dL (01/26/2012 06:40:00) [facility] DnjzqtaYRBIYMRIQC6820-68-91 11:40:00 Negative mg/dL *NA*(01/26/2012 06:40:00) [facility] JkmamzjXVNICFYFWE0821-81-50 11:40:00Slight *ABN*(01/26/2012 06:40:00) [facility] QajmybpWSJFKZDUIQ0893-32-99 11:40:00Light Yellow *NA*(01/26/2012 06:40:00) [facility]annURINALYSIS 2012-01-26 11:40:008.0[facility] UsvqcakDYFZMSDASS2524-98-92 11:40:001.004[facility] TiwncwfIKDODJIUUE0735-66-80 11:40:001[facility] LxgzlckTXNGDCETUA7912-45-13 11:40:00Occasional /LPF *NA*(01/26/2012 06:40:00) [facility]annURINALYSIS 2012-01-26 11:40:001[facility] XnzkmnyPUHFOWXRRB1880-83-27 11:40:00Negative (01/26/2012 06:40:00) [facility] WbpveubKEPTAOFLGZ2414-37-49 11:40:00Negative (01/26/2012 06:40:00) [facility] RibftpzBCAMXNIDEM8853-04-43 11:40:00Negative (01/26/2012 06:40:00) [facility] BiqnhojCSODCGKTEI5782-39-31 11:40:00Negative *NA*(01/26/2012 06:40:00) [facility] HxmisygTTKXSOBTO9017-63-19 10:42:0026 [facility] KeyocpaUPWBYIYRB8842-83-24 10:42:0093[facility]annCHEMISTRY 2012-01-26 10:42:001.0[facility] XwnkipwRLUJPZARU9553-77-57 10:42:003.5[facility] QkeumafGIZXUGWNB4322-30-05 10:42:007[facility] QdjgrpuWVUSWWIRJ2210-30-80 10:42:00 8.0[facility] LoldwpuLHZBAVIXQ0846-77-35 10:42:0019[facility]annCHEMISTRY 2012-01-26 10:42:0092[facility] SdvmfdxGDZDTNRUS6767-18-54 10:42:0031[facility] IolafnpIVDOVAGQC0033-79-29 10:42:0058[facility] OuqakppRIODWQKDR7943-50-52 10:42:007.1[facility] FgseoakMVXKDUCKC1784-65-91 10:42:003.6[facility] DEQTIETGR6835-41-58 10:42:18435Exipnpcw JsmauseJWDIRLGTP5278-74-44 10:42:0034 [facility] RyflxhePLHZXTDEZ1538-75-09 10:42:008.6[facility]annCHEMISTRY 2012-01-26 10:42:001.1[facility] EjecgbzJTKMNURXX5891-68-44 10:42:008[facility] DabkhqsZGEIRFCYP6454-70-69 10:42:004.0[facility] ZzibcryNRYWIKDQJ2057-57-58 10:42:07169Vrifpjyr UczexhfBDKORAPCD8254-95-87 10:42:000.3[facility] DYGWZEPXNO4556-13-81 10:42:0078.1[facility] VsgilqfTNKQMIEWWN3940-13-24 10:42:00 8.7[facility] EtzpeuuIFZIJCMVEI5850-64-44 10:42:009.6[facility]annHEMATOLOGY 2012-01-26 10:42:000.4[facility] ZkxltzdEEPXZANHNR7819-61-50 10:42:003.2[facility] VkuxlhjKDEXOFGMYV7877-61-09 10:42:001.4[facility] XixmpjhAEKNZJJKFP5160-91-02 10:42:0011.7[facility] QcwqretEXUWWEHGCN6275-06-99 10:42:001.3[facility] PLOJLRMKML3551-45-06 10:42:000.1[facility] ZsmtrncBJVPJARVSU5963-75-08 10:42:000.5 [facility] NmgbuapLVZUDNUNOR1673-45-99 10:42:007.2[facility]annHEMATOLOGY 2012-01-26 10:42:92611Ycuhicav CzilocjSZMGXQHLSM0661-47-44 10:42:0014.2[facility] RpmohitOHJGASKHZN7230-40-98 10:42:0033.9[facility] MeeuirlDYXCATDIAK0817-67-75 10:42:00* Test Item Value Reference Range Interpretation Comments MCH (test code = MCH) 31.4 pg 27.0-31.0 H [facility] InhptznOGFFTUYTOQ3739-27-27 10:42:0092.6[facility]annHEMATOLOGY 2012-01-26 10:42:0014.9[facility] YmnumlaRPKKNWBABL3305-05-22 10:42:003.88[facility] OezepsrMQSYYKWGEV0064-35-00 10:42:0012.2[facility] ZrkyaxhDHCZKTKJEU4177-99-45 10:42:0035.9[facility] QbbugxhGELXCJOGD0198-32-52 03:45:003.4[facility] HASPZDEEB3033-88-38 03:45:001.2[facility] NwpwgzzYFTIBFBEQ7433-77-73 03:45:0010 [facility] GbifmwsYLNRTZHJR6903-88-18 03:45:0012.6[facility] HermannCHEMISTRY 2011-12-31 03:45:000.3[facility] WdoexlcIQQTZQXKK5372-70-27 03:45:0019[facility] IatvjgmZAVOQHSZH2372-86-57 03:45:0073[facility] RfvxugwZQBJQNHOB4437-99-56 03:45:0045[facility] UsoabrbVBDYBBGGK1140-29-51 03:45:007.4[facility] YDGYXNJJT2915-04-14 03:45:004.0[facility] KvlcliePONVSUYXW5336-38-91 03:45:008 [facility] WhzsqcyCNAZDIKKK8421-73-57 03:45:004.6[facility] HermannCHEMISTRY 2011-12-31 03:45:32402Jltefdzb SnmfexzZMDXVLKJN9796-77-61 03:45:30502Uyovhsgf IjycvtqKGYHAJUFE7534-78-11 03:45:0026[facility] LwxhgvjOCDQRMYWN3969-54-21 03:45:000.8[facility] XaxifbcNZBJJLYFA2460-25-20 03:45:009.4[facility] IMDSNZFJH5936-31-21 03:45:0091[facility] PnxdrxtUNJIVOAJD6147-85-10 03:45:55505 [facility] WvwpffuBFVATQCELJ3529-05-43 03:45:0061.2[facility]annHEMATOLOGY 2011-12-31 03:45:0012.1[facility] JpqfjzlJZAISKCETQ9950-54-93 03:45:006.1[facility] RpgcmhqTCCPIPGUJG3672-58-19 03:45:0020.2[facility] KelhjljAXEKTMCOSP9733-49-47 03:45:000.4[facility] ZrklhiaBHVBQIPDBH9509-86-79 03:45:005.9[facility] HXJMMHDWWC6112-70-83 03:45:001.9[facility] ZygzjprOSDMWKDVPZ6271-87-94 03:45:001.1 [facility] DddwkdqMZJMYNBHZQ9154-56-35 03:45:000.6[facility]annHEMATOLOGY 2011-12-31 03:45:000.0[facility] EaepisdEZALAZJGTZ5883-52-12 03:45:0033.7[facility] QbhyjtqAEXSHTMIOB0677-93-86 03:45:88503Bxgqxbms QgtbvqsWHCFPCPLWO4739-21-53 03:45:0091.8[facility] VmnnaqsSXVSERCLHE6310-61-57 03:45:00* Test Item Value Reference Range Interpretation Comments MCH (test code = MCH) 30.9 pg 27.0-31.0 N [facility] CxljdqeYELDKCIUMU1014-96-29 03:45:0012.8[facility]annHEMATOLOGY 2011-12-31 03:45:007.4[facility] EwlpakxSKHJEGDPNL4618-76-89 03:45:009.5[facility] WcpotxjEBDJYKFWIU5535-35-76 03:45:0043.0[facility] JoyushuAEKLGKIKUF0123-53-41 03:45:004.68[facility] AqexkbfWANYUFNYGB5939-05-67 03:45:0014.5[facility] BZIIMZUYQ3884-65-96 03:42:00Negative (12/30/2011 22:42:00) [facility] NSNDICXMEG7210-51-60 03:42:003-5 /HPF (12/30/2011 22:42:00) [facility] KVWBVHFIXB9655-18-56 03:42:003-5 /HPF *ABN*(12/30/2011 22:42:00) [facility] RgsnwccZUMAPJPDLX9945-01-94 03:42:00Negative (12/30/2011 22:42:00) [facility] YwevsmhLWSVXQSPBU5773-36-38 03:42:00Trace *ABN*(12/30/2011 22:42:00) [facility] DqfagzdOQSLEMOBZI3902-03-94 03:42:00Trace *ABN*(12/30/2011 22:42:00) [facility] QosfnpkNUDAHSMYFF1439-33-07 03:42:00Negative *NA*(12/30/2011 22:42:00) [facility] IwieyebFATNRDWMVE9490-67-26 03:42:000.2[facility] HbmftxqGJXUYYNWVS8061-33-07 03:42:00Negative (12/30/2011 22:42:00) [facility] SpofpupYEJMAEKRNK2703-06-68 03:42:00Negative *NA*(12/30/2011 22:42:00) [facility]WJSG0041[facility]-71 03:42:00* Test Item Value Reference Range Interpretation Comments UA pH (test code = UA pH) 7.5 1 5.0-8.0 N [facility] CenterHxpucunTWLGVCSJHE7165-73-15 03:42:00Negative (12/30/2011 22:42:00) [facility] CenterZmyqqhkCOIIFEAQIO2679-84-38 03:42:00Few /LPF (12/30/2011 22:42:00) [facility] CenterEgynbghVKTTHJQQGD7363-38-68 03:42:00Few /LPF (12/30/2011 22:42:00) [facility]QKEQIFIIP3272-89-21 03:42:00Moderate /HPF (12/30/2011 22:42:00) [facility]HsegpaoQBMXAEDAAC0356-24-62 03:42:00Performed (12/30/2011 22:42:00) [facility]QiryzkkYDDCLNNQRU2392-94-96 03:42:00Yellow *NA*(12/30/2011 22:42:00) [facility] CenterMnyybltDSHUZPXRIL2725-78-01 03:42:00Slight Cloudy (12/30/2011 22:42:00) [facility]HxbtolwZUQIUQNMGV4063-36-23 03:42:00* Test Item Value Reference Range Interpretation Comments UA Spec Grav (test code = UA Spec Grav) 1.015 1 N [facility]
[2019-12-20 02:53] LABS: ALANINE AMINOTRANSFERASE 94 IU/L (0-55); ALBUMIN 3.9 g/dL (3.5-5.0); ALBUMIN/GLOBULIN RATIO 1.6 (0.8-2.0); ALKALINE PHOSPHATASE 52 IU/L (40-150); ANION GAP 13.7 mmol/L (8-16); BLOOD UREA NITROGEN 8 mg/dL (7-26); BUN/CREATININE RATIO 12 (6-25); CALCIUM 9.2 mg/dL (8.4-10.2); CARBON DIOXIDE 25 mmol/L (22-29); CHLORIDE 105 mmol/L (98-107); CREATININE, SERUM 0.69 mg/dL (0.57-1.11); EST GLOMERULAR FILTRATION RATE > 60 ML/MIN (60-); GLUCOSE 73 mg/dL (74-118); POTASSIUM 3.7 mmol/L (3.5-5.1); SODIUM 140 mmol/L (136-145)
[2019-12-20 02:54] LABS: BACTERIA,URINE FEW /HPF; EPITHELIAL CELLS,URINE FEW /LPF
[2019-12-20] MEDS ORDERED: CEFTRIAXONE SOD 1 GM/NS 50 ML 50 ML IV ONE (03:00)
--- NOTE | 2019-12-20 03:03 | NUR ---
Pt finished 2 cups of orange juice provided, Dr Balderrama made aware. Will continue to monitor BGL
--- NOTE | 2019-12-20 03:26 | Diagnostic Imaging Report ---
EXAMINATION: CHEST SINGLE (PORTABLE) INDICATION: ^fever COMPARISON: None FINDINGS: TUBES and LINES: None. LUNGS: Hazy right basilar opacity. The left lung is clear. 9 mm nodular density projecting over the posterior eighth left rib. PLEURA: No pleural effusion or pneumothorax. HEART AND MEDIASTINUM: The cardiomediastinal silhouette is unremarkable. BONES AND SOFT TISSUES: No acute osseous lesion. Soft tissues are unremarkable. IMPRESSION: 1. Hazy right basilar opacity concerning infectious/inflammatory process such as pneumonia, but atelectasis could also have this appearance. 2. 9 mm nodular density projecting over the posterior eighth left rib could represent a prominent vessel on end, but a pulmonary nodule is not excluded. Consider radiographic follow-up in 6-8 weeks. Signed by: Thomas Perez MD on 12/20/2019 3:22 AM
--- NOTE | 2019-12-20 03:40 | NUR ---
recheck BGL 135 mg/dL at this time. Dr Balderrama at the bedside, pt for discharge back to rehab facility. No further complaints made.
[2019-12-20 03:46] VITALS: BP_SYST 5
== END 2019-12-20 05:08 | disposition home or self-care (01) ==
LOC: ER 02:38
DX: R50.9 Fever, unspecified (principal); N39.0 Urinary tract infection, site not specified; F10.239 Alcohol dependence with withdrawal, unspecified; F17.210 Nicotine dependence, cigarettes, uncomplicated; R91.8 Other nonspecific abnormal finding of lung field
CPT/HCPCS: 36415; 71045; 80053; 81001; 81025; 82948; 85025; 99284; J0696